=== PATIENT | female | born 1960 | race Caucasian/White ===

== ENCOUNTER 2021-09-15 11:02 | Outpatient (REF) | payer BC, SELFPAY ==
[2021-09-15 11:10] LABS: MANUAL DIFF FLAG NO
[2021-09-15 11:35] LABS: Basophils Absolute Auto 0.1 X10*3/uL (0.0-0.2); Basophils Percent Auto 1.3 % (0-2); Eosinophils Absolute Auto 0.6 X10*3/uL (0.0-0.4); Eosinophils Percent Auto 7.2 % (0-4); Hematocrit 44.4 % (37.0-47.0); Hemoglobin 15.1 g/dl (12.0-16.0); Imm Gran Abs Auto 0.02 X10*3/uL (0.00-0.03); Imm Gran Pct Auto 0.2 % (0.0-0.4); Lymphocytes Absolute Auto 3.9 X10*3/uL (1.2-4.9); Lymphocytes Percent Auto 46.9 % (20-40); Mean Corpuscular Hemoglobin 33.1 pg (27.0-33.0); Mean Corpuscular Volume 97.4 fL (80.0-98.0); Mean Platelet Volume 11.1 fL (9.4-12.3); Monocytes Absolute Auto 0.5 X10*3/uL (0.1-1.2); Monocytes Percent Auto 6.5 % (2-11); Neutrophils Absolute Auto 3.1 x10*3/uL (2.0-8.3); Neutrophils Percent Auto 37.9 % (45-73); Platelet Count 360 X10*3/uL (160-400); Red Blood Count 4.56 X10*6/uL (4.20-5.50); Red Cell Distribution Width 14.7 % (11.0-16.0); White Blood Count 8.3 X10*3/uL (4.8-10.8)
[2021-09-15 11:45] LABS: Appearance Urine CLEAR; Color Urine YELLOW; Glucose Urine UA NEG (NEG); Leukocyte Esterase Urine NEG (NEG); Nitrite Urine NEG (NEG); Specific Gravity - Urine 1.025 (1.005-1.025); Urine Blood NEG (NEG); Urine Ketones NEG (NEG); Urine Protein NEG (NEG-TRACE)
[2021-09-15 11:49] LABS: Alanine Aminotransferase 58 U/L (0-31); Albumin Level 4.2 g/dL (3.5-5.0); Alkaline Phosphatase 72 U/L (39-117); Anion Gap 13 (12-20); Aspartate Amino Transferase 64 U/L (5-31); Bilirubin Total 0.5 mg/dL (0.0-1.0); Blood Urea Nitrogen 5 mg/dL (9-16); Calcium 9.5 mg/dL (8.4-10.2); Carbon Dioxide 30 mmol/L (22-29); Chloride 102 mmol/L (96-108); Cholesterol 128 mg/dL; Estimated Glomerular Filt Rate > 60; Glucose Fasting 85 mg/dL (60-99); HDL Cholesterol 20 mg/dL; LDL Cholesterol Calculated 92 mg/dl; Potassium 4.1 mmol/L (3.3-5.1); Sodium 141 mmol/L (135-145); Total Protein 7.5 g/dL (6.5-8.0); Triglycerides 83 mg/dL
[2021-09-15 12:07] LABS: TSH reflex Free T4 0.96 uIU/mL (0.32-4.0); Vitamin D 25-OH Total 60.1 ng/mL (>30)
[2021-09-15 12:28] LABS: Estimated Average Glucose 91 mg/dL; Hemoglobin A1c % 4.8 %
[2021-09-15 12:34] LABS: Microalbum/Creatinine Ratio Ur 49.1 ug/mg cr
[2021-09-15 12:59] LABS: Reflex LDLD? No
== END 2021-09-15 11:03 | disposition home or self-care (01) ==
LOC: HO.LNP 11:02
PROVIDERS: Visit Provider Internal Medicine
DX: Z00.00 Encounter for general adult medical examination without abnormal findings (principal); R79.89 Other specified abnormal findings of blood chemistry; I25.10 Atherosclerotic heart disease of native coronary artery without angina pectoris; R73.03 Prediabetes; E78.00 Pure hypercholesterolemia, unspecified
CPT/HCPCS: 80053; 80061; 81003; 82043; 82306; 83036; 84443; 85025

== ENCOUNTER 2021-09-24 10:33 | Outpatient (REF) | payer BC, SELFPAY | END 2021-09-24 10:34 | disposition home or self-care (01) | LOC: HO.LNP 10:33 | PROVIDERS: Visit Provider Internal Medicine | DX: Z12.4 Encounter for screening for malignant neoplasm of cervix (principal) | CPT/HCPCS: 88142 ==

== ENCOUNTER 2021-10-16 10:47 | Outpatient (REF) | payer BC, SELFPAY ==
[2021-10-16 10:49] LABS: MANUAL DIFF FLAG NO
[2021-10-16 11:32] LABS: Basophils Absolute Auto 0.1 X10*3/uL (0.0-0.2); Basophils Percent Auto 1.1 % (0-2); Eosinophils Absolute Auto 0.6 X10*3/uL (0.0-0.4); Eosinophils Percent Auto 6.7 % (0-4); Hematocrit 43.3 % (37.0-47.0); Hemoglobin 14.3 g/dl (12.0-16.0); Imm Gran Abs Auto 0.02 X10*3/uL (0.00-0.03); Imm Gran Pct Auto 0.2 % (0.0-0.4); Lymphocytes Absolute Auto 3.9 X10*3/uL (1.2-4.9); Lymphocytes Percent Auto 44.1 % (20-40); Mean Corpuscular Hemoglobin 33.4 pg (27.0-33.0); Mean Corpuscular Volume 101.2 fL (80.0-98.0); Mean Platelet Volume 11.8 fL (9.4-12.3); Monocytes Absolute Auto 0.7 X10*3/uL (0.1-1.2); Monocytes Percent Auto 8.4 % (2-11); Neutrophils Absolute Auto 3.5 x10*3/uL (2.0-8.3); Neutrophils Percent Auto 39.5 % (45-73); Platelet Count 295 X10*3/uL (160-400); Red Blood Count 4.28 X10*6/uL (4.20-5.50); Red Cell Distribution Width 14.6 % (11.0-16.0); White Blood Count 8.8 X10*3/uL (4.8-10.8)
== END 2021-10-16 10:48 | disposition home or self-care (01) ==
LOC: HO.LNP 10:47
PROVIDERS: Visit Provider Internal Medicine
DX: D72.820 Lymphocytosis (symptomatic) (principal)
CPT/HCPCS: 85025

== ENCOUNTER → 2021-12-18 09:24 | Outpatient (REF) | payer BC, SELFPAY ==
--- NOTE | 2021-12-18 09:29 | CA_ITS ---
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 The calculated ejection fraction is 55% by biplane method. - There is mild to moderate aortic valve stenosis. Findings Left Ventricle Normal left ventricular cavity size. There is normal left ventricular wall thickness. The left ventricular systolic function is normal. The calculated ejection fraction is 55% by biplane method. There is no evidence of regional wall motion abnormalities. Diastolic function is normal for age. Right Ventricle Normal right ventricular cavity size. There is mildly decreased right ventricular systolic function. Atria Both atria are normal in size. Aortic Valve There is moderate calcification of the aortic valve. There is mild to moderate aortic valve stenosis. The mean gradient is 17 mmHg. The aortic valve area is 1.08 cm2. There is trace (trivial) aortic valve regurgitation. Dimensionless index 0.36. Stroke volume index 52 cc/m2. Mitral Valve There is mild anterior mitral leaflet thickening. There is trace mitral valve regurgitation. There is no mitral valve stenosis. Pulmonic Valve The pulmonic valve was not well visualized. Tricuspid Valve Normal tricuspid valve structure. There is trace tricuspid valve regurgitation. There is no evidence of pulmonary hypertension. Great Vessels The asc aorta is normal in size. Venous The inferior vena cava is normal in size and collapses greater than 50% with inspiration. Pericardium/Pleural There is no evidence of pericardial effusion. Prior Study Comparison No prior study available for comparison. Measurements 2D Linear Measurements IVSd: 0.88 0.6-0.9/0.6-1.0 cm LVIDd: 3.83 3.9-5.3/4.2-5.9 cm LVIDd Index: 2.55 2.4-3.2/2.2-3.1 cm/m2 LVIDs: 2.40 2.0-3.6 cm LVPWd: 0.67 0.7-1.1 cm LA Diam: 2.80 2.7-3.8/3.0-4.0 cm LAIDs Index: 1.87 1.5-2.3 cm/m2 LV Mass: 102.89 67-162/88-224 g LV Mass Index: 68.59 43-95/49-115 g/m2 LVOT Diam: 2.10 3.0+(-)1.3 cm 2D Systolic Function EF 4C: 53.80 >55% EF 2C: 54.30 >55% EF BiP: 54.70 >55% Mitral Valve MV Pk E: 0.80 MV PK A: 0.92 MV Decel Time: 192.00 E/A: 0.90 E'Lateral: 8.16 E'Medial: 5.44 E/E' Med: 14.60 E/E' Lat: 9.80 PHT: 56.00 MVA PHT: 3.93 Decel [place]: 4.15 Aortic Valve AoV Pk Landon: 2.74 AoV Mn Landon: 1.97 AoV VTI: 0.57 AoV Pk Grad: 30.00 Aov Mn Grad: 17.00 ROSALIO Cont.VTI: 1.08 ROSALIO Method: Continuity Equation LVOT LVOT Pk [place]andon: 0.98 LVOT Mn [place]andon: 0.66 LVOT VTI: 0.20 LVOT Pk Grad: 4.00 LVOT Mn Grad: 2.00 LVOT Diam: 2.10 LVOT Area: 3.46 Diastolic Function MV Pk E: 0.80 MV Pk A: 0.92 E/A: 0.90 E'Medial: 5.44 E/E' Med: 14.60 E' Laterial: 8.16 E/E' Lat: 9.80 Right Ventricle TAPSE (mm): 14.30 TVS' Landon: 10.30 Great Vessels Aorta Sinus of Valsalva: 2.66 2.0-3.5 cm Ao Asc: 2.30 2.1-3.4 cm Pulmonary Veins Pulm Vein S/D 1.40 Updated in Other Vendor System with Status of Final Fabrizio Haile MD electronically signed on 12/20/2021 11:56:46 AM with status of Final
== END ==
LOC: HO.CARD 09:24
PROVIDERS: Visit Provider Internal Medicine
DX: R01.1 Cardiac murmur, unspecified (principal)
CPT/HCPCS: 93306

== ENCOUNTER 2022-09-24 11:02 | Outpatient (REF) | payer BC, SELFPAY ==
[2022-09-24 11:05] LABS: MANUAL DIFF FLAG NO
[2022-09-24 11:38] LABS: Appearance Urine Clear; Color Urine Yellow; Glucose Urine UA Negative (Negative); Leukocyte Esterase Urine Negative (Negative); Nitrite Urine Negative (Negative); PH 5.5 (5.0-9.0); Specific Gravity - Urine 1.015 (1.005-1.025); UMIC TRIGGER UACC YES; Urine Blood Trace (Negative); Urine Ketones Negative (Negative); Urine Protein Negative (Neg-Trace)
[2022-09-24 11:39] LABS: Basophils Absolute Auto 0.1 X10*3/uL (0.0-0.2); Basophils Percent Auto 1.4 % (0-2); Eosinophils Absolute Auto 1.2 X10*3/uL (0.0-0.4); Eosinophils Percent Auto 12.1 % (0-4); Hematocrit 41.4 % (37.0-47.0); Hemoglobin 13.6 g/dl (12.0-16.0); Imm Gran Abs Auto 0.03 X10*3/uL (0.00-0.03); Imm Gran Pct Auto 0.3 % (0.0-0.4); Lymphocytes Absolute Auto 4.7 X10*3/uL (1.2-4.9); Lymphocytes Percent Auto 46.2 % (20-40); Mean Corpuscular HGB Conc 32.9 g/dl (31.0-35.0); Mean Corpuscular Hemoglobin 31.3 pg (27.0-33.0); Mean Corpuscular Volume 95.2 fL (80.0-98.0); Mean Platelet Volume 11.9 fL (9.4-12.3); Monocytes Absolute Auto 0.7 X10*3/uL (0.1-1.2); Neutrophils Absolute Auto 3.3 x10*3/uL (2.0-8.3); Platelet Count 301 X10*3/uL (160-400); Red Blood Count 4.35 X10*6/uL (4.20-5.50); Red Cell Distribution Width 14.5 % (11.0-16.0); White Blood Count 10.1 X10*3/uL (4.8-10.8)
[2022-09-24 11:43] LABS: Bacteria Urine None Seen (None Seen); Hyaline Casts Urine 0-2 /LPF (0-2); RBC Urine 0-2 /HPF (0-2); Squamous Epithelial Cell Urine 0-2 /HPF (0-2); WBC Urine 0-5 /HPF (0-5)
[2022-09-24 11:53] LABS: Estimated Average Glucose 100 mg/dL; Hemoglobin A1c % 5.1 %
[2022-09-24 12:14] LABS: Alanine Aminotransferase 35 U/L (0-31); Albumin Level 3.9 g/dL (3.5-5.0); Alkaline Phosphatase 83 U/L (39-117); Anion Gap 12 (12-20); Aspartate Amino Transferase 30 U/L (5-31); Bilirubin Total 0.9 mg/dL (0.0-1.0); Blood Urea Nitrogen 13 mg/dL (9-16); Calcium 9.5 mg/dL (8.4-10.2); Carbon Dioxide 28 mmol/L (22-29); Chloride 108 mmol/L (96-108); Cholesterol 127 mg/dL; Estimated Glomerular Filt Rate > 60; Glucose Fasting 96 mg/dL (60-99); HDL Cholesterol 14 mg/dL; LDL Cholesterol Calculated 81 mg/dl; Potassium 4.1 mmol/L (3.3-5.1); Sodium 144 mmol/L (135-145); Total Protein 7.1 g/dL (6.5-8.0); Triglycerides 162 mg/dL
[2022-09-24 12:34] LABS: Creatinine Urine 83.96 mg/dL; Microalbum/Creatinine Ratio Ur 9.5 ug/mg cr
== END 2022-09-24 11:03 | disposition home or self-care (01) ==
LOC: HO.LNP 11:02
PROVIDERS: Visit Provider Internal Medicine
DX: Z00.00 Encounter for general adult medical examination without abnormal findings (principal); E78.00 Pure hypercholesterolemia, unspecified; D72.820 Lymphocytosis (symptomatic); R73.03 Prediabetes
CPT/HCPCS: 80053; 80061; 81001; 82043; 83036; 85025

== ENCOUNTER 2022-12-24 13:29 | Outpatient (REF) | payer BC, SELFPAY ==
--- NOTE | ~2022-12-24 | CT_ITS ---
EXAMINATION: LUNG CANCER SCREENING CT CHEST WITHOUT CONTRAST CLINICAL INFORMATION: Current smoker with 47 pack year history COMPARISON: None TECHNIQUE: Multidetector volumetric CT imaging of the chest was obtained noncontrast using low dose screening CT technique. Axial thin section 0.625 mm reformations in soft tissue and lung windows were obtained. Sagittal and coronal reformations were obtained. Axial MIP images were also created and reviewed. This CT examination was performed using dose optimization techniques as appropriate, variously including the following: *Automated exposure control *Adjustment of mA and/or kV according to patient size (this includes techniques or standardized protocols for targeted exams where dose is matched to indication/reason for exam; i.e. extremities or head) *Use of iterative reconstruction technique TOTAL EXAM DLP: 38.37 mGy-cm FINDINGS: PULMONARY NODULES (see sage images): No suspicious pulmonary nodules. There are a couple punctate nodules LUNGS / PLEURA: Minimal emphysema. Diffuse mild bronchial wall thickening without bronchiectasis. No pleural effusion or pneumothorax. MEDIASTINUM / DESMOND: Heart normal in size without pericardial effusion. Great vessels normal caliber. No lymphadenopathy. Coronary calcifications present. Imaged thyroid gland unremarkable. CHEST WALL / AXILLA: Unremarkable. UPPER ABDOMEN: Included portions grossly unremarkable allowing for limitations in technique. OSSEOUS STRUCTURES: No acute or suspicious osseous abnormalities. Chronic appearing superior endplate compression fracture at T8. CT/CT lung screening IMPRESSION: * No evidence of pulmonary malignancy. * There are no pulmonary nodules that meet criteria for short interval follow-up at this time. ASSESSMENT: Lung RADS category: 2. Benign appearance or behavior. Nodules with a very low likelihood of becoming a clinically active cancer due to size or lack of growth. Continue annual screening with low-dose CT in 12 months. Probability of malignancy less than 1%. RECOMMENDATION: Follow up low dose CT chest in 1 year.
== END 2022-12-24 13:30 | disposition home or self-care (01) ==
LOC: HO.CT 13:29
PROVIDERS: PCP Internal Medicine; Visit Provider Physician Assistant Medical
DX: Z12.2 Encounter for screening for malignant neoplasm of respiratory organs (principal); F17.210 Nicotine dependence, cigarettes, uncomplicated
CPT/HCPCS: 71271; G0296

== ENCOUNTER 2022-12-30 10:53 | Outpatient (REF) | payer BC, SELFPAY ==
--- NOTE | ~2022-12-30 | MM_ITS ---
EXAMINATION: MM SCREENING DIGITAL BREAST TOMOSYNTHESIS, BILATERAL CLINICAL INFORMATION: Screening. Asymptomatic. The lifetime risk of breast cancer based on the Tyrer-Cuzick Model is 5%. COMPARISON: Mammography: 09/19/2019, 06/12/2018, 01/25/2017 TECHNIQUE: Digital breast tomosynthesis is performed in both the craniocaudal and mediolateral oblique views along with computer-aided detection (CAD). Synthesized 2D images are generated from the tomosynthesis. FINDINGS: The breasts are heterogeneously dense, which may obscure small masses (ACR BI-RADS breast composition Category c). Breast tissue composition borders on average fibroglandular. Parenchymal pattern is similar to prior studies. Scattered minor asymmetries are stable. No developing density or architectural abnormality. There are no significant masses, abnormal calcifications, or other abnormalities. The axilla are unremarkable. MM/MM tomosynthesis screening BI IMPRESSION: No mammographic evidence of malignancy. ASSESSMENT: BI-RADS 2: Benign RECOMMENDATION: Routine annual mammography screening. This patient's information was entered into a reminder system with a target due date for their next mammogram.
== END 2022-12-30 10:54 | disposition home or self-care (01) ==
LOC: HO.MAMMO 10:53
PROVIDERS: PCP Internal Medicine; Visit Provider Internal Medicine
DX: Z12.31 Encounter for screening mammogram for malignant neoplasm of breast (principal)
CPT/HCPCS: 77063; 77067

== ENCOUNTER 2023-03-22 10:19 | Outpatient (REF) | payer BC, SELFPAY ==
[2023-03-22 10:48] LABS: Estimated Average Glucose 88 mg/dL; Hemoglobin A1c % 4.7 % (<6.0)
[2023-03-22 10:50] LABS: Cholesterol 101 mg/dL (<200); HDL Cholesterol 22 mg/dL (>40); LDL Cholesterol Calculated 64 mg/dL (<100); Triglycerides 75 mg/dL (<150)
[2023-03-22 10:54] LABS: Alanine Aminotransferase 28 U/L (0-31); Alkaline Phosphatase 70 U/L (39-117); Aspartate Amino Transferase 34 U/L (5-31); Bilirubin Direct 0.3 mg/dL (0.0-0.5); Bilirubin Total 0.8 mg/dL (0.0-1.0); Glucose Fasting 107 mg/dL (60-99); Total Protein 7.3 g/dL (6.5-8.0)
[2023-03-22 11:41] LABS: Reflex LDLD? No
== END 2023-03-22 10:20 | disposition home or self-care (01) ==
LOC: HO.LNP 10:19
PROVIDERS: Visit Provider Internal Medicine
DX: E78.00 Pure hypercholesterolemia, unspecified (principal); R73.03 Prediabetes
CPT/HCPCS: 80061; 80076; 82947; 83036

== ENCOUNTER 2023-09-27 11:44 | Outpatient (REF) | payer MEDICARE, SELFPAY ==
[2023-09-27 11:50] LABS: MANUAL DIFF FLAG NO
[2023-09-27 12:16] LABS: Basophils Absolute Auto 0.1 X10*3/uL (0.0-0.2); Basophils Percent Auto 1.1 % (0-2); Eosinophils Absolute Auto 0.9 X10*3/uL (0.0-0.4); Eosinophils Percent Auto 10.2 % (0-4); Hematocrit 43.4 % (37.0-47.0); Hemoglobin 14.7 g/dl (12.0-16.0); Imm Gran Abs Auto 0.02 X10*3/uL (0.00-0.03); Imm Gran Pct Auto 0.2 % (0.0-0.4); Lymphocytes Absolute Auto 3.6 X10*3/uL (1.2-4.9); Lymphocytes Percent Auto 38.8 % (20-40); Mean Corpuscular HGB Conc 33.9 g/dl (31.0-35.0); Mean Corpuscular Hemoglobin 32.3 pg (27.0-33.0); Mean Corpuscular Volume 95.4 fL (80.0-98.0); Mean Platelet Volume 10.9 fL (9.4-12.3); Monocytes Absolute Auto 0.6 X10*3/uL (0.1-1.2); Monocytes Percent Auto 6.6 % (2-11); Neutrophils Percent Auto 43.1 % (45-73); Platelet Count 353 X10*3/uL (160-400); Red Blood Count 4.55 X10*6/uL (4.20-5.50); Red Cell Distribution Width 14.6 % (11.0-16.0); White Blood Count 9.2 X10*3/uL (4.8-10.8)
[2023-09-27 12:28] LABS: Appearance Urine Clear; Color Urine Yellow; Estimated Average Glucose 103 mg/dL; Glucose Urine UA Negative (Negative); Hemoglobin A1c % 5.2 % (<6.0); Leukocyte Esterase Urine Negative (Negative); Nitrite Urine Negative (Negative); PH 6.5 (5.0-9.0); Urine Blood Negative (Negative); Urine Ketones Negative (Negative); Urine Protein Negative (Neg-Trace)
[2023-09-27 12:40] LABS: Alanine Aminotransferase 19 U/L (0-31); Albumin Level 4.1 g/dL (3.5-5.0); Alkaline Phosphatase 74 U/L (39-117); Anion Gap 14 (12-20); Aspartate Amino Transferase 24 U/L (5-31); Bilirubin Total 0.8 mg/dL (0.0-1.0); Blood Urea Nitrogen 7 mg/dL (9-16); Calcium 9.5 mg/dL (8.4-10.2); Carbon Dioxide 28 mmol/L (22-29); Chloride 104 mmol/L (96-108); Cholesterol 149 mg/dL (<200); Estimated Glomerular Filt Rate > 60; Glucose Fasting 114 mg/dL (60-99); HDL Cholesterol 20 mg/dL (>40); LDL Cholesterol Calculated 98 mg/dL (<100); Potassium 3.8 mmol/L (3.3-5.1); Sodium 142 mmol/L (135-145); Total Protein 7.6 g/dL (6.5-8.0); Triglycerides 158 mg/dL (<150)
[2023-09-27 12:55] LABS: Bacteria Urine None Seen (None Seen); Hyaline Casts Urine 0-2 /LPF (0-2); RBC Urine 0-2 /HPF (0-2); Squamous Epithelial Cell Urine 0-2 /HPF (0-2); WBC Urine 0-5 /HPF (0-5)
[2023-09-27 13:08] LABS: Creatinine Urine 98.47 mg/dL; Microalbum/Creatinine Ratio Ur 13.2 ug/mg cr (<30)
== END 2023-09-27 11:45 | disposition home or self-care (01) ==
LOC: HO.LNP 11:44
PROVIDERS: Visit Provider Internal Medicine
DX: Z00.00 Encounter for general adult medical examination without abnormal findings (principal); E78.6 Lipoprotein deficiency; R73.03 Prediabetes; D72.820 Lymphocytosis (symptomatic); E78.00 Pure hypercholesterolemia, unspecified
CPT/HCPCS: 80053; 80061; 81001; 82043; 82570; 83036; 85025

== ENCOUNTER → 2023-10-27 08:47 | Outpatient (REF) | payer MEDICARE, SELFPAY ==
--- NOTE | 2023-10-27 08:55 | CA_ITS ---
Transthoracic Echocardiogram Patient (Last, First, Middle): Ceci Melendez M Gender: Female Date of : 1960 Age: 63 Procedure Date: 10/27/2023 Procedure Type: Transthoracic Echocardiogram Location: OP Height: 165.1 cm Weight: 49.9 kg BSA: 1.53 m2 Heart Rate: bpm BP: 140 / 80 mmHg Sheep Killer: TO Referring MD: Issa Fields MD Symptoms: I35.0 MODERATE Study Quality: Fair ECG Rhythm: Sinus Conclusions: - The left ventricular systolic function is normal. The visually estimated ejection fraction is between 55-60%. - The basal inferior and basal inferolateral segments are hypokinetic. - There is moderate aortic valve stenosis. Findings Left Ventricle Normal left ventricular cavity size. There is normal left ventricular wall thickness. The left ventricular systolic function is normal. The visually estimated ejection fraction is between 55-60%. Evidence suggests grade I (mild) diastolic dysfunction. LV peak GLS -16.6%. Wall Motion Rest Echo Findings The basal inferior and basal inferolateral segments are hypokinetic. Right Ventricle Normal right ventricular cavity size and systolic function. Atria Both atria are normal in size. Aortic Valve There is severe calcification of the aortic valve. There is moderate aortic valve stenosis. The peak aortic velocity is 2.85 m/s with a calculated peak gradient of 32 mmHg. The mean gradient is 20 mmHg. The aortic valve area is 1.02 cm2. There is no aortic valve regurgitation. Dimensionless index 0.35. Stroke volume index 46ml/m2. Mitral Valve There is mild anterior mitral leaflet thickening. There is trace mitral valve regurgitation. There is no mitral valve stenosis. Pulmonic Valve The pulmonic valve is likely normal. Tricuspid Valve There is trace tricuspid valve regurgitation. There is no evidence of pulmonary hypertension. Great Vessels The asc aorta is normal in size. Venous The inferior vena cava is normal in size and collapses greater than 50% with inspiration. Pericardium/Pleural There is no evidence of pericardial effusion. Prior Study Comparison No significant change compared to prior study dated: 12/18/2021. (wall motion noted in some prior images). Measurements 2D Linear Measurements IVSd: 0.97 0.6-0.9/0.6-1.0 cm LVIDd: 4.11 3.9-5.3/4.2-5.9 cm LVIDd Index: 2.69 2.4-3.2/2.2-3.1 cm/m2 LVIDs: 2.70 2.0-3.6 cm LVPWd: 0.64 0.7-1.1 cm LA Diam: 3.10 2.7-3.8/3.0-4.0 cm LAIDs Index: 2.03 1.5-2.3 cm/m2 LV Mass: 121.82 67-162/88-224 g LV Mass Index: 79.62 43-95/49-115 g/m2 LVOT Diam: 2.00 3.0+(-)1.3 cm 2D Systolic Function EF 4C: 56.00 >55% EF 2C: 67.40 >55% EF BiP: 60.10 >55% Mitral Valve MV Pk E: 0.78 MV PK A: 0.85 MV Decel Time: 238.00 E/A: 0.90 E'Lateral: 7.72 E'Medial: 5.33 E/E' Med: 14.60 E/E' Lat: 10.10 PHT: 70.00 MVA PHT: 3.14 Decel [place]: 3.26 Aortic Valve AoV Pk [place]: 2.85 AoV Mn [place]: 2.16 AoV VTI: 0.70 AoV Pk Grad: 32.00 Aov Mn Grad: 20.00 ROSALIO Cont.VTI: 1.02 LVOT LVOT Pk [place]: 1.01 LVOT Mn [place]: 0.68 LVOT VTI: 0.23 LVOT Pk Grad: 4.00 LVOT Mn Grad: 2.00 LVOT Diam: 2.00 LVOT Area: 3.14 Diastolic Function MV Pk E: 0.78 MV Pk A: 0.85 E/A: 0.90 E'Medial: 5.33 E/E' Med: 14.60 E' Laterial: 7.72 E/E' Lat: 10.10 Right Ventricle TAPSE (mm): 22.30 TVS' [place]: 10.10 Tricuspid Valve RA Press: 3.00 Great Vessels Aorta Sinus of Valsalva: 3.36 2.0-3.5 cm Ao Asc: 2.80 2.1-3.4 cm Ao Arch: 2.60 Updated in Other Vendor System with Status of Final Fabrizio Haile MD electronically signed on 10/28/2023 11:31:21 AM with status of Final
== END ==
LOC: HO.CARD 08:47
PROVIDERS: PCP Internal Medicine; Visit Provider Internal Medicine
DX: I35.0 Nonrheumatic aortic (valve) stenosis (principal)
CPT/HCPCS: 93306; 93356

== ENCOUNTER → 2023-10-27 08:55 | Outpatient (BNV) | payer MEDICARE, SELFPAY | PROVIDERS: PCP Internal Medicine; Visit Provider Internal Medicine | DX: I35.0 Nonrheumatic aortic (valve) stenosis (principal) | CPT/HCPCS: 93306; 93356 ==

== ENCOUNTER 2024-01-05 10:47 | Outpatient (REF) | payer MEDICARE, SELFPAY ==
--- NOTE | ~2024-01-05 | MM_ITS ---
EXAMINATION: MM SCREENING DIGITAL BREAST TOMOSYNTHESIS, BILATERAL CLINICAL INFORMATION: Screening. Asymptomatic. COMPARISON: Mammography: This study is compared with prior exams dating back to 2018. TECHNIQUE: Digital breast tomosynthesis is performed in both the craniocaudal and mediolateral oblique views along with computer-aided detection (CAD). Synthesized 2D images are generated from the tomosynthesis. FINDINGS: There are scattered areas of fibroglandular density (ACR BI-RADS breast composition Category b). There are no significant masses, abnormal calcifications, or other abnormalities. There are bilateral benign calcifications. There is postsurgical changes in the inferior aspect of the left breast. MM/MM tomosynthesis screening BI IMPRESSION: No mammographic evidence of malignancy. ASSESSMENT: BI-RADS BI-RADS 2 - Benign Findings RECOMMENDATION: Routine annual mammography screening. 1 year F/U This examination should not preclude the clinical evaluation of a suspicious palpable abnormality. This patient's information was entered into a reminder system with a target due date for their next mammogram.
== END 2024-01-05 10:48 | disposition home or self-care (01) ==
LOC: HO.MAMMO 10:47
PROVIDERS: PCP Internal Medicine; Visit Provider Internal Medicine
DX: Z12.31 Encounter for screening mammogram for malignant neoplasm of breast (principal)
CPT/HCPCS: 77063; 77067

== ENCOUNTER → 2024-01-05 11:00 | Outpatient (BNV) | payer MEDICARE, SELFPAY | PROVIDERS: PCP Internal Medicine; Visit Provider Radiology Diagnostic Radiology | DX: Z12.31 Encounter for screening mammogram for malignant neoplasm of breast (principal) | CPT/HCPCS: 77063; 77067 ==

== ENCOUNTER 2024-03-30 10:42 | Outpatient (REF) | payer MEDICARE, SELFPAY ==
[2024-03-30 11:42] LABS: Estimated Average Glucose 97 mg/dL; Hemoglobin A1C 111.7619 umol/L; Total Hemoglobin (HGBA1C) 3574.0409 umol/L
[2024-03-30 12:11] LABS: Alanine Aminotransferase 17 U/L (0-31); Albumin Level 4.1 g/dL (3.5-5.0); Alkaline Phosphatase 76 U/L (39-117); Aspartate Amino Transferase 25 U/L (5-31); Bilirubin Direct 0.2 mg/dL (0.0-0.5); Bilirubin Total 0.9 mg/dL (0.0-1.0); Cholesterol 117 mg/dL (<200); Glucose Fasting 111 mg/dL (60-99); HDL Cholesterol 20 mg/dL (>40); LDL Cholesterol Calculated 79 mg/dL (<100); Total Protein 7.5 g/dL (6.5-8.0); Triglycerides 91 mg/dL (<150)
[2024-03-30 12:49] LABS: Reflex LDLD? No
== END 2024-03-30 10:43 | disposition home or self-care (01) ==
LOC: HO.LNP 10:42
PROVIDERS: Visit Provider Internal Medicine
DX: R73.03 Prediabetes (principal); E78.00 Pure hypercholesterolemia, unspecified
CPT/HCPCS: 80061; 80076; 82947; 83036

== ENCOUNTER 2024-04-11 10:50 | Outpatient (REF) | payer MEDICARE, SELFPAY ==
--- NOTE | ~2024-04-11 | CT_ITS ---
EXAMINATION: CT LOW-DOSE SCREENING CHEST WITHOUT CONTRAST CLINICAL INFORMATION: Personal history of nicotine dependence. The patient has a 46 pack-year history of smoking, having quit 6 days ago. COMPARISON: CT chest 12/24/2022. TECHNIQUE: Multidetector volumetric CT imaging of the chest is performed on a Siemens SOMATOM Definition scanner without contrast using low dose technique. Additional 2D coronal and sagittal reformatted images and axial 3D maximum intensity projection (MIP) images are generated on the CT workstation. This CT examination was performed using dose optimization techniques as appropriate, variously including the following: *Automated exposure control *Adjustment of mA and/or kV according to patient size (this includes techniques or standardized protocols for targeted exams where dose is matched to indication/reason for exam; i.e. extremities or head) *Use of iterative reconstruction technique TOTAL EXAM DLP: 38 mGy-cm. CTDIvol: 1.00 mGy. FINDINGS: PULMONARY NODULES: Some small punctate nodules, none larger than 3 mm in size, are unchanged (see saved sage images). There is no new, increasing sized or suspicious pulmonary nodule present. LUNGS: Lungs bilaterally symmetrically expanded. There is moderate emphysema along with mild bronchial thickening without bronchiectasis. No effusion or pneumothorax. Central airways patent. MEDIASTINUM: No mediastinal, hilar or axillary adenopathy or free fluid collection. CORONARY ARTERY CALCIFICATION: Moderate. THYROID GLAND: Unremarkable to the extent seen. CARDIOVASCULAR STRUCTURES: Aortic and heart size normal. No pericardial effusion. CHEST WALL/AXILLA: Unremarkable. UPPER ABDOMEN: Included portions of the solid organs in the upper abdomen unremarkable on noncontrast imaging. OSSEOUS STRUCTURES: No suspicious focal findings. Chronic superior endplate fracture of T8 is unchanged. CT/CT lung screening IMPRESSION: No finding seen suspicious for malignancy. ASSESSMENT: 1. Lung-RADS Category 2: Benign appearance or behavior of nodules. N/A 2. Lung-RADS Category S: Negative. There are no clinically significant or potentially clinically significant findings not related to the lungs requiring urgent additional evaluation. RECOMMENDATION: Continued routine annual low-dose CT lung screening in 1 year is recommended. An order for CT CHEST LOW DOSE CANCER SCREENING ([id number]) can be placed. Electronically signed by: Guru Barney MD 05/27/2024 11:14 AM [facility]
== END 2024-04-11 10:51 | disposition home or self-care (01) ==
LOC: HO.CT 10:50
PROVIDERS: PCP Internal Medicine; Visit Provider Physician Assistant Medical
DX: Z12.2 Encounter for screening for malignant neoplasm of respiratory organs (principal); Z87.891 Personal history of nicotine dependence
CPT/HCPCS: 71271

== ENCOUNTER 2024-09-27 10:49 | Outpatient (REF) | payer MEDICARE, SELFPAY ==
[2024-09-27 10:53] LABS: MANUAL DIFF FLAG NO
[2024-09-27 11:01] LABS: Appearance Urine Clear; Color Urine Yellow; Glucose Urine UA Negative (Negative); Leukocyte Esterase Urine Negative (Negative); Nitrite Urine Negative (Negative); Specific Gravity - Urine 1.015 (1.005-1.025); Urine Blood Negative (Negative); Urine Ketones Negative (Negative); Urine Protein Negative (Neg-Trace)
[2024-09-27 11:03] LABS: Basophils Absolute Auto 0.1 X10*3/uL (0.0-0.2); Basophils Percent Auto 1.5 % (0-2); Eosinophils Absolute Auto 1.5 X10*3/uL (0.0-0.4); Eosinophils Percent Auto 15.5 % (0-4); Hematocrit 41.6 % (37.0-47.0); Hemoglobin 13.8 g/dl (12.0-16.0); Imm Gran Abs Auto 0.02 X10*3/uL (0.00-0.03); Imm Gran Pct Auto 0.2 % (0.0-0.4); Lymphocytes Absolute Auto 3.4 X10*3/uL (1.2-4.9); Lymphocytes Percent Auto 35.7 % (20-40); Mean Corpuscular HGB Conc 33.2 g/dl (31.0-35.0); Mean Corpuscular Hemoglobin 31.4 pg (27.0-33.0); Mean Corpuscular Volume 94.5 fL (80.0-98.0); Mean Platelet Volume 11.2 fL (9.4-12.3); Monocytes Absolute Auto 0.7 X10*3/uL (0.1-1.2); Monocytes Percent Auto 6.8 % (2-11); Neutrophils Absolute Auto 3.9 x10*3/uL (2.0-8.3); Neutrophils Percent Auto 40.3 % (45-73); Platelet Count 331 X10*3/uL (160-400); Red Cell Distribution Width 13.9 % (11.0-16.0); White Blood Count 9.6 X10*3/uL (4.8-10.8)
[2024-09-27 11:08] LABS: Bacteria Urine None Seen (None Seen); Hyaline Casts Urine 0-2 /LPF (0-2); RBC Urine 0-2 /HPF (0-2); Squamous Epithelial Cell Urine 0-2 /HPF (0-2); WBC Urine 0-5 /HPF (0-5)
[2024-09-27 11:14] LABS: Estimated Average Glucose 103 mg/dL; Hemoglobin A1c % 5.2 % (<6.0); Total Hemoglobin (HGBA1C) 3611.3715 umol/L
[2024-09-27 11:18] LABS: Alanine Aminotransferase 25 U/L (0-31); Albumin Level 4.1 g/dL (3.5-5.0); Alkaline Phosphatase 79 U/L (39-117); Anion Gap 11 (12-20); Aspartate Amino Transferase 32 U/L (5-31); Bilirubin Total 0.9 mg/dL (0.0-1.0); Blood Urea Nitrogen 12 mg/dL (9-16); Calcium 9.5 mg/dL (8.4-10.2); Carbon Dioxide 28 mmol/L (22-29); Chloride 106 mmol/L (96-108); Cholesterol 133 mg/dL (<200); Estimated Glomerular Filt Rate > 60; Glucose Fasting 108 mg/dL (60-99); HDL Cholesterol 19 mg/dL (>40); LDL Cholesterol Calculated 90 mg/dL (<100); Potassium 3.9 mmol/L (3.3-5.1); Sodium 141 mmol/L (135-145); Total Protein 7.6 g/dL (6.5-8.0); Triglycerides 124 mg/dL (<150)
[2024-09-27 11:59] LABS: Creatinine Urine 123.47 mg/dL; Microalbum/Creatinine Ratio Ur 9.7 ug/mg cr (<30)
== END 2024-09-27 10:50 | disposition home or self-care (01) ==
LOC: HO.LNP 10:49
PROVIDERS: Visit Provider Internal Medicine
DX: Z00.00 Encounter for general adult medical examination without abnormal findings (principal); E78.00 Pure hypercholesterolemia, unspecified; R73.03 Prediabetes; D72.820 Lymphocytosis (symptomatic)
CPT/HCPCS: 80053; 80061; 81001; 82043; 82570; 83036; 85025

== ENCOUNTER → 2024-10-31 13:26 | Outpatient (REF) | payer MEDICARE, SELFPAY ==
--- NOTE | 2024-10-31 14:22 | CA_ITS ---
Transthoracic Echocardiogram Patient (Last, First, Middle): Ceci Melendez M Gender: Female Date of : 1960 Age: 64 Procedure Date: 10/31/2024 Procedure Type: Transthoracic Echocardiogram Location: OP Height: 167.64 cm Weight: 54.43 kg BSA: 1.61 m2 Heart Rate: bpm BP: 130 / 82 mmHg Clinical Veterinarian: TO Referring MD: Issa Fields MD Symptoms: SEVERE I35.0 Study Quality: Adequate ECG Rhythm: Sinus Conclusions: - The left ventricular systolic function is normal. The calculated ejection fraction is 66% by biplane method. - The basal inferior and basal inferolateral segments are hypokinetic. - There is moderate to severe aortic valve stenosis. Findings Left Ventricle Normal left ventricular cavity size. The left ventricular systolic function is normal. The calculated ejection fraction is 66% by biplane method. Evidence suggests grade I (mild) diastolic dysfunction. There is moderate septal asymmetric hypertrophy. Wall Motion Rest Echo Findings The basal inferior and basal inferolateral segments are hypokinetic. Right Ventricle Normal right ventricular cavity size and systolic function. Atria Both atria are normal in size. Aortic Valve There is moderate calcification of the aortic valve. There is moderate to severe aortic valve stenosis. The peak aortic velocity is 3.43 m/s with a calculated peak gradient of 47 mmHg. The mean gradient is 29 mmHg. The aortic valve area is 0.91 cm2. There is trace (trivial) aortic valve regurgitation. Cannot assess if trileaflet or bicuspid. Dimensionless index 0.3. Stroke volume index 42 mL/m2. Mitral Valve The mitral valve appears normal. There is no mitral valve regurgitation. There is no mitral valve stenosis. Pulmonic Valve The pulmonic valve is likely normal. Tricuspid Valve There is trace tricuspid valve regurgitation. There is no evidence of pulmonary hypertension. Great Vessels The asc aorta is normal in size. Venous The inferior vena cava is normal in size and collapses greater than 50% with inspiration. Pericardium/Pleural There is no evidence of pericardial effusion. Prior Study Comparison Changes noted compared to prior study dated: 10/27/2023. Progression of aortic valve stenosis. Measurements 2D Linear Measurements IVSd: 1.04 0.6-0.9/0.6-1.0 cm LVIDd: 4.07 3.9-5.3/4.2-5.9 cm LVIDd Index: 2.53 2.4-3.2/2.2-3.1 cm/m2 LVIDs: 2.76 2.0-3.6 cm LVPWd: 0.72 0.7-1.1 cm LA Diam: 3.10 2.7-3.8/3.0-4.0 cm LAIDs Index: 1.93 1.5-2.3 cm/m2 LV Mass: 136.07 67-162/88-224 g LV Mass Index: 84.52 43-95/49-115 g/m2 LVOT Diam: 2.00 3.0+(-)1.3 cm 2D Systolic Function EF 4C: 64.10 >55% EF 2C: 68.70 >55% EF BiP: 66.40 >55% Mitral Valve MV Pk E: 0.63 MV PK A: 1.22 MV Decel Time: 124.00 E/A: 0.50 E'Lateral: 5.11 E'Medial: 3.81 E/E' Med: 16.50 E/E' Lat: 12.30 PHT: 36.00 MVA PHT: 6.11 Decel [place]: 5.08 Aortic Valve AoV Pk Landon: 3.43 AoV Mn Landon: 2.62 AoV VTI: 0.75 AoV Pk Grad: 47.00 Aov Mn Grad: 29.00 ROSALIO Cont.VTI: 0.91 LVOT LVOT Pk Landon: 1.03 LVOT Mn Landon: 0.67 LVOT VTI: 0.22 LVOT Pk Grad: 4.00 LVOT Mn Grad: 2.00 LVOT Diam: 2.00 LVOT Area: 3.14 Diastolic Function MV Pk E: 0.63 MV Pk A: 1.22 E/A: 0.50 E'Medial: 3.81 E/E' Med: 16.50 E' Laterial: 5.11 E/E' Lat: 12.30 Right Ventricle TAPSE (mm): 23.00 TVS' Landon: 11.20 Tricuspid Valve RA Press: 3.00 Great Vessels Aorta Sinus of Valsalva: 2.96 2.0-3.5 cm Ao Asc: 3.10 2.1-3.4 cm Ao Arch: 2.60 Updated in Other Vendor System with Status of Final Fabrizio Haile MD electronically signed on 10/31/2024 3:51:46 PM with status of Final
--- OUTSIDE RECORDS SUMMARY | 2024-10-31 15:55 | XMS_ITS ---
Author Organization Issa Fields MD Address [address] [place] [phone] Care Team Providers Care Welding Engineer Name Role Phone Issa Fields Primary Care Provider REASON FOR VISIT REFILL ROSUVASTATIN Medications Medication SIG (Take, Route, Frequency, Duration) Notes Start Date End Date Status Rosuvastatin Calcium 40 mg TAKE 1 TABLET DAILY ORALLY DAILY for 90 days Active Encounters Encounter Location Date Provider Diagnosis Issa Fields MD [address] [place] [phone] 10/25/2024 Issa Fields Pure hypercholestero lemia E78.00 Assessments Encounter Date Diagnosis (ICD Code) Assessment Notes Treatment Notes Treatment Clinical Notes Section Notes 10/25/2024 Pure hypercholesterolemia (ICD-10 - E78.00) Plan Of Treatment Medication Medication Name Sig Start Date Stop Date Notes Rosuvastatin Calcium 40 mg TAKE 1 TABLET DAILY ORALLY DAILY for 90 days Next Appt Details Provider Name:Issa keen, 04/05/2025 07:30:00 AM, [address] [place] [address], [address], [phone], Provider Name:Issa keen, 04/12/2025 10:45:00 AM, [address] [place] [address], [address], [phone], Provider Name:Issa Patrick ier, 10/10/2025 07:15:00 AM, [address], [address], [place], [phone], Provider Name:Issa Patrick ier, 10/17/2025 11:00:00 AM, [address], [address], [place], [phone], Progress Notes * Paige MELENDEZOB:1960 (64 yo F)Acc No.[id number]:10/25/2024 Patient:?Ceci MELENDEZ :1960???Age:64 Y???Sex:Female Address:[address] [place] [phone] * Refills? Refill Rosuvastatin Calcium Tablet, 40 mg, ORALLY, 90, TAKE 1 TABLET DAILY, DAILY, 90 days, Refills=3 * true * Date:? Generated for Molly oro/Maria Antonia/eTransmitting on:?10/31/2024 03:55 PM EDT
--- OUTSIDE RECORDS SUMMARY | 2024-10-31 15:55 | XMS_ITS | Patient Health Record ---
Author Organization [facility] [place] Address [address] [place] [address] Care Team Providers Care Small Engine Technician Name Role Phone Issa Fields MD Primary Care Provider Charlene Kendrick Unavailable [phone] Edwin Bradshaw Unavailable [phone] Allergies Allergen (clinical drug ingredient) Drug/Non Drug Allergy documented on EMR Reaction Allergy Type Onset Date Status aspirin Aspirin flares up nasal polyps Drug Allergy Active morphine Morphine itchy Drug Allergy Active Reason For Referral No Information Medications Medication SIG (Take, Route, Frequency, Duration) Notes Start Date End Date Status Fluticasone Propionate 50 MCG/ACT 1 spray in each nostril Nasally Once a day Active Chantix 1 MG 1 tablet Orally Twic e a day Unknown flonase 50 mcg/act as directed Unknown Crestor 40 MG 1 tablet Orally Once a day Unknown Rosuvastatin Calcium 40 MG 1 tablet Oral ly Once a day Active Advair Diskus 100-50 MCG/DOSE 1 puff Inhalation every 12 hrs Active Social History Tobacco Use: Social History Observation Description Date Details (start date - stop date) Former Smoker NA - NA Tobacco use other than smoking: Question Answer Notes Are you an other tobacco user? No Tobacco Control (Standard) Question Answer Notes Tobacco use: Former smoker Additional Findings: Tobacco non-user Ex-cigaret te smoker Problems Problem Type SNOMED Code ICD Code Onset Dates Problem Status W/U Status Risk Notes Problem Acquired hallux valgus (48768452) Hallux valgus (acquired), left foot (M20.12) Active confirmed Problem Plantar wart (76404780) Plantar wart (B07.0) Active confirmed Problem Acquired hammer toe of left foot (71586652067 ) Other hammer toe(s) (acquired), left foot (M20.42) Active confirmed Problem Acquired hallux rigidus (9122891) Hallux rigidus, right foot (M20.21) Active confirmed Problem Acquired hammer toe of left foot (96441425294 ) Hammer toe of left foot (M20.42) Active confirmed Improvement Problem Spasm (52526629) Extensor tendon tightness, contracture (M62.40) Active confirmed Improvement Vital Signs Blood pressure diastolic 80 mm Hg 05/24/2024 Height 5ft6in in 05/24/2024 Blood pressure systolic 130 mm Hg 05/24/2024 Weight 112 lbs 05/24/2024 BMI 18.08 kg/m2 05/24/2024 Procedures Procedure Date Ordered Date Performed Result Body Sit e 64961 - Tenotomy, open flexor 05/17/2024 N/A 97931-Ewsd Destruction, 1-14 05/24/2024 N/A Encounters Encounter Location Date Provider Diagnosis [address] [address] 02/27/2024 Edwin Bradshaw Pain in left toe(s) M79.675 ; Other hammer toe(s) (acquired), left foot M20.42 and Hallux valgus (acquired), left foot M20.[address] [address] 05/17/2024 Charlene Black Hammer toe of left foot M20.[address] [address] 05/24/2024 Charlene Black Hammer toe of left foot M20.42 ; Plantar wart B07.0 and Right foot pain M79.[address] [address] 12/14/2023 Edwin Bradshaw [address] [address] 02/27/2024 Edwin Bradshaw Assessments Encounter Date Diagnosis (ICD Code) Assessment Notes Treatment Notes Treatment Clinical Notes Section Notes 02/27/2024 Pain in left toe(s) (ICD-10 - M79.675) 02/27/2024 Other hammer toe(s) (acquired), left foot (ICD-10 - M20.42) 05/17/2024 Hammer toe of left foot (ICD-10 - M20.42) 05/24/2024 Plantar wart (ICD-10 - B07.0) 05/24/2024 Hammer toe of left foot (ICD-10 - M20.42) Improvement 05/24/2024 Right foot pain (ICD-10 - M79.671) 02/27/2024 Hallux valgus (acquired), left foot (ICD-10 - M20.12) Plan Of Treatment Pending Test Test Name Order Date X ray : Foot, left 3V 11/28/2017 X ray : Foot, left 3V 02/27/2024 X ray : Foot, right 3V 11/28/2017 30569-Sfrk Destruction, -05/24/2024 21329-Ijhd Destruction, -12/19/2017 65418-Ycsm Destruction, -01/16/2018 08885-Waer Destruction, -02/24/2012 63626-Kkyu Destruction, -05/16/2013 71450-Iepe Destruction, 07-2411/28/2017 60125 - Tenotomy, open flexor 05/17/2024 Insurance Providers Payer Name Payer Address Payer Phone Subscriber Number Group Number Insured Name Patient Relationship to Insured Coverage Start Date Coverage End Date [employer] Medicare [id number] [address] [address] [place] [address] [id number] Ceci Melendez Self - patient is the insured Medical (General) History Medical History History ICD Code asthma CAD (Cholesterol) Surgical History Surgery Date(Month/Year) bunionectomy x2 2004/2006 elbow sx 2010 polypectomy 2006, 2009 Ulna nerve Biopsy nasal polypectomy 2013,2018
--- OUTSIDE RECORDS SUMMARY | 2024-10-31 15:55 | XMS_ITS ---
Author Organization [facility] Address [address] [facility] [place] [address] Care Team Providers Care Speeder Machine Operator Name Role Phone Issa Fields MD Primary Care Provider Charlene Kendrick Unavailable [phone] Edwin Bradshaw [phone] REASON FOR VISIT bought products Encounters Encounter Location Date Provider Diagnosis [facility] [address] [place] [address] 02/27/2024 Edwin Bradshaw Plan Of Treatment No Information Progress Notes * Ceci MELENDEZ MDOB: [birth year] (63 yo F)Acc No.[id number]:02/27/2024 Patient:?Ceci Melendez :1960???Age:63 Y???Sex:Female Address:[address] [place] [address] * true * Date:? Generated for Printi ng/Faxing/eTransmitting on:?10/31/2024 03:55 PM EDT
--- OUTSIDE RECORDS SUMMARY | 2024-10-31 15:55 | XMS_ITS | Patient Health Record ---
Author Organization Issa Fields MD Address [address] [place], [place] [id number] Care Team Providers Care Principal Mechanical Engineer Name Role Phone Issa Fields Primary Care Provider [phone] Allergies Allergen (clinical drug ingredient) Drug/Non Drug Allergy documented on EMR Reaction Allergy Type Onset Date Status morphine Morphine Sulfate itch Drug Allergy Active Results Component Value Reference Range Notes Liver Panel Reviewed date:03/30/2024 02:38:27 PM Interpretation: Performing Lab:[address] [phone] Notes/Report: Bilirubin Total 0.9 0.0-1.0 mg/dL Bilirubin Direct 0.2 0.0-0.5 mg/dL Slight Hem olysis Aspartate Amino Transferase 25 5-31 U/L Slight Hemolysis Alanine Aminotransferase 17 0-31 U/L Total Protein 7.5 6.5-8.0 g/dL Albumin Level 4.1 3.5-5.0 g/dL Alkaline Phosphatase 76 39-117 U/L Glucose Fasting Reviewed date:03/30/2024 02:23:42 PM Interpretation: Performing Lab:[address] [phone] Notes/Report: Glucose Fasting 111 60-99 mg/dL A fasting glucose from 100-125 mg/dl is considered impaired (pre-diabetes). Lipid Panel with Reflex Reviewed date:03/30/2024 02:54:01 PM Interpretation: Performing Lab:[facility], [address] [place] [phone] Notes/Report: Triglycerides 91 <150 mg/dL Desirable Triglyceride: less than 150 mg/dL Borderline High Triglyceride 150-199 mg/dL High Triglyceride: 200-499 mg/dL Very High Triglyceride: greater than or equal to 5OO mg/dL Cholesterol 117 <200 mg/dL Desirable Cholesterol: less than 200 mg/dL Borderline High Cholesterol: 200-239 mg/dL High Cholesterol: greater than 239 mg/dL LDL Cholesterol Calculated 79 <100 mg/dL Desirable LDL: less than 100 mg/dL Near Optimal/Above Optimal LDL: 110-129 mg/dL Borderline High LDL: 130-159 mg/dL High LDL: 160-189 mg/dL Very High LDL: greater than or equal to 190 mg/dL HDL Cholesterol 20 >40 mg/dL Desirable HDL: greater than 40 mg/dL Note: This HDL assay may give artificially low results in patients with liver disease. Hemoglobin A1c Reviewed date:03/30/2024 12:32:51 PM Interpretation: Performing Lab:[facility], [address] [place] [phone] Notes/Report: Hemoglobin A1c % 5.0 <6.0 % Hemoglobin A1C Reference Range Adults: 4.8 - 6.0 % Non diabetic: < 6.0 % Goal: < 7.0 % Additional Action Suggested: > 8.0 % Note: Hemoglobin A1c results are invalid for patients with abnormal amounts of HbF. Blood transfusions may impact the HbA1c concentration in the patient sample. Estimated Average Glucose 97 eAG = Estimated average glucose which is %A1C expressed as average glucose, using the formula of the Y5Z-Jsayuon Average Glucose study (ADAG), Diabetes Care, Vol.31,#8, 2007 Complete Blood Count Auto Di ff Reviewed date:09/27/2024 12:52:10 PM Interpretation: Performing Lab:[facility], [address] [place] [phone] Notes/Report: White Blood Count 9.6 4.8-10.8 X10*3/uL Red Blood Count 4.40 4.20-5.50 X10*6/uL Hemoglobin 13.8 12.0-16.0 g/dl Hematocrit 41.6 37.0-47.0 % Mean Corpuscular Volume 94.5 80.0-98.0 fL Mean Corpuscular Hemoglobin 31.4 27.0-33.0 pg Mean Corpuscular HGB Conc 33.2 31.0-35.0 g/dl Red Cell Distribution Width 13.9 11.0-16.0 % Platelet Count 331 160-400 X10*3/uL Mean Platelet Volume 11.2 9.4-12.3 fL Neutrophils Percent Auto 40.3 45-73 % Imm Gran Pct Auto 0.2 0.0-0.4 % Lymphocytes Percent Auto 35.7 20-40 % Monocytes Percent Auto 6.8 2-11 % Eosinophils Percent Auto 15.5 0-4 % Basophils Percent Auto 1.5 0-2 % NRBC Pct Auto 0.0 0.0-0.2 /100WBC Neutrophils Absolute Auto 3.9 2.0-8.3 x10*3/u L Imm Gran Abs Auto 0.02 0.00-0.03 X10*3/uL Lymphocytes Absolute Auto 3.4 1.2-4.9 X10*3/u L Monocytes Absolute Auto 0.7 0.1-1.2 X10*3/uL Eosinophils Absolute Auto 1.5 0.0-0.4 X10*3/u L Basophils Absolute Auto 0.1 0.0-0.2 X10*3/uL NRBC Abs Auto 0.000 0.0-0.012 X10*3/uL Comprehensive [place]. Panel Fa st Reviewed date:09/27/2024 12:52:33 PM Interpretation: Performing Lab:[facility], [address] [place] [phone] Notes/Report: Sodium 141 135-145 mmol/L Potassium 3.9 3.3-5.1 mmol/L Chloride 106 96-108 mmol/L Carbon Dioxide 28 22-29 mmol/L Anion Gap 11 12-20 Blood Urea Nitrogen 12 9-16 mg/dL Creatinine 0.67 0.5-1.4 mg/dL Estimated Glomerular Filt Rate > 60 Chronic Kidney Disease: Estimated GFR < 60 mL/min/1.73m2 Severe Kidney Disease: Estimated GFR < 15 mL/min/1.73m2 Glucose Fasting 108 60-99 mg/dL A fasting glucose from 100-125 mg/dl is considered impaired (pre-diabetes). Calcium 9.5 8.4-10.2 mg/dL Bilirubin Total 0.9 0.0-1.0 mg/dL Aspartate Amino Transferase 32 5-31 U/L Alanine Aminotransferase 25 0-31 U/L Total Protein 7.6 6.5-8.0 g/dL Albumin Level 4.1 3.5-5.0 g/dL Alkaline Phosphatase 79 39-117 U/L Lipid Panel Reviewed date:09/27/2024 12:16:09 PM Interpretation: Performing Lab:[facility], [address] [place] [phone] Notes/Report: Triglycerides 124 <150 mg/dL Desirable Triglyceride: less than 150 mg/dL Borderline High Triglyceride 150-199 mg/dL High Triglyceride: 200-499 mg/dL Very High Triglyceride: greater than or equal to 5OO mg/dL Cholesterol 133 <200 mg/dL Desirable Cholesterol: less than 200 mg/dL Borderline High Cholesterol: 200-239 mg/dL High Cholesterol: greater than 239 mg/dL LDL Cholesterol Calculated 90 <100 mg/dL Desirable LDL: less than 100 mg/dL Near Optimal/Above Optimal LDL: 110-129 mg/dL Borderline High LDL: 130-159 mg/dL High LDL: 160-189 mg/dL Very High LDL: greater than or equal to 190 mg/dL HDL Cholesterol 19 >40 mg/dL Desirable HDL: greater than 40 mg/dL Note: This HDL assay may give artificially low results in patients with liver disease. Microalbumin, Random Reviewed date:09/27/2024 12:18:28 PM Interpretation: Performing Lab:[facility], [address] [place] [phone] Notes/Report: Creatinine Urine 123.47 Microalbumin Urine 12.0 Microalbum/Creatinine Ratio Ur 9.7 <30 ug/mg cr Albumin/Creatinine Ratio Reference Ranges: Normal: < 30 ug/mg creatinine Microalbuminuria: 30 - 300 ug/mg creatinine Clinical Albuminuria: > 300 ug/mg creatinine Hemoglobin A1c Reviewed date:09/27/2024 12:11:44 PM Interpretation: Performing Lab:[facility], [address] [place] [phone] Notes/Report: Hemoglobin A1c % 5.2 <6.0 % Hemoglobin A1C Reference Range Adults: 4.8 - 6.0 % Non diabetic: < 6.0 % Goal: < 7.0 % Additional Action Suggested: > 8.0 % Note: Hemoglobin A1c results are invalid for patients with abnormal amounts of HbF. Blood transfusions may impact the HbA1c concentration in the patient sample. Estimated Average Glucose 103 eAG = Estimated average glucose which is %A1C expressed as average glucose, using the formula of the F3V-Jrrrubn Average Glucose study (ADAG), Diabetes Care, Vol.31,#8, Feb. 2007 UA ClnCatch+Micro w/rflx Cul t Reviewed date:09/27/2024 12:52:49 PM Interpretation: Performing Lab:[facility], [address] [place] [phone] Notes/Report: Urine, Clean Catch Color Urine Yellow Appearance Urine Clear PH 6.0 5.0-9.0 Glucose Urine UA Negative Negative mg/dL Urine Blood Negative Negative Specific [place] - Urine 1.015 1.005-1.025 Urine Protein Negative Neg-Trace mg/dL Urine Ketones Negative Negative mg/dL Nitrite Urine Negative Negative Leukocyte Esterase Urine Negative Negative RBC Urine 0-2 0-2 /HPF WBC Urine 0-5 0-5 /HPF Squamous Epithelial Cell Urine 0-2 0-2 /HPF Bacteria Urine None Seen None Seen Hyaline Casts Urine 0-2 0-2 /LPF MM tomosynthesis screening B I Reviewed date:02/06/2024 05:31:48 PM Interpretation: Performing Lab: Notes/Report: [facility]'[address] [place] [address] Mammography Report Signed Patient: Ceci Melendez MR#: [id number] 01 : 1960 Acct:[id number] Age/Sex: 63 / F ADM Date: 01/05/24 Loc: ALEX Attending Dr: Issa Fields MD Ordering Physician: Issa Fields MD Results: 2Be nign Findings Date of Service: 01/05/24 Follow Up: 1 Year From Orig inal Mammogram Procedure(s): MM tomosynthesis screening BI Accession Number(s): [id number] cc: Issa Fields MD EXAMINATION: MM SCREENING DIGITAL BREAST TOMOSYNTHESIS, BILATERAL CLINICAL INFORMATION: Screening. Asymptomatic. COMPARISON: Mammography: This study is compared with prior exams dating back to 2018. TECHNIQUE: Digital breast tomosynthesis is performed in both the craniocaudal and mediolateral oblique views along with computer-aided detection (CAD). Synthesized 2D images are generated from the tomosynthesis. FINDINGS: There are scattered areas of fibroglandular density (ACR BI-RADS breast composition Category b). There are no significant masses, abnormal calcifications, or other abnormalities. There are bilateral benign calcifications. There is postsurgical changes in the inferior aspect of the left breast. MM/MM tomosynthesis screening BI IMPRESSION: No mammographic evidence of malignancy. ASSESSMENT: BI-RADS BI-RADS 2 - Benign Findings RECOMMENDATION: Routine annual mammography screening. 1 year F/U This examination should not preclude the clinical evaluation of a suspicious palpable abnormality. This patient's information was entered into a reminder system with a target due date for their next mammogram. Dictated By: Elenita Chávez MD Signed By: <Electronically signed by Elenita Chávez MD in OV> 02/03/24 0825 DD/ 1116 TD/TT: Hospice Art Therapist: [facility] [address] [place] [address] Mammography Report Signed Patient: Bakari Melendez MR#: [id number] 01 : 1960 Acct:[id number] Age/Sex: 63 / F ADM Date: 01/05/24 Loc: ALEX Attending Dr: Issa Fields MD Ordering Physician: Issa Fields MD Results: 2Be nign Findings Date of Service: 01/05/24 Follow Up: 1 Year From [facility] ina Mammogram Procedure(s): MM tomosynthesis screening BI Accession Number(s): [id number] cc: Issa Fields MD EXAMINATION: MM SCREENING DIGITAL BREAST TOMOSYNTHESIS, BILATERAL CLINICAL INFORMATION: Screening. Asymptomatic. COMPARISON: Mammography: This study is compared with prior exams dating back to 2018. TECHNIQUE: Digital breast tomosynthesis is performed in both the craniocaudal and mediolateral oblique views along with computer-aided detection (CAD). Synthesized 2D image s are generated from the tomosynthesis. FINDINGS: There are scattered areas of fibroglandular density (ACR BI-RADS breast composition Category b). There are no significant masses, abnormal calcifications, or other abnormalities. There are bilateral benign calcifications. There is postsurgica l changes in the inferior aspect of the left breast. MM/MM tomosynthesis screening BI IMPRESSION: No mammographic evidence of malignancy. ASSESSMENT: BI-RADS BI-RADS 2 - Benign Findings RECOMMENDATION: Routine annual mammography screening. 1 year F/U This examination should not preclude the clinical evaluation of a suspicious palpable abnormality. This patient's information was entered into a reminder system with a target due date for their next mammogram. Dictated By: Elenita Chávez MD Signed By: <Electronically signed by Elenita Chávez MD in OV> 02/03/24 0825 DD/ 1116 TD/TT: Hospice Art Therapist: Bola Mitchell Reviewed date:03/30/2024 12:20:49 PM Interpretation: Performing Lab:[facility], [address] [place] [phone] Notes/Report: Bola Mitchell See Note Specimen held untested for 24 hours; Call to request Chemistry testing. CT lung screening Reviewed date:05/27/2024 04:42:08 PM Interpretation: Performing Lab: Notes/Report: [address] [address] [address] Scan Report Signed Patient: Ceci Melendez MR#: [id number] 01 : 1960 Acct:[id number] Age/Sex: 63 / F ADM Date: 04/11/24 Loc: HO.CT Attending Dr: Wilma Nazario PA-C Ordering Physician: Wilma Nazario PA-C Date of Service: 04/11/24 Procedure(s): CT lung screening Accession Number(s): [id number] cc: Issa Fields MD; Wilma Nazario PA-C EXAMINATION: CT LOW-DOSE SCREENING CHEST WITHOUT CONTRAST CLINICAL INFORMATION: Personal history of nicotine dependence. The patient has a 46 pack-year history of smoking, having quit 6 days ago. COMPARISON: CT chest 12/24/2022. TECHNIQUE: Multidetector volumetric CT imaging of the chest is performed on a Siemens SOMATOM Definition scanner without contrast using low dose technique. Additional 2D coronal and sagittal reformatted images and axial 3D maximum intensity projection (MIP) images are generated on the CT workstation. This CT examination was performed using dose optimization techniques as appropriate, variously including the following: *Automated exposure control *Adjustment of mA and/or kV according to patient size (this includes techniques or standardized protocols for targeted exams where dose is matched to indication/reason for exam; i.e. extremities or head) *Use of iterative reconstruction technique TOTAL EXAM DLP: 38 mGy-cm. CTDIvol: 1.00 mGy. FINDINGS: PULMONARY NODULES: Some small punctate nodules, none larger than 3 mm in size, are unchanged (see saved sage images). There is no new, increasing sized or suspicious pulmonary nodule present. LUNGS: Lungs bilaterally symmetrically expanded. There is moderate emphysema along with mild bronchial thickening without bronchiectasis. No effusion or pneumothorax. Central airways patent. MEDIASTINUM: No mediastinal, hilar or axillary adenopathy or free fluid collection. CORONARY ARTERY CALCIFICATION: Moderate. THYROID GLAND: Unremarkable to the extent seen. CARDIOVASCULAR STRUCTURES: Aortic and heart size normal. No pericardial effusion. CHEST WALL/AXILLA: Unremarkable. UPPER ABDOMEN: Included portions of the solid organs in the upper abdomen unremarkable on noncontrast imaging. OSSEOUS STRUCTURES: No suspicious focal findings. Chronic superior endplate fracture of T8 is unchanged. CT/CT lung screening IMPRESSION: No finding seen suspicious for malignancy. ASSESSMENT: 1. Lung-RADS Category 2: Benign appearance or behavior of nodules. N/A 2. Lung-RADS Category S: Negative. There are no clinically significant or potentially clinically significant findings not related to the lungs requiring urgent additional evaluation. RECOMMENDATION: Continued routine annual low-dose CT lung screening in 1 year is recommended. An order for CT CHEST LOW DOSE CANCER SCREENING ([id number]) can be placed. Electronically signed by: Guru Barney MD 05/27/2024 11:14 AM EST Dictated By: Guru Barney MD Signed By: <Electronically signed by Guru Barney MD in OV> 05/27/24 1114 DD/ 1056 TD/TT: 04/11/24 1105 Hospice Art Therapist: [address] [address] [address] Scan Report Signed Patient: Bakari Melendez MR#: [id number] 01 : 1960 Acct:[id number] Age/Sex: 63 / F ADM Date: 04/11/24 Loc: HO.CT Attending Dr: Wilma Nazario PA-C Ordering Physician: Wilma Nazario PA-C Date of Service: 04/11/24 Procedure(s): CT derrell g screening Accession Number(s): [id number] cc: Issa Fields MD; Wilma Nazario PA-C EXAMINATION: CT LOW-DOSE SCREENIN G CHEST WITHOUT CONTRAST CLINICAL INFORMATION: Personal history of nicotine dependence. The patient has a 46 pack-year history of smoking, having quit 6 days ago. COMPARISON: CT chest 12/24/2022. TECHNIQUE: Multidetector volumetric CT imaging of the chest is performed on a Siemens SOMATOM Definition scanner without contrast using low dose technique. Additiona l 2D coronal and sagittal reformatted images and axial 3D maximum intensity projection (MIP) images are generated on the CT workstation. This CT examination was performed using dose optimization techniques as appropriate, various ly including the following: *Automated exposure control *Adjustment of mA and/or kV according to patient size (this includes techniques or standardized protocols for targeted exams where dose is matched to indication/reason for exam; i.e. extremities or head) *Use of iterative reconstruction technique TOTAL EXAM DLP: 38 mGy-cm. CTDIvol: 1.00 mGy. FINDINGS: PULMONARY NODULES: Some small punctate nodules, none larger than 3 mm in size, are unchang ed (see saved sage images). There is no new, increasing sized or suspicious pulmonary nodule present. LUNGS: Lungs bilaterally symmetrically expanded. There is moderate emphysema along with mild bronchial thickening without bronchiectasis. No effusion or pneumothorax. Central airways patent. MEDIASTINUM: No mediastinal, hilar or axillary adenopathy or free fluid collection. CORONARY ARTERY CALCIFICATION: Moderate. THYROID GLAND: Unremarkable to the extent seen. CARDIOVASCULAR STRUCTURES: Aortic and heart size normal. No pericardial effusion. CHEST WALL/AXILLA: Unremarkable. UPPER ABDOMEN: Included portions of the solid organs in the upper abdomen unremarkable on noncontrast imaging. OSSEOUS STRUCTURES: No suspicious focal findings. Chronic superior endplate fracture of T8 is unchanged. CT/CT lung screening IMPRESSION: No finding seen suspicious for malignancy. ASSESSMENT: 1. Lung-RADS Categor y 2: Benign appearance or behavior of nodules. N/A 2. Lung-RADS Categor y S: Negative. There are no clinically significant or potentially clinically significant findings not related to the lungs requiring urgent additional evaluation. RECOMMENDATION: Continued routine annual low-dose CT lung screening in 1 year is recommended. An orde r for CT CHEST LOW DOSE CANCER SCREENING ([id number]) can be placed. Electronically naomi d by: Guru Barney MD 05/27/2024 11:14 AM EST Dictated By: Guru Barney MD Signed By: <Electronically signed by Guru Barney MD in OV> 05/27/24 1114 DD/ 1056 TD/TT: 04/11/24 1105 Hospice Art Therapist: NAHUM Mitchell Reviewed date:09/27/2024 12:16:19 PM Interpretation: Performing Lab:[facility], [address] [place] [phone] Notes/Report: Bola Mitchell See Note Specimen held untested for 24 hours; Call to request Chemistry testing. Reason For Referral Reason needs colonoscopy Diagnosis 1 Colon cancer screeni ng (Z12.11) Referral Organization Issa Fields MD Referring Provider First Name Issa Referring Provider Last Name Diamond Referring Provider Speciality Internal M edicine Referred Provider Leland Quintanilla Referred Provider Specialty Gastroentero logy General Notes Tia Krueger 0 10/18/2024 01:58:09 PM >info faxed, Tia Krueger 10/22/2024 02:47:26 PM >per office info refaxed Referral Priority Routine Reason De Quervain's diseas e ( tenosynovitis ) Diagnosis 1 De Quervain's diseas e (tenosynovitis) (M65.4) Referral Organization Issa Fields MD Referring Provider First Name Issa Referring Provider Last Name Diamond Referring Provider Speciality Internal M edicine Referred Provider Debbie Wood Referred Provider Specialty Hand Surgery General Notes Tia Krueger 0 10/22/2024 02:50:49 PM >info faxed Referral Priority Routine Reason Nasal polyps Diagnosis 1 Nasal polyps (J33.9) Referral Organization Issa Fields MD Referring Provider First Name Issa Referring Provider Last Name Diamond Referring Provider Speciality Internal M edicine Referred Provider [facility], [facility] [place] Referred Provider Specialty Allergy/Immu nology General Notes Tia Krueger 0 10/19/2024 10:57:53 AM > info faxed Referral Priority Routine Medications Medication SIG (Take, Route, Frequency, Duration) Notes Start Date End Date Status Rosuvastatin Calcium 40 mg TAKE 1 TABLET DAILY ORALLY DAILY for 90 days Active Ventolin HFA * 108 (90 Base) [...] 50 mg TAKE 1 TABLET DAILY Active Immunizations Vaccine Route Administration Date Status Comme nts Flu Vaccine IM Intramuscular 04/06/2011 Administered Flu Vaccine IM Intramuscular 08/22/2012 Administered Flu Vaccine Unknown 03/20/2015 Administered HAD IT AT [facility] Fluarix Quadrivalent IM Intramuscular 04/13/2016 Administe red Fluarix Quadrivalent IM Intramuscular 04/26/2017 Administaleja red TDaP Unknown 06/10/2017 Administered pt was given the vaccine at [facility] in [place]. Fluarix Quadrivalent IM Intramuscular 04/24/2018 Admingail red PPSV23 (Pnemovax) IM Intramuscular 05/08/2018 Administered Tetanus Unknown 06/10/2017 Administered Fluarix Quadrivalent IM Intramuscular 03/15/2019 Admingail red Prevnar 13 IM Intramuscular 09/18/2019 Administered Fluarix Quadrivalent IM Intramuscular 03/26/2020 Admingail red Fluarix Quadrivalent IM Intramuscular 04/02/2021 Administe red TDaP Unknown 06/05/2021 Administered [facility] SARS-COV-2 Moderna Unknown 09/01/2020 Administered SARS-COV-2 Moderna Unknown 09/29/2020 Administered SARS-COV-2 Moderna Unknown 05/04/2021 Administered Fluarix Quadrivalent IM Intramuscular 04/08/2022 Administe red Fluarix Quadrivalent IM Intramuscular 03/22/2023 Administe red Fluarix Quadrivalent - 150 IM Intramuscular 03/30/2024 Administered Social History Tobacco Use: Social History Observation [...] you last smoked? Less than 1 month Problems Problem Type SNOMED Code ICD Code Onset Dates Problem Status W/U Status Risk Notes Problem Lymphocytosis (39637503) Lymphocytosis (D72.820) Active confirmed Problem [id number] Acute recurren t maxillary sinusitis (J01.01) Active confirmed Problem 8521572 Panlobular emphy sema (J43.1) Active confirmed Problem 440880624 Low HDL (under 4 0) (E78.6) Active confirmed Problem 38591220 Alcohol abuse (F10.10) Active confirme d Problem Current smoker (78628314) Current smoker (F17.200) Active confirmed Problem 56582264 Dysthymia (F34.1) Active confirmed Problem 745646885 Multiple allergi es (Z88.9) Active confirmed Problem 64228382 CAD (coronary ar andres disease) (I25.10) Active confirmed Problem 652658354 Recurrent sinus infections (J32.9) Active confirmed Problem 929690654 Prediabetes (R73.03) Active confirmed Problem 023962720 Pure hypercholesterolemia (E78.00) Active confirmed Problem 289492049 History of viral pericarditis (Z86.79) Active confirmed Problem Aortic valve disorder (2995131) Moderate aortic stenosis (I35.0) Active confirmed Problem 831589124 Recurrent sinusi tis (J32.9) Active confirmed Vital Signs Blood pressure diastolic 70 mm Hg 10/09/2024 davonte ght is up 4 pounds since 10-02-24 Height 66 in 10/09/2024 weight is up 4 pounds since 10-02-24 Blood pressure systolic 132 mm Hg 10/09/2024 weig ht is up 4 pounds since 10-02-24 Weight 121 lbs 10/09/2024 weight is up 4 pounds since 10-02-24 BMI 19.53 kg/m2 10/09/2024 weight is up 4 pounds since 10-02-24 Encounters Encounter Location Date Provider Diagnosis Issa Fields MD [address] [place] [id number] 03/30/2024 Issa Fields Prediabetes R73.03 ; Encounter for immunization Z23 and Pure hypercholesterolemia E78.00 Issa Fields MD [address] [place] [id number] 09/27/2024 Issa Fields Blood tests for rout ine general physical examination Z00.00 ; Pure hypercholesterolemia E78.00 ; Prediabetes R73.03 and Lymphocytosis D72.820 Issa Fields MD [address] [place] [address] [id number] 11/15/2023 Issa Fields Nasal polyps J33.9 a nd Recurrent sinus infections J32.9 Issa Fields MD [address] [place] [id number] 04/06/2024 Issa Fields Nasal polyps J33.9 ; Recurrent sinus infections J32.9 ; Alcohol abuse F10.10 ; Low HDL (under 40) E78.6 and Moderate aortic stenosis I35.0 Issa Fields MD [address] [place] [address] [id number] 06/05/2024 Issa Fields Nasal polyps J33.9 a nd Recurrent sinus infections J32.9 Issa Fields MD [address] [place] [address] [id number] 08/03/2024 Issa Fields Nasal polyps J33.9 a nd Recurrent sinus infections J32.9 Issa Fields MD [address] [place] [address] [id number] 10/02/2024 Issa Fields Recurrent sinusitis J32.9 Issa Fields MD [address] [place] [address] [id number] 10/09/2024 Issa Fields Annual physical exam Z00.00 ; Moderate aortic stenosis I35.0 ; Nasal polyps J33.9 ; De Quervain's disease (tenosynovitis) M65.4 ; Pure hypercholesterolemia E78.00 ; Panlobular emphysema J43.1 and Depression screening Z13.31 Issa Fields MD [address] [place] [address] [id number] 11/01/2023 Issa Fields Moderate aortic sten osis I35.0 Issa Fields MD [address] [phone] 11/22/2023 Issa Fields MD [address] [place] [phone] 11/25/2023 Issa Fields MD [address] [phone] 10/25/2024 Issa Fields Pure hypercholestero lemia E78.00 Assessments Encounter Date Diagnosis (ICD Code) Assessment Notes Treatment Notes Treatment Clinical Notes Section Notes 03/30/2024 Prediabetes (ICD-10 - R73.03) 03/30/2024 Encounter for immunization (ICD-10 - Z23) 09/27/[address] ine general physical examination (ICD-10 - Z00.00) 11/15/2023 Nasal polyps (ICD-10 - J33.9) patient verbalized understanding of medication and directions for use 11/15/2023 Recurrent sinus infections (ICD-10 - J32.9) patent verbalized understanding of medication and directions for use 04/06/2024 Nasal polyps (ICD-10 - J33.9) patient verbalized understanding of medicationand directions for use 04/06/2024 Recurrent sinus infections (ICD-10 - J32.9) 06/05/2024 Nasal polyps (ICD-10 - J33.9) prednisone helps shrink polyps 08/03/2024 Nasal polyps (ICD-10 - J33.9) patient verbalized understanding f medication and directions for use 10/02/2024 Recurrent sinusitis (ICD-10 - J32.9) patient verbalized understanding of medication and directions for use 10/09/2024 Annual physical exam (ICD-10 - Z00.00) labs reviewed and discussed with patient, colonoscopy referral 10/09/2024 Moderate aortic stenosis (ICD-10 - I35.0) order faxed to [facility] dept , pending diagnostic testing 10/25/2024 Pure hypercholesterolemia (ICD-10 - E78.00) 03/30/2024 Pure hypercholesterolemia (ICD-10 - E78.00) 09/27/2024 Pure hypercholesterolemia (ICD-10 - E78.00) 04/06/2024 Alcohol abuse (ICD-1 0 - F10.10) doing well on naltrexone 06/05/2024 Recurrent sinus infections (ICD-10 - J32.9) needs ab and prednisone, patient verbalized understanding of medication and directions fo use 08/03/2024 Recurrent sinus infections (ICD-10 - J32.9) 10/09/2024 Nasal polyps (ICD-10 - J33.9) referral to allergy 11/01/2023 Moderate aortic stenosis (ICD-10 - I35.0) 09/27/2024 Prediabetes (ICD-10 - R73.03) 04/06/2024 Low HDL (under 40) (ICD-10 - E78.6) ldl is doing well still with a low hdl, will continue current regiment 10/09/2024 De Quervain's diseas e (tenosynovitis) (ICD-10 - M65.4) referral to hand center 09/27/2024 Lymphocytosis (ICD-1 0 - D72.820) 04/06/2024 Moderate aortic stenosis (ICD-10 - I35.0) THE ECHO ORDER WAS PRINTED AND FILED IN FUTURE FOLDER, pending diagnostic testing 10/09/2024 Pure hypercholesterolemia (ICD-10 - E78.00) stable, will continue current regiment 10/09/2024 Panlobular emphysema (ICD-10 - J43.1) doing well, will continue current regiment 10/09/2024 Depression screening (ICD-10 - Z13.31) negative screen Plan Of Treatment Pending Test Test Name Order Date Electrocardiogram (EKG) 04/16/2016 Electrocardiogram (EKG) 05/06/2017 ECHO 10/09/2024 ECHO 10/23/2021 CA echo transthoracic complete 4 CA echo transthoracic complete 4 Future Test Test Name Order Date CA echo transthoracic complete 2 Next Appt Details Provider Name:Issa Patrick ier, 04/05/2025 07:30:00 AM, [address] [place] [address], [address] [place] [address], [phone], Provider Name:Issa Patrick ier, 04/12/2025 10:45:00 AM, [address] [place] [address], Suite [facility], [place], [place], [phone], Provider Name:Issa Patrick ier, 10/10/2025 07:15:00 AM, [address] [place] [address], [address] [place] [address], [phone], Provider Name:Issa Patrick ier, 10/17/2025 11:00:00 AM, [address] [place] [address], Suite [facility], [place], [place], [phone], Insurance Providers Payer Name Payer Address Payer Phone Subscriber Number Group Number Insured Name Patient Relationship to Insured Coverage Start Date Coverage End Date [facility] are [employer] [address] [address] [place] [address] [id number] Ceci Melendez Self - patient is the insured MEDICARE [employer] [address] [place] [address] [id number] Ceci Melendez Self - patient is the insured Medical (General) History Medical History History ICD Code 06/18/15 - Colonoscopy done b y Dr. Jay Kenny - repeat n 10 years as all polyps were hyperplastic varenicline is chantix
--- OUTSIDE RECORDS SUMMARY | 2024-10-31 15:56 | XMS_ITS ---
Author Organization Issa Fields MD Address [address] [place] [phone] Care Team Providers Care Commodity Management Specialist Name Role Phone Issa Fields Primary Care Provider Allergies Allergen (clinical drug ingredient) Drug/Non Drug Allergy documented on EMR Reaction Allergy Type Onset Date Status morphine Morphine Sulfate itch Drug Allergy Active REASON FOR VISIT SINUS PROBLEMS, Video [phone] Medications Medication SIG (Take, Route, Frequency, Duration) [...] Location Date Provider Diagnosis Issa Fields MD [address] [place] [address] [place] [phone] 10/02/2024 Issa Fields Recurrent sinusitis J32.9 Assessments [...] use Next Appt Details Provider Name:Issa keen, 04/05/2025 07:30:00 AM, [address] [place] [address], [address] [facility], [place], [place], [phone], Provider Name:Issa keen, 04/12/2025 10:45:00 AM, [address] [place] [address], [address] [place] [address], [phone], Provider Name:Issa keen, 10/10/2025 07:15:00 AM, [address] [place] [address], [address], [place], [place], [phone], Provider Name:Issa Patrick ier, 10/17/2025 11:00:00 AM, [address] [facility], [address], [place], [place], [phone], Progress Notes * Paige MELENDEZOB:1960 (64 yo F)Acc No.[id number]:10/02/2024 Patient:?Ceci MELENDEZ Provider:?Issa Fields MD :1960???Age:64 Y???Sex:Female D ate:10/02/2024 Address:[address] [place] [address] [facility] Subjective: * Chief Complaints: * ???SINUS PROBLEMSVideo [phone] * HPI: ???Symptom(s):?Telehealth?Location of provider rendering services:?[address] [place] [address], [address],?Location of patient:?at address listed in demographics for today's visit,?Patient identification confirmed using:?Name, ,?Telehealth method:?Video conference where patient is visible to the provider of care,?Consent:?Patient verbally consented to treatment, Patient verbally consented to billing insurance company, Patient informed of any privacy concerns related to method of visit,?Total time spend talking with patient (minutes)?20.?patient is a 64 yo female telehealth visit with complanit of sinus issues./ nasal polyps are bothering her. prednisone helped but still feels like an infection. * ROS:?General/Constitutional:?Denies?Chills.?Denies?Fatigue.?Denies?Fever.?Admits?Headache.?ENT:?Admits?Sinus pain.?Denies?Sore throat.?Respiratory:?Denies?Cough.?Denies?Shortness of breath at rest.?Denies?Shortness of breath with exertion.?Gastrointestinal:?Denies?Diarrhea.?Denies?Nausea.? * Medical History:? * Surgical History:? * Hospitalization/Major Diagno stic Procedure:? * Medications:?TakingAdvair Di skus 100-50 MCG/ACT Aerosol Powder Breath Activated USE [...] TAKE 1 TABLET TWICE A DAY DIRECTED Not-Taking/PRNpredniSONE 10 MG Tablet 1 tablet with food [...] as needed Inhalation every 4 hrs * Allergies:?Morphine Sulfate: itchyes[Allergies Verified] Objective: * Vitals:?Ht: 66, Wt: 117, BMI :18.88, Wt-k.07. weight is 117? BP? not taken today? no temp. * Examination: ???General Examination: ?GENERAL APPEARANCE:?alert, well hydrated, in no distress.? Assessment: * Assessment: 1.?Recurrent sinusitis - J32 .9 (Primary)??? Plan: * Treatment: * Procedure Codes:? * * Sign off status: Completed true * Provider:?Isas Fields MD Date:?0 10/02/2024 Generated for Molly oro/Maria Antonia/Carlitos on:?10/31/2024 03:56 PM EDT History and Physical Notes * HPI (History of Present Illness) Category Sub-Category Detail Notes Category Not es Symptom(s) Telehealth Location of [facility] rendering services:: [address], [address] patient is a [...]
--- OUTSIDE RECORDS SUMMARY | 2024-10-31 15:56 | XMS_ITS ---
Author Organization Issa Fields MD Address [address] [place], [place] [phone] Care Team Providers Care Shim Plug Cutter Name Role Phone Issa Fields Primary Care Provider [phone] Allergies Allergen (clinical drug ingredient) Drug/Non Drug [...] Provider Speciality Internal M edicine Referred Provider [facility] rich, [facility] [place] Referred Provider Specialty Allergy/Immu nology General Notes Tia Krueger 0 10/19/2024 10:57:53 AM > info faxed Referral Priority Routine REASON FOR VISIT ANNUAL EXAM Medications Medication [...] Location Date Provider Diagnosis Issa Fields MD [address] [place] [address] [address] [place], [place] [phone] 10/09/2024 Issa Fields Annual physical exam Z00.00 [...] stenosis (ICD-10 - I35.0) order faxed to [facility] , pending diagnostic testing 10/09/2024 Nasal polyps (ICD-10 - J33.9) referral to allergy 10/09/2024 De Quervain's diseas e (tenosynovitis) (ICD-10 - M65.4) referral to [facility] 10/09/2024 Pure hypercholesterolemia (ICD-10 - E78.00) stable, [...] referral Moderate aortic stenosis order faxed to [facility] , pending diagnostic testing Nasal polyps referral to allergy De Quervain's disease (tenosynovitis) re ferral to [facility] Pure hypercholesterolemia stable, will c ontinue current regiment Panlobular emphysema doing well, will co ntinue current regiment Depression screening negative screen Pending Test Test Name Order Date ECHO 10/09/2024 Referrals Referral Date Details 10/09/2024 10/09/2024, needs co lonoscopy, Leland Quintanilla 10/09/2024 10/09/2024, De Querv ain's disease ( tenosynovitis ), Debbie Wood 10/09/2024 10/09/2024, Nasal po lyps, [facility] [place] [facility] Appt Details Follow Up: 6 Months, Reason: Provider Name:Issa Patrick ier, 04/05/2025 07:30:00 AM, [address], [address], [place], [phone], Provider Name:Issa Patrick ier, 04/12/2025 10:45:00 AM, [address], [address], [place], [phone], Provider Name:Issa stallingsr, 10/10/2025 07:15:00 AM, [address], [address], [place], [phone], Provider Name:Issa stallingsr, 10/17/2025 11:00:00 AM, [address], [address], [place], [phone], Progress Notes * Paige MELENDEZOB:1960 (64 yo F)Acc No.[id number]:10/09/2024 Progress Notes Patient:?Ceci MELENDEZ Provider:?Issa Fields MD :1960???Age:64 Y???Sex:Female D ate:10/09/2024 Address:[address] [place], [place] [phone] Subjective: * Chief Complaints: * ???ANNUAL EXAM * HPI: ???Depression Screening:?PHQ-9?Little interest or pleasure in doing things?Not at all,?Feeling down, depressed, or hopeless?Not at all,?Trouble falling or staying asleep, or sleeping too much?Not at all,?Feeling tired or having little energy?Not at all,?Poor appetite or overeating?Not at all,?Feeling bad about yourself or that you are a failure, or have let yourself or your family down?Not at all,?Trouble concentrating on things, such as reading the newspaper or watching television?Not at all,?Moving or speaking so slowly that other people could have noticed; or the opposite, being so fidgety or restless that you have been moving around a lot more than usual?Not at all,?Thoughts that you would be better off or of hurting yourself in some way?Not at all,?Total Score?0.?Interpretation and Intervention?Depression Screening Findings?Negative,?Follow-Up for Depression?: review of PHQ-9 found negative result, no follow-up needed.?Communication Needs:?Communication Needs?Does the patient have a hearing impairment?No,?Does the patient have a vision impairment??Yes,?If yes, what is the vision impairment??Glasses,?Does the patient have a cognition impairment??No.?SDOH Questions:?SDOH Questions?In the past year have you been worried about losing housing??No,?In the past year have you or any family members you live with been unable to get any of the following when it was really needed? Check all that apply:?None.?Symptom(s):? patient is a 64 yo female here for annk visit with review of recent labs and follow up of chronic issues. * ROS:?General/Constitutional:?Change in appetite?denies.?Chills?denies.?Fever?denies.?Ophthalmologic:?Blurred vision?denies.?Discharge?denies.?Pain?denies.?ENT:?Decreased hearing?denies.?Sore throat?denies.?Swollen glands?denies.?Endocrine:?Cold intolerance?denies.?Excessive thirst?denies.?Heat intolerance?denies.?Weight loss?denies.?Respiratory:?Cough?denies.?Shortness of breath at rest?denies.?Shortness of breath with exertion?denies.?Wheezing?denies.?Cardiovascular:?Chest pain at rest?denies.?Chest pain with exertion?denies.?Irregular heartbeat?denies.?Shortness of breath?denies.?Gastrointestinal:?Abdominal pain?denies.?Change in bowel habits?denies.?Diarrhea?denies.?Nausea?denies.?Rectal bleeding?denies.?Vomiting?denies .?Genitourinary:?Blood in urine?denies.?Difficulty urinating?denies.?Frequent urination?denies.?Urinary incontinence?Denies.?Musculoskeletal:?Painful joints?denies.?Weakness?denies.?Skin:?Dry skin?denies.?Itching?denies.?Denies?Mole(s),? changes in moles, new moles or any lesions of concern.?Denies?Photosensitivity.?Rash?denies.?Neurologic:?Dizziness?denies.?Fainting?denies.?Headache?denies.? * Medical History:? * Surgical History:? * Hospitalization/Major Diagno stic Procedure:? * Family History:?Father: dece ased 64 yrs.?Mother: 78 yrs.?2 brother(s) . 1 son(s) . .? Father AAA rupture, Mother-Natural, Denies mental health/substance abuse family history, Denies mental health/substance abuse family history, Denies mental health/substance abuse family history. * Social History:?Tobacco Use:?Tobacco Control (Standard)?Tobacco use:?Former smoker,?When did you stop smoking??09/18/2024,?How long has it been since you last smoked??Less than 1 month.?Miscellaneous:?Caffeine: yes, frequency:, 3-4 cups per day. Children: yes. Community involvements: no. Exercise: no. Home smoke detector use: yes. Housing: owning. Living with: spouse. Marital status: . Occupation: retired. Pets: dog x1. Travel outside of the [place]: no. ???Drug/Alcohol:?AUDIT-C (Standard)?Did you have a drink containing alcohol in the past year??Yes,?How often did you have a drink containing alcohol in the past year??2 to 4 times a month (2 points),?How many drinks did you have on a typical day when you were drinking in the past year??1 or 2 drinks (0 point),?How often did you have six or more drinks on one occasion in the past year??Never (0 point),?Points?2,?Interpretation?Negative.? * Medications:?TakingAdvair Di skus 100-50 MCG/ACT Aerosol [...] reviewed and reconciled with the patient * Allergies:?Morphine Sulfate: itchyes[Allergies Verified] Objective: * Vitals:?Ht: 66, Wt: 121, BMI :19.53, BP:132/70, Wt-k.89. weight is up 4 pounds since 10-02-24. * ???Past Orders: ???Lab:UA ClnCatch+Micro w/r flx Cult (Order Date - 09/27/2024) (Collection Date & Time - 09/27/2024 08:00 AM) ? Value Reference Range ?Color Urine Yellow - ?Appearance Urine Clear - ?PH 6.0 5.0-9.0 - ?Glucose Urine UA Negative Neg ative - mg/dL ?Urine Blood Negative Negative - ?Specific [place] - Urine 1.015 1.005-1.025 - ?Urine Protein Negative Neg-Tr elias - mg/dL ?Urine Ketones Negative Negati ve - mg/dL ?Nitrite Urine Negative Negati ve - ?Leukocyte Esterase Urine Negative Negative - ?RBC Urine 0-2 0-2 - /HPF ?WBC Urine 0-5 0-5 - /HPF ?Squamous Epithelial Cell Urine 0-2 0-2 - /HPF ?Bacteria Urine None Seen None Seen - ?Hyaline Casts Urine 0-2 0-2 - /LPF ???Lab:Complete Blood Count Auto Diff (Order Date - 09/27/2024) (Collection Date & Time - 09/27/2024 08:00 AM) ? Value Reference Range ?White Blood Count 9.6 4. 8-10.8 - X10*3/uL ?Red Blood Count 4.40 4.20 -5.50 - X10*6/uL ?Hemoglobin 13.8 12.0-16.0 - g/dl ?Hematocrit 41.6 37.0-47.0 - % ?Mean Corpuscular Volume 94.5 80.0-98.0 - fL ?Mean Corpuscular Hemoglobin 31.4 27.0-33.0 - pg ?Mean Corpuscular HGB Conc 33.2 31.0-35.0 - g/dl ?Red Cell Distribution Width 13.9 11.0-16.0 - % ?Platelet Count 331 160-4 00 - X10*3/uL ?Mean Platelet Volume 11.2 9.4-12.3 - fL ?Neutrophils Percent Auto 40.3 L 45-73 - % ?Imm Gran Pct Auto 0.2 0. 0-0.4 - % ?Lymphocytes Percent Auto 35.7 20-40 - % ?Monocytes Percent Auto 6.8 2-11 - % ?Eosinophils Percent Auto 15.5 H 0-4 - % ?Basophils Percent Auto 1.5 0-2 - % ?NRBC Pct Auto 0.0 0.0-0. 2 - /100WBC ?Neutrophils Absolute Auto 3.9 2.0-8.3 - x10*3/uL ?Imm Gran Abs Auto 0.02 0. 00-0.03 - X10*3/uL ?Lymphocytes Absolute Auto 3.4 1.2-4.9 - X10*3/uL ?Monocytes Absolute Auto 0.7 0.1-1.2 - X10*3/uL ?Eosinophils Absolute Auto 1.5 H 0.0-0.4 - X10*3/uL ?Basophils Absolute Auto 0.1 0.0-0.2 - X10*3/uL ?NRBC Abs Auto 0.000 0.0-0. 012 - X10*3/uL ???Lab:Comprehensive Roma. P mer Fast (Order Date - 09/27/2024) (Collection Date & Time - 09/27/2024 08:00 AM) ? Value Reference Range ?Sodium 141 135-145 - mmo l/L ?Bilirubin Total 0.9 0.0- 1.0 - mg/dL ?Aspartate Amino Transferase 32 H 5-31 - U/L ?Alanine Aminotransferase 25 0-31 - U/L ?Total Protein 7.6 6.5-8. 0 - g/dL ?Albumin Level 4.1 3.5-5. 0 - g/dL ?Alkaline Phosphatase 79 39-117 - U/L ?Potassium 3.9 3.3-5.1 - mmol/L ?Chloride 106 96-108 - mm ol/L ?Carbon Dioxide 28 22-29 - mmol/L ?Anion Gap 11 L 12-20 - ?Blood Urea Nitrogen 12 9-16 - mg/dL ?Creatinine 0.67 0.5-1.4 - mg/dL ?Estimated Glomerular Filt Rate > 60 - ?Glucose Fasting 108 H 60-9 9 - mg/dL ?Calcium 9.5 8.4-10.2 - m g/dL ???Lab:Lipid Panel (Order Da te - 09/27/2024) (Collection Date & Time - 09/27/2024 08:00 AM) ? Value Reference Range ?Triglycerides 124 <150 - mg/dL ?Cholesterol 133 <200 - m g/dL ?LDL Cholesterol Calculated 90 <100 - mg/dL ?HDL Cholesterol 19 L >40 - mg/dL ???Lab:Microalbumin, Random (Order Date - 09/27/2024) (Collection Date & Time - 09/27/2024 08:00 AM) ? Value Reference Range ?Creatinine Urine 123.47 - m g/dL ?Microalbumin Urine 12.0 - mg/L ?Microalbum Creatinine Ratio Ur 9.7 <30 - ug/mg cr ???Lab:Hemoglobin A1c (Order Date - 09/27/2024) (Collection Date & Time - 09/27/2024 08:00 AM) ? Value Reference Range ?Hemoglobin A1c % 5.2 <6. 0 - % ?Estimated Average Glucose 103 - mg/dL * Examination: ???General Examination: ?GENERAL APPEARANCE:?well developed, well nourished, in no acute distress.?HEAD:?normocephalic, atraumatic.?EYES:?pupils equal, round, reactive to light and accommodation, sclera non-icteric.?EARS:?normal.?ORAL CAVITY:?mucosa moist.?THROAT:?clear.?NECK/THYROID:?neck supple, full range of motion, no cervical lymphadenopathy, no bruits.?SKIN:?warm and dry, no suspicious lesions.?HEART:?regular rate and rhythm, S1, S2 normal, , abnormal with a 2/6 holosystolic murmur.?LUNGS:?clear to auscultation bilaterally.?BREASTS:?No mass, no lump.?ABDOMEN:?soft, nontender, nondistended, bowel sounds present, normal, no organomegaly , no masses palpable.?RECTAL EXAM:?done by conical mixer.?FEMALE GENITOURINARY:?done by conical mixer.?EXTREMITIES:?no clubbing, cyanosis, or edema.?NEUROLOGIC:?nonfocal, motor strength normal upper and lower extremities, sensory exam intact.? Assessment: * Assessment: 1.?Annual physical exam - Z0 0.00 (Primary)???2.?Moderate aortic stenosis - I35.0???3.?Nasal polyps - J33.9???4.?De Quervain's disease (tenosynovitis) - M65.4???5.?Pure hypercholesterolemia - E78.00???6.?Panlobular emphysema - J43.1???7.?Depression screening - Z13.31??? Plan: * Treatment: 2.?Moderate aortic stenosis?Imaging: ECHO Notes: order faxed to [facility] , pending diagnostic testing?? 3.?Nasal polyps? Notes: referral to allergy? Referral To:CHARLEY LIANG??Allergy/Immunology ?Reason:Nasal polyps 4.?De Quervain's disease (te nosynovitis)? Notes: referral to hand center? Referral To:Jesus Munoz??Hand Surgery ?Reason:De Quervain's disease ( tenosynovitis ) 5.?Pure hypercholesterolemia ? Continue Rosuvastatin Calcium Tablet, 40 mg, TAKE 1 TABLET DAILY.?? Notes: stable, will continue current regiment?? 6.?Panlobular emphysema? Continue Advair Diskus Aerosol Powder Breath Activated, 100-50 MCG/ACT, USE 1 INHALATION TWICE A DAY.?? Notes: doing well, will continue current regiment?? 7.?Depression screening? Notes: negative screen?? 8.?Others? Referral To:Leland Quintanilla??Gastroenterology ?Reason:needs colonoscopy * Procedure Codes:? * Preventive Medicine:? ??Counseling:?Care goal follow-up plan:?Counseling for abnormal BMI provided?Yes,?Above Normal BMI Follow-up?Giving encouragement to exercise.? * Follow Up:?6 Months * * Sign off status: Completed true * Provider:?Issa Fields MD Date:?0 10/09/2024 Generated for Aji shorty/Maria Antonia/eTransmitting on:?10/31/2024 03:55 PM EDT History and Physical Notes * [...] patient have a vision impairmen t?: Yes ?If yes, what is the vision impairment?: Glasses Does the patient have a cognition impair ment?: No Examination Category Sub-Category Detail Notes Category Not es General Examination GENERAL APPEARANCE: well dev eloped, well nourished, in no acute distress HEAD: normocephalic, atrau matic EYES: pupils equal, round, reactive to light and accommodation, sclera non- icteric EARS: normal THROAT: clear NECK/THYROID: neck supple, [...] mass, no lump RECTAL EXAM: done by conical mixer FEMALE GENITOURINARY: done by conical mixer ORAL CAVITY: mucosa moist Consultation Request Notes Referral Date Referring Provider Referred Provider Not es 10/09/2024 Issa Fields Robert needs colo noscopy 10/09/2024 Issa Fields Allison De Que rvain's disease ( tenosynovitis ) 10/09/2024 Issa Fields [facility] [place], [facility] [place] Nasal polyps
--- OUTSIDE RECORDS SUMMARY | 2024-10-31 15:56 | XMS_ITS ---
Author Organization [facility] Address [address] [facility] [place] [address] Care Team Providers Care Weaving Loom Operator Name Role Phone Issa Fields MD Primary Care Provider Charlene Kendrick Unavailable [phone] Allergies Allergen (clinical drug ingredient) Drug/Non Drug Allergy documented on EMR Reaction Allergy Type Onset Date Status aspirin Aspirin flares up nasal polyps Drug Allergy Active morphine Morphine itchy Drug Allergy Active REASON FOR VISIT Painful Toe(s), Wart(s) Medications Medication SIG (Take, Route, Frequency, Duration) Notes Start Date End Date Status Chantix 1 MG 1 tablet Orally Twic e a day Unknown flonase 50 mcg/act as directed Unknown Crestor 40 MG 1 tablet Orally Once a day Unknown Rosuvastatin Calcium 40 MG 1 tablet Oral ly Once a day Active Advair Diskus 100-50 MCG/DOSE 1 puff Inhalation every 12 hrs Active Fluticasone Propionate 50 MCG/ACT 1 spray in each nostril Nasally Once a day Active Social History Tobacco Use: Social History [...] Problem Status W/U Status Risk Notes Problem Spasm (25485512) Extensor tendon tightness, contracture (M62.40) Active confirmed Improvement Problem Plantar wart (40038820) Plantar wart (B07.0) Active confirmed Vital Signs Height 5ft6in in 05/24/2024 Weight 112 lbs 05/24/2024 BMI 18.08 kg/m2 05/24/2024 Blood pressure systolic 130 mm Hg 05/24/20 24 Blood pressure diastolic 80 mm Hg 024 Procedures Procedure Date Ordered Date Performed Result Body Sit e 05663-Ktug Destruction, 1-05/24/2024 N/A Encounters Encounter Location Date Provider Diagnosis [facility] [address] [place] [address] 05/24/2024 Charlenebarry Phillips Hammer toe of left foot M20.42 ; Plantar wart B07.0 and Right foot pain M79.671 Assessments Encounter Date Diagnosis (ICD Code) Assessment Notes Treatment Notes Treatment Clinical Notes Section Notes 05/24/2024 Hammer toe of left foot (ICD-10 - M20.42) Improvement 05/24/2024 Plantar wart (ICD-10 - B07.0) 05/24/2024 Right foot pain (ICD-10 - M79.671) Plan Of Treatment Pending Test Test Name Order Date 71951-Bbgi Destruction, -05/24/2024 Next Appt Details Follow Up: prn, Reason: Procedure Notes * Category Sub-Category Detail Notes Wart Treatment Procedure Verruca were shabana rided to pin-point bleeding margins with sterile 15 surgical blade, silver nitrate chemocautery applied, recomm. immune-boosting meds such as zinc, recomm. follow up with topical chemosurgical agents, Pt defers any other forms of tx - 70688 Progress Notes * Ceci MELENDEZ MDOB: (63 yo F)Acc No.[id number]:05/24/2024 Progress Notes Patient:?Ceci MELENDEZ Provider:?Charlene Phillips DPM :1960???Age:63 Y???Sex:Female D ate:05/24/2024 [address] [id number] Pcp:Issa Fields MD Subjective: * Chief Complaints: * ???Painful Toe(s)Wart(s) * HPI: ???Toe pain:?Treatments:?Flexor tenotomy, T2.?Skin problems:?Pt States PCP Visit: ?DATE?03/29/2024 * ROS:?General/Constitutional:?Nausea?denies.?Vomiting?denies.?Hunger Thirst?denies.?Loss appetite?denies.?Chills?denies.?Fatigue?denies.?Fever?denies.?Night Sweats?denies.?Unexplained weight loss?denies.?Ophthalmologic:?Blurred vision?denies.?Red eye?denies.?HEENTM:?Dentures?denies.?Dizziness?denies.?Glasses/contacts?denies.?Retinopathy?de nies.?Blurred/double vision?denies.?TMJ?denies.?Discharge/drainage?denies.?Implants?denies.?Hard of hearing denies.?Difficulty chewing/swallowing/speaking?denies.?Nose bleeds?denies.?Sore mouth?denies.?Swollen glands?denies.?Respiratory:?On Oxygen?denies.?Pneumonia/pleurisy?denies.?Bronchitis?denies.?Emphysema?denies.?C oughing?denies.?Cough blood?denies.?Shortness of breath?denies.?Wheezing?denies.?Cardiovascular:?Pacemaker?denies.?MVP?denies.?WPW?denies.?CHF?denies.?Heart attack?denies.?Septal defect?denies.?Rapid beat?denies.?Chest pain ?denies.?Atrial Fib.?denies.?Murmur/Palpitations?denies.?Gastrointestinal:?Hemorrhoids?denies.?Stomach/Abdominal pain?denies.?Dark blood stool?denies.?Irritable bowel ?denies.?Constipation?denies.?Diarrhea?denies.?Vomiting?denies.?Hematology:?Swelling?denies.?Bruising?denies.?Bleeding problem?denies.?Genitourinary:?Blood urine?denies.?Frequent/Painfu/urination/bladder control?denies.?Kidney stones?denies.?Infection (UTI)?denies.?Nephropathy?denies.?Musculoskeletal:?Hammertoes?, admits.?Bunions?denies.?Scoliosis/kyphosis?denies.?Muscle cramps / walking?denies.?Generalized aches and pains?denies.?Weakness?denies.?Integ.:?Guido?denies.?Scars?denies.?Corns/calluses?denies.?Ingrown nails?denies.?Painful nails?denies.?Rashes?denies.?Neurologic:?Difficulty sleeping?denies.?Bipolar?denies.?Brain disorder?denies.?Balance trouble?denies.?Confusion?denies.?Fainting/blackouts?denies.?Headache?denies.?Tr emors?denies.? * Medical History:? * Surgical History:?bunionecto my x2 2004/2006elbow sx 2010polypectomy 2006, 2009Ulna nerve Biopsy nasal polypectomy 2013,2018 * Hospitalization/Major Diagno stic Procedure:?Denies Past Hospitalization * Family History:?Mother: dece ased, diabetes, foot problems.?Father: .? * Social History:?Tobacco Use:?Tobacco use other than smoking?Are you an other tobacco user??No ?Tobacco Control (Standard)?Tobacco use:?Former smoker ?Additional Findings: Tobacco non-user?Ex-cigarette smoker * Medications:?TakingFluticaso ne Propionate 50 MCG/ACT Suspension 1 spray in each nostril Nasally Once a day Rosuvastatin Calcium 40 MG Tablet 1 tablet Orally Once a day Advair Diskus 100-50 MCG/DOSE Aerosol Powder Breath Activated 1 puff Inhalation every 12 hrs Taking Fluticasone Propionate 50 MCG/ACT Suspension 1 spray in each nostril Nasally Once a day Taking Rosuvastatin Calcium 40 MG Tablet 1 tablet Orally Once a day Taking Advair Diskus 100-50 MCG/DOSE Aerosol Powder Breath Activated 1 puff Inhalation every 12 hrs Unknownflonase 50 mcg/act nasal spray as directed Crestor 40 MG Tablet 1 tablet Orally Once a day Chantix 1 MG Tablet 1 tablet Orally Twice a day Medication List reviewed and reconciled with the patientUnknown flonase 50 mcg/act nasal spray as directed Unknown Crestor 40 MG Tablet 1 tablet Orally Once a day Unknown Chantix 1 MG Tablet 1 tablet Orally Twice a day Medication List reviewed and reconciled with the patient * Allergies:?Morphine: itchyAs pirin: flares up nasal polypsyes[Allergies Verified] Objective: * Vitals:?Ht: 5ft6in, Wt:112, BMI:18.08, Shoe size: 7.5, BP:130/80mm Hg, Ht-cm: 167.64 cm, Wt-k.8 kg. * Examination: ???Orthopedic: ?DIGITAL DEFORMITIES:?NO FURTHER, Digital contracture, PIPJ, _T2 Digit without pain and in rectus position with healed incision site,MPJ Contracture/Dorsal sublux. NOW WELL REDUCED with digit in rectus position with pushup test, incision site, healed.?Dermatologic: ?VERRUCA:?, Reveals a Single , multi-loculated , mosaic-patterned, round, raised, flat-topped, petechial bleeding papule(s), with cauliflower appearance and interruption of skin lines, pain to lateral compression, and size estimated at 5mm diameter, plantar Forefoot, RIGHT.? Assessment: * Assessment: 1.?Plantar wart - B07.0 (Lalitha paris)???2.?Hammer toe of left foot - M20.42???Specify :T2???Notes :Improvement???3.?Right foot pain - M79.671??? Plan: * Treatment: * Procedures:?Wart Treatment:?Procedure?Verruca were debrided to pin-point bleeding margins with sterile 15 surgical blade, silver nitrate chemocautery applied, recomm. immune-boosting meds such as zinc, recomm. follow up with topical chemosurgical agents, Pt defers any other forms of tx - 90411.? * Procedure Codes:?46523 Wart Destruction, 1-14, Modifiers: 79 * Preventive Medicine:? ??Counseling:?Post-op:?I reviewed with the patient the usual surgical post-op course. The patient is to call with any questions/complications, and will follow-up as scheduled, gradually increase activity to tolerance, Pt can begin showering per usual starting tomorrow, can apply abx ointment to incisions to help with scarring.? * Follow Up:?prn * Images: * Sign off status: Completed true * Provider:?Charlene Phillips DPM Date:?2023 Generated for Molly oro/Maria Antonia/Carlitos on:?10/31/2024 03:55 PM EDT History and Physical Notes * HPI (History of Present Illness) Category Sub-Category Detail Notes Category Not es Toe pain Treatments: Flexor tenotomy, T2 Skin problems Pt States PCP Visit: DATE: 03/29/2024 Examination Category Sub-Category Detail Notes Category Not es Dermatologic VERRUCA: , Reveals a Sing le , multi-loculated , mosaic-patterned, round, raised, flat-topped, petechial bleeding papule(s), with cauliflower appearance and interruption of skin lines, pain to lateral compression, and size estimated at 5mm diameter, plantar Forefoot, RIGHT Orthopedic DIGITAL DEFORMITIES: NO FURTHER, Digital contracture, PIPJ, _T2 Digit without pain and in rectus position with healed incision site,MPJ Contracture/Dorsal sublux. NOW WELL REDUCED with digit in rectus position with pushup test, incision site, healed
--- OUTSIDE RECORDS SUMMARY | 2024-10-31 15:56 | XMS_ITS ---
Author Organization [facility] Address [address] [facility] [place] [address] Care Team Providers Care Youth Care Worker Name Role Phone Issa Fields MD Primary Care Provider Charlene Kendrick Unavailable [phone] Allergies Allergen (clinical drug ingredient) Drug/Non Drug Allergy documented on EMR Reaction Allergy Type Onset Date Status aspirin Aspirin flares up nasal polyps Drug Allergy Active morphine Morphine itchy Drug Allergy Active REASON FOR VISIT Painful Toe Medications Medication SIG (Take, Route, Frequency, Duration) Notes Start Date End Date Status flonase 50 mcg/act as directed Unknown Advair Diskus 100-50 MCG/DOSE 1 puff Inhalation every 12 hrs Active Rosuvastatin Calcium 40 MG 1 tablet Oral ly Once a day Active Fluticasone Propionate 50 MCG/ACT 1 spray in each nostril Nasally Once a day Active Chantix 1 MG 1 tablet Orally Twic e a day Unknown Crestor 40 MG 1 tablet Orally Once a day Unknown Social History Tobacco Use: Social History Observation Description Date Details (start date - stop date) Former Smoker NA - NA Tobacco Use/Smoking Question Answer Notes Are you a: former smoker Additional Findings: Tobacco Non-User Current no n-smoker Alcohol Screen Question Answer Notes Did you have a drink containing alcohol in the p ast year? Yes Points 0 Interpretation Negative Tobacco use other than smoking: Question Answer Notes Are you an other tobacco user? No Problems Problem Type SNOMED Code ICD Code Onset Dates Problem Status W/U Status Risk Notes Problem Acquired hammer toe of left foot ([id number] 9103) Hammer toe of left foot (M20.42) Active confirmed Improvement Vital Signs Height 5 ft 6 in in 05/17/2024 Weight 112 lbs 05/17/2024 BMI 18.08 kg/m2 05/17/2024 Procedures Procedure Date Ordered Date Performed Result Body Sit e 20833 - Tenotomy, open flexor 05/17/2024 N/A Encounters Encounter Location Date Provider [facility] [address] [place] [address] 05/17/2024 Charlene Phillips Hammer toe of left foot M20.42 Assessments Encounter Date Diagnosis (ICD Code) Assessment Notes Treatment Notes Treatment Clinical Notes Section Notes 05/17/2024 Hammer toe of left foot (ICD-10 - M20.42) Plan Of Treatment Pending Test Test Name Order Date - Tenotomy, open flexor 05/17/2024 Next Appt Details Follow Up: 1 Week, Reason: Procedure Notes * Category Sub-Category Detail Notes Podiatry Procedure Tenotomy - Flexor (86140) LOC ATION : _T2_ INDICATIONS : a painful non-rigid toe contrature at the PIPJ/DIPJ, Resistant to previous conservative treatment, ANESTHESIA : 3cc of 2 percent Lidocaine local anesthesic utilizing aseptic technique administered to each involved toe, PREP : The incision site was made surgically clean by applying betadine to the involved area, PROCEDURE : Once anesthesia was achieved, an incision was made at the flexor crease of the interphalangeal joint. The tendon was then transected in a medial to lateral sweeping motion. Any contracted plantar joint capsule was released as well. Steri-strips and a sterile bandage were applied while splinting the toe in a rectus/corrected position, DISPOSITION : The patient tolerated the procedure and anesthesia well, and left the exam room awake, alert, and stable. The patient was instructed to take Tylenol or Motrin for discomfort, rest, ice for 10-15 minutes per hour, elevate the foot, and walk minimally until the next office visit. A surgical shoe was dispensed for ambulation. The patient is to maintain a clean surgical site, keeping it dry until the next visit Progress Notes * Ceci MELENDEZ MDOB: [birth year] (63 yo F)Acc No.[id number]:05/17/2024 Progress Note Patient:?Ceci Melendez Provider:?Charlene Phillips DPM :1960???Age:63 Y???Sex:Female D ate:05/17/2024 Address: [address] [id number] Pcp:Issa Fields MD Subjective: * Chief Complaints: * ???Painful Toe * HPI: ???Toe pain:?Nature:?aching, throbbing, sharp.?Location:?3rd toe, Left foot.?Duration:?a year or more.?Onset/Cause:?gradual.?Course:?worse.?Aggravated by:?any pressure , shoes , standing/walking.?Treatments:?bracing/splinting/padding , change in shoes , does not change condition.? * ROS:?General/Constitutional:?Nausea?denies.?Vomiting?denies.?Hunger Thirst?denies.?Loss appetite?denies.?Chills?denies.?Fatigue?denies.?Fever?denies.?Night Sweats?denies.?Unexplained weight loss?denies.?Ophthalmologic:?Blurred vision?denies.?Red eye?denies.?HEENTM:?Dentures?denies.?Dizziness?denies.?Glasses/contacts?denies.?Retinopathy?de nies.?Blurred/double vision?denies.?TMJ?denies.?Discharge/drainage?denies.?Implants?denies.?Hard of hearing denies.?Difficulty chewing/swallowing/speaking?denies.?Nose bleeds?denies.?Sore mouth?denies.?Swollen glands?denies.?Respiratory:?On Oxygen?denies.?Pneumonia/pleurisy?denies.?Bronchitis?denies.?Emphysema?denies.?C oughing?denies.?Cough blood?denies.?Shortness of breath?denies.?Wheezing?denies.?Cardiovascular:?Pacemaker?denies.?MVP?denies.?WPW?denies.?CHF?denies.?Heart attack?denies.?Septal defect?denies.?Rapid beat?denies.?Chest pain ?denies.?Atrial Fib.?denies.?Murmur/Palpitations?denies.?Gastrointestinal:?Hemorrhoids?denies.?Stomach/Abdominal pain?denies.?Dark blood stool?denies.?Irritable bowel ?denies.?Constipation?denies.?Diarrhea?denies.?Vomiting?denies.?Hematology:?Swelling?denies.?Bruising?denies.?Bleeding problem?denies.?Genitourinary:?Blood urine?denies.?Frequent/Painfu/urination/bladder control?denies.?Kidney stones?denies.?Infection (UTI)?denies.?Nephropathy?denies.?Musculoskeletal:?Hammertoes?, admits.?Bunions?denies.?Scoliosis/kyphosis?denies.?Muscle cramps / walking?denies.?Generalized aches and pains?denies.?Weakness?denies.?Integ.:?Guido?denies.?Scars?denies.?Corns/calluses?denies.?Ingrown nails?denies.?Painful nails?denies.?Rashes?denies.?Neurologic:?Difficulty sleeping?denies.?Bipolar?denies.?Brain disorder?denies.?Balance trouble?denies.?Confusion?denies.?Fainting/blackouts?denies.?Headache?denies.?Tr emors?denies.? * Medical History:? * Surgical History:?bunionecto my x2 2005/2007elbow sx 2010polypectomy 2006, 2009Ulna nerve Biopsy nasal polypectomy 2013,2018 * Hospitalization/Major Diagno stic Procedure:?Denies Past Hospitalization * Family History:?Mother: dece ased, diabetes, foot problems.?Father: .? * Social History:?Tobacco Use:?Tobacco Use/Smoking?Are you a:?former smoker ?Additional Findings: Tobacco Non-User?Current non-smoker ?Tobacco use other than smoking?Are you an other tobacco user??No ???Drugs/Alcohol:?Drugs?Have you used drugs other than those for medical reasons in the past 12 months??No ?Alcohol Screen?Did you have a drink containing alcohol in the past year??Yes ?Points?0 ?Interpretation?Negative ???Miscellaneous:?Caffeine: yes, 2-3 cups per day. ?Children: yes, 1. ?no Exercise. ?Marital status: . ?Occupation: Retired. * Medications:?TakingFluticaso ne Propionate 50 MCG/ACT Suspension 1 spray in each nostril Nasally Once a dayRosuvastatin Calcium 40 MG Tablet 1 tablet Orally Once a dayAdvair Diskus 100-50 MCG/DOSE Aerosol Powder Breath Activated 1 puff Inhalation every 12 hrsTaking Fluticasone Propionate 50 MCG/ACT Suspension 1 spray in each nostril Nasally Once a dayTaking Rosuvastatin Calcium 40 MG Tablet 1 tablet Orally Once a dayTaking Advair Diskus 100-50 MCG/DOSE Aerosol Powder Breath Activated 1 puff Inhalation every 12 hrsUnknownflonase 50 mcg/act nasal spray as directed Crestor 40 MG Tablet 1 tablet Orally Once a dayChantix 1 MG Tablet 1 tablet Orally Twice a dayMedication List reviewed and reconciled with the patientUnknown flonase 50 mcg/act nasal spray as directed Unknown Crestor 40 MG Tablet 1 tablet Orally Once a dayUnknown Chantix 1 MG Tablet 1 tablet Orally Twice a dayMedication List reviewed and reconciled with the patient * Allergies:?Morphine: itchyAs pirin: flares up nasal polypsyes[Allergies Verified] Objective: * Vitals:?Ht:5 ft 6 in, Wt:112 , BMI:18.08, Shoe size:7.5, Ht-cm: 167.64 cm, Wt-k.8 kg. * Examination: ???Orthopedic: ?DIGITAL DEFORMITIES:?Digital contracture, PIPJ, 3rd left , incompl- reducible with WB, or to push-up test, no over, nor underlapping , Reveals pain/swelling/redness/enlargement of PIPJ.? Assessment: * Assessment: 1.?Hammer toe of left foot - M20.42, T2? Plan: * Treatment: * Procedures:?Podiatry Procedure:?Tenotomy - Flexor (45869)?LOCATION : _T2_ INDICATIONS : a painful non- rigid toe contrature at the PIPJ/DIPJ, Resistant to previous conservative treatment, ANESTHESIA : 3cc of 2 percent Lidocaine local anesthesic utilizing aseptic technique administered to each involved toe, PREP : The incision site was made surgically clean by applying betadine to the involved area, PROCEDURE : Once anesthesia was achieved, an incision was made at the flexor crease of the interphalangeal joint. The tendon was then transected in a medial to lateral sweeping motion. Any contracted plantar joint capsule was released as well. Steri-strips and a sterile bandage were applied while splinting the toe in a rectus/corrected position, DISPOSITION : The patient tolerated the procedure and anesthesia well, and left the exam room awake, alert, and stable. The patient was instructed to take Tylenol or Motrin for discomfort, rest, ice for 10-15 minutes per hour, elevate the foot, and walk minimally until the next office visit. A surgical shoe was dispensed for ambulation. The patient is to maintain a clean surgical site, keeping it dry until the next visit.? * Procedure Codes:?62952 INCIS ION OF FOOT TENDON(S), Modifiers: T2 * Follow Up:?1 Week * Images: * Sign off status: Completed true * Provider:Iker Phillips DPM Date:?2023 Generated for Molly oro/Maria Antonia/eTransmitting on:?10/31/2024 03:56 PM EDT History and Physical Notes * HPI (History of Present Illness) Category Sub-Category Detail Notes Category Not es Toe pain Nature: aching, throbbing, sharp Location: 3rd toe, Left foot Duration: a year or more Onset/Cause: gradual Course: worse Aggravated by: any pressure , shoes , standing/walking Treatments: bracing/splinting/pa dding , change in shoes , does not change condition Examination Category Sub-Category Detail Notes Category Not es Orthopedic DIGITAL DEFORMITIES: Digital con tracture, PIPJ, 3rd left , incompl-reducible with WB, or to push-up test, no over, nor underlapping , Reveals pain/swelling/redness/enlargement of PIPJ
== END ==
LOC: HO.CARD 13:26
PROVIDERS: PCP Internal Medicine; Visit Provider Internal Medicine
DX: I35.0 Nonrheumatic aortic (valve) stenosis (principal)
CPT/HCPCS: 93306

== ENCOUNTER → 2024-10-31 14:22 | Outpatient (BNV) | payer MEDICARE, SELFPAY | PROVIDERS: PCP Internal Medicine; Visit Provider Internal Medicine | DX: I35.0 Nonrheumatic aortic (valve) stenosis (principal) | CPT/HCPCS: 93306 ==

== ENCOUNTER 2024-11-21 12:48 | Outpatient (AMB) | payer MEDICARE, SELFPAY ==
--- NOTE | 2024-11-21 13:06 | MHC.OFFVIS ---
Vital Signs 11/21/24 13:10 Height 5 ft 5 in Weight 120 lb BMI 20.0 Intake Visit Reasons: [facility] De Quervain's disease Intake Note: Ceci 64 yr old right hand dominant female presents today for a new patient visit for an evaluation of bilateral hands. States both hands are as bad. Pain is on her CMC joint in both hands. Patient complaining of hand weakness and discomfort. Denies numbness, tingling or locking of any finger. Allergies aspirin [ASPIRIN] Allergy (Intermediate, Unverified 11/21/24 13:14) RUNNING NOSE, swelling morphine [MORPHINE] Allergy (Unknown, Unverified 11/21/24 13:14) ITCHING ENVIRONMENTAL Allergy (Intermediate, Uncoded 11/21/24 13:14) RHINITIS; SINUS CONGESTION HPI HPI [facility] De Quervain's disease: Details: Ceci is a 64 year old right hand dominant woman who presents with complaints of bilateral hand weakness Her chief complaint is of weakness in her bilateral hands. She also has some pain at the base of her thumbs, worse with pinching & gripping, but says this is not that bad . She is also concerned about the appearance of her hands. She denies any numbness, tingling, locking, or catching. [facility] Medical History (Updated 11/21/24 @ 13:39 by Tirso Acevedo) Personal history of nicotine dependence Postmenopausal Tubular adenoma of colon (~2014) Surgical History History of lumbar fusion History of bunionectomy of right great toe History of ethmoidectomy History of nasal septoplasty History of colonoscopy Family History (Updated 12/20/22 @ 11:11 by Wilma Nazario PA-C) Father Ruptured abdominal aortic aneurysm (AAA) Mother No problems noted. Social History Alcohol intake: current Alcohol intake frequency: a few times a week Patient Tobacco Use Status: Former Tobacco user Years Smoked: (onset 16yo, 1/2ppd x 40yrs, 20pyh - quit 11/2022) Review of Systems Const All systems reviewed & are unremarkable except as noted in HPI and below Physical Exam Vital Signs: BMI result Body Mass Index 20.0 Const General: cooperative, healthy appearing and no acute distress Orientation/consciousness: patient oriented x3 HEENT Head: Yes normocephalic and Yes atraumatic Eyes EOM: EOMs intact bilaterally Resp Effort & Inspection: normal respiratory effort and able to speak in complete sentences Cardio Jugular venous distension: no JVD Skin General skin exam: turgor normal Rashes: no rashes Neuro General: patient oriented x3 Extrem Other: Evaluation of Bilateral Upper Extremity: The patient is alert, oriented, and in no acute distress Neuro: Median, Ulnar, Radial nerves motor and sensory intact and sensation is normal to the tips of all digits Vascular: Cap refill brisk ROM: She can make a fist and extend all her digits No locking or catching Significant ADduction of the 1st metacarpal joints bilaterally Skin: No lacerations or abrasions. General: No Ecchymosis. No Erythema or evidence of infection. Mild TTP over the left basal joint Pos shoulder sign bilaterally Pos CMC grind bilaterally NTTP 1st dorsal compartments Psych Appearance: grossly normal Affect: normal affect Attitude: cooperative Assessment & Plan Assessment & Plan (1) Arthritis of carpometacarpal (CMC) joint of left thumb: Code(s): M18.12 - Unilateral primary osteoarthritis of first carpometacarpal joint, left hand Category: Medical (2) Arthritis of carpometacarpal (CMC) joint of right thumb: Code(s): M18.11 - Unilateral primary osteoarthritis of first carpometacarpal joint, right hand Category: Medical (3) Weakness of both hands: Code(s): R29.898 - Other symptoms and signs involving the musculoskeletal system Category: Medical Plan Assessment & Plan: 1. 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 Left basal joint arthritis, based on PE 3. Bilateral hand weakness Likely secondary to arthritis I educated her about this condition I discussed operative and non-operative treatment options, including activity modification, injections, and surgery. She denies any difficulties with pain and is primarily concerned with weakness & loss of function in her hands today. I discussed activity modification, they should limit or avoid any heavy or repetitive pinching or gripping activities She should work on ROM exercises, and avoid any gripping or strengthening activities. I demonstrated ROM exercises today in clinic I discussed the use of assistive devices for daily activity I discussed OT hand therapy, but she declined a referral at this time. If her symptoms increase in frequency or severity, she may follow up to discuss possible injections Otherwise, she can follow up prn. Radiographs of her bilateral hands at her next appointment for confirmation Scribed for Debbie Wood MD by Tirso Acevedo, medical territory manager, on 11/21/24 at 1:30 PM, EST. Coding Level of Care Code New Pt Level 4 (38822) Diagnoses Arthritis of carpometacarpal (CMC) joint of left thumb M18.12 Arthritis of carpometacarpal (CMC) joint of right thumb M18.11 Weakness of both hands R29.898
--- OUTSIDE RECORDS SUMMARY | 2024-11-21 13:08 | XMS_ITS ---
Author Organization Issa Fields MD Address [address] [place] [phone] Care Team Providers Care Statistical Typist Name Role Phone Issa Fields Primary Care Provider REASON FOR VISIT REFILL ROSUVASTATIN Medications Medication SIG (Take, Route, Frequency, Duration) Notes Start Date End Date Status Rosuvastatin Calcium 40 mg TAKE 1 TABLET DAILY ORALLY DAILY for 90 days Active Encounters Encounter Location Date Provider Diagnosis Issa Fields MD [address] [place] [phone] 10/25/2024 Issa Fields Pure hypercholestero lemia E78.00 Assessments Encounter Date Diagnosis (ICD Code) Assessment Notes Treatment Notes Treatment Clinical Notes Section Notes 10/25/2024 Pure hypercholesterolemia (ICD-10 - E78.00) Plan Of Treatment Medication Medication Name Sig Start Date Stop Date Notes Rosuvastatin Calcium 40 mg TAKE 1 TABLET DAILY ORALLY DAILY for 90 days Next Appt Details Provider Name:Issa keen, 04/05/2025 07:30:00 AM, [address] [place] [address], [address], [phone], Provider Name:Issa keen, 04/12/2025 10:45:00 AM, [address] [place] [address], [address], [phone], Provider Name:Issa Patrick ier, 10/10/2025 07:15:00 AM, [address], [address], [place], [phone], Provider Name:Issa Patrick ier, 10/17/2025 11:00:00 AM, [address], [address], [place], [phone], Progress Notes * Paige MELENDEZOB:1960 (64 yo F)Acc No.[id number]:10/25/2024 Patient:?Ceci MELENDEZ :1960???Age:64 Y???Sex:Female Address:[address] [place] [address] * Refills? Refill Rosuvastatin Calcium Tablet, 40 mg, ORALLY, 90, TAKE 1 TABLET DAILY, DAILY, 90 days, Refills=3 * true * Date:? Generated for Molly oro/Maria Antonia/eTransmitting on:?11/21/2024 01:07 PM EDT
--- OUTSIDE RECORDS SUMMARY | 2024-11-21 13:08 | XMS_ITS ---
Author Organization [facility] Address [address] [place] [address] Care Team Providers Care Parasitologist Name Role Phone Issa Fields MD Primary Care Provider Charlene Kendrick Unavailable [phone] Edwin Bradshaw [phone] REASON FOR VISIT bought products Encounters Encounter Location Date Provider Diagnosis [facility] [address] [facility] [place] [address] 02/27/2024 Edwin Bradshaw Plan Of Treatment No Information Progress Notes * Ceci MELENDEZ MDOB: 9 (63 yo F)Acc No.[id number]:02/27/2024 Patient:?Ceci Melendez :1960???Age:63 Y???Sex:Female Address:[address] [place] [address] * true * Date:? Generated for Printi ng/Faxing/eTransmitting on:?11/21/2024 01:07 PM EDT
--- OUTSIDE RECORDS SUMMARY | 2024-11-21 13:08 | XMS_ITS ---
Author Organization [facility] [place] Address [address] [place] [address] Care Team Providers Care Basket Patcher Name Role Phone Issa Fields MD Primary Care Provider Charlene Kendrick Unavailable [phone] Allergies Allergen (clinical drug ingredient) Drug/Non Drug [...] Problem Status W/U Status Risk Notes Problem Hammer toe of left foot (M20.42) Active confirmed Improvement Vital Signs Height 5 ft 6 in in 05/17/2024 Weight 112 lbs 05/17/2024 BMI 18.08 kg/m2 05/17/2024 Procedures Procedure Date Ordered Date Performed Result Body Sit e 08477 - Tenotomy, open flexor 05/17/2024 N/A Encounters Encounter Location Date Provider Diagnosis [facility] [place] [address] [place] [address] 05/17/2024 Charlene Alan Hammer toe of left foot M20.42 Assessments [...] Detail Notes Podiatry Procedure Tenotomy - Flexor (56269) LOC ATION : _T2_ INDICATIONS : a [...] visit Progress Notes * Ceci MELENDEZ MDOB: (63 yo F)Acc No.[id number]:05/17/2024 Progress Note Patient:?Ceci Melendez Provider:?Charlene Phillips DPM :1960???Age:63 Y???Sex:Female D ate:05/17/2024 Address: [address] [id number] Pcp:Issa Fields MD Subjective: * Chief Complaints: [...] * Treatment: * Procedures:?Podiatry Procedure:?Tenotomy - Flexor (26780)?LOCATION : _T2_ INDICATIONS : a painful non- [...] dry until the next visit.? * Procedure Codes:?10268 INCIS ION OF FOOT TENDON(S), Modifiers: T2 * Follow Up:?1 Week * Images: * Sign off status: Completed true * Provider:Iker Phillips DPM Date:?2023 Generated for Molly oro/Maria Antonia/Carlitos on:?11/21/2024 01:08 PM EDT History and Physical Notes * [...]
--- OUTSIDE RECORDS SUMMARY | 2024-11-21 13:08 | XMS_ITS ---
Author Organization [facility] clair LaoPancho Address [address] [place] [address] Care Team Providers Care Crop Nutrition Scientist Name Role Phone Issa Fields MD Primary Care Provider Charlene Kendrick Unavailable [phone] Allergies Allergen (clinical drug ingredient) Drug/Non Drug [...] Problem Status W/U Status Risk Notes Problem Extensor tendon tightness, contracture (M62.40) Active confirmed Improvement Problem Plantar wart (70817355) Plantar wart (B07.0) Active confirmed Vital Signs Height 5ft6in in 05/24/2024 Weight 112 lbs 05/24/2024 BMI 18.08 kg/m2 05/24/2024 Blood pressure systolic 130 mm Hg 05/24/20 24 Blood pressure diastolic 80 mm Hg 024 Procedures Procedure Date Ordered Date Performed Result Body Sit e 53156-Qgog Destruction, -05/24/2024 N/A Encounters Encounter Location Date Provider Diagnosis [facility] [address] [place] [address] 05/24/2024 Charlene Black Hammer toe of left [...] Treatment Pending Test Test Name Order Date 56580-Fjhu Destruction, 07-2405/24/2024 Next Appt Details Follow Up: prn, Reason: Procedure Notes * Category Sub-Category Detail Notes Wart Treatment Procedure Verruca were shabana rided to pin-point bleeding margins with sterile 15 surgical blade, silver nitrate chemocautery applied, recomm. immune-boosting meds such as zinc, recomm. follow up with topical chemosurgical agents, Pt defers any other forms of tx - 08872 Progress Notes * Ceci MELENDEZ MDOB: (63 yo F)Acc No.[id number]:05/24/2024 Progress Notes Patient:?Ceci MELENDEZ Provider:?Charlene Phillips DPM :1960???Age:63 Y???Sex:Female D ate:05/24/2024 Address: [address] [id number] Pcp:Issa Fields MD Subjective: * Chief Complaints: [...] defers any other forms of tx - 58774.? * Procedure Codes:?42097 Wart Destruction, 1-14, Modifiers: 79 * Preventive [...] Phillips DPM Date:?2023 Generated for Molly oro/Maria Antonia/eTtariqsmana on:?11/21/2024 01:08 PM EDT History and Physical [...]
--- OUTSIDE RECORDS SUMMARY | 2024-11-21 13:08 | XMS_ITS | Patient Health Record ---
Author Organization [facility] [place] Address [address] [place] [address] Care Team Providers Care Waste Transportation Technician Name Role Phone Issa Fields MD Primary Care Provider Charlene Kendrick Unavailable [phone] Edwin Bradshaw Unavailable [phone] Allergies Allergen (clinical drug ingredient) Drug/Non Drug [...] Status Risk Notes Problem Acquired hallux valgus (09158659) Hallux valgus (acquired), left foot (M20.12) Active confirmed Problem Plantar wart (70583264) Plantar wart (B07.0) Active confirmed Problem Acquired hammer toe of left foot (16875295852 30949) Other hammer toe(s) (acquired), left foot (M20.42) Active confirmed Problem Acquired hallux rigidus (5454929) Hallux rigidus, right foot (M20.21) Active confirmed Problem Hammer toe of left foot (M20.42) Active confirmed Improvement Problem Extensor tendon tightness, contracture (M62.40) Active confirmed Improvement Vital Signs Blood pressure diastolic 80 mm Hg 05/24/2024 Height 5ft6in in 05/24/2024 Blood pressure systolic 130 mm Hg 05/24/2024 Weight 112 lbs 05/24/2024 BMI 18.08 kg/m2 05/24/2024 Procedures Procedure Date Ordered Date Performed Result Body Sit e 21797 - Tenotomy, open flexor 05/17/2024 N/A 80160-Luxf Destruction, 1-14 05/24/2024 N/A Encounters Encounter Location Date Provider Diagnosis [address] [address] 02/27/2024 Edwin Bradshaw Pain in left toe(s) M79.675 ; Other hammer toe(s) (acquired), left foot M20.42 and Hallux valgus (acquired), left foot M20.[address] [address] 05/17/2024 Charlene Black Hammer toe of left foot M20.[address] [address] 05/24/2024 Charlene Black Hammer toe of left foot M20.42 ; Plantar wart B07.0 and Right foot pain M79.[address] [address] 12/14/2023 Edwin Bradshaw [address] [address] 02/27/2024 Edwin Bradshaw Assessments Encounter Date Diagnosis [...] X ray : Foot, right 3V 11/28/2017 54501-Hmlp Destruction, 1-14 05/24/2024 16110-Vgjt Destruction, -14 12/19/2017 96006-Qtyt Destruction, -14 01/16/2018 79192-Hxgh Destruction, -14 02/24/2012 96236-Vyhh Destruction, 1-14 05/16/2013 14225-Ddcp Destruction, -14 11/28/2017 80179 - Tenotomy, open flexor 05/17/2024 Insurance Providers Payer Name Payer Address Payer Phone Subscriber Number Group Number Insured Name Patient Relationship to Insured Coverage Start Date Coverage End Date [employer] Medicare Adv-[id number] [address] [address] [place] [address] [id number] Ceci Melendez Self - patient is the insured Medical (General) History Medical History History ICD Code asthma CAD (Cholesterol) Surgical History Surgery Date(Month/Year) bunionectomy x2 2004/2006 elbow sx 2010 polypectomy 2006, 2009 Ulna nerve Biopsy nasal polypectomy 2013,2019
--- OUTSIDE RECORDS SUMMARY | 2024-11-21 13:08 | XMS_ITS | Patient Health Record ---
Author Organization Issa Fields MD Address [address] [place], [place] [address] Care Team Providers Care Scheduling Representative Name Role Phone Issa Fields Primary Care Provider Allergies Allergen (clinical drug ingredient) Drug/Non Drug Allergy documented on EMR Reaction Allergy Type Onset Date Status morphine Morphine Sulfate itch Drug Allergy Active Results Component Value Reference Range Notes Liver Panel Reviewed date:03/30/2024 02:38:27 PM Interpretation: Performing Lab:[address] [address] Notes/Report: Bilirubin Total 0.9 0.0-1.0 mg/dL Bilirubin Direct 0.2 0.0-0.5 mg/dL Slight Hem olysis Aspartate Amino Transferase 25 5-31 U/L Slight Hemolysis Alanine Aminotransferase 17 0-31 U/L Total Protein 7.5 6.5-8.0 g/dL Albumin Level 4.1 3.5-5.0 g/dL Alkaline Phosphatase 76 39-117 U/L Glucose Fasting Reviewed date:03/30/2024 02:23:42 PM Interpretation: Performing Lab:[address] [address] Notes/Report: Glucose Fasting 111 60-99 mg/dL A fasting glucose from 100-125 mg/dl is considered impaired (pre-diabetes). Lipid Panel with Reflex Reviewed date:03/30/2024 02:54:01 PM Interpretation: Performing Lab:[facility], [address] [place] [phone] Notes/Report: Triglycerides 91 <150 mg/dL Desirable Triglyceride: [...] A1c Reviewed date:03/30/2024 12:32:51 PM Interpretation: Performing Lab:[facility], [address] [place] [phone] Notes/Report: Hemoglobin A1c % 5.0 <6.0 % [...] average glucose, using the formula of the M3K-Gboyogo Average Glucose study (ADAG), Diabetes Care, Vol.31,#8, 2007 Complete Blood Count Auto Di ff Reviewed date:09/27/2024 12:52:10 PM Interpretation: Performing Lab:[facility], [address] [place] [phone] Notes/Report: White Blood Count 9.6 4.8-10.8 X10*3/uL [...] NRBC Abs Auto 0.000 0.0-0.012 X10*3/uL Comprehensive Partlow. Panel Fa st Reviewed date:09/27/2024 12:52:33 PM Interpretation: Performing Lab:[facility], [address] [place] [phone] Notes/Report: Sodium 141 135-145 mmol/L Potassium 3.9 [...] Panel Reviewed date:09/27/2024 12:16:09 PM Interpretation: Performing Lab:[facility], [address] [place] [phone] Notes/Report: Triglycerides 124 <150 mg/dL Desirable Triglyceride: [...] Random Reviewed date:09/27/2024 12:18:28 PM Interpretation: Performing Lab:[facility], [address] [place] [address] Notes/Report: Creatinine Urine 123.47 Microalbumin Urine 12.0 Microalbum/Creatinine Ratio Ur 9.7 <30 ug/mg cr Albumin/Creatinine Ratio Reference Ranges: Normal: < 30 ug/mg creatinine Microalbuminuria: 30 - 300 ug/mg creatinine Clinical Albuminuria: > 300 ug/mg creatinine Hemoglobin A1c Reviewed date:09/27/2024 12:11:44 PM Interpretation: Performing Lab:[facility], [address] [place] [address] Notes/Report: Hemoglobin A1c % 5.2 <6.0 % [...] average glucose, using the formula of the Q7Y-Gohgttg Average Glucose study (ADAG), Diabetes Care, Vol.31,#8, Feb. 2007 UA ClnCatch+Micro w/rflx Cul t Reviewed date:09/27/2024 12:52:49 PM Interpretation: Performing Lab:[facility], [address] [place] [address] Notes/Report: Urine, Clean Catch Color Urine Yellow Appearance Urine Clear PH 6.0 5.0-9.0 Glucose Urine UA Negative Negative mg/dL Urine Blood Negative Negative Specific Fidelity - Urine 1.015 1.005-1.025 Urine Protein Negative [...] date:02/06/2024 05:31:48 PM Interpretation: Performing Lab: Notes/Report: [facility]'[address] [place] [address] Mammography Report Signed Patient: Ceci Reveles MR#: [id number] 01 : 1960 Acct:[id number] Age/Sex: 63 / F ADM Date: 01/05/24 Loc: ALEX Attending Dr: Issa Fields MD Ordering Physician: Issa Fields MD Results: 2Be nign Findings Date of Service: 01/05/24 Follow Up: 1 Year From Orig inal Mammogram Procedure(s): MM tomosynthesis screening BI Accession Number(s): [id number] cc: Issa Fields MD EXAMINATION: MM SCREENING [...] in OV> 02/03/24 0825 DD/ 1116 TD/TT: Guest Service Agent: Nick [facility] [address] [place] [address] Mammography Report Signed Patient: Bakari Reveles MR#: [id number] 01 : 1960 Acct:[id number] Age/Sex: 63 / F ADM Date: 01/05/24 Loc: ALEX Attending Dr: Issa Fields MD Ordering Physician: Issa Fields MD Results: 2Be nign Findings Date of Service: 01/05/24 Follow Up: 1 Year From [facility] ina Mammogram Procedure(s): MM tomosynthesis screening BI Accession Number(s): [id number] cc: Issa Fields MD EXAMINATION: MM SCREENING [...] in OV> 02/03/24 0825 DD/ 1116 TD/TT: Guest Service Agent: Bola Mitchell Reviewed date:03/30/2024 12:20:49 PM Interpretation: Performing Lab:[facility], [address] [place] [phone] Notes/Report: Bola Mitchell See Note Specimen held untested for 24 hours; Call to request Chemistry testing. CT lung screening Reviewed date:05/27/2024 04:42:08 PM Interpretation: Performing Lab: Notes/Report: [address] [address] [address] Scan Report Signed Patient: Ceci Reveles MR#: [id number] 01 : 1960 Acct:[id number] Age/Sex: 63 / F ADM Date: 04/11/24 Loc: HO.CT Attending Dr: Wilma Nazario PA-C Ordering Physician: Wilma Nazario PA-C Date of Service: 04/11/24 Procedure(s): CT lung screening Accession Number(s): [id number] cc: Issa Fields MD; Wilma Nazario PA-C [...] for CT CHEST LOW DOSE CANCER SCREENING ([id number]) can be placed. Electronically signed by: Guru Barney MD 05/27/2024 11:14 AM EST Dictated By: Guru Barney MD Signed By: <Electronically signed by Guru Barney MD in OV> 05/27/24 1114 DD/ 1056 TD/TT: 04/11/24 1105 Guest Service Agent: [address] [address] [address] Scan Report Signed Patient: Bakari Reveles MR#: [id number] 01 : 1960 Acct:[id number] Age/Sex: 63 / F ADM Date: 04/11/24 Loc: HO.CT Attending Dr: Wilma Nazario PA-C Ordering Physician: Wilma Nazario PA-C Date of Service: 04/11/24 Procedure(s): CT derrell g screening Accession Number(s): [id number] cc: Issa Fields MD; Wilma Nazario PA-C [...] for CT CHEST LOW DOSE CANCER SCREENING ([id number]) can be placed. Electronically naomi d by: Guru Barney MD 05/27/2024 11:14 AM [facility] Dictated By: Guru Barney MD Signed By: <Electronically signed by Guru Barney MD in OV> 05/27/24 1114 DD/ 1056 TD/TT: 04/11/24 1105 Guest Service Agent: NAHUM Mitchell Reviewed date:09/27/2024 12:16:19 PM Interpretation: Performing Lab:[facility], [address] [place] [phone] Notes/Report: Bola Mitchell See Note Specimen held [...] Referring Provider Speciality Internal edicine Referred Provider Debbie Wood Referred Provider Specialty Hand Surgery General Notes Tia Krueger 0 10/22/2024 02:50:49 PM >info fabelkysedEvans Annette 11/02/2024 01:08:38 PM > was told by office patient is aware of appt Referral Priority Routine Referral Appointment Date 12/11/2024 Reason Nasal polyps Diagnosis 1 Nasal polyps (J33.9) Referral Organization Issa Fields MD Referring Provider First Name Issa Referring Provider Last Name Diamond Referring Provider Speciality Internal edicine Referred Provider [facility] [place] Referred Provider Specialty Allergy/Immu nology General Notes Tia Krueger 0 10/19/2024 10:57:53 AM > info Evans francis Annette 11/02/2024 01:02:29 PM >was told by office she is aware of appt Referral Priority Routine Referral Appointment Date 11/15/2024 Reason aortic Stenosis Diagnosis 1 Aortic stenosis (I35 .0) Referral Organization Issa Fields MD Referring Provider First Name Issa Referring Provider Last Name Diamond Referring Provider Speciality Internal edicine Referred Provider Beny Mccracken Referred Provider Specialty Cardiovascul ar Disease General Notes Tia Krueger 0 11/09/2024 01:51:58 PM >referral info Evans francis Annette 11/12/2024 01:11:07 PM > no able to go to [facility], they do not accept her insurance. info faxed to [facility]io[facility]ans Annette 11/16/2024 01:48:38 PM > was told on the wait list Referral Priority Routine Medications Medication SIG (Take, Route, Frequency, Duration) Notes Start Date End Date Status Varenicline Tartrate 1 mg TAKE 1 TABLET TWICE A DAY DIRECTED Not-Taking Naltrexone HCl 50 mg TAKE 1 TABLET [...] as needed Inhalation every 4 hrs 07/23/2013 Nuvia nelson Immunizations Vaccine Route Administration Date Status Comme nts Flu Vaccine IM Intramuscular 04/06/2011 Administered Flu Vaccine IM Intramuscular 08/22/2012 Administered Flu Vaccine Unknown 03/20/2015 Administered HAD IT AT [facility] Fluarix Quadrivalent IM Intramuscular 04/13/2016 Administe red Fluarix Quadrivalent IM Intramuscular 04/26/2017 Administe red TDaP Unknown 06/10/2017 Administered pt was given the vaccine at [facility] in [place]. Fluarix Quadrivalent IM Intramuscular 04/24/2018 Administe red PPSV23 (Pnemovax) IM Intramuscular 05/08/2018 Administered Tetanus Unknown 06/10/2017 Administered Fluarix Quadrivalent IM Intramuscular 03/15/2019 Administe red Prevnar 13 IM Intramuscular 09/18/2019 Administered Fluarix Quadrivalent IM Intramuscular 03/26/2020 Administe red Fluarix Quadrivalent IM Intramuscular 04/02/2021 Administe [...] Status W/U Status Risk Notes Problem Lymphocytosis (34947109) Lymphocytosis (D72.820) Active confirmed Problem 32482896389791137 Acute recurren t maxillary sinusitis (J01.01) Active confirmed Problem 6062684 Panlobular emphy sema (J43.1) Active confirmed Problem Aortic valve disorder (6178059) Aortic stenosis (I35.0) Active confirmed Problem 952491106 Low HDL (under 4 0) (E78.6) Active confirmed Problem 86454826 Alcohol abuse (F10.10) Active confirme d Problem Current smoker (F17.200) Active confirmed Problem 91970359 Dysthymia (F34.1) Active confirmed Problem 885882167 Multiple allergi es (Z88.9) Active confirmed Problem 18070143 CAD (coronary ar andres disease) (I25.10) Active confirmed Problem 818880204 Recurrent sinus infections (J32.9) Active confirmed Problem 734128448 Prediabetes (R73.03) Active confirmed Problem 303863204 Pure hypercholesterolemia (E78.00) Active confirmed Problem 137479042 History of viral pericarditis (Z86.79) Active confirmed Problem Moderate aortic stenosis (I35.0) Active confirmed Problem 868802790 Recurrent sinusi tis (J32.9) Active confirmed Vital Signs Blood pressure diastolic 70 mm Hg 11/06/2024 Height 66 in 11/06/2024 Blood pressure systolic 122 mm Hg 11/06/2024 Weight 122 lbs 11/06/2024 BMI 19.69 kg/m2 11/06/2024 Encounters Encounter Location Date Provider Diagnosis Issa Fields MD [address] [place] [id number] 03/30/2024 Issa Fields Prediabetes R73.03 ; Encounter for immunization Z23 and Pure hypercholesterolemia E78.00 Issa Fields MD [address] [place] [address] Drive [address] [place] [id number] 09/27/2024 Issa Fields Blood tests for rout ine general physical examination Z00.00 ; Pure hypercholesterolemia E78.00 ; Prediabetes R73.03 and Lymphocytosis D72.820 Issa Fields MD [address] [place] [id number] 04/06/2024 Issa Fields Nasal polyps J33.9 ; Recurrent sinus infections J32.9 ; Alcohol abuse F10.10 ; Low HDL (under 40) E78.6 and Moderate aortic stenosis I35.0 Issa Fields MD [address] [place] [id number] 06/05/2024 Issa Fields Nasal polyps J33.9 a nd Recurrent sinus infections J32.9 Issa Fields MD [address] [place] [id number] 08/03/2024 Issa Fields Nasal polyps J33.9 a nd Recurrent sinus infections J32.9 Issa Fields MD [address] [place] [address] [id number] 10/02/2024 Issa Fields Recurrent sinusitis J32.9 Issa Fields MD [address] [place] [id number] 10/09/2024 Issa Fields Annual physical exam Z00.00 ; Moderate aortic stenosis I35.0 ; Nasal polyps J33.9 ; De Quervain's disease (tenosynovitis) M65.4 ; Pure hypercholesterolemia E78.00 ; Panlobular emphysema J43.1 and Depression screening Z13.31 Issa Fields MD [address] [place] [id number] 11/06/2024 Issa Fields Aortic stenosis I35. 0 Issa Fields MD [address] [place] [id number] 11/22/2023 Issa Fields MD [address] [place] [address] [id number] 11/25/2023 Issa Fields MD [address] [place] [address] [id number] 10/25/2024 Issa Fields Pure hypercholestero lemia E78.00 Assessments Encounter Date Diagnosis (ICD Code) Assessment Notes Treatment Notes Treatment Clinical Notes Section Notes 03/30/2024 Prediabetes (ICD-10 - R73.03) 03/30/2024 Encounter for immunization (ICD-10 - Z23) 09/27/[address] ine general physical examination (ICD-10 - Z00.00) 04/06/2024 Nasal polyps (ICD-10 - J33.9) patient [...] stenosis (ICD-10 - I35.0) order faxed to [facility] dept , pending diagnostic testing 11/06/2024 Aortic stenosis (ICD -10 - I35.0) will get referral to dr jhoan cruz at [facility]/ NOT having any symptoms 10/25/2024 Pure hypercholesterolemia (ICD-10 - E78.00) 03/30/2024 [...] polyps (ICD-10 - J33.9) referral to allergy 09/27/2024 Prediabetes (ICD-10 - R73.03) 04/06/2024 Low [...] Provider Name:Issa Patrick ier, 04/05/2025 07:30:00 AM, [address] [place] [address], [address], [phone], Provider Name:Issa Patrick ier, 04/12/2025 10:45:00 AM, [address] [place] [address], [address], [phone], Provider Name:Issa Patrick ier, 10/10/2025 07:15:00 AM, [address] [place] [address], [address], [phone], Provider Name:Issa Patrick ier, 10/17/2025 11:00:00 AM, [address] [place] [address], [address], [phone], Insurance Providers Payer Name Payer Address Payer Phone Subscriber Number Group Number Insured Name Patient Relationship to Insured Coverage Start Date Coverage End Date [facility] are [employer] [address] [address] [place] [address] [id number] NoraLetitiaan Self - patient is the insured [employer] [address] [place] [address] [id number] Cunningham Self - patient is the insured Medical (General) History Medical History History ICD Code 06/18/15 - Colonoscopy done b y Dr. Jay Kenny - repeat n 10 years as all polyps were hyperplastic varenicline is chantix
--- OUTSIDE RECORDS SUMMARY | 2024-11-21 13:08 | XMS_ITS ---
Author Organization Issa Fields MD Address [address] [place], [place] [phone] Care Team Providers Care Loan Supervisor Name Role Phone Diamond Issa Primary Care Provider Allergies Allergen (clinical drug [...] Krueger 0 11/09/2024 01:51:58 PM >referral info faxedEvans Annette 11/12/2024 01:11:07 PM > no able to go to [facility], they do not accept her insurance. info faxed to [facility] CardioEvans Annette 11/16/2024 01:48:38 PM > was told on the wait list Referral Priority Routine REASON FOR VISIT must echo, Accompanied by [...] Status W/U Status Risk Notes Problem Aortic stenosis (I35.0) Active confirmed Vital Signs Blood pressure systolic 122 mm Hg 11/07/19 25 Blood pressure diastolic 70 mm Hg 025 Height 66 in 11/06/2024 Weight 122 lbs 11/06/2024 BMI 19.69 kg/m2 11/06/2024 Encounters Encounter Location Date Provider Diagnosis Issa Fields MD [address] [place] [id number] 11/06/2024 Issa Fields Aortic stenosis I35.0 Assessments Encounter Date Diagnosis (ICD Code) Assessment Notes Treatment Notes Treatment Clinical Notes Section Notes 11/06/2024 Aortic stenosis (ICD-10 - I35.0) will get referral to dr jhoan cruz at [facility]/ NOT having any symptoms Plan Of Treatment Treatment Notes Assessment Notes Aortic stenosis will get referral to dr jhoan cruz at [facility]/ NOT having any symptoms Referrals Referral Date Details 11/06/2024 11/06/2024, aortic S tenosis, Beny Nawaf Next Appt Details Provider Name:Issa keen, 04/05/2025 07:30:00 AM, [address] [place] [address], [address], [phone], Provider Name:Issa keen, 04/12/2025 10:45:00 AM, [address] [place] [address], [address], [phone], Provider Name:Issa keen, 10/10/2025 07:15:00 AM, [address] [place] [address], [address], [phone], Provider Name:Issa keen, 10/17/2025 11:00:00 AM, [address], [address], [place], [place], [phone], Progress Notes * Paige MELENDEZOB:1960 (64 yo F)Acc No.[id number]:11/06/2024 Patient:?Ceci MELENDEZ Provider:?Issa Fields MD :1960???Age:64 Y???Sex:Female D ate:11/06/2024 Address:[address] [place], [place] [phone] Subjective: * Chief Complaints: * ???Must echoAccompanied by clair perez * HPI: ???Symptom(s):? patient is a 64 yo female here for follow up of recent echo. * ROS:?General/Constitutional:?Denies?Chills.?Denies?Fatigue.?Denies?Fever.?Denies?Headache.?ENT:?Denies?Sore throat.?Respiratory:?Denies?Cough.?Denies?Shortness of breath at rest.?Denies?Shortness of breath with exertion.?Cardiovascular:?Patient denies?chest pain shotness of breath or syncope.?Denies?Chest pain at rest.?Denies?Chest pain with exertion.?Denies?Dizziness.?Denies?Palpitations.?Denies?Shortness of breath.?Gastrointestinal:?Denies?Diarrhea.?Denies?Nausea.? * Medical History:? * Surgical History:? * Hospitalization/Major Diagno stic Procedure:? * Medications:?TakingNaltrexon e HCl 50 mg Tablet TAKE 1 TABLET [...] itchyes[Allergies Verified] Objective: * Vitals:?Ht: 66, Wt: 122, BMI :19.69, BP:122/70, Wt-k.34. * Examination: ???General Examination: ?GENERAL APPEARANCE:?well developed, well nourished.?SKIN:?good turgor.?HEART:?grade 3/6 systolic murmur at left sternal border.?LUNGS:?no wheezes, rales, rhonchi, good air movement, clear to auscultation bilaterally.? Assessment: * Assessment: 1.?Aortic stenosis - I35.0 ( Primary)??? Plan: * Treatment: * Procedure Codes:? * * Sign off status: Completed true * Provider:?Issa Fields MD Date:?0 11/06/2024 Generated for Molly oro/Maria Antonia/Carlitos on:?11/21/2024 01:08 [...]
--- OUTSIDE RECORDS SUMMARY | 2024-11-21 13:08 | XMS_ITS ---
Author Organization Issa Fields MD Address [address] [place], [place] [phone] Care Team Providers Care Supervisor Scouring Pads Name Role Phone Issa Fields Primary Care Provider [phone] Allergies Allergen (clinical drug ingredient) Drug/Non Drug [...] Provider Speciality Internal M edicine [facility], [facility] [place] Referred Provider Specialty Allergy/Immu nology General Notes [...] Date Provider Diagnosis Issa Fields MD [address] [place] [address] [address] [place], [place] [phone] 10/09/2024 Issa Fields Annual physical exam Z00.00 [...] stenosis (ICD-10 - I35.0) order faxed to [facility] CS dept , pending diagnostic testing 10/09/2024 [...] referral Moderate aortic stenosis order faxed to [facility] CS dept , pending diagnostic testing Nasal polyps referral to allergy De Quervain's disease (tenosynovitis) re ferral to [facility] Pure hypercholesterolemia stable, will c ontinue current regiment Panlobular emphysema doing well, will co ntinue current regiment Depression screening negative screen Pending Test Test Name Order Date ECHO 10/09/2024 Referrals Referral Date Details 10/09/2024 10/09/2024, needs co lonoscopy, Leland Quintanilla 10/09/2024 10/09/2024, De Querv ain's disease ( tenosynovitis ), Debbie Wood 10/09/2024 10/09/2024, Nasal po lyps, [facility] [place] [facility] Appt Details Follow Up: 6 Months, Reason: Provider Name:Issa keen, 04/05/2025 07:30:00 AM, [address] [place] [address], Suite [facility], [place], [place], [phone], Provider Name:Issa stallingsr, 04/12/2025 10:45:00 AM, [address] [place] [address], [address], [place], [place], [phone], Provider Name:Issa keen, 10/10/2025 07:15:00 AM, [address] [place] [address], Suite [facility], [place], [place], [phone], Provider Name:Issa stallingsr, 10/17/2025 11:00:00 AM, [address] [place] [address], Suite [facility], [place], [place], [phone], Progress Notes * Paige MELENDEZOB:1960 (64 yo F)Acc No.[id number]:10/09/2024 Progress Notes Patient:?Ceci MELENDEZ Provider:?Issa Fields MD :1960???Age:64 Y???Sex:Female D ate:10/09/2024 Address:[address] [place] [address] [id number] Subjective: * Chief Complaints: * ???ANNUAL EXAM [...] mg/dL ?Urine Blood Negative Negative - ?Specific [place] - Urine 1.015 1.005-1.025 - ?Urine Protein [...] Auto 0.000 0.0-0. 012 - X10*3/uL ???Lab:Comprehensive [place]. P mer Fast (Order Date - 09/27/2024) [...] m g/dL ???Lab:Lipid Panel (Order Da te 09/27/2024) (Collection Date & Time - 09/27/2024 08:00 AM) ? Value Reference Range ?Triglycerides 124 <150 - mg/dL ?Cholesterol 133 <200 - m g/dL ?LDL Cholesterol Calculated 90 <100 - mg/dL ?HDL Cholesterol 19 L >40 - mg/dL ???Lab:Microalbumin, Random (Order 09/27/2024) (Collection Date & Time - 09/27/2024 08:00 AM) ? Value Reference Range ?Creatinine Urine 123.47 - m g/dL ?Microalbumin Urine 12.0 - mg/L ?Microalbum Creatinine Ratio Ur 9.7 <30 - ug/mg cr ???Lab:Hemoglobin A1c (Order 09/27/2024) (Collection Date & Time - 09/27/2024 [...] organomegaly , no masses palpable.?RECTAL EXAM:?done by telemetry nurse.?FEMALE GENITOURINARY:?done by telemetry nurse.?EXTREMITIES:?no clubbing, cyanosis, or edema.?NEUROLOGIC:?nonfocal, motor strength normal upper and lower extremities, sensory exam intact.? Assessment: * Assessment: 1.?Annual physical exam - Z0 0.00 (Primary)???2.?Moderate aortic stenosis - I35.0???3.?Nasal polyps - J33.9???4.?De Quervain's disease (tenosynovitis) - M65.4???5.?Pure hypercholesterolemia - E78.00???6.?Panlobular emphysema - J43.1???7.?Depression screening - Z13.31??? Plan: * Treatment: 2.?Moderate aortic stenosis?Imaging: ECHO Notes: order faxed to [facility] CS dept , pending diagnostic testing?? 3.?Nasal [...] Provider:?Issa Fields MD Date:?0 10/09/2024 Generated for Molly oro/Maria Antonia/Rosaransmitting on:?11/21/2024 01:08 PM EDT History and Physical [...] Total Score: 0 Interpretation and Intervention Depression Rye zeferino Findings: Negative Follow-Up for Depression: : [...] mass, no lump RECTAL EXAM: done by telemetry nurse FEMALE GENITOURINARY: done by telemetry nurse ORAL CAVITY: mucosa moist Consultation Request Notes Referral Date Referring Provider Referred Provider Not es 10/09/2024 Issa Fields Robert needs colo noscopy 10/09/2024 Issa Fields Allison De Que rvain's disease ( tenosynovitis ) 10/09/2024 Issa Fields [facility] [place], [facility] [place] Nasal polyps
== END 2024-11-21 13:54 | disposition home or self-care (01) ==
LOC: HO.HOS 12:49
PROVIDERS: PCP Internal Medicine; Visit Provider Orthopaedic Surgery
DX: M18.0 Bilateral primary osteoarthritis of first carpometacarpal joints (principal); R29.898 Other symptoms and signs involving the musculoskeletal system
CPT/HCPCS: 99203

== ENCOUNTER → 2024-11-21 12:48 | Outpatient (BNVA) | payer MEDICARE, SELFPAY | PROVIDERS: PCP Internal Medicine; Visit Provider Orthopaedic Surgery | DX: M65.4 Radial styloid tenosynovitis [de Quervain] (principal); M18.12 Unilateral primary osteoarthritis of first carpometacarpal joint, left hand; M18.11 Unilateral primary osteoarthritis of first carpometacarpal joint, right hand; R29.898 Other symptoms and signs involving the musculoskeletal system | CPT/HCPCS: 99202 ==

== ENCOUNTER 2025-01-03 12:15 | Outpatient (AMB) | payer MEDICARE, SELFPAY ==
--- NOTE | 2025-01-03 12:35 | A.OFFVIS_ITS ---
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 She has had aortic stenosis monitor on echocardiogram by Dr. Fields. As it has been progressive she has been referred for further evaluation. Around 2016, it seems that she had chest pain and was worked up with diagnostic catheterization but conclusion was rather pericarditis. Apart from that, she has not really had any major cardiac issues. Within limits of her activity, she does not have any clear-cut angina or shortness of breath or in fact any other cardiac symptoms. Patient has a history of allergy to aspirin as she gets fair he has nasal symptoms and there was also mentioned on nasal polyps. There is a family history of ruptured abdominal aortic aneurysm in father. [facility] Medical History (Updated 01/03/25 @ 13:04 by Fabrizio Haile MD) Personal history of nicotine dependence Postmenopausal Tubular adenoma of colon (~2014) Surgical History History of lumbar fusion History of bunionectomy of right great toe History of ethmoidectomy History of nasal septoplasty History of colonoscopy Family History (Updated 12/20/22 @ 11:11 by Wilma Nazario PA-C) Father Ruptured abdominal aortic aneurysm (AAA) Mother No problems noted. Social History Alcohol intake: current Alcohol intake frequency: a few times a week Patient Tobacco Use Status: Former Tobacco user Years Smoked: (onset 16yo, 1/2ppd x 40yrs, 20pyh - quit 11/2022) Review of Systems Const Denies weakness ENT Denies dizziness Card Denies chest pain, Denies chest pain with activity, Denies syncope, Denies rapid heart rate, Denies pedal edema, Denies edema, Denies leg edema, Denies lightheadedness, Denies palpitations, Denies dyspnea, Denies dyspnea on exertion and Denies orthopnea Resp Denies cough, Denies dyspnea and Denies dyspnea on exertion GI Denies hematochezia and Denies change in stool character Musc Denies abnormal gait, Denies muscle cramps, Denies muscle weakness, Denies numbness, Denies radiating pain into limb and Denies tingling Neuro Denies abnormal gait, Denies dizziness, Denies syncope, Denies numbness, Denies tingling and Denies weakness Endo Denies palpitations Physical Exam Vital Signs: Last Vital Signs Pulse 77 01/03/25 12:36 BP 160/78 H 01/03/25 12:36 BMI result Body Mass Index 19.4 Const General: comfortable and no acute distress Orientation/consciousness: patient oriented x3 HEENT Other: Unremarkable Head: Yes normal to inspection Neck Neck: Yes normal visual inspection Chest Chest palpation & inspection: normal inspection of the chest Resp Auscultation: clear to auscultation bilaterally Cardio Palpation: normal PMI Heart sounds: S1 normal heart sound present, S2 normal heart sound present, no gallops, Murmur heart sound present systolic III/ and at the right sternal border and no rubs GI Palpation (GI): Soft to palpation Back/Spine/Pelvis Other: unremarkable Skin General skin exam: no rashes or lesions noted Neuro General: patient oriented x3 Extrem General: Yes normal to inspection Psych Mental Status: mental status grossly normal Office Procedures EKG Details: EKG with underlying sinus rhythm at 77/Min; biatrial enlargement; cannot exclude old septal infarct but more likely from body habitus; [place] [address]-Tltyfjznfartropdl, Complete Assessment & Plan Assessment & Plan (1) Non-rheumatic aortic stenosis: Code(s): I35.0 - Nonrheumatic aortic (valve) stenosis Category: Medical Plan In the recent echocardiogram, LVEF is 66%. Basal inferior/inferolateral segments thought to be hypokinetic. With regard to the aortic stenosis, mean gradient across the aortic valve was 29 mm Hg with a valve area of 0.9 sq cm. Dimensionless index 0.3. Overall, thought to be moderate to severe aortic stenosis. Pathophysiology, symptoms, natural course, treatment options discussed in great detail. As she has got absolutely no symptoms at this time, no specific interventions and we will recheck this in about 6 months' time. In the interim, if she indeed develops any cardiac symptoms, then she will contact us immediately. Eventually, she will need valve intervention, possibly as TAVR. With regard to the anatomy itself, not clear if she has a bicuspid or trileaflet morphology that may impact what we do. Additionally, due to history of significant nasal allergies related to aspirin, she may need single agent Plavix post valve intervention versus aspirin desensitization. To be decided. Due to family history of ruptured abdominal aortic aneurysm, we can check ultrasound. Discussed with significant other. Discussion Notes I discussed the progression of aortic valve stenosis and the potential need for TAVR or open-heart surgery. We reviewed the importance of monitoring symptoms and scheduling a follow-up echocardiogram in six months. I explained the need for alternative blood thinners if aspirin is contraindicated. Patient was informed and verbally consented to the use of an ambient scribe for clinic note documentation during this visit. Orders: Orders CA echo transthoracic complete 6 Months I35.0 - Nonrheumatic aortic (valve) stenosis US abdominal aortic aneurysm Today I71.40 - Abdominal aortic aneurysm, without rupture, unspecified Patient Instructions: - Monitor for symptoms such as chest pain or shortness of breath. - Schedule an echocardiogram in six months. - Continue to avoid smoking to manage emphysema. - Use prescribed medication for nasal polyps and inform the doctor if symptoms worsen. Coding Level of Care Code New Pt Level 4 (80677) Complex EM visit Add On G2211 Diagnoses Non-rheumatic aortic stenosis I35.0 CPT Codes EKG - CPT: 03671-[id number], Complete ([id number])
[2025-01-03 12:36] VITALS: BP 160/78; PULSE 77; BMI 19.4
--- OUTSIDE RECORDS SUMMARY | 2025-01-03 14:35 | XMS_ITS | Patient Health Record ---
Author Organization Issa Fields MD Address [address] [place], [place] [id number] Care Team Providers Care Offline Editor Name Role Phone Issa Fields Primary Care Provider Allergies Allergen (clinical drug ingredient) Drug/Non Drug Allergy documented on EMR Reaction Allergy Type Onset Date Status morphine Morphine Sulfate itch Drug Allergy Active Results Component Value Reference Range Notes Liver Panel Reviewed date:03/30/2024 02:38:27 PM Interpretation: Performing Lab:[address] [phone] Notes/Report: Bilirubin Total 0.9 0.0-1.0 mg/dL Bilirubin Direct 0.2 0.0-0.5 mg/dL Slight Hem olysis Aspartate Amino Transferase 25 5-31 U/L Slight Hemolysis Alanine Aminotransferase 17 0-31 U/L Total Protein 7.5 6.5-8.0 g/dL Albumin Level 4.1 3.5-5.0 g/dL Alkaline Phosphatase 76 39-117 U/L Glucose Fasting Reviewed date:03/30/2024 02:23:42 PM Interpretation: Performing Lab:[address] [phone] Notes/Report: Glucose Fasting 111 60-99 mg/dL A fasting glucose from 100-125 mg/dl is considered impaired (pre-diabetes). Lipid Panel with Reflex Reviewed date:03/30/2024 02:54:01 PM Interpretation: Performing Lab:[facility], [address] [place] [phone] Notes/Report: Triglycerides 91 <150 mg/dL Desirable Triglyceride: [...] A1c Reviewed date:03/30/2024 12:32:51 PM Interpretation: Performing Lab:[facility], [address] [place] [phone] Notes/Report: Hemoglobin A1c % 5.0 <6.0 % [...] average glucose, using the formula of the W3G-Euzptcc Average Glucose study (ADAG), Diabetes Care, Vol.31,#8, 2007 Complete Blood Count Auto Di ff Reviewed date:09/27/2024 12:52:10 PM Interpretation: Performing Lab:[facility], [address] [place] [phone] Notes/Report: White Blood Count 9.6 4.8-10.8 X10*3/uL [...] NRBC Abs Auto 0.000 0.0-0.012 X10*3/uL Comprehensive [place]. Panel Fa st Reviewed date:09/27/2024 12:52:33 PM Interpretation: Performing Lab:[facility], [address] [place] [phone] Notes/Report: Sodium 141 135-145 mmol/L Potassium 3.9 [...] Panel Reviewed date:09/27/2024 12:16:09 PM Interpretation: Performing Lab:[facility], [address] [place] [phone] Notes/Report: Triglycerides 124 <150 mg/dL Desirable Triglyceride: [...] Random Reviewed date:09/27/2024 12:18:28 PM Interpretation: Performing Lab:[facility], [address] [place] [phone] Notes/Report: Creatinine Urine 123.47 Microalbumin Urine 12.0 Microalbum/Creatinine Ratio Ur 9.7 <30 ug/mg cr Albumin/Creatinine Ratio Reference Ranges: Normal: < 30 ug/mg creatinine Microalbuminuria: 30 - 300 ug/mg creatinine Clinical Albuminuria: > 300 ug/mg creatinine Hemoglobin A1c Reviewed date:09/27/2024 12:11:44 PM Interpretation: Performing Lab:[facility], [address] [place] [phone] Notes/Report: Hemoglobin A1c % 5.2 <6.0 % [...] average glucose, using the formula of the U0U-Gygaezb Average Glucose study (ADAG), Diabetes Care, Vol.31,#8, Feb. 2007 UA ClnCatch+Micro w/rflx Cul t Reviewed date:09/27/2024 12:52:49 PM Interpretation: Performing Lab:[facility], [address] [place] [phone] Notes/Report: Urine, Clean Catch Color Urine Yellow Appearance Urine Clear PH 6.0 5.0-9.0 Glucose Urine UA Negative Negative mg/dL Urine Blood Negative Negative Specific [place] - Urine 1.015 1.005-1.025 Urine Protein Negative [...] date:02/06/2024 05:31:48 PM Interpretation: Performing Lab: Notes/Report: [facility]'[address] [place] [address] Mammography Report Signed Patient: Ceci Melendez MR#: [id number] 01 : 1960 Acct:[id number] Age/Sex: 63 / F ADM Date: 01/05/24 Loc: ALEX Attending Dr: Issa Fields MD Ordering Physician: Issa Fields MD Results: 2Be nign Findings Date of Service: 01/05/24 Follow Up: 1 Year From Orig inal Mammogram Procedure(s): MM tomosynthesis screening BI Accession Number(s): [id number] cc: Issa Fields MD EXAMINATION: MM SCREENING [...] in OV> 02/03/24 0825 DD/ 1116 TD/TT: Lathing Supervisor: Nick [facility] [address] [place] [address] Mammography Report Signed Patient: Bakari Melendez MR#: [id number] 01 : 1960 Acct:[id number] Age/Sex: 63 / F ADM Date: 01/05/24 Loc: ALEX Attending Dr: Issa Fields MD Ordering Physician: Issa Fields MD Results: 2Be nign Findings Date of Service: 01/05/24 Follow Up: 1 Year From [facility] ina Mammogram Procedure(s): MM tomosynthesis screening BI Accession Number(s): [id number] cc: Issa Fields MD EXAMINATION: MM SCREENING [...] in OV> 02/03/24 0825 DD/ 1116 TD/TT: [place] Supervisor: Bola Mitchell Reviewed date:03/30/2024 12:20:49 PM Interpretation: Performing Lab:[facility], [address] [place] [phone] Notes/Report: Bola Mitchell See Note Specimen held untested for 24 hours; Call to request Chemistry testing. CT lung screening Reviewed date:05/27/2024 04:42:08 PM Interpretation: Performing Lab: Notes/Report: [address] [address] [address] Scan Report Signed Patient: Ceci Melendez MR#: [id number] 01 : 1960 Acct:[id number] Age/Sex: 63 / F ADM Date: 04/11/24 Loc: HO.CT Attending Dr: Wilma Nazario PA-C Ordering Physician: Wilma Nazario PA-C Date of Service: 04/11/24 Procedure(s): CT lung screening Accession Number(s): [id number] cc: Issa Fields MD; Wilma Nazario PA-C [...] for CT CHEST LOW DOSE CANCER SCREENING ([id number]) can be placed. Electronically signed by: Guru Barney MD 05/27/2024 11:14 AM EST Dictated By: Guru Barney MD Signed By: <Electronically signed by Guru Barney MD in OV> 05/27/24 1114 DD/ 1056 TD/TT: 04/11/24 1105 [place] Supervisor: [address] [address] [address] Scan Report Signed Patient: Bakari Melendez MR#: [id number] 01 : 1960 Acct:[id number] Age/Sex: 63 / F ADM Date: 04/11/24 Loc: HO.CT Attending Dr: Wilma Nazario PA-C Ordering Physician: Wilma Nazario PA-C Date of Service: 04/11/24 Procedure(s): CT derrell g screening Accession Number(s): [id number] cc: Issa Fields MD; Wilma Nazario PA-C [...] for CT CHEST LOW DOSE CANCER SCREENING ([id number]) can be placed. Electronically naomi d by: Guru Barney MD 05/27/2024 11:14 AM [facility] Dictated By: Guru Barney MD Signed By: <Electronically signed by Guru Barney MD in OV> 05/27/24 1114 DD/ 1056 TD/TT: 04/11/24 1105 [place] Supervisor: NAHUM Mitchell Reviewed date:09/27/2024 12:16:19 PM Interpretation: Performing Lab:[facility], [address] [place] [phone] Notes/Report: Bola Mitchell See Note Specimen held [...] Tia Krueger 0 10/22/2024 02:50:49 PM >info faxedEvans Annette 11/02/2024 01:08:38 PM > was told by office patient is aware of appt Referral Priority Routine Referral Appointment Date 12/11/2024 Reason Nasal polyps Diagnosis 1 Nasal polyps (J33.9) Referral Organization Issa Fields MD Referring Provider First Name Issa Referring Provider Last Name Diamond Referring Provider Speciality Internal edicine Referred Provider [facility], [facility]ergy [place] Referred Provider Specialty Allergy/Immu nology General Notes Tia Krueger 0 10/19/2024 10:57:53 AM > info faxed, Tia Krueger 11/02/2024 01:02:29 PM >was told by office [...] PM > no able to go to [facility], they do not accept her insurance. info faxed to [facility] Cardio, Tia Krueger 11/16/2024 01:48:38 PM > was told on the wait list, Tia Krueger 12/31/2024 10:38:37 AM >spoke with office she is on the wait list, they are working on getting her for a soon appt Referral Priority Routine Referral Appointment Date 01/03/2025 Reason Arthritis in both garcia nds Diagnosis 1 Arthritis pain of garcia nd (M19.049) Referral Organization Issa Fields MD Referring Provider First Name Issa Referring Provider Last Name Diamond Referring Provider Speciality Internal edicine Referred Provider [facility] Rheumatology, [facility] Rheumatology Referred Provider Specialty Rheumatology General Notes Carmencita Kruegerette 0 11/26/2024 11:43:18 AM >referral faxed / patient is aware of appt Referral Priority Routine Referral Appointment Date 09/11/2025 Medications Medication SIG (Take, Route, Frequency, Duration) Notes Start Date End Date Status Varenicline Tartrate 1 mg TAKE 1 TABLET TWICE A DAY DIRECTED Not-Taking Naltrexone HCl 50 MG TAKE 1 TABLET DAILY for 90 Active Advair Diskus 100-50 MCG/ACT USE 1 [...] Inhalation every 4 hrs 07/23/2013 Not-Michael g Immunizations Vaccine Route Administration Date Status Comme nts Flu Vaccine IM Intramuscular 04/06/2011 Administered Flu Vaccine IM Intramuscular 08/22/2012 Administered Flu Vaccine Unknown 03/20/2015 Administered HAD IT AT [facility] Fluarix Quadrivalent IM Intramuscular 04/13/2016 Administe red Fluarix Quadrivalent IM Intramuscular 04/26/2017 Administe red TDaP Unknown 06/10/2017 Administered pt was given the vaccine at [facility] in [place]. Fluarix Quadrivalent IM Intramuscular 04/24/2018 Administe red [...] Status W/U Status Risk Notes Problem Lymphocytosis (77095464) Lymphocytosis (D72.820) Active confirmed Problem 53187309788599146 Acute recurren t maxillary sinusitis (J01.01) Active confirmed Problem 6284916 Panlobular emphy sema (J43.1) Active confirmed Problem Aortic valve disorder (6165871) Aortic stenosis (I35.0) Active confirmed Problem 987315852 Low HDL (under 4 0) (E78.6) Active confirmed Problem 76417527 Alcohol abuse (F10.10) Active confirme d Problem Current smoker (77552134) Current smoker (F17.200) Active confirmed Problem 59366459 Dysthymia (F34.1) Active confirmed Problem 304432528 Multiple allergi es (Z88.9) Active confirmed Problem 22269367 CAD (coronary ar andres disease) (I25.10) Active confirmed Problem 725946305 Recurrent sinus infections (J32.9) Active confirmed Problem 605643752 Prediabetes (R73.03) Active confirmed Problem 469938960 Pure hypercholesterolemia (E78.00) Active confirmed Problem 832665840 History of viral pericarditis (Z86.79) Active confirmed Problem Aortic valve disorder (9515721) Moderate aortic stenosis (I35.0) Active confirmed Problem Localized, primary osteoarthritis of the hand (390174295) Arthritis pain of hand (M19.049) Active confirmed Problem 015451996 Recurrent sinusi tis (J32.9) Active confirmed Vital Signs Blood pressure diastolic 70 mm Hg 11/06/2024 Height 66 in 11/06/2024 Blood pressure systolic 122 mm Hg 11/06/2024 Weight 122 lbs 11/06/2024 BMI 19.69 kg/m2 11/06/2024 Encounters Encounter Location Date Provider Diagnosis Issa Fields MD [address] [place] [id number] 03/30/2024 Issa Fields Prediabetes R73.03 ; Encounter for immunization Z23 and Pure hypercholesterolemia E78.00 Issa Fields MD [address] [place] [id number] 09/27/2024 Issa Fields Blood tests for rout ine general physical examination Z00.00 ; Pure hypercholesterolemia E78.00 ; Prediabetes R73.03 and Lymphocytosis D72.820 Issa Fields MD [address] [place] [id number] 04/06/2024 Issa Fields Nasal polyps J33.9 ; Recurrent sinus infections J32.9 ; Alcohol abuse F10.10 ; Low HDL (under 40) E78.6 and Moderate aortic stenosis I35.0 Issa Fields MD [address] [place] [id number] 06/05/2024 Issa Fields Nasal polyps J33.9 a nd Recurrent sinus infections J32.9 Issa Fields MD [address] [place] [id number] 08/03/2024 Issa Fields Nasal polyps J33.9 a nd Recurrent sinus infections J32.9 Issa Fields MD [address] [place] [id number] 10/02/2024 Issa Fields Recurrent sinusitis J32.9 Issa Fields MD [address] [place] [id number] 10/09/2024 Issa Fields Annual physical exam Z00.00 ; Moderate aortic stenosis I35.0 ; Nasal polyps J33.9 ; De Quervain's disease (tenosynovitis) M65.4 ; Pure hypercholesterolemia E78.00 ; Panlobular emphysema J43.1 and Depression screening Z13.31 Issa Fields MD [address] [place] [id number] 11/06/2024 Issa Fields Aortic stenosis I35. 0 Issa Fields MD [address] [place] [id number] 10/25/2024 Issa Fields Pure hypercholestero lemia E78.00 Issa Fields MD [address] [place] [id number] 11/26/2024 Issa Fields Assessments Encounter Date Diagnosis (ICD Code) Assessment [...] stenosis (ICD-10 - I35.0) order faxed to [facility] CS dept , pending diagnostic testing 11/06/2024 Aortic stenosis (ICD -10 - I35.0) will get referral to dr jhoan cruz at [facility]/ NOT having any symptoms 10/25/2024 Pure [...] Test Test Name Order Date Electrocardiogram (EKG) 05/06/2017 Electrocardiogram (EKG) 04/16/2016 ECHO 10/23/2021 ECHO 10/09/2024 CA echo transthoracic complete 4 CA echo transthoracic complete 4 Future Test Test Name Order Date CA echo transthoracic complete 2 Next Appt Details Provider Name:Issa keen, 04/05/2025 07:30:00 AM, [address] [place] [address], [address], [place], [place], [id number], Provider Name:Issa keen, 04/12/2025 10:45:00 AM, [address] [place] [address], Suite [facility], [place], [place], [id number], Provider Name:Issa keen, 10/10/2025 07:15:00 AM, [address] [place] [address], [address], [place], [place], [phone], Provider Name:Issa Terence Darnell keen, 10/17/2025 11:00:00 AM, [address], [address], [place], [phone], Insurance Providers Payer Name Payer Address Payer Phone Subscriber Number Group Number Insured Name Patient Relationship to Insured Coverage Start Date Coverage End Date [facility] [employer] [address] [address] [place] [address] [id number] Ceci Melendez Self - patient is the insured MEDICARE NHIC А[employer]Е[employer] [address] [place] [id number] Ceci Melendez Self - patient is the insured Medical (General) History Medical History History ICD Code 06/18/15 - Colonoscopy done b y Dr. Jay Kenny - repeat n 10 years as all polyps were hyperplastic varenicline is chantix
== END 2025-01-03 13:06 | disposition home or self-care (01) ==
LOC: HO.HCS 12:16
PROVIDERS: Visit Provider Internal Medicine
DX: I35.0 Nonrheumatic aortic (valve) stenosis (principal); R94.31 Abnormal electrocardiogram [ECG] [EKG]
CPT/HCPCS: 93010; 99214; G2211

== ENCOUNTER → 2025-01-03 12:15 | Outpatient (BNVA) | payer MEDICARE, SELFPAY | PROVIDERS: Visit Provider Internal Medicine | DX: I35.0 Nonrheumatic aortic (valve) stenosis (principal); R94.31 Abnormal electrocardiogram [ECG] [EKG]; I51.7 Cardiomegaly | CPT/HCPCS: 93005; 99212 ==

== ENCOUNTER 2025-01-17 10:54 | Outpatient (REF) | payer MEDICARE, SELFPAY ==
--- OUTSIDE RECORDS SUMMARY | 2025-01-17 11:35 | XMS_ITS | Patient Health Record ---
Author Organization Issa Fields MD Address [address] [place], [place] [id number] Care Team Providers Care Animal Tech Name Role Phone Issa Fields Primary Care Provider [phone] Allergies Allergen (clinical drug ingredient) Drug/Non Drug Allergy documented on EMR Reaction Allergy Type Onset Date Status morphine Morphine Sulfate itch Drug Allergy Active Results Component Value Reference Range Notes Liver Panel Reviewed date:03/30/2024 02:38:27 PM Interpretation: Performing Lab:[address] [phone] Notes/Report: Bilirubin Total 0.9 0.0-1.0 mg/dL Bilirubin Direct 0.2 0.0-0.5 mg/dL Slight Hem olysis Aspartate Amino Transferase 25 5-31 U/L Slight Hemolysis Alanine Aminotransferase 17 0-31 U/L Total Protein 7.5 6.5-8.0 g/dL Albumin Level 4.1 3.5-5.0 g/dL Alkaline Phosphatase 76 39-117 U/L Glucose Fasting Reviewed date:03/30/2024 02:23:42 PM Interpretation: Performing Lab:[address] [phone] Notes/Report: Glucose Fasting 111 60-99 mg/dL A fasting glucose from 100-125 mg/dl is considered impaired (pre-diabetes). Lipid Panel with Reflex Reviewed date:03/30/2024 02:54:01 PM Interpretation: Performing Lab:[facility], [address] [place] [phone] Notes/Report: Triglycerides 91 <150 mg/dL Desirable Triglyceride: [...] A1c Reviewed date:03/30/2024 12:32:51 PM Interpretation: Performing Lab:[facility], [address] [place] [phone] Notes/Report: Hemoglobin A1c % 5.0 <6.0 % [...] average glucose, using the formula of the N3D-Bkrvymq Average Glucose study (ADAG), Diabetes Care, Vol.31,#8, 2007 Complete Blood Count Auto Di ff Reviewed date:09/27/2024 12:52:10 PM Interpretation: Performing Lab:[facility], [address] [place] [phone] Notes/Report: White Blood Count 9.6 4.8-10.8 X10*3/uL [...] NRBC Abs Auto 0.000 0.0-0.012 X10*3/uL Comprehensive [place]. Panel Fa st Reviewed date:09/27/2024 12:52:33 PM Interpretation: Performing Lab:[facility], [address] [place] [phone] Notes/Report: Sodium 141 135-145 mmol/L Potassium 3.9 [...] Panel Reviewed date:09/27/2024 12:16:09 PM Interpretation: Performing Lab:[facility], [address] [place] [phone] Notes/Report: Triglycerides 124 <150 mg/dL Desirable Triglyceride: [...] Random Reviewed date:09/27/2024 12:18:28 PM Interpretation: Performing Lab:[facility], [address] [place] [phone] Notes/Report: Creatinine Urine 123.47 Microalbumin Urine 12.0 Microalbum/Creatinine Ratio Ur 9.7 <30 ug/mg cr Albumin/Creatinine Ratio Reference Ranges: Normal: < 30 ug/mg creatinine Microalbuminuria: 30 - 300 ug/mg creatinine Clinical Albuminuria: > 300 ug/mg creatinine Hemoglobin A1c Reviewed date:09/27/2024 12:11:44 PM Interpretation: Performing Lab:[facility], [address] [place] [phone] Notes/Report: Hemoglobin A1c % 5.2 <6.0 % [...] average glucose, using the formula of the T8M-Mzdnmhk Average Glucose study (ADAG), Diabetes Care, Vol.31,#8, Feb. 2007 UA ClnCatch+Micro w/rflx Cul t Reviewed date:09/27/2024 12:52:49 PM Interpretation: Performing Lab:[facility], [address] [place] [phone] Notes/Report: Urine, Clean Catch Color Urine Yellow Appearance Urine Clear PH 6.0 5.0-9.0 Glucose Urine UA Negative Negative mg/dL Urine Blood Negative Negative Specific [place] - Urine 1.015 1.005-1.025 Urine Protein Negative Neg-Trace mg/dL Urine Ketones Negative Negative mg/dL Nitrite Urine Negative Negative Leukocyte Esterase Urine Negative Negative RBC Urine 0-2 0-2 /HPF WBC Urine 0-5 0-5 /HPF Squamous Epithelial Cell Urine 0-2 0-2 /HPF Bacteria Urine None Seen None Seen Hyaline Casts Urine 0-2 0-2 /LPF Hold Gold Reviewed date:03/30/2024 12:20:49 PM Interpretation: Performing Lab:[facility], [address] [place] [phone] Notes/Report: Bola Mitchell See Note Specimen held untested for 24 hours; Call to request Chemistry testing. CT lung screening Reviewed date:05/27/2024 04:42:08 PM Interpretation: Performing Lab: Notes/Report: [address] [address] [address] Scan Report Signed Patient: Ceci Melendez MR#: [id number] 01 : 1960 Acct:[id number] Age/Sex: 63 / F ADM Date: 04/11/24 Loc: HO.CT Attending Dr: Wilma Nazario PA-C Ordering Physician: Wilma Nazario PA-C Date of Service: 04/11/24 Procedure(s): CT lung screening Accession Number(s): [id number] cc: Issa Fields MD; Wilma Nazario PA-C [...] for CT CHEST LOW DOSE CANCER SCREENING ([id number]) can be placed. Electronically signed by: Guru Barney MD 05/27/2024 11:14 AM EST Dictated By: Guru Barney MD Signed By: <Electronically signed by Guru Barney MD in OV> 05/27/24 1114 DD/ 1056 TD/TT: 04/11/24 1105 Casket Coverer: [place] [id number] CT Scan Report Signed Patient: Bakari Melendez MR#: [id number] 01 : 1960 Acct:[id number] Age/Sex: 63 / F ADM Date: 04/11/24 Loc: HO.CT Attending Dr: Wilma Nazario PA-C Ordering Physician: Wilma Nazario PA-C Date of Service: 04/11/24 Procedure(s): CT derrell g screening Accession Number(s): [id number] cc: Issa Fields MD; Wilma Nazario PA-C [...] for CT CHEST LOW DOSE CANCER SCREENING ([id number]) can be placed. Electronically naomi d by: Guru Barney MD 05/27/2024 11:14 AM [facility] Dictated By: Guru Barney MD Signed By: <Electronically signed by Guru Barney MD in OV> 05/27/24 1114 DD/ 1056 TD/TT: 04/11/24 1105 Casket Coverer: NAHUM Mitchell Reviewed date:09/27/2024 12:16:19 PM Interpretation: Performing Lab:[facility], [address] [place] [phone] Notes/Report: Bola Mitchell See Note Specimen held [...] Krueger 10/22/2024 02:47:26 PM >per office info refaxed, Evans, Tia 11/16/2024 10:40:25 AM >ins referral info mailed to patient Referral Priority Routine Referral Appointment Date 02/12/2025 Reason De Quervain's diseas e ( tenosynovitis ) Diagnosis 1 De Quervain's diseas e (tenosynovitis) (M65.4) Referral Organization Isas Fields MD Referring Provider First Name Issa [...] Referring Provider Speciality Internal edicine Referred Provider [facility] All[facility], [facility] Allergy [place] Referred Provider Specialty Allergy/Immu nology General Notes Tia Krueger 0 10/19/2024 10:57:53 AM > info faxedEvans Annette 11/02/2024 01:02:29 PM >was told by office she is aware of appt Referral Priority Routine Referral Appointment Date 11/15/2024 Reason aortic Stenosis Diagnosis 1 Aortic stenosis (I35 .0) Referral Organization Issa Fields MD Referring Provider First Name Issa Referring Provider Last Name Diamond [facility] Referred Provider Beny Mccracken Referred Provider Specialty Cardiovascul ar Disease General Notes Tia Krueger 0 11/09/2024 01:51:58 PM >referral info faxedEvans Annette 11/12/2024 01:11:07 PM > no able to go to [facility], they do not accept her insurance. info faxed to [facility] Cardio, Tia Krueger 11/16/2024 01:48:38 PM > [...] Provider Speciality Internal M edicine Referred Provider [facility] Rheumatology, [facility]umatology Referred Provider Specialty Rheumatology General Notes [...] needed Inhalation every 4 hrs 07/23/2013 Not-Michael nelson Immunizations Vaccine Route Administration Date Status Comme nts Flu Vaccine IM Intramuscular 04/06/2011 Administered Flu Vaccine IM Intramuscular 08/22/2012 Administered Flu Vaccine Unknown 03/20/2015 Administered HAD IT AT [facility] Fluarix Quadrivalent IM Intramuscular 04/13/2016 Administe red Fluarix Quadrivalent IM Intramuscular 04/26/2017 Administe red TDaP Unknown 06/10/2017 Administered pt was given the vaccine at [facility] in [place]. Fluarix Quadrivalent IM Intramuscular 04/24/2018 Administe red [...] Status W/U Status Risk Notes Problem Lymphocytosis (14624816) Lymphocytosis (D72.820) Active confirmed Problem 23922240103174888 Acute recurren t maxillary sinusitis (J01.01) Active confirmed Problem 3597417 Panlobular emphy sema (J43.1) Active confirmed Problem Aortic valve disorder (4547837) Aortic stenosis (I35.0) Active confirmed Problem 588391932 Low HDL (under 4 0) (E78.6) Active confirmed Problem 08608907 Alcohol abuse (F10.10) Active confirme d Problem Current smoker (52327298) Current smoker (F17.200) Active confirmed Problem 25810642 Dysthymia (F34.1) Active confirmed Problem 007777177 Multiple allergi es (Z88.9) Active confirmed Problem 14142917 CAD (coronary ar andres disease) (I25.10) Active confirmed Problem 143088691 Recurrent sinus infections (J32.9) Active confirmed Problem 203509213 Prediabetes (R73.03) Active confirmed Problem 505141627 Pure hypercholesterolemia (E78.00) Active confirmed Problem 733685200 History of viral pericarditis (Z86.79) Active confirmed Problem Aortic valve disorder (0376979) Moderate aortic stenosis (I35.0) Active confirmed Problem Localized, primary osteoarthritis of the hand (606259754) Arthritis pain of hand (M19.049) Active confirmed Problem 714241092 Recurrent sinusi tis (J32.9) Active confirmed Vital Signs Blood pressure diastolic 70 mm Hg 11/06/2024 Height 66 in 11/06/2024 Blood pressure systolic 122 mm Hg 11/06/2024 Weight 122 lbs 11/06/2024 BMI 19.69 kg/m2 11/06/2024 Encounters Encounter Location Date Provider Diagnosis Issa Fields MD [address] [place] [id number] 03/30/2024 Issa Fields Prediabetes R73.03 ; Encounter for immunization Z23 and Pure hypercholesterolemia E78.00 Issa Fields MD [address] [id number] 09/27/2024 Issa Fields Blood tests for rout ine general physical examination Z00.00 ; Pure hypercholesterolemia E78.00 ; Prediabetes R73.03 and Lymphocytosis D72.820 Issa Fields MD [address] [place] [id number] 04/06/2024 Issa Fields Nasal polyps J33.9 ; Recurrent sinus infections J32.9 ; Alcohol abuse F10.10 ; Low HDL (under 40) E78.6 and Moderate aortic stenosis I35.0 Issa Fields MD [address] [place] [id number] 06/05/2024 Issa Fields Nasal polyps J33.9 a nd Recurrent sinus infections J32.9 Issa Fields MD [address] [place] [id number] 08/03/2024 Issa Fields Nasal polyps J33.9 a nd Recurrent sinus infections J32.9 Issa Fields MD [address] [place] [id number] 10/02/2024 Issa Fields Recurrent sinusitis J32.9 Issa Fields MD [address] [place] [id number] 10/09/2024 Issa Fields Annual physical exam Z00.00 ; Moderate aortic stenosis I35.0 ; Nasal polyps J33.9 ; De Quervain's disease (tenosynovitis) M65.4 ; Pure hypercholesterolemia E78.00 ; Panlobular emphysema J43.1 and Depression screening Z13.31 Issa Fields MD [address] [place] [id number] 11/06/2024 Issa Fields Aortic stenosis I35. 0 Issa Fields MD [address] [place] [id number] 10/25/2024 Issa Fields Pure hypercholestero lemia E78.00 Issa Fields MD [address] [place] [address] [id number] 11/26/2024 Issa Fields Assessments Encounter Date Diagnosis [...] stenosis (ICD-10 - I35.0) order faxed to [facility] CS dept , pending diagnostic testing 11/06/2024 Aortic stenosis (ICD -10 - I35.0) will get referral to dr jhoan cruz at [facility]/ NOT having any symptoms 10/25/2024 Pure hypercholesterolemia [...] Provider Name:Issa keen, 04/05/2025 07:30:00 AM, [address], [address], [place], [place], [id number], Provider Name:Issa Patrick ier, 04/12/2025 10:45:00 AM, [address], [address], [place], [id number], Provider Name:Issa Patrick ier, 10/10/2025 07:15:00 AM, [address], [address], [place], [place], [phone], Provider Name:Issa Patrick ier, 10/17/2025 11:00:00 AM, [address], [address], [place], [phone], Insurance Providers Payer Name Payer Address Payer Phone Subscriber Number Group Number Insured Name Patient Relationship to Insured Coverage Start Date Coverage End Date [facility] are [employer] [address] [address] [place] [address] [id number] NoraLetitiaan Self - patient is the insured [employer] [address] [place] [address] [id number] Letitia Melendezan Self - patient is the insured Medical (General) History Medical History History ICD Code 06/18/15 - Colonoscopy done b y Dr. Jay Kenny - repeat n 10 years as all polyps were hyperplastic varenicline is chantix
--- OUTSIDE RECORDS SUMMARY | 2025-01-17 11:35 | XMS_ITS | Patient Health Record ---
Author Organization [facility] [place] Address [address] [place] [address] Care Team Providers Care Manager Telemarketing Name Role Phone Issa Fields MD Primary Care Provider Charlene Kendrick Unavailable [phone] Edwin Bradshaw Unavailable [phone] Allergies Allergen (clinical drug ingredient) Drug/Non Drug [...] Status Risk Notes Problem Acquired hallux valgus (29023942) Hallux valgus (acquired), left foot (M20.12) Active confirmed Problem Plantar wart (78232223) Plantar wart (B07.0) Active confirmed Problem Acquired hammer toe of left foot (75466963331 ) Other hammer toe(s) (acquired), left foot (M20.42) Active confirmed Problem Acquired hallux rigidus (6773844) Hallux rigidus, right foot (M20.21) Active confirmed Problem Acquired hammer toe of left foot (80543706730 ) Hammer toe of left foot (M20.42) Active confirmed Improvement Problem Spasm (36224349) Extensor tendon tightness, contracture (M62.40) Active confirmed Improvement Vital Signs Blood pressure diastolic 80 mm Hg 05/24/2024 Height 5ft6in in 05/24/2024 Blood pressure systolic 130 mm Hg 05/24/2024 Weight 112 lbs 05/24/2024 BMI 18.08 kg/m2 05/24/2024 Procedures Procedure Date Ordered Date Performed Result [place] e [address] - Tenotomy, open flexor 05/17/2024 N/A 32737-Umig Destruction, 1-14 05/24/2024 N/A Encounters Encounter Location Date Provider Diagnosis [address] [phone] 02/27/2024 Edwin Bradshaw Pain in left toe(s) M79.675 ; Other hammer toe(s) (acquired), left foot M20.42 and Hallux valgus (acquired), left foot M20.[address] [phone] 05/17/2024 Charlene Black Hammer toe of left foot M20.[address] [address] 05/24/2024 Charlene Black Hammer toe of left foot M20.42 ; Plantar wart B07.0 and Right foot pain M79.[address] [address] 02/27/2024 Edwin Bradshaw Assessments Encounter Date Diagnosis [...] X ray : Foot, right 3V 11/28/2017 40374-Juyg Destruction, 1-14 05/24/2024 13241-Zvbi Destruction, -12/19/2017 42058-Yyrn Destruction, -01/16/2018 42245-Wcxc Destruction, 07-2402/24/2012 58903-Jyzy Destruction, -05/16/2013 60890-Zikl Destruction, -11/28/2017 47477 - Tenotomy, open flexor 05/17/2024 Insurance Providers Payer Name Payer Address Payer Phone Subscriber Number Group Number Insured Name Patient Relationship to Insured Coverage Start Date Coverage End Date [employer] Medicare Adv-[id number] [address] [address] [place] [address] [id number] Ceci Melendez Self - patient is the insured Medical (General) History Medical History History ICD Code asthma CAD (Cholesterol) Surgical History Surgery Date(Month/Year) bunionectomy x2 2004/2006 elbow sx 2010 polypectomy 2006, 2009 Ulna nerve Biopsy nasal polypectomy 2013,2019
== END 2025-01-17 10:55 | disposition home or self-care (01) ==
LOC: HO.MAMMO 10:54
PROVIDERS: PCP Internal Medicine; Visit Provider Internal Medicine
DX: Z12.31 Encounter for screening mammogram for malignant neoplasm of breast (principal)
CPT/HCPCS: 77063; 77067

== ENCOUNTER → 2025-01-17 11:00 | Outpatient (BNV) | payer MEDICARE, SELFPAY | PROVIDERS: PCP Internal Medicine; Visit Provider Radiology Body Imaging | DX: Z12.31 Encounter for screening mammogram for malignant neoplasm of breast (principal) | CPT/HCPCS: 77063; 77067 ==

== ENCOUNTER 2025-02-13 08:52 | Outpatient (REF) | payer MEDICARE, SELFPAY ==
--- NOTE | ~2025-02-13 | US_ITS ---
CLINICAL HISTORY: I71.40 - Abdominal aortic aneurysm, without rupture, unspecified US of abdominal aorta Comparison: None provided Findings: Scattered calcific atherosclerotic plaques of abdominal aorta and common iliac arteries, more conspicuous at the mid and distal aorta, proximal common iliac arteries, moderate stenosis of the mid abdominal aorta on grayscale and color Doppler ultrasound, distal aorta at the bifurcation and origins of the common iliac arteries are not clearly seen due to bowel gas shadowing, there is elevated peak systolic velocities with aliasing of common iliac arteries, more on the right up to 157 cm/S. Aorta diameter proximal 2.7 x 2.6 cm. Aorta diameter mid 2.5 x 2.5 cm. Aorta diameter distal 2.2 x 2.1 cm. Right common iliac artery maximum diameter 1.4 x 1.1 cm. Left common iliac artery maximum diameter 1.4 x 1.1 cm. Impression: 1. No aneurysm of imaged abdominal aorta or common iliac arteries. 2. Atherosclerotic disease of abdominal aorta and common iliac arteries, suspect moderate stenosis of mid abdominal aorta, moderate to severe stenosis at the aortic bifurcation/origins of the common iliac arteries but this region is not well seen due to bowel gas shadowing, CT angiography with IV contrast can better evaluate if warranted. This document has been electronically signed by: Paty Contreras MD on 02/13/2025 14:40:59
--- OUTSIDE RECORDS SUMMARY | 2025-02-13 09:02 | XMS_ITS | Patient Health Record ---
Author Organization Issa Fields MD Address [address] [place], [place] [id number] Care Team Providers Care Coding Quality Coordinator Name Role Phone Issa Fields Primary Care Provider Allergies Allergen (clinical drug ingredient) Drug/Non Drug Allergy documented on EMR Reaction Allergy Type Onset Date Status morphine Morphine Sulfate itch Drug Allergy Active Results Component Value Reference Range Notes Liver Panel Reviewed date:03/30/2024 02:38:27 PM Interpretation: Performing Lab:[address] [phone] Notes/Report: Bilirubin Total 0.9 0.0-1.0 mg/dL Bilirubin Direct 0.2 0.0-0.5 mg/dL Slight Hem olysis Aspartate Amino Transferase 25 5-31 U/L Slight Hemolysis Alanine Aminotransferase 17 0-31 U/L Total Protein 7.5 6.5-8.0 g/dL Albumin Level 4.1 3.5-5.0 g/dL Alkaline Phosphatase 76 39-117 U/L Glucose Fasting Reviewed date:03/30/2024 02:23:42 PM Interpretation: Performing Lab:[address] [phone] Notes/Report: Glucose Fasting 111 60-99 mg/dL A fasting glucose from 100-125 mg/dl is considered impaired (pre-diabetes). Lipid Panel with Reflex Reviewed date:03/30/2024 02:54:01 PM Interpretation: Performing Lab:[facility], [address] [place] [phone] Notes/Report: Triglycerides 91 <150 mg/dL Desirable Triglyceride: [...] A1c Reviewed date:03/30/2024 12:32:51 PM Interpretation: Performing Lab:[facility], [address] [place] [phone] Notes/Report: Hemoglobin A1c % 5.0 <6.0 % [...] average glucose, using the formula of the B7P-Rzojubu Average Glucose study (ADAG), Diabetes Care, Vol.31,#8, 2007 Complete Blood Count Auto Di ff Reviewed date:09/27/2024 12:52:10 PM Interpretation: Performing Lab:[facility], [address] [place] [phone] Notes/Report: White Blood Count 9.6 4.8-10.8 X10*3/uL [...] 0.0-0.2 /100WBC Neutrophils Absolute Auto 3.9 2.0-8.3 x10*3/uL Imm Gran Abs Auto 0.02 0.00-0.03 X10*3/uL Lymphocytes Absolute Auto 3.4 1.2-4.9 X10*3/uL Monocytes Absolute Auto 0.7 0.1-1.2 X10*3/uL Eosinophils Absolute Auto 1.5 0.0-0.4 X10*3/uL Basophils Absolute Auto 0.1 0.0-0.2 X10*3/uL NRBC Abs Auto 0.000 0.0-0.012 X10*3/uL Comprehensive [place]. Panel Fa st Reviewed date:09/27/2024 12:52:33 PM Interpretation: Performing Lab:[facility], [address] [place] [phone] Notes/Report: Sodium 141 135-145 mmol/L Potassium 3.9 [...] Panel Reviewed date:09/27/2024 12:16:09 PM Interpretation: Performing Lab:[facility], [address] [place] [phone] Notes/Report: Triglycerides 124 <150 mg/dL Desirable Triglyceride: [...] Random Reviewed date:09/27/2024 12:18:28 PM Interpretation: Performing Lab:[facility], [address] [place] [phone] Notes/Report: Creatinine Urine 123.47 Microalbumin Urine 12.0 Microalbum/Creatinine Ratio Ur 9.7 <30 ug/mg cr Albumin/Creatinine Ratio Reference Ranges: Normal: < 30 ug/mg creatinine Microalbuminuria: 30 - 300 ug/mg creatinine Clinical Albuminuria: > 300 ug/mg creatinine Hemoglobin A1c Reviewed date:09/27/2024 12:11:44 PM Interpretation: Performing Lab:[facility], [address] [place] [phone] Notes/Report: Hemoglobin A1c % 5.2 <6.0 % [...] average glucose, using the formula of the R7Z-Dbolwpg Average Glucose study (ADAG), Diabetes Care, Vol.31,#8, Feb. 2007 UA ClnCatch+Micro w/rflx Cul t Reviewed date:09/27/2024 12:52:49 PM Interpretation: Performing Lab:[facility], [address] [place] [phone] Notes/Report: Urine, Clean Catch Color Urine Yellow Appearance Urine Clear PH 6.0 5.0-9.0 Glucose Urine UA Negative Negative mg/dL Urine Blood Negative Negative Specific [place] - Urine 1.015 1.005-1.025 Urine Protein Negative Neg-Trace mg/dL Urine Ketones Negative Negative mg/dL Nitrite Urine Negative Negative Leukocyte Esterase Urine Negative Negative RBC Urine 0-2 0-2 /HPF WBC Urine 0-5 0-5 /HPF Squamous Epithelial Cell Urine 0-2 0-2 /HPF Bacteria Urine None Seen None Seen Hyaline Casts Urine 0-2 0-2 /LPF Hold Gold Reviewed date:03/30/2024 12:20:49 PM Interpretation: Performing Lab:[facility], [address] [place] [phone] Notes/Report: Bola Mitchell See Note Specimen held untested for 24 hours; Call to request Chemistry testing. CT lung screening Reviewed date:05/27/2024 04:42:08 PM Interpretation: Performing Lab: Notes/Report: [address] [address] [address] Scan Report Signed Patient: Ceci Melendez MR#: [id number] 01 : 1960 Acct:[id number] Age/Sex: 63 / F ADM Date: 04/11/24 Loc: HO.CT Attending Dr: Wilma Nazario PA-C Ordering Physician: Wilma Nazario PA-C Date of Service: 04/11/24 Procedure(s): CT lung screening Accession Number(s): [id number] cc: Issa Fields MD; Wilma Nazario PA-C [...] for CT CHEST LOW DOSE CANCER SCREENING ([id number]) can be placed. Electronically signed by: Guru Barney MD 05/27/2024 11:14 AM EST Dictated By: Guru Barney MD Signed By: <Electronically signed by Guru Barney MD in OV> 05/27/24 1114 DD/ 1056 TD/TT: 04/11/24 1105 Sap Pi Developer: [place] [id number] CT Scan Report Signed Patient: Bakari Melendez MR#: [id number] 01 : 1960 Acct:[id number] Age/Sex: 63 / F ADM Date: 04/11/24 Loc: HO.CT Attending Dr: Wilma Nazario PA-C Ordering Physician: Wilma Nazario PA-C Date of Service: 04/11/24 Procedure(s): CT derrell g screening Accession Number(s): [id number] cc: Issa Fields MD; Wilma Nazario PA-C [...] mGy-cm. CTDIvol: 1.00 mGy. FINDINGS: PULMONARY NODULES: S ome small punctate nodules, none larger than 3 [...] pericardial effusion. CHEST WALL/AXILLA: Unremarkable. UPPER ABDOMEN: Inclu ded portions of the solid organs in the [...] for CT CHEST LOW DOSE CANCER SCREENING ([id number]) can be placed. Electronically naomi d by: Guru Barney MD 05/27/2024 11:14 AM [facility] Dictated By: Guru Barney MD Signed By: <Electronically signed by Guru Barney MD in OV> 05/27/24 1114 DD/ 1056 TD/TT: 04/11/24 1105 Sap Pi Developer: NAHUM Micthell Reviewed date:09/27/2024 12:16:19 PM Interpretation: Performing Lab:[facility], [address] [place] [phone] Notes/Report: Bola Mitchell See Note Specimen held untested for 24 hours; Call to request Chemistry testing. MM tomosynthesis screening B I Reviewed date:01/30/2025 08:17:50 PM Interpretation: Performing Lab: Notes/Report: [facility] [address] [place] [id number] Mammography Report Signed Patient: Ceci Melendez MR#: [id number] 01 : 1960 Acct:[id number] Age/Sex: 64 / F ADM Date: 01/17/25 Loc: HO.MAMMO Attending Dr: Issa Fields MD Ordering Physician: Issa Fields MD Results: 2Be nign Findings Date of Service: 01/17/25 Follow Up: 1 Year From Orig inal Mammogram Procedure(s): MM tomosynthesis screening BI Accession Number(s): [id number] cc: Issa Fields MD EXAMINATION: MM SCREENING DIGITAL BREAST TOMOSYNTHESIS, BILATERAL CLINICAL INFORMATION: Screening. Asymptomatic. COMPARISON: Comparison made to multiple prior, most recent January 05, 2024, and most remote September 17, 2015. TECHNIQUE: Digital breast tomosynthesis is performed in both the craniocaudal and mediolateral oblique views along with computer-aided detection (CAD). Synthesized 2D images are generated from the tomosynthesis. FINDINGS: BREAST COMPOSITION: The breasts are heterogeneously dense, which may obscure small masses (ACR BI-RADS breast composition Category c). RIGHT BREAST: History of previous needle core biopsy. No significant masses, suspicious calcifications or other abnormalities are seen. LEFT BREAST: History of previous excisional biopsy. No significant masses, suspicious calcifications or other abnormalities are seen. MM/MM tomosynthesis screening BI IMPRESSION: BILATERAL BREASTS: Benign, no mammographic evidence of malignancy. Normal interval follow-up is recommended in 12 months. ASSESSMENT: BI-RADS 2 - Benign Findings RECOMMENDATION: Routine annual mammography screening. FOLLOW-UP: 1 year F/U This examination should not preclude the clinical evaluation of a suspicious palpable abnormality. This patient's information was entered into a reminder system with a target due date for their next mammogram. Electronically signed by: Luz Marina Khan MD 01/30/2025 07:56 PM EDT Dictated By: Luz Marina Khan MD Signed By: <Electronically signed by Luz Marina Khan MD in OV> 01/30/251955 DD/ 99 TD/TT: 01/17/25 1115 Sap Pi Developer: [facility] [address] [place] [address] Mammography Report Signed Patient: Bakari Melendez MR#: [id number] 01 : 1960 Acct:[id number] Age/Sex: 64 / F ADM Date: 01/17/25 Loc: HO.MAMMO Attending Dr: Issa Fields MD Ordering Physician: Issa Fields MD Results: 2Be nign Findings Date of Service: 01/17/25 Follow Up: 1 Year From Orig inal Mammogram Procedure(s): MM tomosynthesis screening BI Accession Number(s): [id number] cc: Issa Fields MD EXAMINATION: MM SCREENING DIGITAL BREAST TOMOSYNTHESIS, BILATERAL CLINICAL INFORMATION: Screening. Asymptomatic. COMPARISON: Comparis on made to multiple prior, most recent January 05, 2024, and most remot e September 17, 2015. TECHNIQUE: Digital breast tomosynthesis is performed in both the craniocaudal and mediolateral oblique views along with computer-aided detection (CAD). Synthesized 2D image s are generated from the tomosynthesis. FINDINGS: BREAST COMPOSITION: The breasts are heterogeneously dense, which may obscure small masses (ACR BI-RADS breast composition Category c). RIGHT BREAST: Histor y of previous needle core biopsy. No significant masses, suspicious calcifications or other abnormalities are seen. LEFT BREAST: History of previous excisional biopsy. No significant masses, suspicious calcifications or other abnormalities are seen. MM/MM tomosynthesis screening BI IMPRESSION: BILATERAL BREASTS: Benign, no mammographic evidence of malignancy. Normal interval follow-up is recommended in 12 months. ASSESSMENT: BI-RADS 2 - Benign Findings RECOMMENDATION: Routine annual mammography screening. FOLLOW-UP: 1 year F/U This examination robb uld not preclude the clinical evaluation of a suspicious palpable abnormality. This patient's information was entered into a reminder system with a target due date for their next mammogram. Electronically naomi d by: Luz Marina Khan MD 01/30/2025 07:56 PM EDT Dictated By: Luz Marina Khan MD Signed By: <Electronically signed by Luz Marina Khan MD in OV> 01/30/251955 DD/ 1100 TD/TT: 01/17/25 1115 Sap Pi Developer: Reason For Referral Reason needs colonoscopy Diagnosis [...] Referring Provider Speciality Internal edicine Referred Provider [facility] Allergy [facility] All[facility] [place] Referred Provider Specialty Allergy/Immu nology General Notes [...] 0 11/09/2024 01:51:58 PM >referral info faxed, Evans Tia 11/12/2024 01:11:07 PM > no able to go to [facility], they do not accept her insurance. [place] [facility], Evans Tia 11/16/2024 01:48:38 PM > was told on [...] Provider Speciality Internal M edicine Referred Provider [facility], [facility] Rheumatology Referred Provider Specialty Rheumatology General Notes [...] Unknown 03/20/2015 Administered HAD IT AT [facility] Fluarix Quadrivalent IM Intramuscular 04/13/2016 Admingail moreno Fluarix Quadrivalent IM Intramuscular 04/26/2017 Admingail moreno TDaP Unknown 06/10/2017 Administered pt was given the vaccine at [facility] in [place]. Fluarix Quadrivalent IM Intramuscular 04/24/2018 Administe red [...] Administe red Fluarix Quadrivalent IM Intramuscular 03/22/2023 Administaleja red Fluarix Quadrivalent - 150 IM Intramuscular [...] Status W/U Status Risk Notes Problem Lymphocytosis (02960215) Lymphocytosis (D72.820) Active confirmed Problem 21925757950486780 Acute recurren t maxillary sinusitis (J01.01) Active confirmed Problem 9985977 Panlobular emphy sema (J43.1) Active confirmed Problem Aortic valve disorder (0416083) Aortic stenosis (I35.0) Active confirmed Problem 930444708 Low HDL (under 4 0) (E78.6) Active confirmed Problem 92029024 Alcohol abuse (F10.10) Active confirme d Problem Current smoker (83423847) Current smoker (F17.200) Active confirmed Problem 82612278 Dysthymia (F34.1) Active confirmed Problem 211343139 Multiple allergi es (Z88.9) Active confirmed Problem 01799313 CAD (coronary ar andres disease) (I25.10) Active confirmed Problem 803706449 Recurrent sinus infections (J32.9) Active confirmed Problem 797079330 Prediabetes (R73.03) Active confirmed Problem 037978085 Pure hypercholesterolemia (E78.00) Active confirmed Problem 233316252 History of viral pericarditis (Z86.79) Active confirmed Problem Aortic valve disorder (6714870) Moderate aortic stenosis (I35.0) Active confirmed Problem Localized, primary osteoarthritis of the hand (766044984) Arthritis pain of hand (M19.049) Active confirmed Problem 207434906 Recurrent sinusi tis (J32.9) Active confirmed Vital Signs Blood pressure diastolic 70 mm Hg 11/06/2024 Height 66 in 11/06/2024 Blood pressure systolic 122 mm Hg 11/06/2024 Weight 122 lbs 11/06/2024 BMI 19.69 kg/m2 11/06/2024 Encounters Encounter Location Date Provider Diagnosis Issa Fields MD [address] [place] [id number] 03/30/2024 Issa Fields Prediabetes R73.03 ; Encounter for immunization Z23 and Pure hypercholesterolemia E78.00 Issa Fields MD [address] [place] [id number] 09/27/2024 Issa Fields Blood tests for rout ine general physical examination Z00.00 ; Pure hypercholesterolemia E78.00 ; Prediabetes R73.03 and Lymphocytosis D72.820 Issa Fields MD [address] [place] [id number] 04/06/2024 Issa Fields Nasal polyps J33.9 ; Recurrent sinus infections J32.9 ; Alcohol abuse F10.10 ; Low HDL (under 40) E78.6 and Moderate aortic stenosis I35.0 Issa Fields MD [address] [place] [id number] 06/05/2024 Issa Fields Nasal polyps J33.9 a nd Recurrent sinus infections J32.9 Issa Fields MD [address] [place] [id number] 08/03/2024 Issa Fields Nasal polyps J33.9 a nd Recurrent sinus infections J32.9 Issa Fields MD [address] [place] [id number] 10/02/2024 Issa Fields Recurrent sinusitis J32.9 Issa Fields MD [address] [place] [id number] 10/09/2024 Issa Fields Annual physical exam Z00.00 ; Moderate aortic stenosis I35.0 ; Nasal polyps J33.9 ; De Quervain's disease (tenosynovitis) M65.4 ; Pure hypercholesterolemia E78.00 ; Panlobular emphysema J43.1 and Depression screening Z13.31 Issa Fields MD [address] [place] [id number] 11/06/2024 Issa Fields Aortic stenosis I35. 0 Issa Fields MD [address] [place] [id number] 10/25/2024 Issa Fields Pure hypercholestero lemia E78.00 Issa Fields MD [address] [place] [address] [id number] 11/26/2024 Issa Fields Assessments Encounter Date Diagnosis [...] [place] [facility] , pending diagnostic testing 11/06/2024 Aortic stenosis (ICD -10 - I35.0) will get referral to dr jhoan crzu at [facility]/ NOT having any symptoms 10/25/2024 Pure [...] Provider Name:Issa Patrick ier, 04/05/2025 07:30:00 AM, [address] [place] [address], [address], [place], [place], [phone], Provider Name:Issa Patrick ier, 04/12/2025 10:45:00 AM, [address] [place] [address], [address], [place], [place], [phone], Provider Name:Issa Patrick ier, 10/10/2025 07:15:00 AM, [address] [place] [address], [address], [place], [place], [phone], Provider Name:Issa Patrick ier, 10/17/2025 11:00:00 AM, [address] [place] [address], [address], [place], [place], [phone], Insurance Providers Payer Name Payer Address Payer Phone Subscriber Number Group Number Insured Name Patient Relationship to Insured Coverage Start Date Coverage End Date [facility] are [employer] [address] [address] [place] [address] [id number] Ceci Melendez Self - patient is the insured [employer] [address] [place] [address] [id number] Ceci Melendez Self - patient is the insured Medical (General) History Medical History History ICD Code 06/18/15 - Colonoscopy done b y Dr. Jay Kenny - repeat n 10 years as all polyps were hyperplastic varenicline is chantix
--- OUTSIDE RECORDS SUMMARY | 2025-02-13 09:02 | XMS_ITS | Patient Health Record ---
Author Organization [facility] Address [address] [place] [address] Care Team Providers Care Spot Man Name Role Phone Issa Fields MD Primary Care Provider Charlene Kendrick Unavailable [phone] Edwin Bradshaw Unavailable [phone] Allergies Allergen (clinical drug ingredient) Drug/Non Drug [...] Status Risk Notes Problem Acquired hallux valgus (82842047) Hallux valgus (acquired), left foot (M20.12) Active confirmed Problem Plantar wart (31944800) Plantar wart (B07.0) Active confirmed Problem Other hammer toe(s) (acquired), left foot (M20.42) Active confirmed Problem Acquired hallux rigidus (4011175) Hallux rigidus, right foot (M20.21) Active confirmed Problem Acquired hammer toe of left foot (08245060402 11785) Hammer toe of left foot (M20.42) Active confirmed Improvement Problem Extensor tendon tightness, contracture (M62.40) Active confirmed Improvement Vital Signs Blood pressure diastolic 80 mm Hg 05/24/2024 Height 5ft6in in 05/24/2024 Blood pressure systolic 130 mm Hg 05/24/2024 Weight 112 lbs 05/24/2024 BMI 18.08 kg/m2 05/24/2024 Procedures Procedure Date Ordered Date Performed Result Body Sit e 18193 - Tenotomy, open flexor 05/17/2024 N/A 67295-Qhjm Destruction, 1-14 05/24/2024 N/A Encounters [facility] [address] [facility]/27/[facility] Edwin Bradshaw Pain in left toe(s) M79.675 ; Other hammer toe(s) (acquired), left foot M20.42 and Hallux valgus (acquired), left foot M20.[address] [address] 05/17/2024 Charlene Black Hammer toe of left foot M20.[address] [address] 05/24/2024 Charlene Black Hammer toe of left foot M20.42 ; Plantar wart B07.0 and Right foot pain M79.[address] [address] 02/27/2024 Edwin Bradshaw Assessments Encounter Date Diagnosis [...] X ray : Foot, right 3V 11/28/2017 74715-Znqk Destruction, -05/24/2024 95185-Uwgb Destruction, 07-2412/19/2017 07426-Lvdq Destruction, 07-2401/16/2018 80296-Rslb Destruction, 07-2402/24/2012 02090-Iiqb Destruction, 07-2405/16/2013 35195-Zztz Destruction, 07-2411/28/2017 06144 - Tenotomy, open flexor 05/17/2024 Insurance Providers Payer Name Payer Address Payer Phone Subscriber Number Group Number Insured Name Patient Relationship to Insured Coverage Start Date Coverage End Date [employer] Medicare [id number] [address] [address] [place] [address] [id number] Francisco JCeci mendez Self - patient is the insured Medical (General) History Medical History History ICD Code asthma CAD (Cholesterol) Surgical History Surgery Date(Month/Year) bunionectomy x2 2004/2006 elbow sx 2010 polypectomy 2006, 2009 Ulna nerve Biopsy nasal polypectomy 2013,2019
--- OUTSIDE RECORDS SUMMARY | 2025-02-13 09:02 | XMS_ITS | Patient Health Record ---
Author Organization [facility] Address [address] [facility] [address] [place] [phone] Care Team Providers Care Speech Coach Name Role Phone Issa Fields MD Primary Care Provider Leland Haas Unavailable [phone] SAMIR PERES Unavailable Unavailab le Allergies No Known Allergies Reason For Referral No Information Medications Medication SIG (Take, Route, Frequency, Duration) Notes Start Date End Date Status Rosuvastatin Calcium 40 MG 1 tablet Orally Once a day for 30 day(s) 02/12/2025 Active Dupixent 300 MG/2ML as directed Subcutaneous Nasal polyps 02/12/2025 Active Advair Diskus 100-50 MCG/ACT 1 puff Inhalation Twice a day 02/12/2025 Active Immunizations Vaccine Route Administration Date Status Comme nts Influenza Unknown 03/27/2024 Administered Social History Tobacco Use: Social History Observation Description Date Details (start date - stop date) Former Smoker NA - NA Tobacco Control (Standard) Question Answer Notes Tobacco use: Former smoker AUDIT-C (Standard) Question Answer Notes Did you have a drink containing alcohol in the p ast year? No Points 0 Interpretation Negative Problems Problem Type SNOMED Code ICD Code Onset Dates Problem Status W/U Status Risk Notes Problem Preprocedural examination (321849306924898) Preprocedural examination (Z01.818) Active confirmed Vital Signs Temperature 96.9 degrees Fahrenheit 02/12/2025 Blood pressure diastolic 01 mm Hg 02/12/2025 Height 65 in 02/12/2025 Blood pressure systolic 001 mm Hg 02/12/2025 Weight 123.8 lbs 02/12/2025 BMI 20.6 kg/m2 02/12/2025 Procedures Procedure Date Ordered Date Performed Result Body Sit e COLONOSCOPY 02/12/2025 N/A Encounters Encounter Location Date Provider Diagnosis [facility] [address] [place] [address] 02/12/2025 Leland Quintanilla Colon cancer screeni ng Z12.11 and Preprocedural examination Z01.818 Assessments Encounter Date Diagnosis (ICD Code) Assessment Notes Treatment Notes Treatment Clinical Notes Section Notes 02/12/2025 Colon cancer screening (ICD-10 - Z12.11) Overall, Ceci appears quite well in general and is not having any new or worrisome GI complaints. We did review that given her colonoscopy results from nearly 10 years ago with just hyperplastic polyps she would be due for a follow-up colonoscopy toward the end of this year for routine screening. We did review the rationale for that in regard to colon cancer prevention. Full consent has been obtained for this, including risks of bleeding and perforation. The procedure will be done with monitored anesthesia care. Prior to that we shall obtain cardiology clearance in regard to the aortic stenosis and she will be seen for a PAT appointment with anesthesia as well. Hopefully, since she is entirely asymptomatic from a cardiology standpoint, we would be able to proceed with a colonoscopy. However, if it is felt that she is too high risk from a cardiac standpoint, then I advised her that I would recommend she obtain a Cologuard test through your office instead. I did advise her that if the Cologuard test happens to be positive or she was to have any obvious GI symptoms such as bleeding or change in bowel habits, we could proceed with a colonoscopy at that point since it would need to be done from a diagnostic standpoint as opposed to just screening. However hopefully she will have the cardiology clearance for the screening colonoscopy that we are scheduling for her today. Ceci and her were both comfortable with this plan. Thank you again for allowing me to participate in Ceci's care. I shall continue to keep you advised of her progress. 02/12/2025 Preprocedural examination (ICD-10 - Z01.818) Overall, Ceci appears quite well in general and is not having any new or worrisome GI complaints. We did review that given her colonoscopy results from nearly 10 years ago with just hyperplastic polyps she would be due for a follow-up colonoscopy toward the end of this year for routine screening. We did review the rationale for that in regard to colon cancer prevention. Full consent has been obtained for this, including risks of bleeding and perforation. The procedure will be done with monitored anesthesia care. Prior to that we shall obtain cardiology clearance in regard to the aortic stenosis and she will be seen for a PAT appointment with anesthesia as well. Hopefully, since she is entirely asymptomatic from a cardiology standpoint, we would be able to proceed with a colonoscopy. However, if it is felt that she is too high risk from a cardiac standpoint, then I advised her that I would recommend she obtain a Cologuard test through your office instead. I did advise her that if the Cologuard test happens to be positive or she was to have any obvious GI symptoms such as bleeding or change in bowel habits, we could proceed with a colonoscopy at that point since it would need to be done from a diagnostic standpoint as opposed to just screening. However hopefully she will have the cardiology clearance for the screening colonoscopy that we are scheduling for her today. Ceci and her were both comfortable with this plan. Thank you again for allowing me to participate in Ceci's care. I shall continue to keep you advised of her progress. Plan Of Treatment Pending Test Test Name Order Date COLONOSCOPY 02/12/2025 Next Appt Details Provider Name:Leland Quintanilla , 05/27/2025 08:20:00 AM, [address] [place] [address] , [place], [place], [phone], Insurance Providers Payer Name Payer Address Payer Phone Subscriber Number Group Number Insured Name Patient Relationship to Insured Coverage Start Date Coverage End Date [facility] [id number] [place] [address] [id number] CECI REVELES Self - patient is the insured Medical (General) History Medical History History ICD Code COPD/Asthma Aortic stenosis-sees Dr. Peres Colonoscopy 2014 with only hyperplastic polyps-Dr. Kenny Denies [place],DM,CVA,renal disease Surgical History Surgery Date(Month/Year) ulnar nerve elbow nasal polyps skin cancers-basal, squamous back- surgery needle [id number] bunionectomy
== END 2025-02-13 08:53 | disposition home or self-care (01) ==
LOC: HO.HMGCX 08:52
PROVIDERS: PCP Internal Medicine; Visit Provider Internal Medicine
DX: I71.40 Abdominal aortic aneurysm, without rupture, unspecified (principal)
CPT/HCPCS: 76706

== ENCOUNTER → 2025-02-13 08:55 | Outpatient (BNV) | payer MEDICARE, SELFPAY | PROVIDERS: PCP Internal Medicine; Visit Provider Radiology Diagnostic Radiology | DX: I70.0 Atherosclerosis of aorta (principal) | CPT/HCPCS: 76706 ==

== ENCOUNTER 2025-04-02 13:14 | Outpatient (AMB) | payer MEDICARE, SELFPAY ==
--- OUTSIDE RECORDS SUMMARY | 2024-10-09 07:00 | XMS_ITS ---
Author Organization Issa Fields MD Address [address] [place], [place] [phone] Care Team Providers Care Estimator Project Manager Name Role Phone Issa Fields Primary Care [...] Provider Speciality Internal M edicine Ref[facility] All[facility] rich, [facility] Referred Provider Specialty Allergy/Immu nology General Notes [...] Location Date Provider Diagnosis Issa Fields MD [address] [place] [address] [address] [place], [place] [phone] 10/09/2024 Issa Fields Annual physical exam Z00.00 [...] stenosis (ICD-10 - I35.0) order faxed to [facility] , pending diagnostic testing 10/09/2024 [...] referral Moderate aortic stenosis order faxed to [facility] , pending diagnostic testing Nasal polyps referral to allergy De Quervain's disease (tenosynovitis) re ferral to [facility] Pure hypercholesterolemia stable, will c ontinue current regiment Panlobular emphysema doing well, will co ntinue current regiment Depression screening negative screen Pending Test Test Name Order Date ECHO 10/09/2024 Referrals Referral Date Details 10/09/2024 10/09/2024, needs co lonoscopy, Leland Quintanilla 10/09/2024 10/09/2024, De Querv ain's disease ( tenosynovitis ), Debbie Wood 10/09/2024 10/09/2024, Nasal po lyps, [facility] Appt Details Follow Up: 6 Months, Reason: Provider Name:Issa keen, 04/05/2025 07:30:00 AM, [address] [place] [address], Suite [facility], [place], [place], [phone], Provider Name:Issa stallingsr, 04/26/2025 10:15:00 AM, [address] [place] [address], Suite [facility], [place], [place], [phone], Provider Name:Issa stallingsr, 10/10/2025 07:15:00 AM, [address] [place] [address], Suite [facility], [place], [place], [phone], Provider Name:Issa stallingsr, 10/17/2025 11:00:00 AM, [address] [place] [address], Suite [facility], [place], [place], [phone], Progress Notes * Paige REVELESOB:1960 (64 yo F)Acc No.[id number]:10/09/2024 Progress Notes Patient: Ceic DENIS Provider: Humble Fields MD :1960 A ge:64 Y S ex:Female Date:10/09/2024 Address:[address] [place] [address] [facility] Subjective: * Chief Complaints: * A NNUAL [...] mg/dL Urine Blood Negative Negative - Specific [place] - Urine 1.015 1.005-1.025 - Urine Protein [...] Auto 0.000 0.0-0.012 - X10*3/uL L ab:Comprehensive [place]. Panel Fast (Order Date - 09/27/2024) (Collection [...] masses palpable. RECTAL EXAM: d one by obstetrician/gynecologist. FEMALE GENITOURINARY: d one by obstetrician/gynecologist. EXTREMITIES: n o clubbing, cyanosis, or edema. [...] I maging: ECHO Notes: order faxed to [facility] , pending diagnostic testing 3. N victor hugo polyps Notes: referral to allergy Referral To:CHARLEY GERMAINHOOVEN Allergy/Immunology Reason:Nasal polyps 4. D e Quervain's [...] BMI provided?Yes, Poonam fisher Normal BMI Follow-up G tod encouragement to exercise. * Follow Up: 6 Months * * Sign off status: Completed true * Provider: Humble Fields MD Date: 0 10/09/2024 Generated for Molly oro/Maria Antonia/Rosaransmitting on: 0 04/02/2025 04:16 PM EDT History and Physical Notes * HPI (History [...] Total Score: 0 Interpretation and Intervention Depression Dory mcgarry Findings: Negative Follow-Up for Depression: : review [...] mass, no lump RECTAL EXAM: done by obstetrician/gynecologist FEMALE GENITOURINARY: done by obstetrician/gynecologist ORAL CAVITY: mucosa moist Consultation Request Notes Referral Date Referring Provider Referred Provider Not es 10/09/2024 Issa Fields Robert needs colo noscopy 10/09/2024 Issa Fields Allison De Que rvain's disease ( tenosynovitis ) 10/09/2024 Issa Fields [facility] [place], [facility] Nasal polyps
--- OUTSIDE RECORDS SUMMARY | 2024-10-25 11:03 | XMS_ITS ---
Author Organization Issa Fields MD Address [address] [facility] [address] [place] [phone] Care Team Providers Care Harpooner Name Role Phone Issa Fields Primary Care Provider [phone] REASON FOR VISIT REFILL ROSUVASTATIN Medications Medication SIG (Take, Route, Frequency, Duration) Notes Start Date End Date Status Rosuvastatin Calcium 40 mg TAKE 1 TABLET DAILY ORALLY DAILY for 90 days Active Encounters Encounter Location Date Provider Diagnosis Issa Fields MD [address] [place] [phone] 10/25/2024 Issa Fields Pure hypercholestero lemia E78.00 Assessments Encounter Date Diagnosis (ICD Code) Assessment Notes Treatment Notes Treatment Clinical Notes Section Notes 10/25/2024 Pure hypercholesterolemia (ICD-10 - E78.00) Plan Of Treatment Medication Medication Name Sig Start Date Stop Date Notes Rosuvastatin Calcium 40 mg TAKE 1 TABLET DAILY ORALLY DAILY for 90 days Next Appt Details Provider Name:Issa keen, 04/05/2025 07:30:00 AM, [address] [place] [address], [address], [phone], Provider Name:Issa keen, 04/26/2025 10:15:00 AM, [address] [place] [address], [address], [phone], Provider Name:Issa Patrick ier, 10/10/2025 07:15:00 AM, [address], [address], [place], [phone], Provider Name:Issa Patrick ier, 10/17/2025 11:00:00 AM, [address], [address], [place], [phone], Progress Notes * Paige MELENDEZOB:1960 (64 yo F)Acc No.[id number]:10/25/2024 Patient: Ceci DENIS :1960 A ge:64 Y S ex:Female Address:[address] [place] [address] * Refills Refill Rosuvastatin Calcium Tablet, 40 mg, ORALLY, 90, TAKE 1 TABLET DAILY, DAILY, 90 days, Refills=3 * true * Date: Generated for Molly oro/Maria Antonia/eTransmitting on: 0 04/02/2025 04:16 PM EDT
--- OUTSIDE RECORDS SUMMARY | 2024-11-06 11:15 | XMS_ITS ---
Author Organization Issa Fields MD Address [address] [place], [place] [phone] Care Team Providers Care Edge Stainer Machine Name Role Phone Diamond Issa Primary Care Provider [phone] Allergies Allergen (clinical drug ingredient) Drug/Non Drug [...] PM > no able to go to [facility] Cardio, they do not accept her insurance. info faxed to [facility] Cardio, Tia Krueger 11/16/2024 01:48:38 PM > [...] Status Risk Notes Problem Aortic valve disorder (1406712) Aortic stenosis (I35.0) Active confirmed Vital Signs Blood pressure systolic 122 mm Hg 11/07/19 25 Blood pressure diastolic 70 mm Hg 025 Height 66 in 11/06/2024 Weight 122 lbs 11/06/2024 BMI 19.69 kg/m2 11/06/2024 Encounters Encounter Location Date Provider Diagnosis Issa Fields MD [address] [place] [address] [place] [phone] 11/06/2024 Issa Fields Aortic stenosis I35.0 Assessments Encounter Date Diagnosis (ICD Code) Assessment Notes Treatment Notes Treatment Clinical Notes Section Notes 11/06/2024 Aortic stenosis (ICD-10 - I35.0) will get referral to dr jhoan cruz at [facility]/ NOT having any symptoms Plan Of Treatment Treatment Notes Assessment Notes Aortic stenosis will get referral to dr jhoan cruz at [facility]/ NOT having any symptoms Referrals Referral Date Details 11/06/2024 11/06/2024, aortic S tenosis, BenyAlvarenga Next Appt Details Provider Name:Issa keen, 04/05/2025 07:30:00 AM, [address] [place] [address], [address] [place] [address], [phone], Provider Name:Issa keen, 04/26/2025 10:15:00 AM, [address] [place] [address], [address], [phone], Provider Name:Issa Patrick ier, 10/10/2025 07:15:00 AM, [address], [address], [place], [place], [phone], Provider Name:Issa Patrick ier, 10/17/2025 11:00:00 AM, [address], [address], [place], [place], [phone], Progress Notes * Paige MELENDEZOB:1960 (64 yo F)Acc No.[id number]:11/06/2024 Patient: Ceci DENIS Provider: Humble Fields MD :1960 A ge:64 Y S ex:Female Date:11/06/2024 Address:[address] [place], [place] [phone] Subjective: * Chief Complaints: * M ust [...] true * Provider: Humble Fields MD Date: 11/06/2024 Generated for Molly oro/Maria Antonia/Diandraitting on: 04/02/2025 04:16 PM EDT History and Physical [...] Provider Referred Provider Not es 11/06/2024 Issa Fields Nirav aortic Sten osis
--- OUTSIDE RECORDS SUMMARY | 2024-11-26 06:20 | XMS_ITS ---
Author Organization Issa Fields MD Address [address] [place], [place] [phone] Care Team Providers Care Gymnastic Teacher Name Role Phone Issa Fields Primary Care Provider [phone] Reason For Referral Reason Arthritis in both garcia nds Diagnosis 1 Arthritis pain of garcia nd (M19.049) Referral Organization Issa Fields MD Referring Provider First Name Issa Referring Provider Last Name Diamond Referring Provider Speciality Internal M edicine Referred Provider [facility], [facility] Rheumatology Referred Provider Specialty Rheumatology General Notes Tia Krueger 0 11/26/2024 11:43:18 AM >referral faxed / patient is aware of appt Referral Priority Routine Referral Appointment Date 09/11/2025 REASON FOR VISIT ? referal to rheumatology Encounters Encounter Location Date Provider Diagnosis Issa Fields MD [address] [place], [place] [phone] 11/26/2024 Issa Fields Plan Of Treatment Referrals Referral Date Details 11/26/2024 11/26/2024, Arthriti s in both hands, [facility] [place] Next Appt Details Provider Name:Issa keen, 04/05/2025 07:30:00 AM, [address], [address], [place], [place], [phone], Provider Name:Issa Patrick ier, 04/26/2025 10:15:00 AM, [address], [address], [place], [place], [phone], Provider Name:Issa Pratt Darnell ier, 10/10/2025 07:15:00 AM, [address], [address], [place], [place], [phone], Provider Name:Issa Pratt Laurasangita ier, 10/17/2025 11:00:00 AM, [address], [address], [place], [phone], Progress Notes * Letitia MELENDEZVandanaOB:1960 (64 yo F)Acc No.[id number]:11/26/2024 Patient: Ceci DENIS :1960 A ge:64 Y S ex:Female Address:[address] [place] [address] Subjective: * Chief Complaints: * ? referal to rheumatology * Medical History: * Surgical History: * Hospitalization/Major Diagno stic Procedure: * Medications: Objective: * Vitals: * Physical Examination: Assessment: Plan: * Treatment: * Procedure Codes: * true * Date: Generated for Molly oro/Maria Antonia/eTransmitting on: 0 04/02/2025 04:15 PM EDT Consultation Request Notes Referral Date Referring Provider Referred Provider Not es 11/26/2024 Issa Fields [facility], [facility] Arthritis in both hands
--- OUTSIDE RECORDS SUMMARY | 2025-03-07 08:53 | XMS_ITS ---
Author Organization Issa Fields MD Address [address] [facility] [address] [place] [phone] Care Team Providers Care Emergency Spill Response Technician Name Role Issa Patel Primary Care Provider REASON FOR VISIT Needs Echo Encounters Encounter Location Date Provider Diagnosis Issa Fields MD [address] [place] [address] [place] [phone] 03/07/2025 Issa Fields Plan Of Treatment Next Appt Details Provider Name:Issa keen, 04/05/2025 07:30:00 AM, [address] [place] [address], [address], [phone], Provider Name:Issa keen, 04/26/2025 10:15:00 AM, [address] [place] [address], [address], [phone], Provider Name:Issa keen, 10/10/2025 07:15:00 AM, [address] [place] [address], [address], [phone], Provider Name:Issa keen, 10/17/2025 11:00:00 AM, [address] [place] [address], [phone], Progress Notes * BESSIEEDNAPaigeOB:1960 (64 yo F)Acc No.[id number]:03/07/2025 Patient: Ceci DENIS :1960 A ge:64 Y S ex:Female Address:[address] [place] [phone] * * Date:
--- NOTE | 2025-04-02 13:24 | MHC.OFFVIS ---
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 No complaints. Ultrasound performed on 02/13/25. 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 She originally became concerned about this when she saw her parts counter clerk. She is currently being worked up for aortic stenosis. During the workup she mentioned her father had due to a ruptured aneurysm and she now undergoes noninvasive testing. At the time of the test they did see some atherosclerotic disease of the aorta and iliacs. She is currently asymptomatic and is able to walk several blocks with no significant difficulty. She now presents to us for vascular evaluation. [facility] Medical History Non-rheumatic aortic stenosis Personal history of nicotine dependence Postmenopausal Tubular adenoma of colon (~2014) Surgical History History of lumbar fusion History of bunionectomy of right great toe History of ethmoidectomy History of nasal septoplasty History of colonoscopy Family History Father Ruptured abdominal aortic aneurysm (AAA) Mother No problems noted. Social History Alcohol intake: current Alcohol intake frequency: a few times a week Patient Tobacco Use Status: Former Tobacco user Years Smoked: (onset 16yo, 1/2ppd x 40yrs, 20pyh - quit 11/2022) Review of Systems Const All systems reviewed & are unremarkable except as noted in HPI and below Reports no additional complaints ENT Reports Normal hearing present Card Denies chest pain, Denies chest pain at rest, Denies chest pain with activity and Denies pedal edema Resp Denies cough GI Denies abdominal pain Musc Denies abnormal gait, Denies muscle cramps and Denies radiating pain into limb Skin/Breast Denies skin ulcer and Denies wounds Neuro Reports Normal hearing present and Denies abnormal gait Psych Reports no additional complaints Physical Exam Const General: cooperative, healthy appearing and comfortable Orientation/consciousness: oriented to person, oriented to place and oriented to time HEENT Head: Yes normal to inspection Neck Neck: Yes normal visual inspection Carotids: no bruits Chest Chest palpation & inspection: normal inspection of the chest Resp Effort & Inspection: normal respiratory effort and able to speak in complete sentences Auscultation: clear to auscultation bilaterally, no crackles, no rales, no rhonchi and no wheezes Cardio Other: Bilateral palpable dorsalis pedis pulses Rate: regular rate Rhythm: regular rhythm Heart sounds: S1 normal heart sound present and S2 normal heart sound present Bruits: no carotid bruits Peripheral pulses: Peripheral pulses 2+ throughout GI Inspection: Yes normal to inspection Skin Wounds: no wounds Hair: normal Neuro General: oriented to person, oriented to place and oriented to time Cranial nerves: Yes CN's II-XII intact bilaterally and Yes Normal hearing present Cognition (Neuro): normal cognition Motor exam (neuro): 5/5 motor strength present throughout Extrem Other: venous exam: No significant superficial varicosities or spider telangiectasias, minimal edema General: No clubbing, No cyanosis and No edema Psych Appearance: grossly normal Mental Status: mental status grossly normal Speech and movement: Normal speech and movement present Results Reviewed Results Reviewed: Aortic ultrasound dated 02/13/2025 is within normal limits written report and images were reviewed. Assessment & Plan Assessment & Plan (1) Atherosclerosis of aorta: Code(s): I70.0 - Atherosclerosis of aorta Category: Medical Plan: In short patient has aorta within normal size with no concerns of aneurysmal disease. In addition she does have some atherosclerotic disease. At the current time she does have palpable dorsalis pedis pulses asymptomatic from this. We did discuss routine risk factor modification. She will follow up with us on an as-needed basis. Thank you for allowing us to assist in her care. If there are any questions or concerns please do not hesitate to contact us. Coding Level of Care Code New Pt Level 4 (08814) Diagnoses Atherosclerosis of aorta I70.0
--- OUTSIDE RECORDS SUMMARY | 2025-04-02 16:16 | XMS_ITS | Patient Health Record ---
Author Organization Issa Fields MD Address [address] [place], [place] [address] Care Team Providers Care Ground Instructor Basic Name Role Phone Issa Fields Primary Care Provider Allergies Allergen (clinical drug ingredient) Drug/Non Drug Allergy documented on EMR Reaction Allergy Type Onset Date Status morphine Morphine Sulfate itch Drug Allergy Active Results Component Value Reference Range Notes Complete Blood Count Auto Di ff Reviewed date:09/27/2024 12:52:10 PM Interpretation: Performing Lab:[facility], [address] [place] [phone] Notes/Report: White Blood Count 9.6 4.8-10.8 X10*3/uL [...] NRBC Abs Auto 0.000 0.0-0.012 X10*3/uL Comprehensive Pleasant Unity. Panel Fa st Reviewed date:09/27/2024 12:52:33 PM Interpretation: Performing Lab:[facility], [address] [place] [phone] Notes/Report: Sodium 141 135-145 mmol/L Potassium 3.9 [...] Panel Reviewed date:09/27/2024 12:16:09 PM Interpretation: Performing Lab:[facility], [address] [place] [phone] Notes/Report: Triglycerides 124 <150 mg/dL Desirable Triglyceride: [...] Random Reviewed date:09/27/2024 12:18:28 PM Interpretation: Performing Lab:[facility], [address] [place] [phone] Notes/Report: Creatinine Urine 123.47 Microalbumin Urine 12.0 Microalbum/Creatinine Ratio Ur 9.7 <30 ug/mg cr Albumin/Creatinine Ratio Reference Ranges: Normal: < 30 ug/mg creatinine Microalbuminuria: 30 - 300 ug/mg creatinine Clinical Albuminuria: > 300 ug/mg creatinine Hemoglobin A1c Reviewed date:09/27/2024 12:11:44 PM Interpretation: Performing Lab:[facility], [address] [place] [phone] Notes/Report: Hemoglobin A1c % 5.2 <6.0 % [...] average glucose, using the formula of the O7O-Pbpgrgf Average Glucose study (ADAG), Diabetes Care, Vol.31,#8, Feb. 2007 UA ClnCatch+Micro w/rflx Cul t Reviewed date:09/27/2024 12:52:49 PM Interpretation: Performing Lab:[facility], [address] [place] [phone] Notes/Report: Urine, Clean Catch Color Urine Yellow Appearance Urine Clear PH 6.0 5.0-9.0 Glucose Urine UA Negative Negative mg/dL Urine Blood Negative Negative Specific [place] - Urine 1.015 1.005-1.025 Urine Protein Negative Neg-Trace mg/dL Urine Ketones Negative Negative mg/dL Nitrite Urine Negative Negative Leukocyte Esterase Urine Negative Negative RBC Urine 0-2 0-2 /HPF WBC Urine 0-5 0-5 /HPF Squamous Epithelial Cell Urine 0-2 0-2 /HPF Bacteria Urine None Seen None Seen Hyaline Casts Urine 0-2 0-2 /LPF CT lung screening Reviewed date:05/27/2024 04:42:08 PM Interpretation: Performing Lab: Notes/Report: [address] [address] [address] Scan Report Signed Patient: Ceci Reveles MR#: [id number] 01 : 1960 Acct:[id number] Age/Sex: 63 / F ADM Date: 04/11/24 Loc: HO.CT Attending Dr: Wilma Nazario PA-C Ordering Physician: Wilma Nazario PA-C Date of Service: 04/11/24 Procedure(s): CT lung screening Accession Number(s): [id number] cc: Issa Fields MD; Wilma Nazario PA-C [...] for CT CHEST LOW DOSE CANCER SCREENING ([id number]) can be placed. Electronically signed by: Guru Barney MD 05/27/2024 11:14 AM [facility] Dictated By: Guru Barney MD Signed By: <Electronically signed by Guru Barney MD in OV> 05/27/24 1114 DD/ 1056 TD/TT: 04/11/24 1105 Refurbish Technician: [address] [address] [address] Scan Report Signed Patient: Bakari Reveles MR#: [id number] 01 : 1960 Acct:[id number] Age/Sex: 63 / F ADM Date: 04/11/24 Loc: HO.CT Attending Dr: Wilma Nazario PA-C Ordering Physician: Wilma Nazario PA-C Date of Service: 04/11/24 Procedure(s): CT derrell g screening Accession Number(s): [id number] cc: Issa Fields MD; Wilma Nazario PA-C [...] for CT CHEST LOW DOSE CANCER SCREENING ([id number]) can be placed. Electronically naomi d by: Guru Barney MD 05/27/2024 11:14 AM EST Dictated By: Guru Barney MD Signed By: <Electronically signed by Guru Barney MD in OV> 05/27/24 1114 DD/ 1056 TD/TT: 04/11/24 1105 Refurbish Technician: NAHUM Mitchell Reviewed date:09/27/2024 12:16:19 PM Interpretation: Performing Lab:[address] [phone] Notes/Report: Bola Mitchell See Note Specimen held untested for 24 hours; Call to request Chemistry testing. MM tomosynthesis screening B I Reviewed date:01/30/2025 08:17:50 PM Interpretation: Performing Lab: Notes/Report: [facility]'[address] [place] [address] Mammography Report Signed Patient: Ceci Reveles MR#: [id number] 01 : 1960 Acct:[id number] Age/Sex: 64 / F ADM Date: 01/17/25 Loc: HO.MAMMO Attending Dr: Issa Fields MD Ordering Physician: Issa Fields MD Results: 2Be nign Findings Date of Service: 01/17/25 Follow Up: 1 Year From [facility] Mammogram Procedure(s): MM tomosynthesis screening BI Accession Number(s): [id number] cc: Issa Fields MD EXAMINATION: MM SCREENING [...] Marina Khan MD 01/30/2025 07:56 PM EDT RP Dictated By: Luz Marina Khan MD Signed By: <Electronically signed by Luz Marina Khan MD in OV> 01/30/251955 DD/ 1100 TD/TT: 01/17/25 1115 Refurbish Technician: Nick [facility] [address] [place] [address] Mammography Report Signed Patient: Bakari Reveles MR#: [id number] 01 : 1960 Acct:[id number] Age/Sex: 64 / F ADM Date: 01/17/25 Loc: .MAMMO Attending Dr: Issa Fields MD Ordering Physician: Issa Fields MD Results: 2Be nign Findings Date of Service: 01/17/25 Follow Up: 1 Year From [facility] Mammogram Procedure(s): MM tomosynthesis screening BI Accession Number(s): [id number] cc: Issa Fields MD EXAMINATION: MM SCREENING [...] OV> 01/30/251955 DD/ 1100 TD/TT: 01/17/25 1115 Refurbish Technician: US abdominal aortic aneurysm Reviewed date:02/13/2025 08:27:27 PM Interpretation: Performing Lab: Notes/Report: [facility] [address] [place] [address] Ultrasound Report Signed Patient: Ceci Reveles MR#: [id number] : 1960 Acct:[id number] Age/Sex: 64 / F ADM Date: 02/13/25 Loc: HO.HMGCX Attending Dr: Fabrizio Haile MD Ordering Physician: Fabrizio Haile MD Date of Service: 02/13/25 Procedure(s): US abdominal aortic aneurysm Accession Number(s): [id number] cc: Issa Fields MD; Fabrizio Haile MD CLINICAL HISTORY: I71.40 - Abdominal aortic aneurysm, without rupture, unspecified US of abdominal aorta Comparison: None provided Findings: Scattered calcific atherosclerotic plaques of abdominal aorta and common iliac arteries, more conspicuous at the mid and distal aorta, proximal common iliac arteries, moderate stenosis of the mid abdominal aorta on grayscale and color Doppler ultrasound, distal aorta at the bifurcation and origins of the common iliac arteries are not clearly seen due to bowel gas shadowing, there is elevated peak systolic velocities with aliasing of common iliac arteries, more on the right up to 157 cm/S. Aorta diameter proximal 2.7 x 2.6 cm. Aorta diameter mid 2.5 x 2.5 cm. Aorta diameter distal 2.2 x 2.1 cm. Right common iliac artery maximum diameter 1.4 x 1.1 cm. Left common iliac artery maximum diameter 1.4 x 1.1 cm. Impression: 1. No aneurysm of imaged abdominal aorta or common iliac arteries. 2. Atherosclerotic disease of abdominal aorta and common iliac arteries, suspect moderate stenosis of mid abdominal aorta, moderate to severe stenosis at the aortic bifurcation/origins of the common iliac arteries but this region is not well seen due to bowel gas shadowing, CT angiography with IV contrast can better evaluate if warranted. This document has been electronically signed by: Paty Contreras MD on 02/13/2025 14:40:59 Dictated By: Paty Contreras MD Signed By: <Electronically signed by Paty Contreras MD in OV> 02/13/25 1441 DD/ 1440 TD/TT: 02/13/25 1440 Refurbish Technician: [facility] [address] [place] [address] [place] [address] Ultrasound Report Signed Patient: Bakari Reveles MR#: [id number] : 1960 Acct:[id number] Age/Sex: 64 / F ADM Date: 02/13/25 Loc: .HMGCX Attending Dr: Jadon Haile MD Ordering Physician: Fabrizio Haile MD Date of Service: 02/13/25 Procedure(s): US abdominal aortic aneurysm Accession Number(s): [id number] cc: Issa Fields MD; Fabrizio Haile MD CLINICAL HISTORY: I71.40 - Abdominal aortic aneurysm, without rupture, unspecified US of abdominal aorta Comparison: None provided Findings: Scattered calcific atherosclerotic plaques of abdominal aorta and common iliac arteries, more conspicuous at the mid and distal aorta, proximal common iliac arterie s, moderate stenosis of the mid abdominal aorta on grayscale and color Doppler ultrasound, distal aorta at the bifurcation and origins of the common iliac arteries are not clearly seen due to bowel gas shadowing, there is elevated peak systolic velocities with aliasing of common iliac arterie s, more on the right up to 157 cm/S. Aorta diameter proxi mal 2.7 x 2.6 cm. Aorta diameter mid 2 .5 x 2.5 cm. Aorta diameter dista l 2.2 x 2.1 cm. Right common iliac artery maximum diameter 1.4 x 1.1 cm. Left common iliac artery maximum diameter 1.4 x 1.1 cm. Impression: 1. No aneurysm of imaged abdominal aorta or common iliac arteries. 2. Atherosclerotic disease of abdominal aorta and common iliac arteries, suspect moderate stenosis of mid abdominal aorta, moderate to severe stenosis at the aort ic bifurcation/origins of the common iliac arteries but this region is n ot well seen due to bowel gas shadowing, CT angiography with IV contrast can better evaluate if warranted. This document has be en electronically signed by: Paty Contreras MD on 02/13/2025 14:40:59 Dictated By: Paty Contreras MD Signed By: <Electronically signed by Paty Contreras MD in OV> 02/13/25 1441 DD/ 1440 TD/TT: 02/13/25 1440 Refurbish Technician: Reason For Referral Reason needs colonoscopy Diagnosis 1 Colon cancer screeni (Z12.11) Referral Organization Issa Fields MD Referring [...] Referring Provider Speciality Internal edicine [facility] [place] Referred Provider Specialty Allergy/Immu nology General Notes [...] PM > no able to go to [facility] Cardio, they do not accept her insurance. info faxed to [facility] Cardio, Tia Krueger [...] Provider Speciality Internal M edicine Referred Provider [facility] Rheumatology, [facility] Rheumatology Referred Provider Specialty Rheumatology General [...] Vaccine Unknown 03/20/2015 Administered HAD IT AT [facility] Fluarix Quadrivalent IM Intramuscular 04/13/2016 Administe red Fluarix Quadrivalent IM Intramuscular 04/26/2017 Administe red TDaP Unknown 06/10/2017 Administered pt was given the vaccine at [facility] in [place]. Fluarix Quadrivalent IM Intramuscular 04/24/2018 Administe red [...] Status W/U Status Risk Notes Problem Lymphocytosis (69387392) Lymphocytosis (D72.820) Active confirmed Problem 47705447611819579 Acute recurren t maxillary sinusitis (J01.01) Active confirmed Problem 1766379 Panlobular emphy sema (J43.1) Active confirmed Problem Aortic valve disorder (1500642) Aortic stenosis (I35.0) Active confirmed Problem 797741514 Low HDL (under 4 0) (E78.6) Active confirmed Problem 62057661 Alcohol abuse (F10.10) Active confirme d Problem Current smoker (72606250) Current smoker (F17.200) Active confirmed Problem 35691013 Dysthymia (F34.1) Active confirmed Problem 212462562 Multiple allergi es (Z88.9) Active confirmed Problem 31157862 CAD (coronary ar andres disease) (I25.10) Active confirmed Problem 728583172 Recurrent sinus infections (J32.9) Active confirmed Problem 585400205 Prediabetes (R73.03) Active confirmed Problem 402113493 Pure hypercholesterolemia (E78.00) Active confirmed Problem 300121716 History of viral pericarditis (Z86.79) Active confirmed Problem Aortic valve disorder (5407447) Moderate aortic stenosis (I35.0) Active confirmed Problem Localized, primary osteoarthritis of the hand (035785482) Arthritis pain of hand (M19.049) Active confirmed Problem 291918156 Recurrent sinusi tis (J32.9) Active confirmed Vital Signs Blood pressure diastolic 70 mm Hg 11/06/2024 Height 66 in 11/06/2024 Blood pressure systolic 122 mm Hg 11/06/2024 Weight 122 lbs 11/06/2024 BMI 19.69 kg/m2 11/06/2024 Encounters Encounter Location Date Provider Diagnosis Issa Fields MD [address] [place] [id number] 09/27/2024 Issa Fields Blood tests for rout ine general physical examination Z00.00 ; Pure hypercholesterolemia E78.00 ; Prediabetes R73.03 and Lymphocytosis D72.820 Issa Fields MD [address] [place] [address] [id number] 04/06/2024 Issa Fields Nasal polyps J33.9 ; Recurrent sinus infections J32.9 ; Alcohol abuse F10.10 ; Low HDL (under 40) E78.6 and Moderate aortic stenosis I35.0 Issa Fields MD [address] [place] [id number] 06/05/2024 Issa Fields Nasal polyps J33.9 a nd Recurrent sinus infections J32.9 Issa Fields MD [address] [place] [id number] 08/03/2024 Issa Fields Nasal polyps J33.9 a nd Recurrent sinus infections J32.9 Issa Fields MD [address] [place] [id number] 10/02/2024 Issa Fields Recurrent sinusitis J32.9 Issa Fields MD [address] [place] [address] [address] [place] [id number] 10/09/2024 Issa Fields Annual physical exam Z00.00 ; Moderate aortic stenosis I35.0 ; Nasal polyps J33.9 ; De Quervain's disease (tenosynovitis) M65.4 ; Pure hypercholesterolemia E78.00 ; Panlobular emphysema J43.1 and Depression screening Z13.31 Issa Fields MD [address] [place] [id number] 11/06/2024 Issa Fields Aortic stenosis I35. 0 Issa Fields MD [address] [place] [id number] 03/07/2025 Issa Fields MD [address] [place], [place] [id number] 10/25/2024 Issa Fields Pure hypercholestero lemia E78.00 Issa Fields MD [address] [place] [id number] 11/26/2024 Issa Fields Assessments Encounter Date Diagnosis (ICD Code) Assessment Notes Treatment Notes Treatment Clinical Notes Section Notes 09/27/2024 [address] tests [address] ine general [...] stenosis (ICD-10 - I35.0) order faxed to [facility] CS dept , pending diagnostic testing 11/06/2024 Aortic stenosis (ICD -10 - I35.0) will get referral to dr jhoan crzu at [facility]/ NOT having any symptoms 10/25/2024 Pure hypercholesterolemia (ICD-10 - E78.00) 09/27/2024 Pure [...] Details Provider Name:Issa keen, 04/05/2025 07:30:00 AM, [address] [place] [address], [address] [place] [address], [id number], Provider Name:Issa stallingsr, 04/26/2025 10:15:00 AM, [address] [place] [address], Suite [facility], [place], [place], [id number], Provider Name:Issa keen, 10/10/2025 07:15:00 AM, [address] [place] [address], Suite [facility], [place], [place], [id number], Provider Name:Issa keen, 10/17/2025 11:00:00 AM, [address] [place] [address], Suite [facility], [place], [place], [id number], Insurance Providers Payer Name Payer Address Payer Phone Subscriber Number Group Number Insured Name Patient Relationship to Insured Coverage Start Date Coverage End Date [facility] are [employer] [address] [address] [place] [address] [id number] Nora Ceci Self - patient is the insured [employer] [address] [place] [address] [id number] Ceci Reveles Self - patient is the insured Medical (General) History Medical History History ICD Code 06/18/15 - Colonoscopy done b y Dr. Jay Kenny - repeat n 10 years as all polyps were hyperplastic varenicline is chantix
--- OUTSIDE RECORDS SUMMARY | 2025-04-02 16:16 | XMS_ITS | Patient Health Record ---
Author Organization [facility] [place] Address [address] [facility] [place] [address] Care Team Providers Care Director Biology Name Role Phone Issa Fields MD Primary Care Provider Conymiguel ángel alisonmirella Phillips Charlene Unavailable [phone] Allergies Allergen (clinical drug ingredient) Drug/Non Drug [...] Status Risk Notes Problem Acquired hallux valgus (20028601) Hallux valgus (acquired), left foot (M20.12) Active confirmed Problem Plantar wart (42614678) Plantar wart (B07.0) Active confirmed Problem Acquired hammer toe of left foot (53821110484 ) Other hammer toe(s) (acquired), left foot (M20.42) Active confirmed Problem Acquired hallux rigidus (9767680) Hallux rigidus, right foot (M20.21) Active confirmed Problem Acquired hammer toe of left foot (89964665062 ) Hammer toe of left foot (M20.42) Active confirmed Improvement Problem Spasm (43152741) Extensor tendon tightness, contracture (M62.40) Active confirmed Improvement Vital Signs Blood pressure diastolic 80 mm Hg 05/24/2024 Height 5ft6in in 05/24/2024 Blood pressure systolic 130 mm Hg 05/24/2024 Weight 112 lbs 05/24/2024 BMI 18.08 kg/m2 05/24/2024 Procedures Procedure Date Ordered Date Performed Result Body Sit e 40337 - Tenotomy, open flexor 05/17/2024 N/A 58203-Stnr Destruction, -05/24/2024 N/A Encounters Encounter Location Date Provider Diagnosis [facility] [address] [phone] 05/17/2024 Charlene Black Hammer toe of left foot M20.42 [facility] [address] [address] 05/24/2024 Charlene Black Hammer toe of left [...] 02/27/2024 X ray : Foot, right 3V 11/28/201702319-Luju Destruction, -05/24/2024 35549-Zsyb Destruction, 1-14 12/19/2017 56791-Fkpf Destruction, 07-2401/16/2018 27583-Fcxt Destruction, 07-2402/24/2012 93401-Wuyd Destruction, 07-2405/16/2013 46906-Lpoi Destruction, 07-2411/28/2017 37432 - Tenotomy, open flexor 05/17/2024 Insurance Providers Payer Name Payer Address Payer Phone Subscriber Number Group Number Insured Name Patient Relationship to Insured Coverage Start Date Coverage End Date [employer] Medicare Adv-[id number] [address] [address] [place] [address] [id number] Ceci Melendez Self - patient is the insured Medical (General) History Medical History History ICD Code asthma CAD (Cholesterol) Surgical History Surgery Date(Month/Year) bunionectomy x2 elbow sx 2010 polypectomy 2006, 2009 Ulna nerve Biopsy nasal polypectomy 2013,2019
--- OUTSIDE RECORDS SUMMARY | 2025-04-02 16:16 | XMS_ITS | Patient Health Record ---
Author Organization [facility] Address [address] [facility] [address] [place] [address] Care Team Providers Care Hydrogen Cell Tender Name Role Phone Issa Fields MD Primary Care Provider Leland Haas Unavailable [phone] SAMIR PERES Unavailable Unavailab le Allergies No [...] W/U Status Risk Notes Problem Preprocedural examination (834806234486743) Preprocedural examination (Z01.818) Active confirmed Vital Signs Temperature 96.9 degrees Fahrenheit 02/12/2025 Blood pressure diastolic 01 mm Hg 02/12/2025 Height 65 in 02/12/2025 Blood pressure systolic 001 mm Hg 02/12/2025 Weight 123.8 lbs 02/12/2025 BMI 20.6 kg/m2 02/12/2025 Procedures Procedure Date Ordered Date Performed Result Body Sit e COLONOSCOPY 02/12/2025 N/A Encounters Encounter Location Date Provider Diagnosis [facility] [address] [place] [address] 02/12/2025 Leland Quintanilla Colon cancer screeni ng [...] Provider Name:Leland Quintanilla , 05/27/2025 08:20:00 AM, [address] [place] [address] , [place], [place], [phone], Insurance Providers Payer Name Payer Address Payer Phone Subscriber Number Group Number Insured Name Patient Relationship to Insured Coverage Start Date Coverage End Date [facility] [address] [place] [id number] CECI REVELES Self - patient is the insured Medical (General) History Medical History History ICD Code COPD/Asthma Aortic stenosis-sees Dr. Peres Colonoscopy 2014 with only hyperplastic polyps-Dr. Kenny Denies [place],DM,CVA,renal disease Surgical History Surgery Date(Month/Year) ulnar nerve elbow nasal polyps skin cancers-basal, squamous back- surgery needle wujhxw-dldsen-exwfsm bunionectomy
== END 2025-04-02 13:38 | disposition home or self-care (01) ==
LOC: HO.HVS 13:15
PROVIDERS: PCP Internal Medicine; Visit Provider Surgery Vascular Surgery
DX: I70.0 Atherosclerosis of aorta (principal)
CPT/HCPCS: 99204

== ENCOUNTER → 2025-04-02 13:14 | Outpatient (BNVA) | payer MEDICARE, SELFPAY | PROVIDERS: PCP Internal Medicine; Visit Provider Surgery Vascular Surgery | DX: I70.0 Atherosclerosis of aorta (principal) | CPT/HCPCS: 99202 ==

== ENCOUNTER 2025-04-12 10:15 | Outpatient (REF) | payer MEDICARE, SELFPAY ==
[2025-04-12 11:14] LABS: Alanine Aminotransferase 43 U/L (0-31); Albumin Level 4.4 g/dL (3.5-5.0); Alkaline Phosphatase 80 U/L (39-117); Aspartate Amino Transferase 42 U/L (5-31); Cholesterol 124 mg/dL (<200); HDL Cholesterol 16 mg/dL (>40); Total Protein 7.7 g/dL (6.5-8.0); Triglycerides 86 mg/dL (<150)
[2025-04-12 11:38] LABS: Reflex LDLD? No
== END 2025-04-12 10:16 | disposition home or self-care (01) ==
LOC: HO.LNP 10:15
PROVIDERS: Visit Provider Internal Medicine
DX: R73.03 Prediabetes (principal); E78.00 Pure hypercholesterolemia, unspecified
CPT/HCPCS: 80061; 80076; 82947; 83036

== ENCOUNTER → 2025-04-12 12:49 | Outpatient (REF) | payer MEDICARE, SELFPAY ==
--- OUTSIDE RECORDS SUMMARY | 2024-10-25 11:03 | XMS_ITS ---
Author Organization Issa Fields MD Address [address] [place] [phone] Care Team Providers Care Jet Ski Mechanic Name Role Phone Issa Fields Primary Care Provider [phone] REASON FOR VISIT REFILL ROSUVASTATIN Medications Medication SIG (Take, Route, Frequency, Duration) Notes Start Date End Date Status Rosuvastatin Calcium 40 mg TAKE 1 TABLET DAILY ORALLY DAILY for 90 days Active Encounters Encounter Location Date Provider Diagnosis Issa Fields MD [address] [place] [phone] 10/25/2024 Issa Fields Pure hypercholestero lemia E78.00 Assessments Encounter Date Diagnosis (ICD Code) Assessment Notes Treatment Notes Treatment Clinical Notes Section Notes 10/25/2024 Pure hypercholesterolemia (ICD-10 - E78.00) Plan Of Treatment Medication Medication Name Sig Start Date Stop Date Notes Rosuvastatin Calcium 40 mg TAKE 1 TABLET DAILY ORALLY DAILY for 90 days Next Appt Details Provider Name:Issa keen, 04/26/2025 10:15:00 AM, [address] [place] [address], [address], [phone], Provider Name:Issa keen, 10/10/2025 07:15:00 AM, [address] [place] [address], [address], [phone], Provider Name:Issa Terence Patrick ier, 10/17/2025 11:00:00 AM, [address], [address], [place], [phone], Progress Notes * Letitia MELENDEZVandanaOB:1960 (64 yo F)Acc No.[id number]:10/25/2024 Patient: Ceci DENIS :1960 A ge:64 Y S ex:Female Address:[address] [place] [address] * Refills Refill Rosuvastatin Calcium Tablet, 40 mg, ORALLY, 90, TAKE 1 TABLET DAILY, DAILY, 90 days, Refills=3 * true * Date: Generated for Molly oro/Maria Antonia/Lesleesmitting on: 1 01:18 PM EDT
--- OUTSIDE RECORDS SUMMARY | 2024-11-06 11:15 | XMS_ITS ---
Author Organization Issa Fields MD Address [address] [place], [place] [phone] Care Team Providers Care Returner Name Role Phone Diamond Issa Primary Care Provider [phone] Allergies Allergen (clinical drug ingredient) Drug/Non Drug Allergy documented on EMR Reaction Allergy Type Onset Date Status Morphine Sulfate itch Drug Allergy Active Reason [...] PM > no able to go to [facility] Cardio, they do not accept her insurance. info faxed to [facility] Cardio, Tia Krueger 11/16/2024 [...] Status Risk Notes Problem Aortic valve disorder (4537115) Aortic stenosis (I35.0) Active confirmed Vital Signs Blood pressure systolic 122 mm Hg 11/07/19 25 Blood pressure diastolic 70 mm Hg 025 Height 66 in 11/06/2024 Weight 122 lbs 11/06/2024 BMI 19.69 kg/m2 11/06/2024 Encounters Encounter Location Date Provider Diagnosis Issa Fields MD [address] [place] [address] [place] [phone] 11/06/2024 Issa Fields Aortic stenosis I35.0 Assessments Encounter Date Diagnosis (ICD Code) Assessment Notes Treatment Notes Treatment Clinical Notes Section Notes 11/06/2024 Aortic stenosis (ICD-10 - I35.0) will get referral to dr jhoan cruz at [facility]/ NOT having any symptoms Plan Of Treatment Treatment Notes Assessment Notes Aortic stenosis will get referral to dr jhoan cruz at [facility]/ NOT having any symptoms Referrals Referral Date Details 11/06/2024 11/06/2024, aortic S tenosis, BenyAlvarenga Next Appt Details Provider Name:Issa keen, 04/26/2025 10:15:00 AM, [address] [place] [address], [address] [place] [address], [phone], Provider Name:Issa keen, 10/10/2025 07:15:00 AM, [address] [place] [address], Suite [facility], [place], [place], [phone], Provider Name:Issa Patrick ier, 10/17/2025 11:00:00 AM, [address], [address], [place], [place], [phone], Progress Notes * Paige MELENDEZOB:1960 (64 yo F)Acc No.[id number]:11/06/2024 Patient: Ceci DENIS Provider: Humble Fields MD :1960 A ge:64 Y S ex:Female Date:11/06/2024 Address:[address] [place], [place] [phone] Subjective: * Chief Complaints: * M ust [...] Medication List reviewed and reconciled with the patientNot- Taking/PRN Varenicline Tartrate 1 mg Tablet TAKE 1 TABLET TWICE A DAY DIRECTED Not- Taking/PRN Ventolin HFA * 108 (90 Base) MCG/ACT [...] Generated for Molly oro/Maria Antonia/Diandraitting on: 1 01:19 PM EDT History and Physical Notes * [...]
--- OUTSIDE RECORDS SUMMARY | 2024-11-26 06:20 | XMS_ITS ---
Author Organization Issa Fields MD Address [address] [place], [place] [phone] Care Team Providers Care Assurance Analyst Name Role Phone Issa Fields Primary Care Provider Reason For Referral Reason Arthritis in both garcia nds Diagnosis 1 Arthritis pain of garcia nd (M19.049) Referral Organization Issa Fields MD Referring Provider First Name Issa Referring Provider Last Name Diamond Referring Provider Speciality Internal M edicine Referred Provider [facility] [place], [facility] Rheumatology Referred Provider Specialty Rheumatology General Notes Tia Krueger 0 11/26/2024 11:43:18 AM >referral faxed / patient is aware of appt Referral Priority Routine Referral Appointment Date 09/11/2025 REASON FOR VISIT ? referal to rheumatology Encounters Encounter Location Date Provider Diagnosis Issa Fields MD [address] [place], [place] [phone] 11/26/2024 Issa Fields Plan Of Treatment Referrals Referral Date Details 11/26/2024 11/26/2024, Arthriti s in both hands, [facility] [place] [facility] [facility] [place] [facility] Next Appt Details Provider Name:Issa keen, 04/26/2025 10:15:00 AM, [address], [address], [place], [place], [phone], Provider Name:Issa stallingsr, 10/10/2025 07:15:00 AM, [address], [address], [place], [place], [phone], Provider Name:Issa Terence Darnell ier, 10/17/2025 11:00:00 AM, [address], [address], [place], [place], [phone], Progress Notes * Letitia MELENDEZVandanaOB:1960 (64 yo F)Acc No.[id number]:11/26/2024 Patient: Ceci DENIS :1960 A ge:64 Y S ex:Female Address:[address] [place] [address] Subjective: * Chief Complaints: * ? referal to rheumatology * Medical History: * Surgical History: * Hospitalization/Major Diagno stic Procedure: * Medications: Objective: * Vitals: * Physical Examination: Assessment: Plan: * Treatment: * Procedure Codes: * true * Date: Generated for Molly oro/Maria Antonia/eTransmitting on: 1 01:18 PM EDT Consultation Request Notes Referral Date Referring Provider Referred Provider Not rick 11/26/2024 Issa Fields [facility] [place] [place], [facility] [place] Arthritis in both hands
--- OUTSIDE RECORDS SUMMARY | 2025-03-07 08:53 | XMS_ITS ---
Author Organization Issa Fields MD Address 10 [facility] [address] [place] [phone] Care Team Providers Care Financial Reporting Advisor Name Role Issa Patel Primary Care Provider REASON FOR VISIT Needs Echo Encounters Encounter Location Date Provider Diagnosis Issa Fields MD [address] [facility] [address] [place] [phone] 03/07/2025 Issa Fields Plan Of Treatment Next Appt Details Provider Name:Issa keen, 04/26/2025 10:15:00 AM, [address] [place] [address], [address], [phone], Provider Name:Issa keen, 10/10/2025 07:15:00 AM, [address] [place] [address], [address], [phone], Provider Name:Issa keen, 10/17/2025 11:00:00 AM, [address] [place] [address], [address], [phone], Progress Notes * Paige MELENDEZOB:1960 (64 yo F)Acc No.[id number]:03/07/2025 Patient: Ceci DENIS :1960 A ge:64 Y S ex:Female Address:[address] [place] [phone] * true * Date: Generated for Molly oro/Maria Antonia/Lesleesmitting on: 01:18 PM EDT
--- OUTSIDE RECORDS SUMMARY | 2025-04-12 03:30 | XMS_ITS ---
Author Organization Issa Fields MD Address [address] [place] [phone] Care Team Providers Care Vascular Physician Name Role Phone Issa Fields Primary Care Provider Results Component Value Reference Range Notes Liver Panel Reviewed date:04/12/2025 11:41:15 AM Interpretation: Performing Lab:[facility], [address] [place] [phone] Notes/Report: Bilirubin Total 0.8 0.0-1.0 mg/dL Bilirubin Direct 0.3 0.0-0.5 mg/dL Aspartate Amino Transferase 42 5-31 U/L Alanine Aminotransferase 43 0-31 U/L Total Protein 7.7 6.5-8.0 g/dL Albumin Level 4.4 3.5-5.0 g/dL Alkaline Phosphatase 80 39-117 U/L Glucose Fasting Reviewed date:04/12/2025 11:42:02 AM Interpretation: Performing Lab:[facility], [address] [place] [phone] Notes/Report: Glucose Fasting 108 60-99 mg/dL A fasting glucose from 100-125 mg/dl is considered impaired (pre-diabetes). Lipid Panel with Reflex Reviewed date:04/12/2025 12:35:13 PM Interpretation: Performing Lab:[facility], [address] [place] [phone] Notes/Report: Triglycerides 86 <150 mg/dL Desirable Triglyceride: [...] A1c Reviewed date:04/12/2025 11:36:46 AM Interpretation: Performing Lab:[facility], [address] [place] [phone] Notes/Report: Hemoglobin A1c % 5.2 <6.0 % [...] average glucose, using the formula of the Q9W-Pbidlcd Average Glucose study (ADAG), Diabetes Care, Vol.31,#8, Feb. 2007 REASON FOR VISIT fasting lipids Encounters Encounter Location Date Provider Diagnosis Issa Fields MD [address] [place] [address] Drive [address] [place], [place] [phone] 04/12/2025 Issa Fields Prediabetes R73.03 a nd Pure hypercholesterolemia E78.00 Assessments Encounter Date Diagnosis (ICD Code) Assessment Notes Treatment Notes Treatment Clinical Notes Section Notes 04/12/2025 Prediabetes (ICD-10 - R73.03) 04/12/2025 Pure hypercholesterolemia (ICD-10 - E78.00) Plan Of Treatment Next Appt Details Provider Name:Issa Patrick ier, 04/26/2025 10:15:00 AM, [address], [address], [place], [place], [phone], Provider Name:Issa Patrick chandrakantpadma, 10/10/2025 07:15:00 AM, [address], [address], [place], [place], [phone], Provider Name:Issa Patrick chandrakantr, 10/17/2025 11:00:00 AM, [address], [address], [place], [place], [phone], Progress Notes * Paige MELENDEZOB:1960 (64 yo F)Acc No.[id number]:04/12/2025 Progress Note Patient: Ceci DENIS Provider: Humble Fields MD :1960 A ge:64 Y S ex:Female Date:04/12/2025 Address:[address] [place], [place] [phone] Subjective: * Chief Complaints: * 1 . [...] 1 Generated for Molly oro/Maria Antonia/eTransmitting on: 01:18 PM EDT
--- NOTE | 2025-04-12 12:59 | CA_ITS ---
Transthoracic Echocardiogram Patient (Last, First, Middle): Ceci Melendez M Gender: Female Date of : 1960 Age: 64 Procedure Date: 04/12/2025 Procedure Type: Transthoracic Echocardiogram Location: OP Height: 165.1 cm Weight: 55.79 kg BSA: 1.61 m2 Heart Rate: 69 bpm BP: 144 / 88 mmHg High School Guidance Counselor: SB Referring MD: Issa Fields MD Symptoms: I35.O MOD AORTIC STENOSIS Study Quality: Adequate ECG Rhythm: Sinus Conclusions: - The left ventricular systolic function is normal. The calculated ejection fraction is 59% by biplane method. - There is severe aortic valve stenosis. Findings Left Ventricle Normal left ventricular cavity size. There is normal left ventricular wall thickness. The left ventricular systolic function is normal. The calculated ejection fraction is 59% by biplane method. Evidence suggests grade I (mild) diastolic dysfunction. Possible basal inferior/infero-lateral hypokinesis vs artifact. Right Ventricle Normal right ventricular cavity size and systolic function. Atria Both atria are normal in size. Aortic Valve There is severe calcification of the aortic valve. There is severe aortic valve stenosis. The mean gradient is 29 mmHg. The aortic valve area is 0.66 cm2. There is trace (trivial) aortic valve regurgitation. Dimensionless index 0.24. Stroke volume index 32ml/m2. Mitral Valve There is mild anterior mitral leaflet thickening. There is no mitral valve regurgitation. There is no mitral valve stenosis. Pulmonic Valve The pulmonic valve is likely normal. Tricuspid Valve There is no tricuspid valve regurgitation. Tricuspid regurgitation envelope is inadequate for calculation of right ventricular systolic pressure. Great Vessels The asc aorta is normal in size. Venous The inferior vena cava is normal in size and collapses greater than 50% with inspiration. Pericardium/Pleural There is no evidence of pericardial effusion. Prior Study Comparison Changes noted compared to prior study dated: 10/31/2024. Calculated ROSALIO smaller. Measurements 2D Linear Measurements IVSd: 0.83 0.6-0.9/0.6-1.0 cm LVIDd: 4.62 3.9-5.3/4.2-5.9 cm LVIDd Index: 2.87 2.4-3.2/2.2-3.1 cm/m2 LVIDs: 3.54 2.0-3.6 cm LVPWd: 0.82 0.7-1.1 cm LA Diam: 3.50 2.7-3.8/3.0-4.0 cm LAIDs Index: 2.17 1.5-2.3 cm/m2 LV Mass: 153.67 67-162/88-224 g LV Mass Index: 95.45 43-95/49-115 g/m2 LVOT Diam: 2.00 3.0+(-)1.3 cm 2D Systolic Function EF 4C: 57.30 >55% EF 2C: 60.40 >55% EF BiP: 58.90 >55% Mitral Valve MV Pk E: 0.63 MV PK A: 0.93 MV Decel Time: 323.00 E/A: 0.70 E'Lateral: 4.35 E'Medial: 3.70 E/E' Med: 17.10 E/E' Lat: 14.60 PHT: 95.00 MVA PHT: 2.32 Decel Hendry: 1.96 Aortic Valve AoV Pk Landon: 3.41 AoV Mn Landon: 2.58 AoV VTI: 0.78 AoV Pk Grad: 47.00 Aov Mn Grad: 29.00 ROSALIO Cont.VTI: 0.66 LVOT LVOT Pk Landon: 0.83 LVOT Mn Landon: 0.55 LVOT VTI: 0.16 LVOT Pk Grad: 3.00 LVOT Mn Grad: 2.00 LVOT Diam: 2.00 LVOT Area: 3.14 Diastolic Function MV Pk E: 0.63 MV Pk A: 0.93 E/A: 0.70 E'Medial: 3.70 E/E' Med: 17.10 E' Laterial: 4.35 E/E' Lat: 14.60 Right Ventricle TAPSE (mm): 17.20 TVS' Landon: 10.00 Tricuspid Valve RA Press: 8.00 Great Vessels Aorta Sinus of Valsalva: 3.00 2.0-3.5 cm Ao Asc: 3.20 2.1-3.4 cm Ao Arch: 2.60 Pulmonary Veins Pulm Vein S/D 1.90 Pulmonary Valve PV Pk Landon: 0.96 Peak PV Grad: 4.00 Updated in Other Vendor System with Status of Final Fabrizio Haile MD electronically signed on 04/13/2025 3:43:02 PM with status of Final
--- OUTSIDE RECORDS SUMMARY | 2025-04-12 13:18 | XMS_ITS | Patient Health Record ---
Author Organization [facility] Address [address] [place] [address] Care Team Providers Care Accuracy Expert Name Role Phone Issa Fields MD Primary Care Provider Conymiguel ángel alisonmirella Phillips Charlene Unavailable [phone] Allergies Allergen (clinical drug ingredient) Drug/Non Drug [...] Status Risk Notes Problem Acquired hallux valgus (11872124) Hallux valgus (acquired), left foot (M20.12) Active confirmed Problem Plantar wart (86711194) Plantar wart (B07.0) Active confirmed Problem Acquired hammer toe of left foot (01176241633 ) Other hammer toe(s) (acquired), left foot (M20.42) Active confirmed Problem Acquired hallux rigidus (2371211) Hallux rigidus, right foot (M20.21) Active confirmed Problem Acquired hammer toe of left foot (97984541936 ) Hammer toe of left foot (M20.42) Active confirmed Improvement Problem Spasm (65433768) Extensor tendon tightness, contracture (M62.40) Active confirmed Improvement Vital Signs Blood pressure diastolic 80 mm Hg 05/24/2024 Height 5ft6in in 05/24/2024 Blood pressure systolic 130 mm Hg 05/24/2024 Weight 112 lbs 05/24/2024 BMI 18.08 kg/m2 05/24/2024 Procedures Procedure Date Ordered Date Performed Result Body Sit e 39741 - Tenotomy, open flexor 05/17/2024 N/A 06546-Vooq Destruction, -05/24/2024 N/A Encounters Encounter Location Date Provider Diagnosis [facility] [address] [address] 05/17/2024 Charlene Black Hammer toe of left foot M20.42 [facility] [address] [address] 05/24/2024 Charlene Black Hammer toe of left [...] 02/27/2024 X ray : Foot, right 3V 11/28/201756556-Hdju Destruction, -05/24/2024 15755-Wxjd Destruction, 1-14 12/19/2017 26348-Tetb Destruction, 07-2401/16/2018 27731-Jjmz Destruction, 07-2402/24/2012 16103-Srvs Destruction, 07-2405/16/2013 69440-Fzjo Destruction, 07-2411/28/2017 53855 - Tenotomy, open flexor 05/17/2024 Insurance Providers Payer Name Payer Address Payer Phone Subscriber Number Group Number Insured Name Patient Relationship to Insured Coverage Start Date Coverage End Date [employer] Medicare Adv-[id number] [address] [address] [place] [address] [id number] Ceci Melendez Self - patient is the insured Medical (General) History Medical History History ICD Code asthma CAD (Cholesterol) Surgical History Surgery Date(Month/Year) bunionectomy x2 elbow sx 2010 polypectomy 2006, 2009 Ulna nerve Biopsy nasal polypectomy 2013,2019
--- OUTSIDE RECORDS SUMMARY | 2025-04-12 13:18 | XMS_ITS | Patient Health Record ---
Author Organization Issa Fields MD Address [address] [place], [place] [address] Care Team Providers Care Welder First Class Name Role Phone Issa Fields Primary Care Provider [phone] Allergies Allergen (clinical drug ingredient) Drug/Non Drug Allergy documented on EMR Reaction Allergy Type Onset Date Status Morphine Sulfate itch Drug Allergy Active Results Component Value Reference Range Notes Complete Blood Count Auto Di ff Reviewed date:09/27/2024 12:52:10 PM Interpretation: Performing Lab:[facility], [address] [place] [phone] Notes/Report: White Blood Count 9.6 4.8-10.8 X10*3/uL [...] NRBC Abs Auto 0.000 0.0-0.012 X10*3/uL Comprehensive [place]. Panel Fa st Reviewed date:09/27/2024 12:52:33 PM Interpretation: Performing Lab:[facility], [address] [place] [phone] Notes/Report: Sodium 141 135-145 mmol/L Potassium 3.9 [...] Panel Reviewed date:09/27/2024 12:16:09 PM Interpretation: Performing Lab:[facility], [address] [place] [phone] Notes/Report: Triglycerides 124 <150 mg/dL Desirable Triglyceride: [...] Random Reviewed date:09/27/2024 12:18:28 PM Interpretation: Performing Lab:[facility], [address] [place] [phone] Notes/Report: Creatinine Urine 123.47 Microalbumin Urine 12.0 Microalbum/Creatinine Ratio Ur 9.7 <30 ug/mg cr Albumin/Creatinine Ratio Reference Ranges: Normal: < 30 ug/mg creatinine Microalbuminuria: 30 - 300 ug/mg creatinine Clinical Albuminuria: > 300 ug/mg creatinine Hemoglobin A1c Reviewed date:09/27/2024 12:11:44 PM Interpretation: Performing Lab:[facility], [address] [place] [phone] Notes/Report: Hemoglobin A1c % 5.2 <6.0 % [...] average glucose, using the formula of the H4A-Ecsuorx Average Glucose study (ADAG), Diabetes Care, Vol.31,#8, Feb. 2007 UA ClnCatch+Micro w/rflx Cul t Reviewed date:09/27/2024 12:52:49 PM Interpretation: Performing Lab:[address] [phone] Notes/Report: Urine, Clean Catch Color Urine Yellow Appearance Urine Clear PH 6.0 5.0-9.0 Glucose Urine UA Negative Negative mg/dL Urine Blood Negative Negative Specific [place] - Urine 1.015 1.005-1.025 Urine Protein Negative Neg-Trace mg/dL Urine Ketones Negative Negative mg/dL Nitrite Urine Negative Negative Leukocyte Esterase Urine Negative Negative RBC Urine 0-2 0-2 /HPF WBC Urine 0-5 0-5 /HPF Squamous Epithelial Cell Urine 0-2 0-2 /HPF Bacteria Urine None Seen None Seen Hyaline Casts Urine 0-2 0-2 /LPF Liver Panel Reviewed date:04/12/2025 11:41:15 AM Interpretation: Performing Lab:[facility], [address] [place] [phone] Notes/Report: Bilirubin Total 0.8 0.0-1.0 mg/dL Bilirubin Direct 0.3 0.0-0.5 mg/dL Aspartate Amino Transferase 42 5-31 U/L Alanine Aminotransferase 43 0-31 U/L Total Protein 7.7 6.5-8.0 g/dL Albumin Level 4.4 3.5-5.0 g/dL Alkaline Phosphatase 80 39-117 U/L Glucose Fasting Reviewed date:04/12/2025 11:42:02 AM Interpretation: Performing Lab:[facility], [address] [place] [phone] Notes/Report: Glucose Fasting 108 60-99 mg/dL A fasting glucose from 100-125 mg/dl is considered impaired (pre-diabetes). Lipid Panel with Reflex Reviewed date:04/12/2025 12:35:13 PM Interpretation: Performing Lab:[address] [phone] Notes/Report: Triglycerides 86 <150 mg/dL Desirable Triglyceride: [...] A1c Reviewed date:04/12/2025 11:36:46 AM Interpretation: Performing Lab:[facility], [address] [place] [phone] Notes/Report: Hemoglobin A1c % 5.2 <6.0 % [...] average glucose, using the formula of the L9C-Gvqeosc Average Glucose study (ADAG), Diabetes Care, Vol.31,#8, 2007 Bola Mitchell Reviewed date:09/27/2024 12:16:19 PM Interpretation: Performing Lab:[facility], [address] [place] [phone] Notes/Report: Bola Mitchell See Note Specimen held untested for 24 hours; Call to request Chemistry testing. MM tomosynthesis screening B I Reviewed date:01/30/2025 08:17:50 PM Interpretation: Performing Lab: Notes/Report: [facility] [address] [place] [id number] Mammography Report Signed Patient: Ceci Reveles MR#: [id number] 01 : 1960 Acct:[id number] Age/Sex: 64 / F ADM Date: 01/17/25 Loc: HO.MAMMO Attending Dr: Issa Fields MD Ordering Physician: Issa Fields MD Results: 2Be nign Findings Date of Service: 01/17/25 Follow Up: 1 Year From Orig ina Mammogram Procedure(s): MM tomosynthesis screening BI Accession Number(s): [id number] cc: Issa Fields MD EXAMINATION: MM SCREENING [...] OV> 01/30/251955 DD/ 99 TD/TT: 01/17/25 1115 Overweaver: [facility] [address] [place] [address] Mammography Report Signed Patient: Bakari Reveles MR#: [id number] 01 : 1960 Acct:[id number] Age/Sex: 64 / F ADM Date: 01/17/25 Loc: HO.MAMMO Attending Dr: Issa Fields MD Ordering Physician: Issa Fields MD Results: 2Be nign Findings Date of Service: 01/17/25 Follow Up: 1 Year From Orig ina Mammogram Procedure(s): MM tomosynthesis screening BI Accession Number(s): [id number] cc: Issa Fields MD EXAMINATION: MM SCREENING [...] OV> 01/30/251955 DD/ 1100 TD/TT: 01/17/25 1115 Overweaver: US abdominal aortic aneurysm Reviewed date:02/13/2025 08:27:27 PM Interpretation: Performing Lab: Notes/Report: [facility] [place] [address] Ultrasound Report Signed Patient: Ceci Reveles MR#: [id number] 01 : 1960 Acct:[id number] Age/Sex: 64 / F ADM Date: 02/13/25 Loc: .HMGCX Attending Dr: Fabrizio Haile MD Ordering Physician: Fabrizio Haile MD Date of Service: 02/13/25 Procedure(s): US abdominal aortic aneurysm Accession Number(s): [id number] cc: Issa Fields MD; Fabrizio Haile MD [...] 02/13/25 1441 DD/ 1440 TD/TT: 02/13/25 1440 Overweaver: [facility] [address] [place] [address] [place] [address] Ultrasound Report Signed Patient: Bakari Reveles MR#: [id number] 01 : 1960 Acct:[id number] Age/Sex: 64 / F ADM Date: 02/13/25 Loc: HO.HMGCX Attending Dr: Jadon Haile MD Ordering Physician: Fabrizio Haile MD Date of Service: 02/13/25 Procedure(s): US abdominal aortic aneurysm Accession Number(s): [id number] cc: Issa Fields MD; Fabrizio Haile MD [...] 02/13/25 1441 DD/ 1440 TD/TT: 02/13/25 1440 Overweaver: Bola Valentino date:04/12/2025 11:38:26 AM Interpretation: Performing Lab:[facility], [address] [place] [address] Notes/Report: Hold Gold See Note Specimen held untested for 24 [...] Speciality Internal edicine [facility] [place] Referred Provider Specialty Allergy/Immu nology General Notes [...] PM > no able to go to [facility] Cardio, they do not accept her [...] Referring Provider Speciality Internal edicine Referred Provider [facility], [facility] Rheumatology Referred Provider Specialty Rheumatology General Notes [...] Vaccine Unknown 03/20/2015 Administered HAD IT AT [facility] Fluarix Quadrivalent IM Intramuscular 04/13/2016 Administe red Fluarix Quadrivalent IM Intramuscular 04/26/2017 Administe red TDaP Unknown 06/10/2017 Administered pt was given the vaccine at [facility] in [place]. Fluarix Quadrivalent IM Intramuscular 04/24/2018 Administe red [...] Administe red Fluarix Quadrivalent IM Intramuscular 03/22/2023 Admingail red Fluarix Quadrivalent - 150 IM Intramuscular [...] Status W/U Status Risk Notes Problem Lymphocytosis (28810052) Lymphocytosis (D72.820) Active confirmed Problem 25387702337067457 Acute recurren t maxillary sinusitis (J01.01) Active confirmed Problem 9438122 Panlobular emphy sema (J43.1) Active confirmed Problem Aortic valve disorder (4167026) Aortic stenosis (I35.0) Active confirmed Problem 993472213 Low HDL (under 4 0) (E78.6) Active confirmed Problem 01911283 Alcohol abuse (F10.10) Active confirme d Problem Current smoker (39215346) Current smoker (F17.200) Active confirmed Problem 59777498 Dysthymia (F34.1) Active confirmed Problem 245587839 Multiple allergi es (Z88.9) Active confirmed Problem 58586380 CAD (coronary ar andres disease) (I25.10) Active confirmed Problem 674474996 Recurrent sinus infections (J32.9) Active confirmed Problem 737926892 Prediabetes (R73.03) Active confirmed Problem 349204641 Pure hypercholesterolemia (E78.00) Active confirmed Problem 406758267 History of viral pericarditis (Z86.79) Active confirmed Problem Aortic valve disorder (5444951) Moderate aortic stenosis (I35.0) Active confirmed Problem Localized, primary osteoarthritis of the hand (334899544) Arthritis pain of hand (M19.049) Active confirmed Problem 675881970 Recurrent sinusi tis (J32.9) Active confirmed Vital Signs Blood pressure diastolic 70 mm Hg 11/06/2024 Height 66 in 11/06/2024 Blood pressure systolic 122 mm Hg 11/06/2024 Weight 122 lbs 11/06/2024 BMI 19.69 kg/m2 11/06/2024 Encounters Encounter Location Date Provider Diagnosis Issa Fields MD [address] [place] [id number] 09/27/2024 Issa Fields Blood tests for rout ine general physical examination Z00.00 ; Pure hypercholesterolemia E78.00 ; Prediabetes R73.03 and Lymphocytosis D72.820 Issa Fields MD [address] [place] [id number] 04/12/2025 Issa Fields Prediabetes R73.03 a nd Pure hypercholesterolemia E78.00 Issa Fields MD [address] [place] [address] [id number] 06/05/2024 Issa Fields Nasal polyps J33.9 a nd Recurrent sinus infections J32.9 Issa Fields MD [address] [place] [address] [id number] 08/03/2024 Issa Fields Nasal polyps J33.9 a nd Recurrent sinus infections J32.9 Issa Fields MD [address] [place] [address] [id number] 10/02/2024 Issa Fields Recurrent sinusitis J32.9 Issa Fields MD [address] [place] [id number] 10/09/2024 Issa Fields Annual physical exam Z00.00 ; Moderate aortic stenosis I35.0 ; Nasal polyps J33.9 ; De Quervain's disease (tenosynovitis) M65.4 ; Pure hypercholesterolemia E78.00 ; Panlobular emphysema J43.1 and Depression screening Z13.31 Issa Fields MD [address] [place] [address] [id number] 11/06/2024 Issa Fields Aortic stenosis I35. 0 Issa Fields MD [address] [place] [address] [id number] 10/25/2024 Issa Fields Pure hypercholestero lemia E78.00 Issa Fields MD [address] [place] [address] [id number] 11/26/2024 Issa Fields MD [address] [place] [address] [id number] 03/07/2025 Issa Fields Assessments Encounter Date Diagnosis (ICD Code) Assessment Notes Treatment Notes Treatment Clinical Notes Section Notes 09/27/20[address] tests [address] ine general physical examination (ICD-10 - Z00.00) 04/12/2025 Prediabetes (ICD-10 - R73.03) 06/05/2024 Nasal polyps (ICD-10 - J33.9) prednisone [...] (ICD-10 - I35.0) order faxed to [facility] CS dept , pending diagnostic testing 11/06/2024 Aortic stenosis (ICD -10 - I35.0) will get referral to dr jhoan cruz at [facility]/ NOT having any symptoms 10/25/2024 Pure hypercholesterolemia (ICD-10 - E78.00) 09/27/2024 Pure hypercholesterolemia (ICD-10 - E78.00) 04/12/2025 Pure hypercholesterolemia (ICD-10 - E78.00) 06/05/2024 Recurrent sinus infections (ICD-10 - J32.9) needs ab and prednisone, patient verbalized understanding of medication and directions fo use 08/03/2024 Recurrent sinus infections (ICD-10 - J32.9) 10/09/2024 Nasal polyps (ICD-10 - J33.9) referral to allergy 09/27/2024 Prediabetes (ICD-10 - R73.03) 10/09/2024 De Quervain's diseas e (tenosynovitis) (ICD-10 - M65.4) referral to hand center 09/27/2024 Lymphocytosis (ICD-1 0 - D72.820) 10/09/2024 Pure hypercholesterolemia (ICD-10 - E78.00) stable, [...] Order Date CA echo transthoracic complete 2 ECHO 04/06/2025 Next Appt Details Provider Name:Issa keen, 04/26/2025 10:15:00 AM, [address] [place] [address], [address], [place], [place], [phone], Provider Name:Issa keen, 10/10/2025 07:15:00 AM, [address] [place] [address], [address], [place], [place], [phone], Provider Name:Issa keen, 10/17/2025 11:00:00 AM, [address], [address], [place], [place], [phone], Insurance Providers Payer Name Payer Address Payer Phone Subscriber Number Group Number Insured Name Patient Relationship to Insured Coverage Start Date Coverage End Date [facility] are [employer] [address] [address] [place] [address] [id number] Ceci Reveles Self - patient is the insured MEDICARE NHIC [id number] [address] [place] [id number] Letitia Revelesan Self - patient is the insured Medical (General) History Medical History History ICD Code 06/18/15 - Colonoscopy done b y Dr. Jay Kenny - repeat n 10 years as all polyps were hyperplastic varenicline is chantix
--- OUTSIDE RECORDS SUMMARY | 2025-04-12 13:18 | XMS_ITS | Patient Health Record ---
Author Organization [facility] Address [address] [facility] [address] [place] [address] Care Team Providers Care Leather Dresser Name Role Phone Issa Fields MD Primary Care Provider Leland Haas Unavailable [phone] SAMIR PERES Unavailable Unavailab le Allergies No [...] W/U Status Risk Notes Problem Preprocedural examination (035422080167128) Preprocedural examination (Z01.818) Active confirmed Vital Signs Temperature 96.9 degrees Fahrenheit 02/12/2025 Blood pressure diastolic 01 mm Hg 02/12/2025 Height 65 in 02/12/2025 Blood pressure systolic 001 mm Hg 02/12/2025 Weight 123.8 lbs 02/12/2025 BMI 20.6 kg/m2 02/12/2025 Procedures Procedure Date Ordered Date Performed Result Body Sit e COLONOSCOPY 02/12/2025 N/A Encounters Encounter Location Date Provider Diagnosis [facility] [address] [place] [address] 02/12/2025 Leland Quintanilla Colon cancer screeni ng [...] Provider Name:Leland Quintanilla , 05/27/2025 08:20:00 AM, [address] [place] [address] , [place], [place], [phone], Insurance Providers Payer Name Payer Address Payer Phone Subscriber Number Group Number Insured Name Patient Relationship to Insured Coverage Start Date Coverage End Date [facility] [address] [place] [id number] CECI REVELES Self - patient is the insured Medical (General) History Medical History History ICD Code COPD/Asthma Aortic stenosis-sees Dr. Peres Colonoscopy 2014 with only hyperplastic polyps-Dr. Kenny Denies [place],DM,CVA,renal disease Surgical History Surgery Date(Month/Year) ulnar nerve elbow nasal polyps skin cancers-basal, squamous back- surgery needle [id number] bunionectomy
== END ==
LOC: HO.CARD 12:49
PROVIDERS: PCP Internal Medicine; Visit Provider Internal Medicine
DX: I35.0 Nonrheumatic aortic (valve) stenosis (principal); J33.9 Nasal polyp, unspecified
CPT/HCPCS: 93306

== ENCOUNTER → 2025-04-12 12:59 | Outpatient (BNV) | payer MEDICARE, SELFPAY | PROVIDERS: PCP Internal Medicine; Visit Provider Internal Medicine | DX: I35.0 Nonrheumatic aortic (valve) stenosis (principal) | CPT/HCPCS: 93306 ==

== ENCOUNTER 2025-05-14 09:49 | Outpatient (REF) | payer MEDICARE, SELFPAY ==
--- OUTSIDE RECORDS SUMMARY | 2024-10-02 06:45 | XMS_ITS ---
Author Organization Issa Fields MD Address [address] [place] [phone] Care Team Providers Care Trim Machine Operator Name Role Phone Issa Fields Primary Care Provider Allergies Allergen (clinical drug ingredient) Drug/Non Drug Allergy documented on EMR Reaction Allergy Type Onset Date Status morphine Morphine Sulfate itch Drug Allergy Active REASON FOR VISIT SINUS PROBLEMS, Video [phone] Medications Medication SIG (Take, Route, Frequency, Duration) Notes Start Date End Date Status predniSONE 10 MG 1 tablet with food o r milk Orally 4 tabs for 3 days,3tabs for 3 days, 2 tabs for 3 days, and 1 tab for 3 days for 14 days 10/02/2024 Active Ventolin HFA * 108 (90 Base) MCG/ACT 2 puffs as needed Inhalation every 4 hrs 07/23/2013 Not-Takin g predniSONE 10 MG 1 tablet with food o r milk Orally 4 tabs for 3 days,3tabs for 3 days, 2 tabs for 3 days, and 1 tab for 3 days for 14 days 11/15/2023 Not-Taking Amoxicillin-Pot Clavulanate 875-125 MG 1 tablet Orally every 12 hrs for 10 day(s) 09/24/2022 Active Cephalexin 750 MG 1 capsule Orally jonah ry 8 hrs for 10 day(s) 11/15/2023 Not-Taking Varenicline Tartrate 1 mg TAKE 1 TABLET TWICE A DAY DIRECTED Active predniSONE 10 MG 1 tablet with food o r milk Orally 4 tabs for 4 days, 3 tabs for 4 days, 2 tbs for 4 days, and 1 tab for 4 days for 14 days 04/06/2024 Not-Taking Cephalexin 500 MG 1 capsule Orally 3 times a day for 10 days 04/06/2024 Not-Taki ng Rosuvastatin Calcium 40 mg TAKE 1 TABLET DAILY Active Naltrexone HCl 50 mg TAKE 1 TABLET DAILY Active Advair Diskus 100-50 MCG/ACT USE 1 INHALATION TWICE A DAY Active Vital Signs Height 66 in 10/02/2024 Weight 117 lbs 10/02/2024 BMI 18.88 kg/m2 10/02/2024 weight is 117 BP not taken t jhon no temp Encounters Encounter Location Date Provider Diagnosis Issa Fields MD [address] [place] [address] [place] [phone] 10/02/2024 Issa Fields Recurrent sinusitis J32.9 Assessments Encounter Date Diagnosis (ICD Code) Assessment Notes Treatment Notes Treatment Clinical Notes Section Notes 10/02/2024 Recurrent sinusitis (ICD-10 - J32.9) patient verbalized understanding of medication and directions for use Plan Of Treatment Medication Medication Name Sig Start Date Stop Date Notes predniSONE 10 MG 1 tablet with food o r milk Orally 4 tabs for 3 days,3tabs for 3 days, 2 tabs for 3 days, and 1 tab for 3 days for 14 days 10/02/2024 Amoxicillin-Pot Clavulanate 875-125 MG 1 tablet Orally every 12 hrs for 10 day(s) 09/24/2022 Treatment Notes Assessment Notes Recurrent sinusitis patient verbalized u nderstanding of medication and directions for use Next Appt Details Provider Name:Issa keen, 07/26/2025 10:45:00 AM, [address] [place] [address], Suite [facility], [place], [place], [phone], Provider Name:Issa keen, 10/10/2025 07:15:00 AM, [address] [place] [address], [address] [place] [address], [phone], Provider Name:Issa keen, 10/17/2025 11:00:00 AM, [address], [address], [place], [place], [phone], Progress Notes * Paige MELENDEZOB:1960 (64 yo F)Acc No.[id number]:10/02/2024 Patient: Ceci DENIS Provider: Humble Fields MD :1960 A ge:64 Y S ex:Female Date:10/02/2024 Address:[address] [place], [place] [phone] Subjective: * Chief Complaints: * S INUS PROBLEMSVideo [phone] * HPI: S ymptom(s): Telehealth L ocation of provider rendering services: [address], [address], ocation of patient: a t address listed in demographics for today's visit, P atient identification confirmed using: SHAKEEL Be ame, T elehealth method: V ideo conference where patient is visible to the provider of care, C onsent: P atient verbally consented to treatment, Patient verbally consented to billing insurance company, Patient informed of any privacy concerns related to method of visit, T otal time spend talking with patient (minutes) 2 0. patient is a 64 yo female telehealth visit with complanit of sinus issues./ nasal polyps are bothering her. prednisone helped but still feels like an infection. * ROS: G eneral/Constitutional: Denies C hills. D enies F atigue. D enies F ever. A dmits H eadache. E NT: Admits S inus pain. D enies S ore throat. ? R espiratory: Denies C ough. D enies S hortness of breath at rest. D enies S hortness of breath with exertion. G astrointestinal: Denies D iarrhea. D enies N ausea. * Medical History: * Surgical History: * Hospitalization/Major Diagno stic Procedure: * Medications: T akingAdvair Diskus 100-50 MCG/ACT Aerosol Powder Breath Activated USE 1 INHALATION TWICE A DAY Rosuvastatin Calcium 40 mg Tablet TAKE 1 TABLET DAILY Naltrexone HCl 50 mg Tablet TAKE 1 TABLET DAILY Varenicline Tartrate 1 mg Tablet TAKE 1 TABLET TWICE A DAY DIRECTED Taking Advair Diskus 100-50 MCG/ACT Aerosol Powder Breath Activated USE 1 INHALATION TWICE A DAY Taking Rosuvastatin Calcium 40 mg Tablet TAKE 1 TABLET DAILY Taking Naltrexone HCl 50 mg Tablet TAKE 1 TABLET DAILY Taking Varenicline Tartrate 1 mg Tablet TAKE 1 TABLET TWICE A DAY DIRECTED Not- Taking/PRNpredniSONE 10 MG Tablet 1 tablet with food or milk Orally 4 tabs for 4 days, 3 tabs for 4 days, 2 tbs for 4 days, and 1 tab for 4 days Cephalexin 500 MG Capsule 1 capsule Orally 3 times a day Cephalexin 750 MG Capsule 1 capsule Orally every 8 hrs predniSONE 10 MG Tablet 1 tablet with food or milk Orally 4 tabs for 3 days,3tabs for 3 days, 2 tabs for 3 days, and 1 tab for 3 days Amoxicillin-Pot Clavulanate 875-125 MG Tablet 1 tablet Orally every 12 hrs Ventolin HFA * 108 (90 Base) MCG/ACT Aerosol Solution 2 puffs as needed Inhalation every 4 hrs Not-Taking/PRN predniSONE 10 MG Tablet 1 tablet with food or milk Orally 4 tabs for 4 days, 3 tabs for 4 days, 2 tbs for 4 days, and 1 tab for 4 days Not-Taking/PRN Cephalexin 500 MG Capsule 1 capsule Orally 3 times a day Not-Taking/PRN Cephalexin 750 MG Capsule 1 capsule Orally every 8 hrs Not-Taking/PRN predniSONE 10 MG Tablet 1 tablet with food or milk Orally 4 tabs for 3 days,3tabs for 3 days, 2 tabs for 3 days, and 1 tab for 3 days Not-Taking/PRN Amoxicillin-Pot Clavulanate 875-125 MG Tablet 1 tablet Orally every 12 hrs Not-Taking/PRN Ventolin HFA * 108 (90 Base) MCG/ACT Aerosol Solution 2 puffs as needed Inhalation every 4 hrs * Allergies: M orphine Sulfate: itchyes[Allergies Verified] Objective: * Vitals: H t: 66, Wt: 117, BMI:18.88, Wt-k.07. weight is 117 BP not taken today no temp. * Examination: G eneral Examination: GENERAL APPEARANCE: a lert, well hydrated, in no distress.? Assessment: * Assessment: 1. R ecurrent sinusitis - J32.9 (Primary) Plan: * Treatment: * Procedure Codes: * * Sign off status: Completed true * Provider: Humble Fields MD Date: 0 10/02/2024 Generated for Molly oro/Maria Antonia/Carlitos on: 1 07/14/2024 11:17 AM EST History and Physical Notes * HPI (History of Present Illness) Category Sub-Category Detail Notes Category Not es Symptom(s) Telehealth [facility] [address], [address] patient is a 64 yo female telehealth visit with complanit of sinus issues./ nasal polyps are bothering her. prednisone helped but still feels like an infection Location of patient:: at address listed in demographics for today's visit Patient identification confirmed using:: Name, Telehealth method:: Video co nference where patient is visible to the provider of care Consent:: Patient verbally c onsented to treatment, Patient verbally consented to billing insurance company, Patient informed of any privacy concerns related to method of visit Total time spend talking with patient (m inutes): 20 Examination Category Sub-Category Detail Notes Category Not es General Examination GENERAL APPEARANCE: alert, w ell hydrated, in no distress
--- OUTSIDE RECORDS SUMMARY | 2024-10-09 06:00 | XMS_ITS ---
Author Organization Issa Fields MD Address [address] [place], [place] [id number] Care Team Providers Care Supervisor [employer] Name Role Phone Issa Fields Primary Care Provider [phone] Allergies Allergen (clinical drug ingredient) Drug/Non Drug Allergy documented on EMR Reaction Allergy Type Onset Date Status morphine Morphine Sulfate itch Drug Allergy Active Reason For Referral Reason needs colonoscopy Diagnosis 1 Colon cancer screeni ng (Z12.11) Referral Organization Issa Fields MD Referring Provider First Name Issa Referring Provider Last Name Diamond Referring Provider Speciality Internal edicine Referred Provider Leland Quintanilla Referred Provider Specialty Gastroentero logy General Notes Tia Krueger 0 10/18/2024 01:58:09 PM >info faxedEvans Annette 10/22/2024 02:47:26 PM >per office info refaxedEvans Annette 11/16/2024 10:40:25 AM >ins referral info mailed to patient Referral Priority Routine Referral Appointment Date 02/12/2025 Reason De Quervain's diseas e ( tenosynovitis ) Diagnosis 1 De Quervain's diseas e (tenosynovitis) (M65.4) Referral Organization Issa Fields MD Referring Provider First Name Issa Referring Provider Last Name Diamond Referring Provider Speciality Internal M edicine Referred Provider Debbie Wood Referred Provider Specialty Hand Surgery General Notes Tia Krueger 0 10/22/2024 02:50:49 PM >info Evans francis Annette 11/02/2024 01:08:38 PM > was told by office patient is aware of appt Referral Priority Routine Referral Appointment Date 12/11/2024 Reason Nasal polyps Diagnosis 1 Nasal polyps (J33.9) Referral Organization Issa Fields MD Referring Provider First Name Issa Referring Provider Last Name Diamond Referring Provider Speciality Internal M edicine [facility] rich, [facility] Referred Provider Specialty Allergy/Immu nology General Notes Tia Krueger 0 10/19/2024 10:57:53 AM > info faxEvans ring Annette 11/02/2024 01:02:29 PM >was told by office she is aware of appt Referral Priority Routine Referral Appointment Date 11/15/2024 REASON FOR VISIT ANNUAL EXAM Medications Medication SIG (Take, Route, Frequency, Duration) Notes Start Date End Date Status Ventolin HFA * 108 (90 Base) MCG/ACT 2 puffs as needed Inhalation every 4 hrs 07/23/2013 Not-Michael g Rosuvastatin Calcium 40 mg TAKE 1 TABLET DAILY Active predniSONE 10 MG 1 tablet with food o r milk Orally 4 tabs for 3 days,3tabs for 3 days, 2 tabs for 3 days, and 1 tab for 3 days for 14 days 10/02/2024 Active Advair Diskus 100-50 MCG/ACT USE 1 INHALATION TWICE A DAY Active Amoxicillin-Pot Clavulanate 875-125 MG 1 tablet Orally every 12 hrs for 10 day(s) 09/24/2022 Active Varenicline Tartrate 1 mg TAKE 1 TABLET TWICE A DAY DIRECTED Active Naltrexone HCl 50 mg TAKE 1 TABLET DAILY Active Social History Tobacco Use: Social History Observation Description Date Details (start date - stop date) Former Smoker NA - 09/18/2024 AUDIT-C (Standard) Question Answer Notes Did you have a drink contain ing alcohol in the past year? Yes How often did you have a dri nk containing alcohol in the past year? 2 to 4 times a month (2 points) How many drinks did you have on a typical day when you were drinking in the past year? 1 or 2 drinks (0 point) How often did you have six o r more drinks on one occasion in the past year? Never (0 point) Points 2 Interpretation Negative Tobacco Control (Standard) Question Answer Notes Tobacco use: Former smoker When did you stop smoking? 09/18/2024 How long has it been since you last smoked? Less than 1 month Vital Signs Blood pressure systolic 132 mm Hg 10/10/19 25 Blood pressure diastolic 70 mm Hg 025 Height 66 in 10/09/2024 Weight 121 lbs 10/09/2024 BMI 19.53 kg/m2 10/09/2024 weight is up 4 pounds since 10-02-24 Encounters Encounter Location Date Provider Diagnosis Issa Fields MD [address] [place] [address] [address] [place], [place] [id number] 10/09/2024 Issa Fields Annual physical exam Z00.00 ; Moderate aortic stenosis I35.0 ; Nasal polyps J33.9 ; De Quervain's disease (tenosynovitis) M65.4 ; Pure hypercholesterolemia E78.00 ; Panlobular emphysema J43.1 and Depression screening Z13.31 Assessments Encounter Date Diagnosis (ICD Code) Assessment Notes Treatment Notes Treatment Clinical Notes Section Notes 10/09/2024 Annual physical exam (ICD-10 - Z00.00) labs reviewed and discussed with patient, colonoscopy referral 10/09/2024 Moderate aortic stenosis (ICD-10 - I35.0) order faxed to [facility] , pending diagnostic testing 10/09/2024 Nasal polyps (ICD-10 - J33.9) referral to allergy 10/09/2024 De Quervain's diseas e (tenosynovitis) (ICD-10 - M65.4) referral to hand center 10/09/2024 Pure hypercholesterolemia (ICD-10 - E78.00) stable, will continue current regiment 10/09/2024 Panlobular emphysema (ICD-10 - J43.1) doing well, will continue current regiment 10/09/2024 Depression screening (ICD-10 - Z13.31) negative screen Plan Of Treatment Medication Medication Name Sig Start Date Stop Date Notes Rosuvastatin Calcium 40 mg TAKE 1 TABLET DAILY Advair Diskus 100-50 MCG/ACT USE 1 INHALATION TWICE A DAY Treatment Notes Assessment Notes Annual physical exam labs reviewed and d iscussed with patient, colonoscopy referral Moderate aortic stenosis order faxed to [facility] , pending diagnostic testing Nasal polyps referral to allergy De Quervain's disease (tenosynovitis) re ferral to [facility] Pure hypercholesterolemia stable, will c ontinue current regiment Panlobular emphysema doing well, will co ntinue current regiment Depression screening negative screen Pending Test Test Name Order Date ECHO 10/09/2024 Referrals Referral Date Details 10/09/2024 10/09/2024, needs co lonoscopy, Leland Quintanilla 10/09/2024 10/09/2024, De Querv ain's disease ( tenosynovitis ), Debbie Wood 10/09/2024 10/09/2024, Nasal po lyps, [facility] Appt Details Follow Up: 6 Months, Reason: Provider Name:Issa keen, 07/26/2025 10:45:00 AM, [address] [place] [address], [address], [place], [place], [phone], Provider Name:Issa stallingsr, 10/10/2025 07:15:00 AM, [address] [place] [address] Drive, [address], [place], [place], [phone], Provider Name:Issa stallingsr, 10/17/2025 11:00:00 AM, [address] [place] [address], [address], [place], [place], [phone], Progress Notes * Paige REVELESOB:1960 (64 yo F)Acc No.[id number]:10/09/2024 Progress Notes Patient: Ceci DENIS Provider: Humble Fields MD :1960 A ge:64 Y S ex:Female Date:10/09/2024 Address:[address] [place] [address] [id number] Subjective: * Chief Complaints: * A NNUAL EXAM * HPI: D epression Screening: PHQ-9 L ittle interest or pleasure in doing things N ot at all, F eeling down, depressed, or hopeless N ot at all, T rouble falling or staying asleep, or sleeping too much N ot at all, F eeling tired or having little energy N ot at all, P oor appetite or overeating N ot at all, F eeling bad about yourself or that you are a failure, or have let yourself or your family down N ot at all, T rouble concentrating on things, such as reading the newspaper or watching television N ot at all, M oving or speaking so slowly that other people could have noticed; or the opposite, being so fidgety or restless that you have been moving around a lot more than usual N ot at all, T houghts that you would be better off or of hurting yourself in some way N ot at all, T otal Score 0 . I nterpretation and Intervention D epression Screening Findings N egative, F ollow-Up for Depression : review of PHQ-9 found negative result, no follow-up needed. C ommunication Needs: Communication Needs D oes the patient have a hearing impairment N o, D oes the patient have a vision impairment? Y es, I f yes, what is the vision impairment? G lasses, D oes the patient have a cognition impairment? N o. S MONICA Questions: SDOH Questions I n the past year have you been worried about losing housing? N o, I n the past year have you or any family members you live with been unable to get any of the following when it was really needed? Check all that apply: N one. S ymptom(s): patient is a 64 yo female here for annuak visit with review of recent labs and follow up of chronic issues. * ROS: G eneral/Constitutional: Change in appetite d enies. C hills d enies. F ever d enies. O phthalmologic: Blurred vision d enies. D ischarge d enies. P ain d enies. E NT: Decreased hearing d enies. S ore throat d enies.?Swollen glands d enies. E ndocrine: Cold intolerance d enies. E xcessive thirst d enies. H eat intolerance d enies. W eight loss d enies. R espiratory: Cough d enies. S hortness of breath at rest d enies. S hortness of breath with exertion d enies. W heezing d enies. C ardiovascular: Chest pain at rest d enies. C hest pain with exertion?denies. I rregular heartbeat d enies. S hortness of breath d enies. ? G astrointestinal: Abdominal pain d enies. C hange in bowel habits d enies. D iarrhea d enies. N ausea d enies. R ectal bleeding d enies. V omiting d enies . G enitourinary: Blood in urine d enies. D ifficulty urinating d enies. F requent urination d enies. U rinary incontinence D enies. M usculoskeletal: Painful joints d enies. W eakness d enies. ? S kin: Dry skin d enies. I tching d enies. D enies?Mole(s), changes in moles, new moles or any lesions of concern. D enies P hotosensitivity. R sherrie d enies. N eurologic: Dizziness d enies. F ainting d enies. H eadache?denies. * Medical History: * Surgical History: * Hospitalization/Major Diagno stic Procedure: * Family History: F ather: 64 yrs. M other: 78 yrs. 2 brother(s) . 1 son(s) . . Father AAA rupture, Mother-Natural, Denies mental health/substance abuse family history, Denies mental health/substance abuse family history, Denies mental health/substance abuse family history. * Social History: T obacco Use: T obacco Control (Standard) T obacco use: F ormer smoker, W hen did you stop smoking? 0 09/18/2024, H ow long has it been since you last smoked? L ess than 1 month. M iscellaneous: C affeine: yes, frequency:, 3-4 cups per day. Children: yes. Community involvements: no. Exercise: no. Home smoke detector use: yes. Housing: owning. Living with: spouse. Marital status: . Occupation: retired. Pets: dog x1. Travel outside of the [place]: no. D rug/Alcohol: A ESA-C (Standard) D id you have a drink containing alcohol in the past year? Y es, H ow often did you have a drink containing alcohol in the past year? 2 to 4 times a month (2 points), H ow many drinks did you have on a typical day when you were drinking in the past year? 1 or 2 drinks (0 point), H ow often did you have six or more drinks on one occasion in the past year? N ever (0 point), P oints 2 , I nterpretation N egative. * Medications: T akingAdvair Diskus 100-50 MCG/ACT Aerosol Powder Breath Activated USE 1 INHALATION TWICE A DAY Rosuvastatin Calcium 40 mg Tablet TAKE 1 TABLET DAILY Naltrexone HCl 50 mg Tablet TAKE 1 TABLET DAILY Varenicline Tartrate 1 mg Tablet TAKE 1 TABLET TWICE A DAY DIRECTED Amoxicillin-Pot Clavulanate 875-125 MG Tablet 1 tablet Orally every 12 hrs predniSONE 10 MG Tablet 1 tablet with food or milk Orally 4 tabs for 3 days,3tabs for 3 days, 2 tabs for 3 days, and 1 tab for 3 days Taking Advair Diskus 100-50 MCG/ACT Aerosol Powder Breath Activated USE 1 INHALATION TWICE A DAY Taking Rosuvastatin Calcium 40 mg Tablet TAKE 1 TABLET DAILY Taking Naltrexone HCl 50 mg Tablet TAKE 1 TABLET DAILY Taking Varenicline Tartrate 1 mg Tablet TAKE 1 TABLET TWICE A DAY DIRECTED Taking Amoxicillin-Pot Clavulanate 875-125 MG Tablet 1 tablet Orally every 12 hrs Taking predniSONE 10 MG Tablet 1 tablet with food or milk Orally 4 tabs for 3 days,3tabs for 3 days, 2 tabs for 3 days, and 1 tab for 3 days Not-Taking/PRNVentolin HFA * 108 (90 Base) MCG/ACT Aerosol Solution 2 puffs as needed Inhalation every 4 hrs Medication List reviewed and reconciled with the patientNot-Taking/PRN Ventolin HFA * 108 (90 Base) MCG/ACT Aerosol Solution 2 puffs as needed Inhalation every 4 hrs Medication List reviewed and reconciled with the patient * Allergies: M orphine Sulfate: itchyes[Allergies Verified] Objective: * Vitals: H t: 66, Wt: 121, BMI:19.53, BP:132/70, Wt-k.89. weight is up 4 pounds since 10-02-24. * P ast Orders: L ab:UA ClnCatch+Micro w/rflx Cult (Order Date - 09/27/2024) (Collection Date & Time - 09/27/2024 08:00 AM) Value Reference Range Color Urine Yellow - Appearance Urine Clear - PH 6.0 5.0-9.0 - Glucose Urine UA Negative Negative - mg/dL Urine Blood Negative Negative - Specific [place] - Urine 1.015 1.005-1.025 - Urine Protein Negative Neg-Trace - mg/dL Urine Ketones Negative Negative - mg/dL Nitrite Urine Negative Negative - Leukocyte Esterase Urine Negative Negative - RBC Urine 0-2 0-2 - /HPF WBC Urine 0-5 0-5 - /HPF Squamous Epithelial Cell Urine 0-2 0-2 - /HP F Bacteria Urine None Seen None Seen - Hyaline Casts Urine 0-2 0-2 - /LPF L ab:Complete Blood Count Auto Diff (Order Date - 09/27/2024) (Collection Date & Time - 09/27/2024 08:00 AM) Value Reference Range White Blood Count 9.6 4.8-10.8 - X10*3/uL Red Blood Count 4.40 4.20-5.50 - X10*6/uL Hemoglobin 13.8 12.0-16.0 - g/dl Hematocrit 41.6 37.0-47.0 - % Mean Corpuscular Volume 94.5 80.0-98.0 - fL Mean Corpuscular Hemoglobin 31.4 27.0-33.0 - pg Mean Corpuscular HGB Conc 33.2 31.0-35.0 - g/ dl Red Cell Distribution Width 13.9 11.0-16.0 - % Platelet Count 331 160-400 - X10*3/uL Mean Platelet Volume 11.2 9.4-12.3 - fL Neutrophils Percent Auto 40.3 L 45-73 - % Imm Gran Pct Auto 0.2 0.0-0.4 - % Lymphocytes Percent Auto 35.7 20-40 - % Monocytes Percent Auto 6.8 2-11 - % Eosinophils Percent Auto 15.5 H 0-4 - % Basophils Percent Auto 1.5 0-2 - % NRBC Pct Auto 0.0 0.0-0.2 - /100WBC Neutrophils Absolute Auto 3.9 2.0-8.3 - x10* 3/uL Imm Gran Abs Auto 0.02 0.00-0.03 - X10*3/uL Lymphocytes Absolute Auto 3.4 1.2-4.9 - X10* 3/uL Monocytes Absolute Auto 0.7 0.1-1.2 - X10*3/ uL Eosinophils Absolute Auto 1.5 H 0.0-0.4 - X10* 3/uL Basophils Absolute Auto 0.1 0.0-0.2 - X10*3/ uL NRBC Abs Auto 0.000 0.0-0.012 - X10*3/uL L ab:Comprehensive [place]. Panel Fast (Order Date - 09/27/2024) (Collection Date & Time - 09/27/2024 08:00 AM) Value Reference Range Sodium 141 135-145 - mmol/L Bilirubin Total 0.9 0.0-1.0 - mg/dL Aspartate Amino Transferase 32 H 5-31 - U/L Alanine Aminotransferase 25 0-31 - U/L Total Protein 7.6 6.5-8.0 - g/dL Albumin Level 4.1 3.5-5.0 - g/dL Alkaline Phosphatase 79 39-117 - U/L Potassium 3.9 3.3-5.1 - mmol/L Chloride 106 96-108 - mmol/L Carbon Dioxide 28 22-29 - mmol/L Anion Gap 11 L 12-20 - Blood Urea Nitrogen 12 9-16 - mg/dL Creatinine 0.67 0.5-1.4 - mg/dL Estimated Glomerular Filt Rate > 60 - Glucose Fasting 108 H 60-99 - mg/dL Calcium 9.5 8.4-10.2 - mg/dL L ab:Lipid Panel (Order Date - 09/27/2024) (Collection Date & Time - 09/27/2024 08:00 AM) Value Reference Range Triglycerides 124 <150 - mg/dL Cholesterol 133 <200 - mg/dL LDL Cholesterol Calculated 90 <100 - mg/dL HDL Cholesterol 19 L >40 - mg/dL L ab:Microalbumin, Random (Order Date - 09/27/2024) (Collection Date & Time - 09/27/2024 08:00 AM) Value Reference Range Creatinine Urine 123.47 - mg/dL Microalbumin Urine 12.0 - mg/L Microalbum Creatinine Ratio Ur 9.7 <30 - ug/ mg cr L ab:Hemoglobin A1c (Order Date - 09/27/2024) (Collection Date & Time - 09/27/2024 08:00 AM) Value Reference Range Hemoglobin A1c % 5.2 <6.0 - % Estimated Average Glucose 103 - mg/dL * Examination: G eneral Examination: GENERAL APPEARANCE: w ell developed, well nourished, in no acute distress. HEAD: n ormocephalic, atraumatic. EYES: p upils equal, round, reactive to light and accommodation, sclera non-icteric. EARS: n ormal. ORAL CAVITY: m ucosa moist. THROAT: c lear. NECK/THYROID: n meredith supple, full range of motion, no cervical lymphadenopathy, no bruits. SKIN: w arm and dry, no suspicious lesions. HEART: r egular rate and rhythm, S1, S2 normal, , abnormal with a 2/6 holosystolic murmur. LUNGS: c lear to auscultation bilaterally. BREASTS: N o mass, no lump. ABDOMEN: s oft, nontender, nondistended, bowel sounds present, normal, no organomegaly , no masses palpable. RECTAL EXAM: d one by enrollment representative. FEMALE GENITOURINARY: d one by enrollment representative. EXTREMITIES: n o clubbing, cyanosis, or edema. NEUROLOGIC: n onfocal, motor strength normal upper and lower extremities, sensory exam intact. Assessment: * Assessment: 1. A nnual physical exam - Z00.00 (Primary) 2 . M oderate aortic stenosis - I35.0 3 . N victor hugo polyps - J33.9 4 . D e Quervain's disease (tenosynovitis) - M65.4 5 . P ure hypercholesterolemia - E78.00 6 . P anlobular emphysema - J43.1 7 . D epression screening - Z13.31 ? Plan: * Treatment: 2. M oderate aortic stenosis I maging: ECHO Notes: order faxed to [facility] dept , pending diagnostic testing 3. N victor hugo polyps Notes: referral to allergy Referral To:CHARLEY [facility]ANG Allergy/Immunology Reason:Nasal polyps 4. D e Quervain's disease (tenosynovitis) Notes: referral to hand center Referral To:[facility] Reason:De Quervain's disease ( tenosynovitis ) 5. P ure hypercholesterolemia Continue Rosuvastatin Calcium Tablet, 40 mg, TAKE 1 TABLET DAILY. Notes: stable, will continue current regiment 6. P anlobular emphysema Continue Advair Diskus Aerosol Powder Breath Activated, 100-50 MCG/ACT, USE 1 INHALATION TWICE A DAY. Notes: doing well, will continue current regiment 7. D epression screening Notes: negative screen 8. O thers Referral To:[facility] Reason:needs colonoscopy * Procedure Codes: * Preventive Medicine: Counseling: C are goal follow-up plan: Bjorn shaheling for abnormal BMI provided?Yes, Poonam fisher Normal BMI Follow-up Humble baron encouragement to exercise. * Follow Up: 6 Months * * Sign off status: Completed true * Provider: Humble Fields MD Date: 0 10/09/2024 Generated for Molly oro/Maria Antonia/Diandraitting on: 1 07/14/2024 11:17 AM EST History and Physical Notes * HPI (History of Present Illness) Category Sub-Category Detail Notes Category Not es Symptom(s) patient is a 64 yo female here for annuak visit with review of recent labs and follow up of chronic issues. Depression Screening PHQ-9 Little inte rest or pleasure in doing things: Not at all Feeling down, depressed, or hopeless: No t at all Trouble falling or staying asleep, or sl eeping too much: Not at all Feeling tired or having little energy: N ot at all Poor appetite or overeating: Not at all Feeling bad about yourself o r that you are a failure, or have let yourself or your family down: Not at all Trouble concentrating on thi ngs, such as reading the newspaper or watching television: Not at all Moving or speaking so slowly that other people could have noticed; or the opposite, being so fidgety or restless that you have been moving around a lot more than usual: Not at all Thoughts that you would be b zarina off or of hurting yourself in some way: Not at all Total Score: 0 Interpretation and Intervention Depression Scree zeferino Findings: Negative Follow-Up for Depression: : review of PH Q-9 found negative result, no follow-up needed SDOH Questions SDOH Questions In the past year have you been worried about losing housing?: No In the past year have you or any family members you live with been unable to get any of the following when it was really needed? Check all that apply:: None Communication Needs Communication Needs Does the patient have a hearing impairment: No Does the patient have a vision impairmen t?: Yes If yes, what is the vision impairment?: Glasses Does the patient have a cognition impair ment?: No Examination Category Sub-Category Detail Notes Category Not es General Examination GENERAL APPEARANCE: well dev eloped, well nourished, in no acute distress HEAD: normocephalic, atrau matic EYES: pupils equal, round, reactive to light and accommodation, sclera non-icteric EARS: normal THROAT: clear NECK/THYROID: neck supple, full ra nge of motion, no cervical lymphadenopathy, no bruits HEART: regular rate and rhy thm, S1, S2 normal, , abnormal with a 2/6 holosystolic murmur LUNGS: clear to auscultatio n bilaterally ABDOMEN: soft, nontender, non distended, bowel sounds present, normal, no organomegaly , no masses palpable NEUROLOGIC: nonfocal, motor stre ngth normal upper and lower extremities, sensory exam intact SKIN: warm and dry, no nilda picious lesions EXTREMITIES: no clubbing, cyanosi s, or edema BREASTS: No mass, no lump RECTAL EXAM: done by enrollment representative FEMALE GENITOURINARY: done by enrollment representative ORAL CAVITY: mucosa moist Consultation Request Notes Referral Date Referring Provider Referred Provider Not es 10/09/2024 Issa Fields Robert needs colo noscopy 10/09/2024 Issa Fields Allison De Que rvain's disease ( tenosynovitis ) 10/09/2024 Issa Fields [facility], [facility] Nasal polyps
--- OUTSIDE RECORDS SUMMARY | 2024-10-25 10:03 | XMS_ITS ---
Author Organization Issa Fields MD Address [address] [place] [phone] Care Team Providers Care Flight Crew Ordnanceman Name Role Phone Issa Fields Primary Care Provider REASON FOR VISIT REFILL ROSUVASTATIN Medications Medication SIG (Take, Route, Frequency, Duration) Notes Start Date End Date Status Rosuvastatin Calcium 40 mg TAKE 1 TABLET DAILY ORALLY DAILY for 90 days Active Encounters Encounter Location Date Provider Diagnosis Issa Fields MD [address] [place] [phone] 10/25/2024 Issa Fields Pure hypercholestero lemia E78.00 Assessments Encounter Date Diagnosis (ICD Code) Assessment Notes Treatment Notes Treatment Clinical Notes Section Notes 10/25/2024 Pure hypercholesterolemia (ICD-10 - E78.00) Plan Of Treatment Medication Medication Name Sig Start Date Stop Date Notes Rosuvastatin Calcium 40 mg TAKE 1 TABLET DAILY ORALLY DAILY for 90 days Next Appt Details Provider Name:Issa keen, 07/26/2025 10:45:00 AM, [address] [place] [address], [address], [phone], Provider Name:Issa keen, 10/10/2025 07:15:00 AM, [address] [place] [address], [address], [phone], Provider Name:Issa Terence Patrick ier, 10/17/2025 11:00:00 AM, [address], [address], [place], [phone], Progress Notes * Letitia MELENDEZVandanaOB:1960 (64 yo F)Acc No.[id number]:10/25/2024 Patient: Ceci DENIS :1960 A ge:64 Y S ex:Female Address:[address] [place] [address] * Refills Refill Rosuvastatin Calcium Tablet, 40 mg, ORALLY, 90, TAKE 1 TABLET DAILY, DAILY, 90 days, Refills=3 * true * Date: Generated for Molly oro/Maria Antonia/Diandraitting on: 07/14/2024 11:17 AM EST
--- OUTSIDE RECORDS SUMMARY | 2024-11-06 10:15 | XMS_ITS ---
Author Organization Issa Fields MD Address [address] [place], [place] [id number] Care Team Providers Care Anode Crew Supervisor Name Role Phone Diamond Issa Primary Care Provider [phone] Allergies Allergen (clinical drug ingredient) Drug/Non Drug Allergy documented on EMR Reaction Allergy Type Onset Date Status morphine Morphine Sulfate itch Drug Allergy Active Reason For Referral Reason aortic Stenosis Diagnosis 1 Aortic stenosis (I35 .0) Referral Organization Issa Fields MD Referring Provider First Name Issa Referring Provider Last Name Diamond Referring Provider Speciality Internal M edicine Referred Provider Beny Mccracken Referred Provider Specialty Cardiovascul ar Disease General Notes Tia Krueger 0 11/09/2024 01:51:58 PM >referral info faxed, Tia Krueger 11/12/2024 01:11:07 PM > no able to go to [facility] Cardio, they do not accept her insurance. info faxed to [facility] Cardio, Tia Krueger 11/16/2024 01:48:38 PM > was told on the wait list, Tia Krueger 12/31/2024 10:38:37 AM >spoke with office she is on the wait list, they are working on getting her for a soon appt Referral Priority Routine Referral Appointment Date 01/03/2025 REASON FOR VISIT must echo, Accompanied by Medications Medication SIG (Take, Route, Frequency, Duration) Notes Start Date End Date Status Varenicline Tartrate 1 mg TAKE 1 TABLET TWICE A DAY DIRECTED Not-Taking Advair Diskus 100-50 MCG/ACT USE 1 INHALATION TWICE A DAY Active predniSONE 10 MG 1 tablet with food o r milk Orally 4 tabs for 3 days,3tabs for 3 days, 2 tabs for 3 days, and 1 tab for 3 days for 14 days 10/02/2024 Active Rosuvastatin Calcium 40 mg TAKE 1 TABLET DAILY ORALLY DAILY for 90 days Active Ventolin HFA * 108 (90 Base) MCG/ACT 2 puffs as needed Inhalation every 4 hrs 07/23/2013 Not-Takin g Naltrexone HCl 50 mg TAKE 1 TABLET DAILY Active Problems Problem Type SNOMED Code ICD Code Onset Dates Problem Status W/U Status Risk Notes Problem Aortic valve disorder (8205803) Aortic stenosis (I35.0) Active confirmed Vital Signs Blood pressure systolic 122 mm Hg 11/07/19 25 Blood pressure diastolic 70 mm Hg 025 Height 66 in 11/06/2024 Weight 122 lbs 11/06/2024 BMI 19.69 kg/m2 11/06/2024 Encounters Encounter Location Date Provider Diagnosis Issa Fields MD [address] [place] [address] [place] [phone] 11/06/2024 Issa Fields Aortic stenosis I35.0 Assessments Encounter Date Diagnosis (ICD Code) Assessment Notes Treatment Notes Treatment Clinical Notes Section Notes 11/06/2024 Aortic stenosis (ICD-10 - I35.0) will get referral to dr jhoan cruz at [facility]/ NOT having any symptoms Plan Of Treatment Treatment Notes Assessment Notes Aortic stenosis will get referral to dr jhoan cruz at [facility]/ NOT having any symptoms Referrals Referral Date Details 11/06/2024 11/06/2024, aortic S tenosis, Beny Mccracken Next Appt Details Provider Name:Issa keen, 07/26/2025 10:45:00 AM, [address] [place] [address], [address] [place] [address], [phone], Provider Name:Issa keen, 10/10/2025 07:15:00 AM, [address] [place] [address], [address], [phone], Provider Name:Issa Patrick ier, 10/17/2025 11:00:00 AM, [address], [address], [place], [place], [phone], Progress Notes * Paige MELENDEZOB:1960 (64 yo F)Acc No.[id number]:11/06/2024 Patient: Ceci DENIS Provider: Humble Fields MD :1960 A ge:64 Y S ex:Female Date:11/06/2024 Address:[address] [place], [place] [phone] Subjective: * Chief Complaints: * M ust echoAccompanied by * HPI: S ymptom(s): patient is a 64 yo female here for follow up of recent echo. * ROS: G eneral/Constitutional: Denies C hills. D enies F atigue. D enies F ever. D enies H eadache. E NT: Denies S ore throat. R espiratory: Denies C ough. D enies S hortness of breath at rest. D enies S hortness of breath with exertion. C ardiovascular: Patient denies c hest pain shotness of breath or syncope.?Denies C hest pain at rest. D enies C hest pain with exertion. D enies D izziness. D enies P alpitations. D enies S hortness of breath. G astrointestinal: Denies D iarrhea. D enies N ausea. * Medical History: * Surgical History: * Hospitalization/Major Diagno stic Procedure: * Medications: T akingNaltrexone HCl 50 mg Tablet TAKE 1 TABLET DAILY predniSONE 10 MG Tablet 1 tablet with food or milk Orally 4 tabs for 3 days,3tabs for 3 days, 2 tabs for 3 days, and 1 tab for 3 days Advair Diskus 100-50 MCG/ACT Aerosol Powder Breath Activated USE 1 INHALATION TWICE A DAY Rosuvastatin Calcium 40 mg Tablet TAKE 1 TABLET DAILY ORALLY DAILY Taking Naltrexone HCl 50 mg Tablet TAKE 1 TABLET DAILY Taking predniSONE 10 MG Tablet 1 tablet with food or milk Orally 4 tabs for 3 days,3tabs for 3 days, 2 tabs for 3 days, and 1 tab for 3 days Taking Advair Diskus 100-50 MCG/ACT Aerosol Powder Breath Activated USE 1 INHALATION TWICE A DAY Taking Rosuvastatin Calcium 40 mg Tablet TAKE 1 TABLET DAILY ORALLY DAILY Not-Taking/PRNVarenicline Tartrate 1 mg Tablet TAKE 1 TABLET TWICE A DAY DIRECTED Ventolin HFA * 108 (90 Base) MCG/ACT Aerosol Solution 2 puffs as needed Inhalation every 4 hrs Medication List reviewed and reconciled with the patientNot-Taking/PRN Varenicline Tartrate 1 mg Tablet TAKE 1 TABLET TWICE A DAY DIRECTED Not-Taking/PRN Ventolin HFA * 108 (90 Base) MCG/ACT Aerosol Solution 2 puffs as needed Inhalation every 4 hrs Medication List reviewed and reconciled with the patient * Allergies: M orphine Sulfate: itchyes[Allergies Verified] Objective: * Vitals: H t: 66, Wt: 122, BMI:19.69, BP:122/70, Wt-k.34. * Examination: G eneral Examination: GENERAL APPEARANCE: w ell developed, well nourished. SKIN: g ood turgor. HEART: g rade 3/6 systolic murmur at left sternal border.? LUNGS: n o wheezes, rales, rhonchi, good air movement, clear to auscultation bilaterally. Assessment: * Assessment: 1. A ortic stenosis - I35.0 (Primary) Plan: * Treatment: * Procedure Codes: * * Sign off status: Completed true * Provider: Humble Fields MD Date: 0 11/06/2024 Generated for Molly oro/Maria Antonia/Lesleesmitting on: 1 07/14/2024 11:16 AM EST History and Physical Notes * HPI (History of Present Illness) Category Sub-Category Detail Notes Category Not es Symptom(s) patient is a 64 yo female here for follow up of recent echo Examination Category Sub-Category Detail Notes Category Not es General Examination GENERAL APPEARANCE: well developed , well nourished HEART: grade 3/6 systolic m urmur at left sternal border LUNGS: no wheezes, rales, r honchi, good air movement, clear to auscultation bilaterally SKIN: good turgor Consultation Request Notes Referral Date Referring Provider Referred Provider Not es 11/06/2024 Issa Fields, Beny aortic Sten osis
--- OUTSIDE RECORDS SUMMARY | 2024-11-26 05:20 | XMS_ITS ---
Author Organization Issa Fields MD Address [address] [place], [place] [phone] Care Team Providers Care Painter Decorator Name Role Phone Issa Fields Primary Care Provider Reason For Referral Reason Arthritis in both garcia nds Diagnosis 1 Arthritis pain of garcia nd (M19.049) Referral Organization Issa Fields MD Referring Provider First Name Issa Referring Provider Last Name Diamond Referring Provider Speciality Internal M edicine Referred Provider [facility], [facility] Rheumatology Referred Provider Specialty Rheumatology General Notes Tia Krueger 0 11/26/2024 11:43:18 AM >referral faxed / patient is aware of appt Referral Priority Routine Referral Appointment Date 09/11/2025 REASON FOR VISIT ? referal to rheumatology Encounters Encounter Location Date Provider Diagnosis Issa Fields MD [address] [place], [place] [phone] 11/26/2024 Issa Fields Plan Of Treatment Referrals Referral Date Details 11/26/2024 11/26/2024, Arthriti s in both hands, [facility] Next Appt Details Provider Name:Issa keen, 07/26/2025 10:45:00 AM, [address], [address], [place], [place], [phone], Provider Name:Issa keen, 10/10/2025 07:15:00 AM, [address], [address], [place], [place], [phone], Provider Name:Issa Terence Darnell stallingsr, 10/17/2025 11:00:00 AM, [address], [address], [place], [phone], Progress Notes * Letitia MELENDEZVandanaOB:1960 (64 yo F)Acc No.[id number]:11/26/2024 Patient: Ceci DENIS :1960 A ge:64 Y S ex:Female Address:[address] [place] [address] Subjective: * Chief Complaints: * ? referal to rheumatology * Medical History: * Surgical History: * Hospitalization/Major Diagno stic Procedure: * Medications: Objective: * Vitals: * Physical Examination: Assessment: Plan: * Treatment: * Procedure Codes: * true * Date: Generated for Molly oro/Maria Antonia/eTransmitting on: 07/14/2024 11:16 AM EST Consultation Request Notes Referral Date Referring Provider Referred Provider Not es 11/26/2024 Issa Fields [facility], [facility] Arthritis in both hands
--- OUTSIDE RECORDS SUMMARY | 2025-03-07 07:53 | XMS_ITS ---
Author Organization Issa Fields MD Address [address] [facility] [address] [place] [phone] Care Team Providers Care Motor Builder Winder Name Role Issa Patel Primary Care Provider REASON FOR VISIT Needs Echo Encounters Encounter Location Date Provider Diagnosis Issa Fields MD [address] [facility] [address] [place] [phone] 03/07/2025 Issa Fields Plan Of Treatment Next Appt Details Provider Name:Issa keen, 07/26/2025 10:45:00 AM, [address] [place] [address], [address], [phone], Provider Name:Issa keen, 10/10/2025 07:15:00 AM, [address] [place] [address], [address], [phone], Provider Name:Issa keen, 10/17/2025 11:00:00 AM, [address] [place] [address], [address], [phone], Progress Notes * Paige MELENDEZOB:1960 (64 yo F)Acc No.[id number]:03/07/2025 Patient: Ceci DENIS :1960 A ge:64 Y S ex:Female Address:[address] [place] [id number] * true * Date: Generated for Molly oro/Maria Antonia/Diandraitting on: 07/14/2024 11:16 AM EST
--- OUTSIDE RECORDS SUMMARY | 2025-04-12 02:30 | XMS_ITS ---
Author Organization Issa Fields MD Address [address] [place] [phone] Care Team Providers Care Machine Shop Instructor Name Role Phone Issa Fields Primary Care Provider [phone] Results Component Value Reference Range Notes Liver Panel Reviewed date:04/12/2025 11:41:15 AM Interpretation: Performing Lab:[facility], [address] [place] [phone] Notes/Report: Bilirubin Total 0.8 0.0-1.0 mg/dL Bilirubin Direct 0.3 0.0-0.5 mg/dL Aspartate Amino Transferase 42 5-31 U/L Alanine Aminotransferase 43 0-31 U/L Total Protein 7.7 6.5-8.0 g/dL Albumin Level 4.4 3.5-5.0 g/dL Alkaline Phosphatase 80 39-117 U/L Glucose Fasting Reviewed date:04/12/2025 11:42:02 AM Interpretation: Performing Lab:[facility], [address] [place] [phone] Notes/Report: Glucose Fasting 108 60-99 mg/dL A fasting glucose from 100-125 mg/dl is considered impaired (pre-diabetes). Lipid Panel with Reflex Reviewed date:04/12/2025 12:35:13 PM Interpretation: Performing Lab:[facility], [address] [place] [phone] Notes/Report: Triglycerides 86 <150 mg/dL Desirable Triglyceride: less than 150 mg/dL Borderline High Triglyceride 150-199 mg/dL High Triglyceride: 200-499 mg/dL Very High Triglyceride: greater than or equal to 5OO mg/dL Cholesterol 124 <200 mg/dL Desirable Cholesterol: less than 200 mg/dL Borderline High Cholesterol: 200-239 mg/dL High Cholesterol: greater than 239 mg/dL LDL Cholesterol Calculated 91 <100 mg/dL Desirable LDL: less than 100 mg/dL Near Optimal/Above Optimal LDL: 110-129 mg/dL Borderline High LDL: 130-159 mg/dL High LDL: 160-189 mg/dL Very High LDL: greater than or equal to 190 mg/dL HDL Cholesterol 16 >40 mg/dL Desirable HDL: greater than 40 mg/dL Note: This HDL assay may give artificially low results in patients with liver disease. Hemoglobin A1c Reviewed date:04/12/2025 11:36:46 AM Interpretation: Performing Lab:[facility], [address] [place] [phone] Notes/Report: Hemoglobin A1c % 5.2 <6.0 % [...] average glucose, using the formula of the K9D-Qoobxtf Average Glucose study (ADAG), Diabetes Care, Vol.31,#8, Feb. 2007 REASON FOR VISIT fasting lipids Encounters Encounter Location Date Provider Diagnosis Issa Fields MD [address] [place] [address] Drive [address] [place], [place] [phone] 04/12/2025 Issa Fields Prediabetes R73.03 a nd Pure hypercholesterolemia E78.00 Assessments Encounter Date Diagnosis (ICD Code) Assessment Notes Treatment Notes Treatment Clinical Notes Section Notes 04/12/2025 Prediabetes (ICD-10 - R73.03) 04/12/2025 Pure hypercholesterolemia (ICD-10 - E78.00) Plan Of Treatment Next Appt Details Provider Name:Issa Patrick leonila, 07/26/2025 10:45:00 AM, [address], [address], [place], [place], [phone], Provider Name:Issa Patrick leonila, 10/10/2025 07:15:00 AM, [address], [address], [place], [place], [phone], Provider Name:Issa Patrick leonila, 10/17/2025 11:00:00 AM, [address], [address], [place], [place], [phone], Progress Notes * Paige MELENDEZOB:1960 (64 yo F)Acc No.[id number]:04/12/2025 Progress Note Patient: Ceci DENIS Provider: Humble Fields MD :1960 A ge:64 Y S ex:Female Date:04/12/2025 Address:[address] [place], [place] [phone] Subjective: * Chief Complaints: * 1 . Fasting lipids. * Medical History: Objective: * Vitals: Assessment: * Assessment: 1. P rediabetes - R73.03 (Primary) 2 . P ure hypercholesterolemia - E78.00? Plan: * Treatment: 2. P ure hypercholesterolemia L AB: Liver Panel (Collection Date & Time - 04/12/2025 10:16 AM) L AB: Glucose Fasting (Collection Date & Time - 04/12/2025 10:16 AM) L AB: Lipid Panel with Reflex (Collection Date & Time - 04/12/2025 10:16 AM) L AB: Hemoglobin A1c (Collection Date & Time - 04/12/2025 10:16 AM) * Procedure Codes: 3 6415 VENIPUNCT, ROUTINE* * * The named appointment provid er may or may not be the originator of this progress note, and it is not deemed complete until electronically signed by the appointment provider. Sign off status: Pending * Provider: Humble Fields MD Date: 1 Generated for Molly oro/Maria Antonia/eTransmitting on: 1 07/14/2024 11:16 AM EST
--- OUTSIDE RECORDS SUMMARY | 2025-04-26 05:15 | XMS_ITS ---
Author Organization Issa Fields MD Address [address] [place], [place] [id number] Care Team Providers Care Voice Instructor Name Role Phone Issa Fields Primary [...] Date Provider Diagnosis Issa Fields MD [address] [place] [phone] 04/26/2025 Issa Fields Prediabetes R73.03 ; Moderate [...] Reason: Provider Name:Issa keen, 07/26/2025 10:45:00 AM, [address] [place] [address], [address], [phone], Provider Name:Issa keen, 10/10/2025 07:15:00 AM, [address] [place] [address], [phone], Provider Name:Issa keen, 10/17/2025 11:00:00 AM, [address] [place] [address], [phone], Progress Notes * Paige MELENDEZOB:1960 (64 yo F)Acc No.[id number]:04/26/2025 Progress Notes Patient: Ceci DENIS Provider: Humble Fields MD :1960 A ge:64 Y S ex:Female Date:04/26/2025 Address:[address] [place], [place] [address]bas[facility] Subjective: * Chief Complaints: * 6 month [...] true * Provider: Humble Fields MD Date: Generated for Molly oro/Maria Antonia/eTransmitting on: 07/14/2024 11:16 AM EST History and Physical [...]
--- OUTSIDE RECORDS SUMMARY | 2025-05-13 04:43 | XMS_ITS ---
Author Organization Issa Fields MD Address [address] [facility] [address] [place] [phone] Care Team Providers Care Polystyrene Molding Machine Tender Name Role Phone Issa Fields Primary Care Provider [phone] REASON FOR VISIT RF Ventolin Medications Medication SIG (Take, Route, Frequency, Duration) Notes Start Date End Date Status Ventolin HFA * 108 (90 Base) MCG/ACT 2 puffs as needed Inhalation every 4 hrs 07/23/2013 Active Encounters Encounter Location Date Provider Diagnosis Issa Fields MD 10 [facility] [address] [place] [phone] 05/13/2025 Issa Fields Plan Of Treatment Medication Medication Name Sig Start Date Stop Date Notes Ventolin HFA * 108 (90 Base) MCG/ACT 2 puffs as needed Inhalation every 4 hrs 07/23/2013 Next Appt Details Provider Name:Issa keen, 07/26/2025 10:45:00 AM, [address] [place] [address], [address], [phone], Provider Name:Issa keen, 10/10/2025 07:15:00 AM, [address] [place] [address], [phone], Provider Name:Issa keen, 10/17/2025 11:00:00 AM, [address], [address], [place], [place], [phone], Progress Notes * Paige MELENDEZOB:1960 (64 yo F)Acc No.[id number]:05/13/2025 Patient: Ceci DENIS :1960 A ge:64 Y S ex:Female Address:[address] [place] [address] * Refills Refill Ventolin HFA * Aerosol Solution, 108 (90 Base) MCG/ACT, Inhalation, 3 Not Specified, 2 puffs as needed, every 4 hrs, Refills=5 * true * Date: Generated for Molly oro/Maria Antonia/eTransmitting on: 07/14/2024 11:16 AM EST
--- NOTE | ~2025-05-14 | CT_ITS ---
EXAMINATION: CT LUNG SCREENING HISTORY: Z87.891 - Personal history of nicotine dependence TECHNIQUE: Low dose axial images were obtained from the sternal notch to upper abdomen without IV contrast per standard departmental protocol. Sagittal and coronal reformatted images were also obtained and reviewed. One or more of the following techniques was used for dose reduction: Automated exposure control, adjustment of the mA and/or kV according to patient size, use of iterative reconstruction technique. DLP: 38 mGy-cm COMPARISON: Passage is made with the prior examination dated 04/11/2024. FINDINGS: Lung nodules: Again seen are 2-3 mm nodules at the right lung apex (series 4, image 10), in the right upper lobe (series 4, image 16), in the right middle lobe (series 4, image 101), in the left upper lobe (series 4, image 12), and in the lingula (series 4, image 106). No suspicious pulmonary nodules are identified. Emphysema: mild Coronary Calcification: moderate Aortic Arch Calcification: mild Potentially Significant Incidentals : none Additional Chest Findings: There is no pleural or pericardial effusion. No mediastinal or axillary lymphadenopathy is identified. Visualized upper abdomen: The visualized portions of the liver, spleen, and adrenals have an unremarkable unenhanced appearance. CT/CT lung screening IMPRESSION: No suspicious pulmonary nodules are identified. LUNG-RADS ASSESSMENT: Lung-RADS 2: Benign MANAGEMENT: Continue annual screening with LDCT in 12 months Category S: N/A Electronically signed by: Leland Gutierrez MD 05/14/2025 10:30 AM [facility] [place]
--- OUTSIDE RECORDS SUMMARY | 2025-05-14 03:45 | XMS_ITS ---
Author Organization Issa Fields MD Address [address] [facility] [address] [place] [phone] Care Team Providers Care Entry Level Java Developer Name Role Issa Paetl Primary Care Provider [phone] REASON FOR VISIT FYI Encounters Encounter Location Date Provider Diagnosis Issa Fields MD 10 [facility] [address] [place] [phone] 05/14/2025 Issa Fields Plan Of Treatment Next Appt Details Provider Name:Issa keen, 07/26/2025 10:45:00 AM, [address] [place] [address], [address] [place] [address], [phone], Provider Name:Issa keen, 10/10/2025 07:15:00 AM, [address] [place] [address], [address] [place] [address], [phone], Provider Name:Issa keen, 10/17/2025 11:00:00 AM, [address] [place] [address], [address], [phone], Progress Notes * Paige MELENDEZOB:1960 (64 yo F)Acc No.[id number]:05/14/2025 Patient: Ceci DENIS :1960 A ge:64 Y S ex:Female Address:[address] [place] [address] * true * Date: Generated for Molly oro/Maria Antonia/Carlitos on: 07/14/2024 11:16 AM EST
--- OUTSIDE RECORDS SUMMARY | 2025-05-14 11:16 | XMS_ITS | Patient Health Record ---
Author Organization Issa Fields MD Address [address] [place], [place] [phone] Care Team Providers Care Fundraising Manager Name Role Phone Issa Fields Primary Care Provider Allergies Allergen (clinical drug ingredient) Drug/Non Drug Allergy documented on EMR Reaction Allergy Type Onset Date Status morphine Morphine Sulfate itch Drug Allergy Active Results Component Value Reference Range Notes Complete Blood Count Auto Di ff Reviewed date:09/27/2024 12:52:10 PM Interpretation: Performing Lab:[facility], [address] [place] [phone] Notes/Report: White Blood Count 9.6 4.8-10.8 X10*3/uL [...] NRBC Abs Auto 0.000 0.0-0.012 X10*3/uL Comprehensive Higginson. Panel Fa st Reviewed date:09/27/2024 12:52:33 PM Interpretation: Performing Lab:[facility], [address] [place] [phone] Notes/Report: Sodium 141 135-145 mmol/L Potassium 3.9 [...] Panel Reviewed date:09/27/2024 12:16:09 PM Interpretation: Performing Lab:[facility], [address] [place] [phone] Notes/Report: Triglycerides 124 <150 mg/dL Desirable Triglyceride: [...] Random Reviewed date:09/27/2024 12:18:28 PM Interpretation: Performing Lab:[facility], [address] [place] [phone] Notes/Report: Creatinine Urine 123.47 Microalbumin Urine 12.0 Microalbum/Creatinine Ratio Ur 9.7 <30 ug/mg cr Albumin/Creatinine Ratio Reference Ranges: Normal: < 30 ug/mg creatinine Microalbuminuria: 30 - 300 ug/mg creatinine Clinical Albuminuria: > 300 ug/mg creatinine Hemoglobin A1c Reviewed date:09/27/2024 12:11:44 PM Interpretation: Performing Lab:[facility], [address] [place] [phone] Notes/Report: Hemoglobin A1c % 5.2 <6.0 % [...] average glucose, using the formula of the X1N-Oqrnfab Average Glucose study (ADAG), Diabetes Care, Vol.31,#8, Feb. 2007 UA ClnCatch+Micro w/rflx Cul t Reviewed date:09/27/2024 12:52:49 PM Interpretation: Performing Lab:[address] [phone] Notes/Report: Urine, Clean Catch Color Urine Yellow Appearance Urine Clear PH 6.0 5.0-9.0 Glucose Urine UA Negative Negative mg/dL Urine Blood Negative Negative Specific [place] - Urine 1.015 1.005-1.025 Urine Protein Negative Neg-Trace mg/dL Urine Ketones Negative Negative mg/dL Nitrite Urine Negative Negative Leukocyte Esterase Urine Negative Negative RBC Urine 0-2 0-2 /HPF WBC Urine 0-5 0-5 /HPF Squamous Epithelial Cell Urine 0-2 0-2 /HPF Bacteria Urine None Seen None Seen Hyaline Casts Urine 0-2 0-2 /LPF Liver Panel Reviewed date:04/12/2025 11:41:15 AM Interpretation: Performing Lab:[address] [phone] Notes/Report: Bilirubin Total 0.8 0.0-1.0 mg/dL Bilirubin Direct 0.3 0.0-0.5 mg/dL Aspartate Amino Transferase 42 5-31 U/L Alanine Aminotransferase 43 0-31 U/L Total Protein 7.7 6.5-8.0 g/dL Albumin Level 4.4 3.5-5.0 g/dL Alkaline Phosphatase 80 39-117 U/L Glucose Fasting Reviewed date:04/12/2025 11:42:02 AM Interpretation: Performing Lab:[facility], [address] [place] [phone] Notes/Report: Glucose Fasting 108 60-99 mg/dL A fasting glucose from 100-125 mg/dl is considered impaired (pre-diabetes). Lipid Panel with Reflex Reviewed date:04/12/2025 12:35:13 PM Interpretation: Performing Lab:[address] [phone] Notes/Report: Triglycerides 86 <150 mg/dL Desirable Triglyceride: [...] A1c Reviewed date:04/12/2025 11:36:46 AM Interpretation: Performing Lab:[facility], [address] [place] [phone] Notes/Report: Hemoglobin A1c % 5.2 <6.0 % [...] average glucose, using the formula of the W2F-Jdadbik Average Glucose study (ADAG), Diabetes Care, Vol.31,#8, 2007 Bola Mitchell Reviewed date:09/27/2024 12:16:19 PM Interpretation: Performing Lab:[facility], [address] [place] [phone] Notes/Report: Bola Mitchell See Note Specimen held untested for 24 hours; Call to request Chemistry testing. MM tomosynthesis screening B I Reviewed date:01/30/2025 08:17:50 PM Interpretation: Performing Lab: Notes/Report: [facility] [address] [place] [address] Mammography Report Signed Patient: Ceci Reveles MR#: [id number] 01 : 1960 Acct:[id number] Age/Sex: 64 / F ADM Date: 01/17/25 Loc: HO.MAMMO Attending Dr: Issa Fields MD Ordering Physician: Issa Fields MD Results: 2Be nign Findings Date of Service: 01/17/25 Follow Up: 1 Year From Orig ina Mammogram Procedure(s): MM tomosynthesis screening BI Accession Number(s): [id number] cc: Issa Fields MD EXAMINATION: MM SCREENING [...] OV> 01/30/251955 DD/ 99 TD/TT: 01/17/25 1115 Area Forester: [facility] [address] [place] [address] Dr. Romero, [place] [address] Mammography Report Signed Patient: Bakari Reveles MR#: [id number] 01 : 1960 Acct:[id number] Age/Sex: 64 / F ADM Date: 01/17/25 Loc: HO.MAMMO Attending Dr: Issa Fields MD Ordering Physician: Issa Fields MD Results: 2Be nign Findings Date of Service: 01/17/25 Follow Up: 1 Year From Orig ina Mammogram Procedure(s): MM tomosynthesis screening BI Accession Number(s): [id number] cc: Issa Fields MD EXAMINATION: MM SCREENING [...] OV> 01/30/251955 DD/ 1100 TD/TT: 01/17/25 1115 Area Forester: US abdominal aortic aneurysm Reviewed date:02/13/2025 08:27:27 PM Interpretation: Performing Lab: Notes/Report: [facility] [place] [address] Ultrasound Report Signed Patient: Ceci Reveles MR#: [id number] 01 : 1960 Acct:[id number] Age/Sex: 64 / F ADM Date: 02/13/25 Loc: .HMGCX Attending Dr: Fabrizio Haile MD Ordering Physician: Fabrizio Haile MD Date of Service: 02/13/25 Procedure(s): US abdominal aortic aneurysm Accession Number(s): [id number] cc: Issa Fields MD; Fabrizio Haile MD [...] 02/13/25 1441 DD/ 1440 TD/TT: 02/13/25 1440 Area Forester: [facility] [address] [place] [address] [place] [address] Ultrasound Report Signed Patient: Bakari Reveles MR#: [id number] 01 : 1960 Acct:[id number] Age/Sex: 64 / F ADM Date: 02/13/25 Loc: HO.HMGCX Attending Dr: Jadon Haile MD Ordering Physician: Fabrizio Haile MD Date of Service: 02/13/25 Procedure(s): US abdominal aortic aneurysm Accession Number(s): [id number] cc: Issa Fields MD; Fabrizio Haile MD [...] 02/13/25 1441 DD/ 1440 TD/TT: 02/13/25 1440 Area Forester: Bola Valentino date:04/12/2025 11:38:26 AM Interpretation: Performing Lab:[facility], [address] [facility], [place] [phone] Notes/Report: Hold Gold See Note Specimen held [...] Speciality Internal edicine Referred Provider Aiane Allergy [facility] Aiane Allergy [place] Referred Provider Specialty Allergy/Immu nology General Notes [...] PM > no able to go to [facility], they do not accept her insurance. info faxed to [facility] Cardio, Tia Krueger [...] First Name Issa Referring Provider Last Name iDamond Referring Provider Speciality Internal edicine Referred Provider [facility] Rheumatology, [facility] Rheumatology Referred Provider Specialty Rheumatology General Notes Tia Krueger 0 11/26/2024 11:43:18 AM >referral faxed / patient is aware of appt Referral Priority Routine Referral Appointment Date 09/11/2025 Medications Medication SIG (Take, Route, Frequency, Duration) Notes Start Date End Date Status Ventolin HFA * 108 (90 Base) MCG/ACT 2 puffs as needed Inhalation every 4 hrs 07/23/2013 Active Rosuvastatin Calcium 40 mg TAKE 1 TABLET DAILY ORALLY DAILY for 90 days Active Advair Diskus 100-50 MCG/ACT USE 1 INHALATION TWICE A DAY Active Varenicline Tartrate 1 mg TAKE 1 TABLET TWICE A DAY DIRECTED Not-Taking Naltrexone HCl 50 MG TAKE 1 TABLET DAILY for 90 Not-Taking Dupixent 300 MG/2ML as directed Subcutaneous Active Immunizations Vaccine Route Administration Date Status Comme nts Flu Vaccine IM Intramuscular 04/06/2011 Administered Flu Vaccine IM Intramuscular 08/22/2012 Administered Flu Vaccine Unknown 03/20/2015 Administered HAD IT AT [facility] Fluarix Quadrivalent IM Intramuscular 04/13/2016 Administe red Fluarix Quadrivalent IM Intramuscular 04/26/2017 Administe red TDaP Unknown 06/10/2017 Administered pt was given the vaccine at [facility] in [place]. Fluarix Quadrivalent IM Intramuscular 04/24/2018 Administe red [...] Status W/U Status Risk Notes Problem Lymphocytosis (72699692) Lymphocytosis (D72.820) Active confirmed Problem 03717271380265398 Acute recurren t maxillary sinusitis (J01.01) Active confirmed Problem 1359685 Panlobular emphy sema (J43.1) Active confirmed Problem Aortic valve disorder (0330621) Aortic stenosis (I35.0) Active confirmed Problem 707276632 Low HDL (under 4 0) (E78.6) Active confirmed Problem 89675038 Alcohol abuse (F10.10) Active confirme d Problem Current smoker (34024229) Current smoker (F17.200) Active confirmed Problem 11588425 Dysthymia (F34.1) Active confirmed Problem 531394973 Multiple allergi es (Z88.9) Active confirmed Problem 87230632 CAD (coronary ar andres disease) (I25.10) Active confirmed Problem 120560873 Recurrent sinus infections (J32.9) Active confirmed Problem 530216989 Prediabetes (R73.03) Active confirmed Problem 239324779 Pure hypercholesterolemia (E78.00) Active confirmed Problem 384337819 History of viral pericarditis (Z86.79) Active confirmed Problem Aortic valve disorder (2097807) Moderate aortic stenosis (I35.0) Active confirmed Problem Localized, primary osteoarthritis of the hand (857874464) Arthritis pain of hand (M19.049) Active confirmed Problem 967785339 Recurrent sinusi tis (J32.9) Active confirmed Vital Signs Blood pressure diastolic 86 mm Hg 04/26/2025 davonte ght is up 7 pounds since 11-06-24 Height 66 in 04/26/2025 weight is up 7 pounds since 11-06-24 Blood pressure systolic 124 mm Hg 04/26/2025 weig ht is up 7 pounds since 11-06-24 Weight 129 lbs 04/26/2025 weight is up 7 pounds since 11-06-24 BMI 20.82 kg/m2 04/26/2025 weight is up 7 pounds since 11-06-24 Encounters Encounter Location Date Provider Diagnosis sIsa Fields MD [address] [place] [id number] 09/27/2024 Issa Fields Blood tests for rout ine general physical examination Z00.00 ; Pure hypercholesterolemia E78.00 ; Prediabetes R73.03 and Lymphocytosis D72.820 Issa Fields MD [address] [place] [address] Drive [address] [place] [id number] 04/12/2025 Issa Fields Prediabetes R73.03 a nd Pure hypercholesterolemia E78.00 Issa Fields MD [address] [place] [address] Drive [address] [place] [id number] 06/05/2024 Issa Fields Nasal polyps J33.9 a nd Recurrent sinus infections J32.9 Issa Fields MD [address] [place] [id number] 08/03/2024 Issa Fields Nasal polyps J33.9 a nd Recurrent sinus infections J32.9 Issa Fields MD [address] [place] [id number] 10/02/2024 Issa Fields Recurrent sinusitis J32.9 Issa Fields MD [address] [place] [address] [id number] 10/09/2024 Issa Fields Annual physical exam Z00.00 ; Moderate aortic stenosis I35.0 ; Nasal polyps J33.9 ; De Quervain's disease (tenosynovitis) M65.4 ; Pure hypercholesterolemia E78.00 ; Panlobular emphysema J43.1 and Depression screening Z13.31 Issa Fields MD [address] [place] [id number] 11/06/2024 Issa Fields Aortic stenosis I35. 0 Issa Fields MD [address] [place] [id number] 04/26/2025 Issa Fields Prediabetes R73.03 ; Moderate aortic stenosis I35.0 ; Elevated LFTs R79.89 and Pure hypercholesterolemia E78.00 Issa Fields MD [address] [place] [address] [id number] 10/25/2024 Issa Fields Pure hypercholestero lemia E78.00 Issa Fields MD [address] [place] [id number] 11/26/2024 Issa Fields MD [address] [place] [address] [id number] 03/07/2025 Issa Fields MD [address] [place] [address] [id number] 05/13/2025 Issa Fields MD [address] [place] [id number] 05/14/2025 Issa Fiedls Assessments Encounter Date Diagnosis (ICD Code) Assessment [...] stenosis (ICD-10 - I35.0) order faxed to [facility] CS dept , pending diagnostic testing 11/06/2024 Aortic stenosis (ICD -10 - I35.0) will get referral to dr jhoan cruz at [facility]/ NOT having any symptoms 04/26/2025 Prediabetes (ICD-10 - R73.03) a1c is well controlled, no need for medication at this time 04/26/2025 Moderate aortic stenosis (ICD-10 - I35.0) not having any symptoms, will continue to monitor 10/25/2024 Pure hypercholesterolemia (ICD-10 - E78.00) 09/27/2024 Pure hypercholesterolemia (ICD-10 - E78.00) 04/12/2025 Pure hypercholesterolemia (ICD-10 - E78.00) 06/05/2024 Recurrent sinus infections (ICD-10 - J32.9) needs ab and prednisone, patient verbalized understanding of medication and directions fo use 08/03/2024 Recurrent sinus infections (ICD-10 - J32.9) 10/09/2024 Nasal polyps (ICD-10 - J33.9) referral to allergy 04/26/2025 Elevated LFTs (ICD-1 0 - R79.89) is minimal and is probably related to the statins, will continue to monitor 09/27/2024 Prediabetes (ICD-10 - R73.03) 10/09/2024 De Quervain's diseas e (tenosynovitis) (ICD-10 - M65.4) referral to hand center 04/26/2025 Pure hypercholesterolemia (ICD-10 - E78.00) stable, will continue current regiment 09/27/2024 Lymphocytosis (ICD-1 0 - D72.820) 10/09/2024 [...] ECHO 04/06/2025 Next Appt Details Provider Name:Issa stallingsr, 07/26/2025 10:45:00 AM, [address] [place] [address], [address], [phone], Provider Name:Issa Patrick ier, 10/10/2025 07:15:00 AM, [address] [place] [address], Suite [facility], [place], [place], [phone], Provider Name:Issa Patrick ier, 10/17/2025 11:00:00 AM, [address] [place] [address], [address] [place] [address], [phone], Insurance Providers Payer Name Payer Address Payer Phone Subscriber Number Group Number Insured Name Patient Relationship to Insured Coverage Start Date Coverage End Date [facility] [employer] [address] [address] [place] [address] [id number] Francisco JCeci mendez Self - patient is the insured MEDICARE NDIC [address] [place] [address] [id number] Ceci Reveles Self - patient is the insured Medical (General) History Medical History History ICD Code 06/18/15 - Colonoscopy done b y Dr. Jay Kenny - repeat n 10 years as all polyps were hyperplastic varenicline is chantix
--- OUTSIDE RECORDS SUMMARY | 2025-05-14 11:17 | XMS_ITS | Patient Health Record ---
Author Organization [facility] Address [address] [place] [phone] Care Team Providers Care Environmental Services Worker Name Role Phone Issa Fields MD Primary Care Provider Leland Haas Unavailable [phone] SAMIR PERES Unavailable Unavailab le Allergies No Known Allergies Reason For Referral No Information Medications Medication SIG (Take, Route, Frequency, Duration) Notes Start Date End Date Status Rosuvastatin Calcium 40 MG 1 tablet Orally Once a day; Duration: 30 day(s) 02/12/2025 Active Dupixent 300 MG/2ML [...] W/U Status Risk Notes Problem Preprocedural examination (156815328979914) Preprocedural examination (Z01.818) Active confirmed Vital Signs Temperature 96.9 degrees Fahrenheit 02/12/2025 Blood pressure diastolic 01 mm Hg 02/12/2025 Height 65 in 02/12/2025 Blood pressure systolic 001 mm Hg 02/12/2025 Weight 123.8 lbs 02/12/2025 BMI 20.6 kg/m2 02/12/2025 Procedures Procedure Date Ordered Date Performed Result Body Sit e COLONOSCOPY 02/12/2025 N/A Encounters Encounter Location Date Provider Diagnosis [facility] [address] [place] [phone] 02/12/2025 Leland Quintanilla Colon cancer screeni ng Z12.11 and Preprocedural examination Z01.818 [facility] [address] [place] [phone] 05/14/2025 Leland Quintanilla Assessments Encounter Date Diagnosis (ICD Code) Assessment [...] Test Test Name Order Date COLONOSCOPY 02/12/2025 Insurance Providers Payer Name Payer Address Payer Phone Subscriber Number Group Number Insured Name Patient Relationship to Insured Coverage Start Date Coverage End Date [facility] [id number] [place] [address] [id number] CECI REVELES Self - patient is the insured Medical (General) History Medical History History ICD Code COPD/Asthma Aortic stenosis-sees Dr. Peres Colonoscopy 2014 with only hyperplastic polyps-Dr. Kenny Denies VT,DM,CVA,renal disease Surgical History Surgery Date(Month/Year) ulnar nerve elbow nasal polyps skin cancers-basal, squamous back- surgery needle eznreh-mgifwy-swepis bunionectomy
--- OUTSIDE RECORDS SUMMARY | 2025-05-14 11:17 | XMS_ITS | Patient Health Record ---
[facility] Organization [facility] Address [address] [facility] [place] [address] Care Team Providers Care Education Finance Processor Name Role Phone Issa Fields MD Primary Care Provider Conymiguel ángel alisonmirella Phillips Charlene Unavailable [phone] Allergies Allergen (clinical drug ingredient) Drug/Non Drug [...] Status Risk Notes Problem Acquired hallux valgus (39069827) Hallux valgus (acquired), left foot (M20.12) Active confirmed Problem Plantar wart (80987308) Plantar wart (B07.0) Active confirmed Problem Acquired hammer toe of left foot (36063587678 ) Other hammer toe(s) (acquired), left foot (M20.42) Active confirmed Problem Acquired hallux rigidus (0392518) Hallux rigidus, right foot (M20.21) Active confirmed Problem Acquired hammer toe of left foot (56539718529 ) Hammer toe of left foot (M20.42) Active confirmed Improvement Problem Spasm (36426274) Extensor tendon tightness, contracture (M62.40) Active confirmed Improvement Vital Signs Blood pressure diastolic 80 mm Hg 05/24/2024 Height 5ft6in in 05/24/2024 Blood pressure systolic 130 mm Hg 05/24/2024 Weight 112 lbs 05/24/2024 BMI 18.08 kg/m2 05/24/2024 Procedures Procedure Date Ordered Date Performed Result Body Sit e 46729 - Tenotomy, open flexor 05/17/2024 N/A 03624-Biqa Destruction, -05/24/2024 N/A Encounters Encounter Location Date Provider Diagnosis [facility] [address] [address] 05/17/2024 Charlene Black Hammer toe of left foot M20.42 [facility] [address] [address] 05/24/2024 Charlene Black Hammer toe of left [...] 02/27/2024 X ray : Foot, right 3V 11/28/201753288-Mtyw Destruction, -05/24/2024 35701-Ozrg Destruction, 1-14 12/19/2017 90054-Nzqh Destruction, 07-2401/16/2018 11771-Zfkk Destruction, 07-2402/24/2012 98368-Nhsi Destruction, 07-2405/16/2013 12061-Irgf Destruction, 07-2411/28/2017 28364 - Tenotomy, open flexor 05/17/2024 Insurance Providers Payer Name Payer Address Payer Phone Subscriber Number Group Number Insured Name Patient Relationship to Insured Coverage Start Date Coverage End Date [employer] Medicare [id number] [address] [address] [place] [address] [id number] Ceci Melendez Self - patient is the insured Medical (General) History Medical History History ICD Code asthma CAD (Cholesterol) Surgical History Surgery Date(Month/Year) bunionectomy x2 elbow sx 2010 polypectomy 2006, 2009 Ulna nerve Biopsy nasal polypectomy 2013,2019
== END 2025-05-14 09:50 | disposition home or self-care (01) ==
LOC: HO.CT 09:49
PROVIDERS: PCP Internal Medicine; Visit Provider Physician Assistant Medical
DX: Z12.2 Encounter for screening for malignant neoplasm of respiratory organs (principal); Z87.891 Personal history of nicotine dependence
CPT/HCPCS: 71271

== ENCOUNTER → 2025-05-14 09:52 | Outpatient (BNV) | payer MEDICARE, SELFPAY | PROVIDERS: PCP Internal Medicine; Visit Provider Radiology Diagnostic Radiology | DX: Z12.2 Encounter for screening for malignant neoplasm of respiratory organs (principal); Z87.891 Personal history of nicotine dependence | CPT/HCPCS: 71271 ==

== ENCOUNTER 2025-05-15 14:37 | Outpatient (AMB) | payer MEDICARE, SELFPAY ==
--- OUTSIDE RECORDS SUMMARY | 2024-10-02 06:45 | XMS_ITS ---
Author Organization Issa Fields MD Address [address] [place] [phone] Care Team Providers Care Surgical Resident Name Role Phone Issa Fields Primary Care Provider Allergies Allergen (clinical drug ingredient) Drug/Non Drug Allergy documented on EMR Reaction Allergy Type Onset Date Status morphine Morphine Sulfate itch Drug Allergy Active REASON FOR VISIT SINUS PROBLEMS, Video [phone] Medications Medication SIG (Take, Route, Frequency, Duration) [...] Location Date Provider Diagnosis Issa Fields MD [address] [place] [address] [place] [phone] 10/02/2024 Issa Fields Recurrent sinusitis J32.9 Assessments [...] Details Provider Name:Issa keen, 07/26/2025 10:45:00 AM, [address] [place] [address], Suite [facility], [place], [place], [phone], Provider Name:Issa keen, 10/10/2025 07:15:00 AM, [address] [place] [address], [address] [place] [address], [phone], Provider Name:Issa keen, 10/17/2025 11:00:00 AM, [address], [address], [place], [place], [phone], Progress Notes * Paige MELENDEZOB:1960 (64 yo F)Acc No.[id number]:10/02/2024 Patient: Ceci DENIS Provider: Humble Fields MD :1960 A ge:64 Y S ex:Female Date:10/02/2024 Address:[address] [place], [place] [phone] Subjective: * Chief Complaints: * S INUS PROBLEMSVideo [phone] * HPI: S ymptom(s): Telehealth L ocation of provider rendering services: [address], [address], ocation of [...] 10/02/2024 Generated for Molly oro/Maria Antonia/Carlitos on: 07/15/2024 05:48 PM EST History and Physical Notes * HPI (History of Present Illness) Category Sub-Category Detail Notes Category Not es Symptom(s) Telehealth Location of [facility] ider rendering services:: [address], [address] patient is a 64 [...]
--- OUTSIDE RECORDS SUMMARY | 2024-10-09 06:00 | XMS_ITS ---
Author Organization Issa Fields MD Address [address] [place], [place] [phone] Care Team Providers Care Mannequin Mold Maker Name Role Phone Issa Fields Primary Care [...] Provider Speciality Internal M edicine Ref[facility] rich, [facility] [place] Referred Provider Specialty Allergy/Immu nology General Notes [...] Location Date Provider Diagnosis Issa Fields MD [address] [place] [address] [address] [place], [place] [phone] 10/09/2024 Issa Fields Annual physical exam Z00.00 [...] stenosis (ICD-10 - I35.0) order faxed to [facility] , pending diagnostic testing 10/09/2024 [...] referral Moderate aortic stenosis order faxed to [facility] , pending diagnostic testing Nasal polyps referral to allergy De Quervain's disease (tenosynovitis) re ferral to [facility] Pure hypercholesterolemia stable, will c ontinue current regiment Panlobular emphysema doing well, will co ntinue current regiment Depression screening negative screen Pending Test Test Name Order Date ECHO 10/09/2024 Referrals Referral Date Details 10/09/2024 10/09/2024, needs co lonoscopy, Leland Quintanilla 10/09/2024 10/09/2024, De Querv ain's disease ( tenosynovitis ), Debbie Wood 10/09/2024 10/09/2024, Nasal po lyps, [facility] [place] [facility] Appt Details Follow Up: 6 Months, Reason: Provider Name:Issa keen, 07/26/2025 10:45:00 AM, [address] [place] [address], [address], [place], [place], [phone], Provider Name:Issa stallingsr, 10/10/2025 07:15:00 AM, [address] [place] [address] Drive, [address], [place], [place], [phone], Provider Name:Issa stallingsr, 10/17/2025 11:00:00 AM, [address] [place] [address], [address], [place], [place], [phone], Progress Notes * Paige REVELESOB:1960 (64 yo F)Acc No.[id number]:10/09/2024 Progress Notes Patient: Ceci DENIS Provider: Humble Fields MD :1960 A ge:64 Y S ex:Female Date:10/09/2024 Address:[address] [place] [address] [id number] Subjective: * Chief Complaints: * A NNUAL [...] mg/dL Urine Blood Negative Negative - Specific [place] - Urine 1.015 1.005-1.025 - Urine Protein [...] Auto 0.000 0.0-0.012 - X10*3/uL L ab:Comprehensive [place]. Panel Fast (Order Date - 09/27/2024) (Collection [...] masses palpable. RECTAL EXAM: d one by revenue integrity analyst. FEMALE GENITOURINARY: d one by revenue integrity analyst. EXTREMITIES: n o clubbing, cyanosis, or edema. [...] I maging: ECHO Notes: order faxed to [facility] , pending diagnostic testing 3. [...] Date: 0 10/09/2024 Generated for Molly oro/Maria Antonia/Carlitos on: 1 07/15/2024 05:48 PM EST History and Physical [...] mass, no lump RECTAL EXAM: done by revenue integrity analyst FEMALE GENITOURINARY: done by revenue integrity analyst ORAL CAVITY: mucosa moist Consultation Request Notes Referral Date Referring Provider Referred Provider Not es 10/09/2024 Issa Fields Robert needs colo noscopy 10/09/2024 Issa Fields Allison De Que rvain's disease ( tenosynovitis ) 10/09/2024 Issa Fields [facility] [place], [facility] [place] Nasal polyps
--- OUTSIDE RECORDS SUMMARY | 2024-10-25 10:03 | XMS_ITS ---
Author Organization Issa Fields MD Address [address] [place] [phone] Care Team Providers Care Assistant Professor Of Biology Name Role Phone Issa Fields Primary Care Provider REASON FOR VISIT REFILL ROSUVASTATIN Medications Medication SIG (Take, Route, Frequency, Duration) Notes Start Date End Date Status Rosuvastatin Calcium 40 mg TAKE 1 TABLET DAILY ORALLY DAILY for 90 days Active Encounters Encounter Location Date Provider Diagnosis Issa Fields MD [address] [place] [phone] 10/25/2024 Issa Fields Pure hypercholestero lemia E78.00 Assessments Encounter Date Diagnosis (ICD Code) Assessment Notes Treatment Notes Treatment Clinical Notes Section Notes 10/25/2024 Pure hypercholesterolemia (ICD-10 - E78.00) Plan Of Treatment Medication Medication Name Sig Start Date Stop Date Notes Rosuvastatin Calcium 40 mg TAKE 1 TABLET DAILY ORALLY DAILY for 90 days Next Appt Details Provider Name:Issa keen, 07/26/2025 10:45:00 AM, [address] [place] [address], [address], [phone], Provider Name:Issa keen, 10/10/2025 07:15:00 AM, [address] [place] [address], [address], [phone], Provider Name:Issa Terence Patrick ier, 10/17/2025 11:00:00 AM, [address], [address], [place], [phone], Progress Notes * Letitia MELENDEZVandanaOB:1960 (64 yo F)Acc No.[id number]:10/25/2024 Patient: Ceci DENIS :1960 A ge:64 Y S ex:Female Address:[address] [place] [address] * Refills Refill Rosuvastatin Calcium Tablet, 40 mg, ORALLY, 90, TAKE 1 TABLET DAILY, DAILY, 90 days, Refills=3 * true * Date: Generated for Molly oro/Maria Antonia/Diandraitting on: 07/15/2024 05:47 PM EST
--- OUTSIDE RECORDS SUMMARY | 2024-11-06 10:15 | XMS_ITS ---
Author Organization Issa Fields MD Address [address] [place], [place] [id number] Care Team Providers Care Governor Assembler Hydraulic Name Role Phone Diamond Issa Primary Care Provider [phone] Allergies Allergen (clinical drug ingredient) Drug/Non Drug [...] PM > no able to go to [facility] Cardio, they do not accept her insurance. info faxed to [facility], Tia Krueger 11/16/2024 01:48:38 PM > [...] Status Risk Notes Problem Aortic valve disorder (3031828) Aortic stenosis (I35.0) Active confirmed Vital Signs Blood pressure systolic 122 mm Hg 11/07/19 25 Blood pressure diastolic 70 mm Hg 025 Height 66 in 11/06/2024 Weight 122 lbs 11/06/2024 BMI 19.69 kg/m2 11/06/2024 Encounters Encounter Location Date Provider Diagnosis Issa Fields MD [address] [place] [address] [place] [phone] 11/06/2024 Issa Fields Aortic stenosis I35.0 Assessments Encounter Date Diagnosis (ICD Code) Assessment Notes Treatment Notes Treatment Clinical Notes Section Notes 11/06/2024 Aortic stenosis (ICD-10 - I35.0) will get referral to dr jhoan cruz at [facility]/ NOT having any symptoms Plan Of Treatment Treatment Notes Assessment Notes Aortic stenosis will get referral to dr jhoan cruz at [facility]/ NOT having any symptoms Referrals Referral Date Details 11/06/2024 11/06/2024, aortic S tenosis, Beny Mccracken Next Appt Details Provider Name:Issa keen, 07/26/2025 10:45:00 AM, [address] [place] [address], [address] [place] [address], [phone], Provider Name:Issa keen, 10/10/2025 07:15:00 AM, [address] [place] [address], [address], [phone], Provider Name:Issa Patrick ier, 10/17/2025 11:00:00 AM, [address], [address], [place], [place], [phone], Progress Notes * Paige MELENDEZOB:1960 (64 yo F)Acc No.[id number]:11/06/2024 Patient: Ceci DENIS Provider: Humble Fields MD :1960 A ge:64 Y S ex:Female Date:11/06/2024 Address:[address] [place], [place] [phone] Subjective: * Chief Complaints: * M ust [...] Date: 0 11/06/2024 Generated for Molly oro/Maria Antonia/Diandraitting on: 1 07/15/2024 05:46 PM EST History and Physical Notes * [...]
--- OUTSIDE RECORDS SUMMARY | 2024-11-26 05:20 | XMS_ITS ---
Author Organization Issa Fields MD Address [address] [place], [place] [phone] Care Team Providers Care Physical Therapy Instructor Name Role Phone Issa Fields Primary Care Provider Reason For Referral Reason Arthritis in both garcia nds Diagnosis 1 Arthritis pain of garcia nd (M19.049) Referral Organization Issa Fields MD Referring Provider First Name Issa Referring Provider Last Name Diamond Referring Provider Speciality Internal M edicine Referred Provider [facility], [facility] Rheumatology Referred Provider Specialty Rheumatology General Notes Tia Krueger 0 11/26/2024 11:43:18 AM >referral faxed / patient is aware of appt Referral Priority Routine Referral Appointment Date 09/11/2025 REASON FOR VISIT ? referal to rheumatology Encounters Encounter Location Date Provider Diagnosis Issa Fields MD [address] [place], [place] [phone] 11/26/2024 Issa Fields Plan Of Treatment Referrals Referral Date Details 11/26/2024 11/26/2024, Arthriti s in both hands, [facility] [facility] Next Appt Details Provider Name:Issa keen, 07/26/2025 10:45:00 AM, [address], [address], [place], [place], [phone], Provider Name:Issa keen, 10/10/2025 07:15:00 AM, [address], [address], [place], [place], [phone], Provider Name:Issa Terence Darnell stallingsr, 10/17/2025 11:00:00 AM, [address], [address], [place], [phone], Progress Notes * Letitia MELENDEZVandanaOB:1960 (64 yo F)Acc No.[id number]:11/26/2024 Patient: Ceci DENIS :1960 A ge:64 Y S ex:Female Address:[address] [place] [address] Subjective: * Chief Complaints: * ? referal to rheumatology * Medical History: * Surgical History: * Hospitalization/Major Diagno stic Procedure: * Medications: Objective: * Vitals: * Physical Examination: Assessment: Plan: * Treatment: * Procedure Codes: * true * Date: Generated for Molly oro/Maria Antonia/eTransmitting on: 07/15/2024 05:47 PM EST Consultation Request Notes Referral Date Referring Provider Referred Provider Not es 11/26/2024 Issa Fields [facility] [place], [facility] Arthritis in both hands
--- OUTSIDE RECORDS SUMMARY | 2025-03-07 07:53 | XMS_ITS ---
Author Organization Issa Fields MD Address [address] [facility] [address] [place] [phone] Care Team Providers Care Ceramic Tile Setter Name Role Issa Patel Primary Care Provider [phone] REASON FOR VISIT Needs Echo Encounters Encounter Location Date Provider Diagnosis Issa Fields MD [address] [facility] [address] [place] [phone] 03/07/2025 Issa Fields Plan Of Treatment Next Appt Details Provider Name:Issa keen, 07/26/2025 10:45:00 AM, [address] [place] [address], [address], [phone], Provider Name:Issa keen, 10/10/2025 07:15:00 AM, [address] [place] [address], [address], [phone], Provider Name:Issa keen, 10/17/2025 11:00:00 AM, [address] [place] [address], [address], [phone], Progress Notes * Paige MELENDEZOB:1960 (64 yo F)Acc No.[id number]:03/07/2025 Patient: Ceci DENIS :1960 A ge:64 Y S ex:Female Address:[address] [place] [id number] * true * Date: Generated for Molly oro/Maria Antonia/Carlitos on: 07/15/2024 05:46 PM EST
--- OUTSIDE RECORDS SUMMARY | 2025-04-12 02:30 | XMS_ITS ---
Author Organization Issa Fields MD Address [address] [place] [phone] Care Team Providers Care Manager Of Financial Planning Name Role Phone Issa Fields Primary Care Provider [phone] Results Component Value Reference Range Notes Liver Panel Reviewed date:04/12/2025 11:41:15 AM Interpretation: Performing Lab:[facility], [address] [place] [phone] Notes/Report: Bilirubin Total 0.8 0.0-1.0 mg/dL Bilirubin Direct 0.3 0.0-0.5 mg/dL Aspartate Amino Transferase 42 5-31 U/L Alanine Aminotransferase 43 0-31 U/L Total Protein 7.7 6.5-8.0 g/dL Albumin Level 4.4 3.5-5.0 g/dL Alkaline Phosphatase 80 39-117 U/L Glucose Fasting Reviewed date:04/12/2025 11:42:02 AM Interpretation: Performing Lab:[facility], [address] [place] [phone] Notes/Report: Glucose Fasting 108 60-99 mg/dL A fasting glucose from 100-125 mg/dl is considered impaired (pre-diabetes). Lipid Panel with Reflex Reviewed date:04/12/2025 12:35:13 PM Interpretation: Performing Lab:[facility], [address] [place] [phone] Notes/Report: Triglycerides 86 <150 mg/dL Desirable Triglyceride: [...] A1c Reviewed date:04/12/2025 11:36:46 AM Interpretation: Performing Lab:[facility], [address] [place] [phone] Notes/Report: Hemoglobin A1c % 5.2 <6.0 % [...] average glucose, using the formula of the A5A-Gvepwch Average Glucose study (ADAG), Diabetes Care, Vol.31,#8, Feb. 2007 REASON FOR VISIT fasting lipids Encounters Encounter Location Date Provider Diagnosis Issa Fields MD [address] [place] [address] Drive [address] [place], [place] [phone] 04/12/2025 Issa Fields Prediabetes R73.03 a nd Pure hypercholesterolemia E78.00 Assessments Encounter Date Diagnosis (ICD Code) Assessment Notes Treatment Notes Treatment Clinical Notes Section Notes 04/12/2025 Prediabetes (ICD-10 - R73.03) 04/12/2025 Pure hypercholesterolemia (ICD-10 - E78.00) Plan Of Treatment Next Appt Details Provider Name:Issa Patrick leonila, 07/26/2025 10:45:00 AM, [address], [address], [place], [place], [phone], Provider Name:Issa Patrick leonila, 10/10/2025 07:15:00 AM, [address], [address], [place], [place], [phone], Provider Name:Issa Patrick leonila, 10/17/2025 11:00:00 AM, [address], [address], [place], [place], [phone], Progress Notes * Paige MELENDEZOB:1960 (64 yo F)Acc No.[id number]:04/12/2025 Progress Note Patient: Ceci DENIS Provider: Humble Fields MD :1960 A ge:64 Y S ex:Female Date:04/12/2025 Address:[address] [place], [place] [phone] Subjective: * Chief Complaints: * 1 . [...] Generated for Molly oro/Maria Antonia/eTransmitting on: 1 07/15/2024 05:46 PM EST
--- OUTSIDE RECORDS SUMMARY | 2025-04-26 05:15 | XMS_ITS ---
Author Organization Issa Fields MD Address [address] [place], [place] [id number] Care Team Providers Care Blue Leather Setter Name Role Phone Issa Fields Primary Care Provider Allergies Allergen (clinical drug ingredient) Drug/Non Drug Allergy documented on EMR Reaction Allergy Type Onset Date Status morphine Morphine Sulfate itch Drug Allergy Active REASON FOR VISIT 6 month Medications Medication SIG (Take, Route, Frequency, Duration) Notes Start Date End Date Status Ventolin HFA * 108 (90 Base) MCG/ACT 2 puffs as needed Inhalation every 4 hrs 07/23/2013 Not-Takin g Advair Diskus 100-50 MCG/ACT USE 1 INHALATION TWICE A DAY Active Varenicline Tartrate 1 mg TAKE 1 TABLET TWICE A DAY DIRECTED Not-Taking Dupixent 300 MG/2ML as directed Subcutaneous Active Rosuvastatin Calcium 40 mg TAKE 1 TABLET DAILY ORALLY DAILY for 90 days Active Naltrexone HCl 50 MG TAKE 1 TABLET DAILY for 90 Not-Taking Vital Signs Blood pressure systolic 124 mm Hg 04/26/20 25 Blood pressure diastolic 86 mm Hg 025 Height 66 in 04/26/2025 Weight 129 lbs 04/26/2025 BMI 20.82 kg/m2 04/26/2025 weight is up 7 pounds since 11-06-24 Encounters Encounter Location Date Provider Diagnosis Issa Fields MD [address] [place] [id number] 04/26/2025 Issa Fields Prediabetes R73.03 ; Moderate aortic stenosis I35.0 ; Elevated LFTs R79.89 and Pure hypercholesterolemia E78.00 Assessments Encounter Date Diagnosis (ICD Code) Assessment Notes Treatment Notes Treatment Clinical Notes Section Notes 04/26/2025 Prediabetes (ICD-10 - R73.03) a1c is well controlled, no need for medication at this time 04/26/2025 Moderate aortic sten osis (ICD-10 - I35.0) not having any symptoms, will continue to monitor 04/26/2025 Elevated LFTs (ICD-1 0 - R79.89) is minimal and is probably related to the statins, will continue to monitor 04/26/2025 Pure hypercholesterolemia (ICD-10 - E78.00) stable, will continue current regiment Plan Of Treatment Treatment Notes Assessment Notes Prediabetes a1c is well controll ed, no need for medication at this time Moderate aortic stenosis not having any symptoms, will continue to monitor Elevated LFTs is minimal and is pr obably related to the statins, will continue to monitor Pure hypercholesterolemia stable, will c ontinue current regiment Next Appt Details Follow Up: 3 Months, Reason: Provider Name:Issa keen, 07/26/2025 10:45:00 AM, [address] [place] [address], [address], [phone], Provider Name:Issa keen, 10/10/2025 07:15:00 AM, [address] [place] [address], [phone], Provider Name:Issa keen, 10/17/2025 11:00:00 AM, [address] [place] [address], [phone], Progress Notes * Piage MELENDEZOB:1960 (64 yo F)Acc No.[id number]:04/26/2025 Progress Notes Patient: Ceci DENIS Provider: Humble Fields MD :1960 A ge:64 Y S ex:Female Date:04/26/2025 Address:[address] [place], [place] [address] Subjective: * Chief Complaints: * 6 month * HPI: S ymptom(s): patient is a 64 yo female here for 6 month follow up visit/. * ROS: G eneral/Constitutional: Denies C hills. D enies F atigue. D enies F ever. D enies H eadache. E NT: Denies S ore throat. R espiratory: Denies C ough. D enies S hortness of breath at rest. D enies S hortness of breath with exertion. C ardiovascular: Denies C hest pain at rest. D enies C hest pain with exertion. D enies D izziness. D enies P alpitations. D enies S hortness of breath. G astrointestinal: Denies D iarrhea. D enies N ausea. * Medical History: * Surgical History: * Hospitalization/Major Diagno stic Procedure: * Medications: T akingDupixent 300 MG/2ML Solution Auto-injector as directed Subcutaneous Advair Diskus 100-50 MCG/ACT Aerosol Powder Breath Activated USE 1 INHALATION TWICE A DAY Rosuvastatin Calcium 40 mg Tablet TAKE 1 TABLET DAILY ORALLY DAILY Taking Dupixent 300 MG/2ML Solution Auto-injector as directed Subcutaneous Taking Advair Diskus 100-50 MCG/ACT Aerosol Powder Breath Activated USE 1 INHALATION TWICE A DAY Taking Rosuvastatin Calcium 40 mg Tablet TAKE 1 TABLET DAILY ORALLY DAILY Not-Taking/PRNNaltrexone HCl 50 MG Tablet TAKE 1 TABLET DAILY Varenicline Tartrate 1 mg Tablet TAKE 1 TABLET TWICE A DAY DIRECTED Ventolin HFA * 108 (90 Base) MCG/ACT Aerosol Solution 2 puffs as needed Inhalation every 4 hrs Not-Taking/PRN Naltrexone HCl 50 MG Tablet TAKE 1 TABLET DAILY Not-Taking/PRN Varenicline Tartrate 1 mg Tablet TAKE 1 TABLET TWICE A DAY DIRECTED Not-Taking/PRN Ventolin HFA * 108 (90 Base) MCG/ACT Aerosol Solution 2 puffs as needed Inhalation every 4 hrs DiscontinuedpredniSONE 10 MG Tablet 1 tablet with food or milk Orally 4 tabs for 3 days,3tabs for 3 days, 2 tabs for 3 days, and 1 tab for 3 days Discontinued predniSONE 10 MG Tablet 1 tablet with food or milk Orally 4 tabs for 3 days,3tabs for 3 days, 2 tabs for 3 days, and 1 tab for 3 days * Allergies: M orphine Sulfate: itchyes[Allergies Verified] Objective: * Vitals: H t: 66, Wt: 129, BMI:20.82, BP:124/86, Wt-k.51. weight is up 7 pounds since 11-06-24. * P ast Orders: L ab:Lipid Panel with Reflex (Order Date - 04/12/2025) (Collection Date & Time - 04/12/2025 10:16 AM) Value Reference Range Triglycerides 86 <150 - mg/dL Cholesterol 124 <200 - mg/dL LDL Cholesterol Calculated 91 <100 - mg/dL HDL Cholesterol 16 L >40 - mg/dL L ab:Hemoglobin A1c (Order Date - 04/12/2025) (Collection Date & Time - 04/12/2025 10:16 AM) Value Reference Range Hemoglobin A1c % 5.2 <6.0 - % Estimated Average Glucose 103 - mg/dL L ab:Liver Panel (Order Date - 04/12/2025) (Collection Date & Time - 04/12/2025 10:16 AM) Value Reference Range Bilirubin Total 0.8 0.0-1.0 - mg/dL Bilirubin Direct 0.3 0.0-0.5 - mg/dL Aspartate Amino Transferase 42 H 5-31 - U/L Alanine Aminotransferase 43 H 0-31 - U/L Total Protein 7.7 6.5-8.0 - g/dL Albumin Level 4.4 3.5-5.0 - g/dL Alkaline Phosphatase 80 39-117 - U/L L ab:Glucose Fasting (Order Date - 04/12/2025) (Collection Date & Time - 04/12/2025 10:16 AM) Value Reference Range Glucose Fasting 108 H 60-99 - mg/dL * Examination: G eneral Examination: GENERAL APPEARANCE: a lert, well hydrated, in no distress.? HEAD: n ormocephalic. SKIN: g ood turgor. HEART: g rade 3/6 systolic murmur at left sternal border.? LUNGS: n o wheezes, rales, rhonchi, good air movement, clear to auscultation bilaterally. ABDOMEN: s oft, nontender, nondistended, no rebound tenderness, no organomegaly. Assessment: * Assessment: 1. P rediabetes - R73.03 (Primary) 2 . M oderate aortic stenosis - I35.0? 3. E levated LFTs - R79.89 4 . P ure hypercholesterolemia - E78.00 Plan: * Treatment: 2. M oderate aortic stenosis Notes: not having any symptoms, will continue to monitor 3. E levated LFTs Notes: is minimal and is probably related to the statins, will continue to monitor 4. P ure hypercholesterolemia Notes: stable, will continue current regiment * Procedure Codes: * Follow Up: 3 Months * * Sign off status: Completed true * Provider: Humble Fields MD Date: 1 Generated for Molly oro/Maria Antonia/eTransmitting on: 07/15/2024 05:47 PM EST History and Physical Notes * HPI (History of Present Illness) Category Sub-Category Detail Notes Category Not es Symptom(s) patient is a 64 yo female here for 6 month follow up visit/ Examination Category Sub-Category Detail Notes Category Not es General Examination GENERAL APPEARANCE: alert, w ell hydrated, in no distress HEAD: normocephalic HEART: grade 3/6 systolic m urmur at left sternal border LUNGS: no wheezes, rales, r honchi, good air movement, clear to auscultation bilaterally ABDOMEN: soft, nontender, non distended, no rebound tenderness, no organomegaly SKIN: good turgor
--- OUTSIDE RECORDS SUMMARY | 2025-05-13 04:43 | XMS_ITS ---
Author Organization Issa Fields MD Address [address] [facility] [address] [place] [phone] Care Team Providers Care Pound Attendant Name Role Phone Issa Fields Primary Care Provider REASON FOR VISIT RF Ventolin Medications Medication SIG (Take, Route, Frequency, Duration) Notes Start Date End Date Status Ventolin HFA * 108 (90 Base) MCG/ACT 2 puffs as needed Inhalation every 4 hrs 07/23/2013 Active Encounters Encounter Location Date Provider Diagnosis Issa Fields MD [address] [facility] [address] [place] [phone] 05/13/2025 Issa Fields Plan Of Treatment Medication Medication Name Sig Start Date Stop Date Notes Ventolin HFA * 108 (90 Base) MCG/ACT 2 puffs as needed Inhalation every 4 hrs 07/23/2013 Next Appt Details Provider Name:Issa keen, 07/26/2025 10:45:00 AM, [address] [place] [address], [address], [phone], Provider Name:Issa eken, 10/10/2025 07:15:00 AM, [address] [place] [address], [phone], Provider Name:Issa keen, 10/17/2025 11:00:00 AM, [address], [address], [place], [place], [phone], Progress Notes * Paige MELENDEZOB:1960 (64 yo F)Acc No.[id number]:05/13/2025 Patient: Ceci DENIS :1960 A ge:64 Y S ex:Female Address:[address] [place] [address] * Refills Refill Ventolin HFA * Aerosol Solution, 108 (90 Base) MCG/ACT, Inhalation, 3 Not Specified, 2 puffs as needed, every 4 hrs, Refills=5 * true * Date: Generated for Molly oro/Maria Antonia/Lesleesmitting on: 07/15/2024 05:47 PM EST
--- OUTSIDE RECORDS SUMMARY | 2025-05-14 03:45 | XMS_ITS ---
Author Organization Issa Fields MD Address [address] [facility] [address] [place] [phone] Care Team Providers Care Clothes Separator Name Role Issa Patel Primary Care Provider REASON FOR VISIT FYI Encounters Encounter Location Date Provider Diagnosis Issa Fields MD 10 [facility] [address] [place] [phone] 05/14/2025 Issa Fields Plan Of Treatment Next Appt Details Provider Name:Issa keen, 07/26/2025 10:45:00 AM, [address] [place] [address], [address] [place] [address], [phone], Provider Name:Issa keen, 10/10/2025 07:15:00 AM, [address] [place] [address], [address] [place] [address], [phone], Provider Name:Issa keen, 10/17/2025 11:00:00 AM, [address] [place] [address], [address], [phone], Progress Notes * Paige MELENDEZOB:1960 (64 yo F)Acc No.[id number]:05/14/2025 Patient: Ceci DENIS :1960 A ge:64 Y S ex:Female Address:[address] [place] [phone] * true * Date: Generated for Molly oro/Maria Antonia/Carlitos on: 07/15/2024 05:47 PM EST
--- NOTE | 2025-05-15 14:41 | MHC.OFFVIS ---
Vital Signs 05/15/25 14:42 Height 5 ft 5 in Weight 116 lb BMI 19.3 BP 130/68 Blood Pressure Location Lt brachial Position Sitting Pulse 86 Pulse Source Pulse Oximeter Intake Visit Reasons: dr [facility] colonoscopy Allergies aspirin (ASPIRIN) Allergy (Intermediate, Verified 04/02/25 13:26) RUNNING NOSE, swelling morphine (MORPHINE) Allergy (Unknown, Verified 04/02/25 13:26) ITCHING ENVIRONMENTAL Allergy (Intermediate, Uncoded 11/21/24 13:14) RHINITIS; SINUS CONGESTION Medication List - Last Reconciled 05/15/25 by Fabrizio Haile MD dupilumab (Dupixent) 300 mg subcut Q2W fluticasone propion-salmeterol 100-50 mcg/dose (Advair Diskus) 1 inh inhalation BID psyllium husk (Daily Fiber) 0.4 grams PO DAILY rosuvastatin 40 mg PO BEDTIME HPI Comments Details: Ceci returns for follow-up regarding aortic stenosis. She has had aortic stenosis for the last few years which has been monitored by her own PCP. More recently, she had another echocardiogram in anticipation of a possible colonoscopy. Any case, that showed severe aortic stenosis and hence the colonoscopy itself is canceled. Patient states she actually feels quite good. No complaints like angina or shortness of breath or in fact anything cardiac sounding. She states she can go up about 15 stairs with no issues. Around 2016, it seems that she had chest pain and was worked up with diagnostic catheterization but conclusion was rather pericarditis. Apart from that, she has not really had any major cardiac issues. Patient has a history of allergy to aspirin as she gets fair he has nasal symptoms and there was also mention of nasal polyps. There is a family history of ruptured abdominal aortic aneurysm in father. [facility] Medical History (Updated 05/15/25 @ 15:19 by Fabrizio Haile MD) Skin cancer Arthritis Myopericarditis COPD (chronic obstructive pulmonary disease) Asthma Nasal polyps Panlobular emphysema Hypercholesteremia De Quervain's disease (tenosynovitis) Non-rheumatic aortic stenosis Personal history of nicotine dependence Postmenopausal Tubular adenoma of colon (~2014) Surgical History (Updated 05/13/25 @ 08:01 by Rosa Chavarria RN) History of local excision of skin lesion Hx of breast biopsy Hx of nasal polypectomy Hx of section Hx of elbow surgery History of lumbar fusion History of bunionectomy of right great toe History of ethmoidectomy History of nasal septoplasty History of colonoscopy Family History Father Ruptured abdominal aortic aneurysm (AAA) Mother No problems noted. Social History Are you a primary manager wound care to a significant other at home: No Do you presently have visiting nurse or other home services: No Alcohol intake: current Alcohol intake frequency: a few times a month Patient Tobacco Use Status: Former Tobacco user Years Smoked: (onset 16yo, 1/2ppd x 40yrs, 20pyh - quit 11/2022) Review of Systems Const Denies weakness ENT Denies dizziness Card Denies chest pain, Denies chest pain with activity, Denies syncope, Denies rapid heart rate, Denies pedal edema, Denies edema, Denies leg edema, Denies lightheadedness, Denies palpitations, Denies dyspnea, Denies dyspnea on exertion and Denies orthopnea Resp Denies cough, Denies dyspnea and Denies dyspnea on exertion GI Denies hematochezia and Denies change in stool character Musc Denies abnormal gait, Denies muscle cramps, Denies muscle weakness, Denies numbness, Denies radiating pain into limb and Denies tingling Neuro Denies abnormal gait, Denies dizziness, Denies syncope, Denies numbness, Denies tingling and Denies weakness Endo Denies palpitations Physical Exam Vital Signs: Last Vital Signs Pulse 86 05/15/25 14:42 BP 130/68 05/15/25 14:42 BMI result Body Mass Index 19.3 Const General: comfortable and no acute distress Orientation/consciousness: patient oriented x3 HEENT Other: Unremarkable Head: Yes normal to inspection Neck Neck: Yes normal visual inspection Chest Chest palpation & inspection: normal inspection of the chest Resp Auscultation: clear to auscultation bilaterally Cardio Palpation: normal PMI Heart sounds: S1 normal heart sound present, S2 normal heart sound present, no gallops, Murmur heart sound present systolic III/ and at the right sternal border and no rubs GI Palpation (GI): Soft to palpation Back/Spine/Pelvis Other: unremarkable Skin General skin exam: no rashes or lesions noted Neuro General: patient oriented x3 Extrem General: Yes normal to inspection Psych Mental Status: mental status grossly normal Assessment & Plan Assessment & Plan (1) Non-rheumatic aortic stenosis: Code(s): I35.0 - Nonrheumatic aortic (valve) stenosis Category: Medical (2) Preoperative cardiovascular examination: Code(s): Z01.810 - Encounter for preprocedural cardiovascular examination Category: Medical (3) Atherosclerosis of aorta: Code(s): I70.0 - Atherosclerosis of aorta Category: Medical (4) Aspirin allergy: Code(s): Z88.8 - Allergy status to other drugs, medicaments and biological substances Category: Medical Plan In the most recent echocardiogram, there is severe aortic valve calcification. Mean gradient across aortic valve was 29 mm Hg with a calculated valve area of 0.66 cm2. Dimensionless index of 0.24. Stroke volume index 32 mL/meters squared. Overall, suggestive of low-flow, low gradient severe aortic stenosis. LVEF is preserved at 59%. There is a question of basal inferior/inferolateral hypokinesis versus artifact. Clinically, she denies any symptoms whatsoever and can climb 15 stairs with no issues. In this instance, reasonable to do an ETT to assess for symptoms symptoms and blood pressure response and any EKG findings. If indeed she gets symptomatic on the ETT or if there is a drop in blood pressure, then may proceed with a diagnostic catheterization and evaluation for TAVR versus SAVR. Anatomy is not clear if it is indeed bicuspid and that may impact decision of TAVR versus SAVR. Additionally, due to history of significant nasal allergies related to aspirin, she may need single agent Plavix post valve intervention versus aspirin desensitization. To be decided. With regard to family history of abdominal aortic aneurysm rupture in father, she underwent an abdominal ultrasound. That shows no aneurysm. However, there is significant atherosclerotic disease of the abdominal aorta and common iliac arteries. Reported moderate stenosis of the mid abdominal aorta, [id number] stenosis at aortic bifurcation/origin of common iliac arteries. Again this may impact vascular access for TAVR. She will need further workup possibly with a CTA versus invasive peripheral angiography at the time of cardiac catheterization. Continue her statins. With regard to colonoscopy advised not to proceed. Orders: Orders CA stress test Today I35.0 - Nonrheumatic aortic (valve) stenosis Coding Level of Care Code Est Pt Level 4 (41577) Complex EM visit Add On G2211 Diagnoses Non-rheumatic aortic stenosis I35.0 Preoperative cardiovascular examination Z01.810 Atherosclerosis of aorta I70.0 Aspirin allergy Z88.8
[2025-05-15 14:42] VITALS: BP 130/68; PULSE 86; BMI 19.3
--- OUTSIDE RECORDS SUMMARY | 2025-05-15 17:46 | XMS_ITS | Patient Health Record ---
Author Organization Issa Fields MD Address [address] [place], [place] [address] Care Team Providers Care Funeral Service Manager Name Role Phone Issa Fields Primary Care Provider Allergies Allergen (clinical drug ingredient) Drug/Non Drug Allergy documented on EMR Reaction Allergy Type Onset Date Status morphine Morphine Sulfate itch Drug Allergy Active Results Component Value Reference Range Notes Complete Blood Count Auto Di ff Reviewed date:09/27/2024 12:52:10 PM Interpretation: Performing Lab:[facility], [address] [place] [phone] Notes/Report: White Blood Count 9.6 4.8-10.8 X10*3/uL [...] NRBC Abs Auto 0.000 0.0-0.012 X10*3/uL Comprehensive [place]. Panel Fa st Reviewed date:09/27/2024 12:52:33 PM Interpretation: Performing Lab:[facility], [address] [place] [phone] Notes/Report: Sodium 141 135-145 mmol/L Potassium 3.9 [...] Panel Reviewed date:09/27/2024 12:16:09 PM Interpretation: Performing Lab:[facility], [address] [place] [phone] Notes/Report: Triglycerides 124 <150 mg/dL Desirable Triglyceride: [...] Random Reviewed date:09/27/2024 12:18:28 PM Interpretation: Performing Lab:[facility], [address] [place] [phone] Notes/Report: Creatinine Urine 123.47 Microalbumin Urine 12.0 Microalbum/Creatinine Ratio Ur 9.7 <30 ug/mg cr Albumin/Creatinine Ratio Reference Ranges: Normal: < 30 ug/mg creatinine Microalbuminuria: 30 - 300 ug/mg creatinine Clinical Albuminuria: > 300 ug/mg creatinine Hemoglobin A1c Reviewed date:09/27/2024 12:11:44 PM Interpretation: Performing Lab:[facility], [address] [place] [phone] Notes/Report: Hemoglobin A1c % 5.2 <6.0 % [...] average glucose, using the formula of the H9V-Ioqnrkg Average Glucose study (ADAG), Diabetes Care, Vol.31,#8, Feb. 2007 UA ClnCatch+Micro w/rflx Cul t Reviewed date:09/27/2024 12:52:49 PM Interpretation: Performing Lab:[address] [phone] Notes/Report: Urine, Clean Catch Color Urine Yellow Appearance Urine Clear PH 6.0 5.0-9.0 Glucose Urine UA Negative Negative mg/dL Urine Blood Negative Negative Specific [place] - Urine 1.015 1.005-1.025 Urine Protein Negative Neg-Trace mg/dL Urine Ketones Negative Negative mg/dL Nitrite Urine Negative Negative Leukocyte Esterase Urine Negative Negative RBC Urine 0-2 0-2 /HPF WBC Urine 0-5 0-5 /HPF Squamous Epithelial Cell Urine 0-2 0-2 /HPF Bacteria Urine None Seen None Seen Hyaline Casts Urine 0-2 0-2 /LPF Liver Panel Reviewed date:04/12/2025 11:41:15 AM Interpretation: Performing Lab:[address] [address] Notes/Report: Bilirubin Total 0.8 0.0-1.0 mg/dL Bilirubin Direct 0.3 0.0-0.5 mg/dL Aspartate Amino Transferase 42 5-31 U/L Alanine Aminotransferase 43 0-31 U/L Total Protein 7.7 6.5-8.0 g/dL Albumin Level 4.4 3.5-5.0 g/dL Alkaline Phosphatase 80 39-117 U/L Glucose Fasting Reviewed date:04/12/2025 11:42:02 AM Interpretation: Performing Lab:[facility], [address] [place] [phone] Notes/Report: Glucose Fasting 108 60-99 mg/dL A fasting glucose from 100-125 mg/dl is considered impaired (pre-diabetes). Lipid Panel with Reflex Reviewed date:04/12/2025 12:35:13 PM Interpretation: Performing Lab:[address] [address] Notes/Report: Triglycerides 86 <150 mg/dL Desirable Triglyceride: [...] A1c Reviewed date:04/12/2025 11:36:46 AM Interpretation: Performing Lab:[facility], [address] [place] [phone] Notes/Report: Hemoglobin A1c % 5.2 <6.0 % [...] average glucose, using the formula of the L5P-Urdcvok Average Glucose study (ADAG), Diabetes Care, Vol.31,#8, 2007 Bola Mitchell Reviewed date:09/27/2024 12:16:19 PM Interpretation: Performing Lab:[facility], [address] [place] [phone] Notes/Report: Bola Mitchell See Note Specimen held untested for 24 hours; Call to request Chemistry testing. MM tomosynthesis screening B I Reviewed date:01/30/2025 08:17:50 PM Interpretation: Performing Lab: Notes/Report: [facility] [address] [place] [address] Mammography Report Signed Patient: Ceci Reveles MR#: [id number] 01 : 1960 Acct:[id number] Age/Sex: 64 / F ADM Date: 01/17/25 Loc: HO.MAMMO Attending Dr: Issa Fields MD Ordering Physician: Issa Fields MD Results: 2Be nign Findings Date of Service: 01/17/25 Follow Up: 1 Year From Orig ina Mammogram Procedure(s): MM tomosynthesis screening BI Accession Number(s): [id number] cc: Issa Fields MD EXAMINATION: MM SCREENING [...] OV> 01/30/251955 DD/ 99 TD/TT: 01/17/25 1115 Telephone Diaphragm Assembler: [facility] [address] [place] [address] Dr. [place]ero, [place] [address] Mammography Report Signed Patient: Bakari Reveles MR#: [id number] 01 : 1960 Acct:[id number] Age/Sex: 64 / F ADM Date: 01/17/25 Loc: HO.MAMMO Attending Dr: Issa Fields MD Ordering Physician: Issa Fields MD Results: 2Be nign Findings Date of Service: 01/17/25 Follow Up: 1 Year From Orig ina Mammogram Procedure(s): MM tomosynthesis screening BI Accession Number(s): [id number] cc: Issa Fields MD EXAMINATION: MM SCREENING [...] OV> 01/30/251955 DD/ 1100 TD/TT: 01/17/25 1115 Telephone Diaphragm Assembler: US abdominal aortic aneurysm Reviewed date:02/13/2025 08:27:27 PM Interpretation: Performing Lab: Notes/Report: [facility] [place] [address] Ultrasound Report Signed Patient: Ceci Reveles MR#: [id number] 01 : 1960 Acct:[id number] Age/Sex: 64 / F ADM Date: 02/13/25 Loc: .HMGCX Attending Dr: Fabrizio Haile MD Ordering Physician: Fabrizio Haile MD Date of Service: 02/13/25 Procedure(s): US abdominal aortic aneurysm Accession Number(s): [id number] cc: Issa Fields MD; Fabrizio Haile MD [...] 02/13/25 1441 DD/ 1440 TD/TT: 02/13/25 1440 Telephone Diaphragm Assembler: [facility] [address] [place] [address] [place] [address] Ultrasound Report Signed Patient: Bakari Reveles MR#: [id number] 01 : 1960 Acct:[id number] Age/Sex: 64 / F ADM Date: 02/13/25 Loc: HO.HMGCX Attending Dr: Jadon Haile MD Ordering Physician: Fabrizio Haile MD Date of Service: 02/13/25 Procedure(s): US abdominal aortic aneurysm Accession Number(s): [id number] cc: Issa Fields MD; Fabrizio Haile MD [...] 02/13/25 1441 DD/ 1440 TD/TT: 02/13/25 1440 Telephone Diaphragm Assembler: Bola Valentino date:04/12/2025 11:38:26 AM Interpretation: Performing Lab:[facility], [address] [place] [address] Notes/Report: Hold Gold See Note Specimen held untested for 24 hours; Call to request Chemistry testing. CT lung screening Reviewed date:05/14/2025 12:27:52 PM Interpretation: Performing Lab: Notes/Report: [facility] [address] [place] [address] CT Scan Report Signed Patient: Ceci Reveles MR#: [id number] 01 : 1960 Acct:[id number] Age/Sex: 64 / F ADM Date: 05/14/25 Loc: HO.CT Attending Dr: Wilma Nazario PA-C Ordering Physician: Wilma Nazario PA-C Date of Service: 05/14/25 Procedure(s): CT lung screening Accession Number(s): [id number] cc: Issa Fields MD; Wilma Nazario PA-C Report Number: [id number]: Total DLP = 38.00 mGy-cm Reason for Exam: Z87.891 - Personal history of nicotine dependence EXAMINATION: CT LUNG SCREENING HISTORY: Z87.891 - Personal history of nicotine dependence TECHNIQUE: Low dose axial images were obtained from the sternal notch to upper abdomen without IV contrast per standard departmental protocol. Sagittal and coronal reformatted images were also obtained and reviewed. One or more of the following techniques was used for dose reduction: Automated exposure control, adjustment of the mA and/or kV according to patient size, use of iterative reconstruction technique. DLP: 38 mGy-cm COMPARISON: Passage is made with the prior examination dated 04/11/2024. FINDINGS: Lung nodules: Again seen are 2-3 mm nodules at the right lung apex (series 4, image 10), in the right upper lobe (series 4, image 16), in the right middle lobe (series 4, image 101), in the left upper lobe (series 4, image 12), and in the lingula (series 4, image 106). No suspicious pulmonary nodules are identified. Emphysema: mild Coronary Calcification: moderate Aortic Arch Calcification: mild Potentially Significant Incidentals : none Additional Chest Findings: There is no pleural or pericardial effusion. No mediastinal or axillary lymphadenopathy is identified. Visualized upper abdomen: The visualized portions of the liver, spleen, and adrenals have an unremarkable unenhanced appearance. CT/CT lung screening IMPRESSION: No suspicious pulmonary nodules are identified. LUNG-RADS ASSESSMENT: Lung-RADS 2: Benign MANAGEMENT: Continue annual screening with LDCT in 12 months Category S: N/A Electronically signed by: Leland Gutierrez MD 05/14/2025 10:30 AM EST Dictated By: Leland Gutierrez MD Signed By: <Electronically signed by Leland Gutierrez MD in OV> 05/14/25 1030 DD/ 1007 TD/TT: 05/14/25 1020 Telephone Diaphragm Assembler: [place] [address] CT Scan Report Signed Patient: Bakari Reveles MR#: [id number] 01 : 1960 Acct:[id number] Age/Sex: 64 / F ADM Date: 05/14/25 Loc: HO.CT Attending Dr: Wilma Nazario PA-C Ordering Physician: Wilma Nazario PA-C Date of Service: 05/14/25 Procedure(s): CT derrell g screening Accession Number(s): [id number] cc: Issa Fields MD; Wilma Nazario PA-C Report Number: [id number]: Total DLP = 38.00 mGy-cm Reason for Exam: Z87.891 - Personal history of nicotine dependence EXAMINATION: CT LUNG SCREENING HISTORY: Z87.891 - Personal history of nicotine dependence TECHNIQUE: Low dose axial images were obtained from the sternal notch to upper abdomen without IV contrast per standard departmental protocol. Sagittal a nd coronal reformatted images were also obtained and reviewed. One or more of the following techniques was used for dose reduction: Automated exposure control, adjustment of the mA and/or kV according to josey ent size, use of iterative reconstruction technique. DLP: 38 mGy-cm COMPARISON: Passage is made with the prior examination dated 04/11/2024. FINDINGS: Lung nodules: Again seen are 2-3 mm nodules at the right lung apex (series 4, image 10) , in the right upper lobe (series 4, image 16), in the right middle lob e (series 4, image 101), in the left upper lobe (series 4, image 12) , and in the lingula (series 4, image 106). No suspicious pulmonary nodules are identified. Emphysema: mild Coronary Calcificati on: moderate Aortic Arch Calcification: mild Potentially Signific ant Incidentals : none Additional Chest Findings: There is no pleural or pericardial effusion. No mediastinal or axillary lymphadenopathy is identified. Visualized upper abdomen: The visualized portions of the liver, spleen, and adrenals have an unremarkable unenhanced appearance. ___ _ CT/CT lung screening IMPRESSION: No suspicious pulmon marie nodules are identified. LUNG-RADS ASSESSMENT: Lung-RADS 2: Benign MANAGEMENT: Continue annual screening with LDCT in 12 months Category S: N/A Electronically naomi d by: Leland Gutierrez MD 05/14/2025 10:30 AM [facility] Dictated By: Leland Gutierrez MD Signed By: <Electronically signed by Leland Gutierrez MD in OV> 05/14/25 1030 DD/ 1007 TD/TT: 05/14/25 1020 Telephone Diaphragm Assembler: Reason For Referral Reason needs colonoscopy Diagnosis 1 Colon cancer screeni ng (Z12.11) Referral Organization Issa Fields MD Referring Provider First Name Issa Referring Provider Last Name Diamond Referring Provider Speciality Internal M edicine Referred Provider Leland Quintanilla Referred Provider Specialty Gastroentero logy General Notes Tia Krueger 0 10/18/2024 01:58:09 PM >info faxedEvans Annette 10/22/2024 02:47:26 PM >per office info refaxedEavns Annette 11/16/2024 10:40:25 AM >ins referral info [...] Referring Provider Speciality Internal edicine Referred Provider [facility], [facility] Kimberly Referred Provider Specialty Allergy/Immu nology General Notes [...] PM > no able to go to [facility], they do not accept her insurance. info faxed to [facility], Tia Krueger 11/16/2024 01:48:38 PM > [...] Referring Provider Speciality Internal edicine Referred Provider [facility] Rhe[facility], [facility] Rhe[facility] Referred Provider Specialty Rheumatology General [...] Vaccine Unknown 03/20/2015 Administered HAD IT AT [facility] Fluarix Quadrivalent IM Intramuscular 04/13/2016 Administe red Fluarix Quadrivalent IM Intramuscular 04/26/2017 Administe red TDaP Unknown 06/10/2017 Administered pt was given the vaccine at [facility] in [place]. Fluarix Quadrivalent IM Intramuscular 04/24/2018 Administe red [...] Status W/U Status Risk Notes Problem Lymphocytosis (29327248) Lymphocytosis (D72.820) Active confirmed Problem 09377864834587495 Acute recurren t maxillary sinusitis (J01.01) Active confirmed Problem 9765368 Panlobular emphy sema (J43.1) Active confirmed Problem Aortic valve disorder (3252030) Aortic stenosis (I35.0) Active confirmed Problem 915870479 Low HDL (under 4 0) (E78.6) Active confirmed Problem 43487059 Alcohol abuse (F10.10) Active confirme d Problem Current smoker (91685305) Current smoker (F17.200) Active confirmed Problem 71156106 Dysthymia (F34.1) Active confirmed Problem 857863737 Multiple allergi es (Z88.9) Active confirmed Problem 74846227 CAD (coronary ar andres disease) (I25.10) Active confirmed Problem 014065164 Recurrent sinus infections (J32.9) Active confirmed Problem 456423571 Prediabetes (R73.03) Active confirmed Problem 185431886 Pure hypercholesterolemia (E78.00) Active confirmed Problem 259615236 History of viral pericarditis (Z86.79) Active confirmed Problem Aortic valve disorder (2103279) Moderate aortic stenosis (I35.0) Active confirmed Problem Localized, primary osteoarthritis of the hand (979337544) Arthritis pain of hand (M19.049) Active confirmed Problem 691352683 Recurrent sinusi tis (J32.9) Active confirmed Vital Signs Blood pressure diastolic 86 mm Hg 04/26/2025 davonte ght is up 7 pounds since 11-06-24 Height 66 in 04/26/2025 weight is up 7 pounds since 11-06-24 Blood pressure systolic 124 mm Hg 04/26/2025 jose ht is up 7 pounds since 11-06-24 Weight 129 lbs 04/26/2025 weight is up 7 pounds since 11-06-24 BMI 20.82 kg/m2 04/26/2025 weight is up 7 pounds since 11-06-24 Encounters Encounter Location Date Provider Diagnosis Issa Fields MD [address] [place] [id number] 09/27/2024 Issa Fields Blood tests for rout ine general physical examination Z00.00 ; Pure hypercholesterolemia E78.00 ; Prediabetes R73.03 and Lymphocytosis D72.820 Issa Fields MD [address] [place] [id number] 04/12/2025 Issa Fields Prediabetes R73.03 a nd Pure hypercholesterolemia E78.00 Issa Fields MD [address] [place] [id number] 06/05/2024 Issa Fields Nasal polyps J33.9 a nd Recurrent sinus infections J32.9 Issa Fields MD [address] [place] [address] [id number] 08/03/2024 Issa Fields Nasal polyps J33.9 a nd Recurrent sinus infections J32.9 Issa Fields MD [address] [place] [id number] 10/02/2024 Issa Fields Recurrent sinusitis J32.9 Issa Fields MD [address] [place] [id number] 10/09/2024 Issa Fields Annual physical exam Z00.00 ; Moderate aortic stenosis I35.0 ; Nasal polyps J33.9 ; De Quervain's disease (tenosynovitis) M65.4 ; Pure hypercholesterolemia E78.00 ; Panlobular emphysema J43.1 and Depression screening Z13.31 Issa Fields MD [address] [place] [address] [id number] 11/06/2024 Issa Fields Aortic stenosis I35. 0 Issa Fields MD [address] [place] [id number] 04/26/2025 Issa Fields Prediabetes R73.03 ; Moderate aortic stenosis I35.0 ; Elevated LFTs R79.89 and Pure hypercholesterolemia E78.00 Issa Fields MD [address] [place] [id number] 10/25/2024 Issa Fields Pure hypercholestero lemia E78.00 Issa Fields MD [address] [place] [address] [id number] 11/26/2024 Issa Fields MD [address] [place] [address] [id number] 03/07/2025 Issa Fields MD [address] [place] [address] [id number] 05/13/2025 Issa Fields MD [address] [id number] 05/14/2025 Issa Fields Assessments Encounter Date Diagnosis (ICD [...] stenosis (ICD-10 - I35.0) order faxed to [facility] , pending diagnostic testing 11/06/2024 Aortic stenosis (ICD -10 - I35.0) will get referral to dr jhoan cruz at [facility]/ NOT having any symptoms 04/26/2025 Prediabetes (ICD-10 [...] 04/06/2025 Next Appt Details Provider Name:Issa keen, 07/26/2025 10:45:00 AM, [address] [place] [address], [address], [place], [place], [id number], Provider Name:Issa keen, 10/10/2025 07:15:00 AM, [address], [address], [place], [place], [id number], Provider Name:Issa Patrick chandrakantr, 10/17/2025 11:00:00 AM, [address], [address], [place], [place], [id number], Insurance Providers Payer Name Payer Address Payer Phone Subscriber Number Group Number Insured Name Patient Relationship to Insured Coverage Start Date Coverage End Date [facility] are [employer] [address] [address] [place] [address] [id number] Ceci Reveles Self - patient is the insured [employer] [address] [place] [address] [id number] Francisco Jvanessa Ceci Self - patient is the insured Medical (General) History Medical History History ICD Code 06/18/15 - Colonoscopy done b y Dr. Jay Kenny - repeat n 10 years as all polyps were hyperplastic varenicline is chantix
--- OUTSIDE RECORDS SUMMARY | 2025-05-15 17:48 | XMS_ITS | Patient Health Record ---
Author Organization [facility] Address [address] [place] [address] Care Team Providers Care Clothing Worker Name Role Phone Issa Fields MD Primary Care Provider Leland Haas Unavailable [phone] SAMIR PERES Unavailable Unavailab le Allergies No [...] W/U Status Risk Notes Problem Preprocedural examination (395980488502477) Preprocedural examination (Z01.818) Active confirmed Vital Signs Temperature 96.9 degrees Fahrenheit 02/12/2025 Blood pressure diastolic 01 mm Hg 02/12/2025 Height 65 in 02/12/2025 Blood pressure systolic 001 mm Hg 02/12/2025 Weight 123.8 lbs 02/12/2025 BMI 20.6 kg/m2 02/12/2025 Procedures Procedure Date Ordered Date Performed Result Body Sit e COLONOSCOPY 02/12/2025 N/A Encounters Encounter Location Date Provider Diagnosis [facility] [address] [place] [address] 02/12/2025 Leland Quintanilla Colon cancer screeni ng Z12.11 and Preprocedural examination Z01.818 [facility] [address] [place] [address] 05/14/2025 Leland Quintanilla Assessments Encounter Date Diagnosis [...] Insured Coverage Start Date Coverage End Date [facility] [address] [place] [address] [id number] CECI REVELES Self - patient is the insured Medical (General) History Medical History History ICD Code COPD/Asthma Aortic stenosis-sees Dr. Peres Colonoscopy 2014 with only hyperplastic polyps-Dr. Kenny Denies [place],DM,CVA,renal disease Surgical History Surgery Date(Month/Year) ulnar nerve elbow nasal polyps skin cancers-basal, squamous back- surgery needle butcpq-pxhcry-oatfin bunionectomy
--- OUTSIDE RECORDS SUMMARY | 2025-05-15 17:48 | XMS_ITS | Patient Health Record ---
Author Organization [facility] [place] Address [address] [place] [address] Care Team Providers Care Tool Crib Supervisor Name Role Phone Issa Fields MD Primary Care Provider Conymiguel ángel alisonmirella Phillips Charlene Unavailable [phone] Allergies Allergen (clinical drug ingredient) Drug/Non Drug [...] Status Risk Notes Problem Acquired hallux valgus (72292008) Hallux valgus (acquired), left foot (M20.12) Active confirmed Problem Plantar wart (13982016) Plantar wart (B07.0) Active confirmed Problem Acquired hammer toe of left foot (67709394949 ) Other hammer toe(s) (acquired), left foot (M20.42) Active confirmed Problem Acquired hallux rigidus (6160128) Hallux rigidus, right foot (M20.21) Active confirmed Problem Acquired hammer toe of left foot (29916983679 ) Hammer toe of left foot (M20.42) Active confirmed Improvement Problem Spasm (97139271) Extensor tendon tightness, contracture (M62.40) Active confirmed Improvement Vital Signs Blood pressure diastolic 80 mm Hg 05/24/2024 Height 5ft6in in 05/24/2024 Blood pressure systolic 130 mm Hg 05/24/2024 Weight 112 lbs 05/24/2024 BMI 18.08 kg/m2 05/24/2024 Procedures Procedure Date Ordered Date Performed Result Body Sit e 20562 - Tenotomy, open flexor 05/17/2024 N/A 40177-Kast Destruction, -05/24/2024 N/A Encounters Encounter Location Date Provider Diagnosis [facility] [address] [address] 05/17/2024 Charlene Black Hammer toe of left foot M20.42 [facility] [address] [address] 05/24/2024 Charlene Black Hammer toe of left [...] 02/27/2024 X ray : Foot, right 3V 11/28/201790658-Jscr Destruction, -05/24/2024 94554-Lycg Destruction, 1-14 12/19/2017 87119-Fqxl Destruction, 07-2401/16/2018 61530-Tfqs Destruction, 07-2402/24/2012 90139-Rhug Destruction, 07-2405/16/2013 69893-Yxnn Destruction, 07-2411/28/2017 99849 - Tenotomy, open flexor 05/17/2024 Insurance Providers Payer Name Payer Address Payer Phone Subscriber Number Group Number Insured Name Patient Relationship to Insured Coverage Start Date Coverage End Date [employer] Adv-65537 [address] [address] [place] [address] [id number] Ceci Melendez Self - patient is the insured Medical (General) History Medical History History ICD Code asthma CAD (Cholesterol) Surgical History Surgery Date(Month/Year) bunionectomy x2 elbow sx 2010 polypectomy 2006, 2009 Ulna nerve Biopsy nasal polypectomy 2013,2019
== END 2025-05-15 14:55 | disposition home or self-care (01) ==
LOC: HO.HCS 14:38
PROVIDERS: PCP Internal Medicine; Visit Provider Internal Medicine
DX: I35.0 Nonrheumatic aortic (valve) stenosis (principal); Z01.810 Encounter for preprocedural cardiovascular examination; I70.0 Atherosclerosis of aorta; Z88.8 Allergy status to other drugs, medicaments and biological substances
CPT/HCPCS: 99214; G2211

== ENCOUNTER → 2025-05-15 14:37 | Outpatient (BNVA) | payer MEDICARE, SELFPAY | PROVIDERS: PCP Internal Medicine; Visit Provider Internal Medicine | DX: I35.0 Nonrheumatic aortic (valve) stenosis (principal); I70.0 Atherosclerosis of aorta; Z87.891 Personal history of nicotine dependence; Z01.810 Encounter for preprocedural cardiovascular examination; Z88.8 Allergy status to other drugs, medicaments and biological substances | CPT/HCPCS: 99212 ==

== ENCOUNTER → 2025-06-24 08:14 | Outpatient (REF) | payer MEDICARE, SELFPAY ==
--- NOTE | 2025-06-24 08:16 | CA_ITS ---
Acquisition Time: 2025-06-24 08:51:43 Total Exercise Time: 00:05:00 Test Indications: PREOP, AORTIC STENOSIS Medications: SEE H&P Protocol: BRYCE Max HR: 160 BPM 103% of Pred: 154 BPM Max BP: 140/84 mmHG Max Work Load: 4.6 METS Exercise stress test with exercises 5 mins of Bryce Protocol held at Stage 1, achieving 103% MPHR, with reports of SOB, fatigue and dizziness, without any arrythmias, with normotensive response to exercise. Without any EKG changes meeting criteria for ischemia. In recovery, breathing improved and dizziness resolved. Pt feeling back to baseline. Test reviewed with Dr. Adams. Referred By: Fabrizio Haile Electronically Signed By: Herber Rodarte
== END ==
LOC: HO.CARD 08:14
PROVIDERS: PCP Internal Medicine; Visit Provider Internal Medicine
DX: I35.0 Nonrheumatic aortic (valve) stenosis (principal)
CPT/HCPCS: 93017

== ENCOUNTER → 2025-06-24 08:16 | Outpatient (BNV) | payer MEDICARE, SELFPAY | PROVIDERS: PCP Internal Medicine | DX: R06.02 Shortness of breath (principal); R53.83 Other fatigue; R42 Dizziness and giddiness | CPT/HCPCS: 93016; 93018 ==